=== PATIENT | male | born 1970 | race Hispanic/Latino ===

== ENCOUNTER 2017-12-19 08:22 | Observation (INO) | payer BC, SELFPAY ==
[2017-12-19 09:04] LABS: Absolute Lymphocytes (CBC) 2.5 K/uL (0.7-4.9); Absolute Monocytes 0.5 K/uL (0.1-1.3); Absolute Neutrophil 3.5 K/uL (1.8-8.0); Basophils % 1.1 % (0-1.3); Eosinophils % 1.9 % (0-4.4); Hematocrit 43.2 % (39.6-49.0); Lymphocytes % 37.5 % (15.3-44.8); MCH 35.2 pg (27.0-35.0); MCV 99.2 fL (80-100); Monocytes % 6.9 % (3.3-12.3); RBC Red Blood Cell Count 4.35 M/uL (4.33-5.43)
[2017-12-19 09:25] LABS: BUN Blood Urea Nitrogen 12 mg/dL (7-18); Bicarbonate 27 mmol/L (21-32); CKMB Creatine Kinase MB < 1.0 ng/mL (0.3-3.6); Creatine Phosphokinase 127 U/L (39-308); Glucose Level 96 mg/dL (74-106); NT PRO-BNP 238 pg/mL (<125); Potassium 3.5 mmol/L (3.5-5.1); Sodium Level 140 mmol/L (136-145)
[2017-12-19] MEDS ORDERED: ONDANSETRON 4 MG/2 ML VIAL ONE (09:37)
[2017-12-19] MEDS ORDERED: NITROGLYCERIN 0.4 MG/TAB SL ONE ×2 (09:38→14:44)
--- NOTE | 2017-12-19 10:23 | EDPHYS ---
Physician Documentation [facility] Name: Guzman Ha Age: 47 yrs Sex: Male : 1970 Arrival Date: 12/19/2017 Time: 08:25 Bed 15 Private MD: Out, [facility], [facility] ED Physician Jorge Luis Acevedo HPI: 12/19 08:59 This 47 yrs old Male presents to ER via Ambulatory with complaints of Chest rn Pain > 30 y/o. 08:59 The patient or guardian reports chest pain that is located primarily in the substernal rn area. 09:00 Onset: yesterday. The pain does not radiate. Associated signs and symptoms: Pertinent rn positives: nausea, Pertinent negatives: abdominal pain, cough, diaphoresis, near syncope, shortness of breath, syncope, vomiting. Historical: - Allergies: 08:37 Ibuprofen; aj - Home Meds: 08:37 levothyroxine 100 mcg tab 1 tab once daily [Active]; aspirin 81 mg Oral chew 1 tab once aj daily [Active]; - PMHx: 08:37 Hodgkins Lymphoma; Myocardial infarction; aj - PSHx: 08:37 BONE MARROW TRANSPLANT; CARDIAC STENTS; aj - Immunization history:: Adult Immunizations up to date. - Ebola Screening: : Patient negative for fever greater than or equal to 101.5 degrees Fahrenheit, and additional compatible Ebola Virus Disease symptoms Patient denies exposure to infectious person Patient denies travel to an Ebola-affected area in the 21 days before illness onset No symptoms or risks identified at this time. - Family history:: not pertinent. - Social history:: Smoking status: Patient/guardian denies using tobacco. - Hospitalizations: : No recent hospitalization is reported. ROS: 09:02 Constitutional: Negative for fever, chills, and weight loss, Eyes: Negative for injury, rn pain, redness, and discharge, Neck: Negative for injury, pain, and swelling, Cardiovascular: + chest pain Respiratory: Negative for shortness of breath, cough, wheezing, and pleuritic chest pain, Abdomen/GI: Negative for abdominal pain, vomiting, diarrhea, and constipation, MS/Extremity: Negative for injury and deformity, Skin: Negative for injury, rash, and discoloration, Neuro: Negative for headache, weakness, numbness, tingling, and seizure. Exam: 09:02 Constitutional: This is a well developed, well nourished patient who is awake, alert, rn and in no acute distress. Head/Face: Normocephalic, atraumatic. Cardiovascular: Regular rate and rhythm with a normal S1 and S2. No gallops, murmurs, or rubs. Normal PMI, no JVD. No pulse deficits. Respiratory: Lungs have equal breath sounds bilaterally, clear to auscultation and percussion. No rales, rhonchi or wheezes noted. No increased work of breathing, no retractions or nasal flaring. Abdomen/GI: Soft, non-tender, with normal bowel sounds. No distension or tympany. No guarding or rebound. No evidence of tenderness throughout. Skin: Warm, dry with normal turgor. Normal color with no rashes, no lesions, and no evidence of cellulitis. MS/ Extremity: Pulses equal, no cyanosis. Neurovascular intact. Full, normal range of motion. Equal circumference. Neuro: Awake and alert, GCS 15, oriented to person, place, time, and situation. Cranial nerves II-XII grossly intact. Motor strength 5/5 in all extremities. Sensory grossly intact. Vital Signs: 08:37 BP 144 / 98; Pulse 66; Resp 17; Temp 98.0; Pulse Ox 100% on R/A; Weight 99.79 kg; aj Height 5 ft. 8 in. (172.72 cm); 09:40 BP 143 / 91; Pulse 76; Resp 18; Pulse Ox 99% on R/A; Pain 7/10; ph 11:18 BP 123 / 79; Pulse 56; Resp 54; Temp 18; Pulse Ox 97% on R/A; Pain 5/10; ph 12:30 BP 125 / 78; Pulse 50; Resp 18; Pulse Ox 98% on R/A; ph 13:30 BP 121 / 80; Pulse 50; Resp 16; Temp 97.8; Pulse Ox 99% on R/A; ph 08:37 Body Mass Index 33.45 (99.79 kg, 172.72 cm) aj MDM: 08:37 Patient medically screened. rn 10:21 Differential diagnosis: acute myocardial infarction, acute pericarditis, coronary rn artery disease chest wall pain, pleurisy, pneumothorax, stable angina, unstable angina. 10:22 The patient was given aspirin in the Emergency Department. Data reviewed: vital signs, rn nurses notes, lab test result(s), EKG, radiologic studies, plain films, and as a result, I will admit patient. Counseling: I had a detailed discussion with the patient and/or guardian regarding: the historical points, exam findings, and any diagnostic results supporting the discharge/admit diagnosis, lab results, radiology results, the need for further work-up and treatment in the hospital. Response to treatment: the patient's symptoms have mildly improved after treatment. Admission orders: after a detailed discussion of the patient's condition and case, the admit orders are written by me. 12/19 08:45 Order name: Basic Metabolic Panel; Complete Time: : rn 12/19 08:45 Order name: CBC with Diff; Complete Time: : rn 12/19 08:45 Order name: Ckmb; Complete Time: : rn 12/19 08:45 Order name: CPK; Complete Time: : rn 12/19 08:45 Order name: NT PRO-BNP; Complete Time: : rn 12/19 08:45 Order name: Troponin (emerg Dept Use Only); Complete Time: : rn 12/19 08:45 Order name: XRAY Chest (1 view); Complete Time: 10:37 rn 12/19 08:45 Order name: EKG; Complete Time: 08:45 rn 12/19 08:45 Order name: Cardiac monitoring; Complete Time: : rn 12/19 12:06 Order name: Diet Heart Healthy; Complete Time: 12:06 bd 12/19 08:45 Order name: EKG - Nurse/Tech; Complete Time: 09:41 rn 12/19 08:45 Order name: IV Saline Lock; Complete Time: 08:47 rn 12/19 08:45 Order name: Labs collected and sent; Complete Time: : rn 12/19 08:45 Order name: O2 Per Protocol; Complete Time: : rn 12/19 08:45 Order name: O2 Sat Monitoring; Complete Time: 09:42 rn Administered Medications: 09:42 Drug: Nitroglycerin 0.4 mg Route: Sublingual; ph 10:30 Follow up: Response: No adverse reaction; Pain is decreased; Blood pressure is lowered ph 09:42 Drug: Zofran 4 mg Route: IVP; Site: right antecubital; ph 10:30 Follow up: Response: No adverse reaction; Nausea is decreased ph 10:49 Drug: Aspirin Chewable Tablet 324 mg Route: PO; ph 11:30 Follow up: Response: No adverse reaction ph 11:34 Drug: morphine 4 mg Route: IVP; Site: right antecubital; ph 12:00 Follow up: Response: No adverse reaction; Pain is decreased ph Disposition: 12/19/17 10:22 Hospitalization ordered by Kristopher Taylor for Observation. Preliminary diagnosis is Chest pain, unspecified. - Bed requested for Telemetry/MedSurg (observation). - Status is Observation. ph - Condition is Stable. - Problem is new. - Symptoms have improved. UTI on Admission? No Signatures: Dispatcher [employer] EDMS Joselyn Oneil Kimberly RN Shireen Motta RN RN dm5 Natali Carrion RN RN aj Nieto, Roman, MD MD rn Hall, Patricia, RN RN ph Corrections: (The following items were deleted from the chart) 13:35 10:22 Hospitalization Ordered by Kristopher Taylor MD for Observation. Preliminary diagnosis bd is Chest pain, unspecified. Bed requested for Telemetry/MedSurg (observation). Status is Observation. Condition is Stable. Problem is new. Symptoms have improved. UTI on Admission? No. rn 13:37 13:35 12/19/2017 10:22 Hospitalization Ordered by Kristopher Taylor MD for Observation. dm5 Preliminary diagnosis is Chest pain, unspecified. Bed requested for [facility] ER HOLD. Status is Observation. Condition is Stable. Problem is new. Symptoms have improved. UTI on Admission? No. bd 14:06 13:37 12/19/2017 10:22 Hospitalization Ordered by Kristopher aTylor MD for Observation. kl Preliminary diagnosis is Chest pain, unspecified. Bed requested for [facility] ER HOLD. Status is Observation. Condition is Stable. Problem is new. Symptoms have improved. UTI on Admission? No. dm5 14:54 14:06 12/19/2017 10:22 Hospitalization Ordered by Kristopher Taylor MD for Observation. ph Preliminary diagnosis is Chest pain, unspecified. Bed requested for Telemetry/MedSurg (observation). Status is Observation. Condition is Stable. Problem is new. Symptoms have improved. UTI on Admission? No. kl
--- NOTE | 2017-12-19 10:23 | ER ---
Nurse's Notes [facility] Name: Guzman Ha Age: 47 yrs Sex: Male : 1970 Arrival Date: 12/19/2017 Time: 08:25 Bed 15 Private MD: Out, [facility] Diagnosis: Chest pain, unspecified Presentation: 12/19 08:35 Presenting complaint: Patient states: Chest pain since last night. Patient reports he aj has not been compliant with "heart medications" for 6 months due to financial reasons. Transition of care: patient was not received from another setting of care. Onset of symptoms was December 18, 2017. Risk Assessment: Do you want to hurt yourself or someone else? Patient reports no desire to harm self or others. Initial Sepsis Screen: Does the patient meet any 2 criteria? No. Patient's initial sepsis screen is negative. Does the patient have a suspected source of infection? No. Patient's initial sepsis screen is negative. Care prior to arrival: None. 08:35 Method Of Arrival: Ambulatory aj 08:35 Acuity: BRIAN 3 aj Triage Assessment: 08:37 General: Appears in no apparent distress. comfortable, Behavior is calm, cooperative, aj appropriate for age. Pain: Complains of pain in chest. Neuro: Level of Consciousness is awake, alert, obeys commands, Oriented to person, place, time, situation, Appropriate for age. Cardiovascular: Reports chest pain, Capillary refill < 3 seconds in bilateral fingers Patient's skin is warm and dry. Respiratory: Airway is patent Respiratory effort is even, unlabored, Respiratory pattern is regular, symmetrical. Derm: Skin is intact, is healthy with good turgor, Skin is pink, warm \\T\\ dry. normal. Historical: - Allergies: 08:37 Ibuprofen; aj - Home Meds: 08:37 levothyroxine 100 mcg tab 1 tab once daily [Active]; aspirin 81 mg Oral chew 1 tab once aj daily [Active]; - PMHx: 08:37 Hodgkins Lymphoma; Myocardial infarction; aj - PSHx: 08:37 BONE MARROW TRANSPLANT; CARDIAC STENTS; aj - Immunization history:: Adult Immunizations up to date. - Ebola Screening: : Patient negative for fever greater than or equal to 101.5 degrees Fahrenheit, and additional compatible Ebola Virus Disease symptoms Patient denies exposure to infectious person Patient denies travel to an Ebola-affected area in the 21 days before illness onset No symptoms or risks identified at this time. - Family history:: not pertinent. - Social history:: Smoking status: Patient/guardian denies using tobacco. - Hospitalizations: : No recent hospitalization is reported. Screenin:26 Abuse screen: Denies threats or abuse. Denies injuries from another. Nutritional ph screening: No deficits noted. Tuberculosis screening: No symptoms or risk factors identified. Fall Risk None identified. Assessment: 08:45 General: Appears in no apparent distress. comfortable, well groomed, Behavior is calm, ph cooperative, appropriate for age, Denies fever, feeling ill. Pain: Complains of pain in left breast Pain does not radiate. Pain currently is 5 out of 10 on a pain scale. Quality of pain is described as sharp, stabbing, Pain began 2-3 days ago. Neuro: Level of Consciousness is awake, alert, obeys commands, Oriented to person, place, time, situation. Cardiovascular: Reports chest pain, nausea, Denies lightheadedness, shortness of breath, vomiting, Capillary refill Patient's skin is warm and dry. Rhythm is sinus rhythm Chest pain quality is sharp, is located in left anterior chest wall. Respiratory: Airway is patent Respiratory effort is even, unlabored, Respiratory pattern is regular, symmetrical. GI: No signs and/or symptoms were reported involving the gastrointestinal system. Derm: Skin is intact, is healthy with good turgor, Skin is pink, warm \\T\\ dry. Musculoskeletal: Circulation, motion, and sensation intact. Range of motion: intact in all extremities. 09:41 Reassessment: Patient appears in no apparent distress at this time. Patient and/or ph family updated on plan of care and expected duration. Pain level reassessed. Patient is alert, oriented x 3, equal unlabored respirations, skin warm/dry/pink. Pt reports chest pain 7/10 and nausea, ERP notified, see MAR. 10:45 Reassessment: Patient appears in no apparent distress at this time. Patient and/or ph family updated on plan of care and expected duration. Pain level reassessed. Patient is alert, oriented x 3, equal unlabored respirations, skin warm/dry/pink. Pt reports pain has decreased to 5/10, denies nausea, states, " I am still having a burning pain in my chest. Do you think I can get something for it?" ERP notified, awaiting room assignment, VSS. 12:00 Reassessment: Patient appears in no apparent distress at this time. Patient and/or ph family updated on plan of care and expected duration. Pain level reassessed. Patient is alert, oriented x 3, equal unlabored respirations, skin warm/dry/pink. Pt reports that pain has improved to 2/10, denies nausea. 13:00 Reassessment: Patient appears in no apparent distress at this time. No changes from ph previously documented assessment. Patient and/or family updated on plan of care and expected duration. Pain level reassessed. Patient is alert, oriented x 3, equal unlabored respirations, skin warm/dry/pink. Pt eating lunch, tolerating well. Vital Signs: 08:37 BP 144 / 98; Pulse 66; Resp 17; Temp 98.0; Pulse Ox 100% on R/A; Weight 99.79 kg; aj Height 5 ft. 8 in. (172.72 cm); 09:40 BP 143 / 91; Pulse 76; Resp 18; Pulse Ox 99% on R/A; Pain 7/10; ph 11:18 BP 123 / 79; Pulse 56; Resp 54; Temp 18; Pulse Ox 97% on R/A; Pain 5/10; ph 12:30 BP 125 / 78; Pulse 50; Resp 18; Pulse Ox 98% on R/A; ph 13:30 BP 121 / 80; Pulse 50; Resp 16; Temp 97.8; Pulse Ox 99% on R/A; ph 08:37 Body Mass Index 33.45 (99.79 kg, 172.72 cm) ED Course: 08:25 Patient arrived in ED. sb2 08:25 Out, [facility] is Private Physician. sb2 08:36 Triage completed. aj 08:37 Jorge Luis Acevedo MD is Attending Physician. rn 08:37 Arm band placed on left wrist. Patient placed in an exam room. aj 08:40 Inserted saline lock: 20 gauge in right antecubital area, using aseptic technique. em1 Blood collected. 09:25 Rajwinder Prieto, RN is Primary Nurse. ph 09:26 XRAY Chest (1 view) In Process Unspecified. EDMS 09:40 EKG done, by plumbing technician. reviewed by Jorge Luis Acevedo MD. dt2 10:22 Kristopher Taylor MD is Hospitalizing Provider. rn 13:27 Patient has correct armband on for positive identification. Bed in low position. Call ph light in reach. Side rails up X 1. Pulse ox on. NIBP on. Warm blanket given. 13:31 No provider procedures requiring assistance completed. Patient admitted, IV remains in ph place. Patient maintains SpO2 saturation greater than 95% on room air. Administered Medications: 09:42 Drug: Nitroglycerin 0.4 mg Route: Sublingual; ph 10:30 Follow up: Response: No adverse reaction; Pain is decreased; Blood pressure is lowered ph 09:42 Drug: Zofran 4 mg Route: IVP; Site: right antecubital; ph 10:30 Follow up: Response: No adverse reaction; Nausea is decreased ph 10:49 Drug: Aspirin Chewable Tablet 324 mg Route: PO; ph 11:30 Follow up: Response: No adverse reaction ph 11:34 Drug: morphine 4 mg Route: IVP; Site: right antecubital; ph 12:00 Follow up: Response: No adverse reaction; Pain is decreased ph Outcome: 10:22 Decision to Hospitalize by Provider. rn 13:40 Admitted to ER Hold. Please see [facility] for further documentation. ph 13:40 Condition: stable 13:40 Instructed on the need for admit. 14:54 Patient left the ED. ph Signatures: Dispatcher [employer] Natali Downs RN RN aj Nieto, Roman, MD MD rn Martinez, Eric emRajwinder Echevarria RN RN ph Billeau, Sheri sb2 Lauren Desir dt2
--- NOTE | 2017-12-19 10:29 | RAD REPORT ---
EXAM DESCRIPTION: RAD - Chest Single View - 12/19/2017 9:27 am CLINICAL HISTORY: CHEST PAIN<Reason For Exam>CHEST PAIN COMPARISON: Chest Single View dated 11/05/2016; Chest Single View dated 09/12/2016; Chest Single View dated 09/05/2016; Chest Pa And Lat (2 Views) dated 08/22/2016<Comparisons> TECHNIQUE: AP portable chest image was obtained 0924 hours . FINDINGS: Lung volumes are low and the patient is lordotic in positioning. No peripheral mass or con solidation. Low lung volumes could mask early interstitial edema or infiltrate. Vasculature within no rmal limits. Mild cardiomegaly is present. No measurable pleural effusion and no pneumothorax. No massimo ss bony abnormality seen. No acute aortic findings suspected. IMPRESSION: Mild cardiomegaly without vascular engorgement. Prominent interstitial markings accentuated by shallow inspiration. Mild interstitial edema or infilt rate could be masked.
[2017-12-19] MEDS ORDERED: ASPIRIN 81 MG CHEWABLE TABLET ONE (10:50)
[2017-12-19] MEDS ORDERED: NITROGLYCERIN 0.4 MG/TAB SL PRN (10:52)
[2017-12-19] MEDS ORDERED: ACETAMINOPHEN 500 MG TAB PO PRN (10:52)
[2017-12-19] MEDS ORDERED: ALPRAZOLAM 0.25 MG TABLET PO PRN (10:52)
[2017-12-19] MEDS ORDERED: ZOLPIDEM TARTRATE 5 MG TABLET PO PRN (10:52)
[2017-12-19] MEDS: MORPHINE 4 MG/ML SYR IV PRN ×3 (11:34→21:03)
[2017-12-19] MEDS ORDERED: MORPHINE 4 MG/ML SYR ONE (11:35)
[2017-12-19 13:47] VITALS: BMI 33.3
--- NOTE | 2017-12-19 16:16 | EKG ---
Test Date: 2017-12-19 Test Time: 09:16:06 Forming Acid Dumper: NIKOS MEASUREMENT RESULTS: Intervals: Rate: 60 DC: 172 QRSD: 98 QT: 428 QTc: 428 [place]: P: 30 DC: 172 QRS: 16 T: 21 INTERPRETIVE STATEMENTS: Normal sinus rhythm Normal ECG Compared to ECG 11/06/2016 00:49:10 No significant changes Electronically Signed On 12-19-17 16:14:30 CDT by Aditya Delgado
[2017-12-19] MEDS ORDERED: ENOXAPARIN 40 MG/0.4 ML SQ SCH (17:00)
[2017-12-19] MEDS: CARVEDILOL 6.25 MG TAB PO SCH (20:58)
[2017-12-19] MEDS ORDERED: ROSUVASTATIN 10 MG TAB PO SCH (21:00)
[2017-12-19] MEDS ORDERED: ATORVASTATIN 80 MG TAB PO SCH (21:00)
--- NOTE | 2017-12-20 02:35 | HP ---
Date of Admission: 12/19/2017 Chief Complaint: Chest pain. Primary Care Physician: None. Consultants: Dr. Pettit, Cardiology. Code Status: Full. History Of Present Illness: The patient is a 47-year-old male, appears older than stated age, with p ast medical history of coronary artery disease, status post 8 stents, also hypothyroidism, history of lymphoma status post chemoradiation therapy and bone marrow transplant as well as obesity, comes in with a 3-day history of left-sided chest pain, which is burning in nature, associated with some nause a, but no vomiting, diaphoresis, or shortness of breath. The patient does report some radiation to [facility] of his chest. He came into the ER for further evaluation. His symptoms are constant, mode rate, progressively worsening. Upon arrival, his vital signs were stable. He was afebrile. He rece ived some nitroglycerin and aspirin, which improved his pain. His initial workup including EKG and t roponin were negative. Chest x-ray did not show any acute changes. The patient was then referred fo r admission. When seen in the ER, he was awake, alert, oriented x3, in some mild distress. Past Medical History: History of coronary artery disease status post stent, Hodgkin lymphoma, degene rative disk disease, hypothyroidism, obesity. Past Surgical History: Cardiac stent x7, bone marrow transplant. Home Medications: List reviewed. Allergies: TO IBUPROFEN CAUSES SHORTNESS OF BREATH. Family History: Father has heart disease. Mother's side of the family has multiple cancers. Social History: The patient is an every day smoker, smokes 4-6 cigars every day. Drinks alcohol occ asionally. Currently unemployed and unable to find work due to his cardiac condition, is filing for disability. Independent in his activities of daily living. Lives at his sister's apartment. Physical Examination: Vital Signs: Temperature 98, heart rate 66, blood pressure 144/98, respirations 17, O2 100% on room air. General: Awake, alert, oriented x3, in some mild distress, appears older than stated age, ill-appear ing male, obese, BMI 33. HEENT: Normocephalic, atraumatic. PERRLA, EOMI. Moist mucous membranes. Oropharynx is clear. Poo r dentition. Conjunctivae anicteric. Neck: Supple. No JVD. Trachea midline. CV: S1, S2. No murmurs. Regular rate and rhythm. Peripheral pulses present. Respiratory: Moving air well bilaterally. No wheezing or stridor. No use of accessory muscles. Gastrointestinal: Abdomen is soft, nontender, nondistended. Positive bowel sounds. No guarding or rigidity. Extremities: No clubbing, cyanosis. Trace pedal edema. No calf tenderness. Neuro: Cranial nerves 2 through 12 intact grossly. No focal neurological deficit. Speech is normal . Strength is 5/5 bilateral upper and lower extremities. Skin: No rashes. Normal skin turgor. Psych: Mood is anxious. Affect is congruent with mood. Insight and judgment are fair. Laboratory Data: Sodium 140, potassium 3.5, chloride 106, CO2 27, BUN 12, creatinine 1.2, glucose 96 , calcium 8.2. CK is 127, troponin less than 0.02. BNP 238. WBC 6.6, H and H 15.3 and 43.2, platel ets 255, neutrophils 52%. Chest x-ray, personally reviewed, shows mild cardiomegaly without vascular engorgement, prominent interstitial markings accentuated by shallow inspiration. Mild interstitial edema or infiltrate could be masked. Assessment: A 47-year-old male with: 1.Unstable angina. We will start on chest pain guidelines with aspirin, statin, Plavix and beta-blo cker. Cardiology has been consulted. We will obtain echocardiogram to evaluate wall motion and ejec tion fraction. The patient may need repeat cardiac evaluation, stress versus repeat catheterization. The patient has been noncompliant with his medications. 2.Noncompliance. Due to financial reasons, has been out of his medications for 9 months. 3.Coronary artery disease, [place] artery and [place] heart, status post stent with angina. We will c ontinue aspirin and Plavix. 4.Hypothyroidism. Continue Synthroid. 5.Essential hypertension. Resume home medications as appropriate. 6.Obesity, BMI 33.3, counseled. 7.Nicotine dependence with cigar smoking. Counseled. 8.Gastrointestinal and deep venous thrombosis prophylaxis addressed. Plan: Admit the patient to Med-Surg, place as observation. JOAQUÍN Voice ID: [id number]
[2017-12-20 03:35] VITALS: O2SAT 98
[2017-12-20 05:30] LABS: Absolute Lymphocytes (CBC) 2.1 K/uL (0.7-4.9); Absolute Monocytes 0.5 K/uL (0.1-1.3); Absolute Neutrophil 3.6 K/uL (1.8-8.0); Basophils % 0.9 % (0-1.3); Hematocrit 40.8 % (39.6-49.0); Lymphocytes % 33.2 % (15.3-44.8); MCH 35.7 pg (27.0-35.0); MCV 98.3 fL (80-100); Monocytes % 7.5 % (3.3-12.3); RBC Red Blood Cell Count 4.15 M/uL (4.33-5.43)
[2017-12-20 06:02] LABS: Potassium 4.1 mmol/L (3.5-5.1)
--- NOTE | 2017-12-20 06:38 | CON ---
Date of Consultation: 12/19/2017 Admitted on 12/19/[address] Taylor's service. I saw the patient on 12/19/2017. Reason For Consultation: Chest pain. History Of Present Illness: Mr. Ha is a 47-year-old male. He is well known to me from office visit and hospital admission. Had an LAD stent in August of 2016. He has a history of h ypertension and dyslipidemia. He came in with a sharp stabbing chest pain in the midepigastric regio n that would last 5 to 10 minutes at a time and keeps recurring. No nausea, vomiting, diaphoresis, P ND, orthopnea, pedal edema, palpitations, or syncope. By the time I saw him, he has already had nega tive troponin, CPKs and MBs, as well as EKG and chest x-ray. Past Medical History: As stated above. Allergies: HE IS ALLERGIC TO IBUPROFEN. Review of Systems: Negative. Social History: Negative. Family History: Positive for heart disease. Medications: At home include Lipitor, Plavix, Coreg, and Imdur. Physical Examination: Vital Signs: Stable, afebrile. HEENT: Negative. Neck: Supple. No bruit. Chest: Clear. Cardiac: Normal. Abdomen: Benign. Extremities: Revealed no clubbing, cyanosis, or edema. Diagnostic Data: Negative. Impression And Plan: Atypical chest pain, sharp, stabbing with burning, more suggestive of musculosk eletal pain or reflux disease. Workup so far is negative. The patient had an LAD stent 3 months ago and he is due to have a stress test and echocardiogram and I will schedule those for December 21, 2017 , and see what they show before making final decisions. His blood pressure is well controlled and hi s dyslipidemia is well controlled. CARLA/MODL Voice ID: [id number] Report ID: [id number]
[2017-12-20] MEDS ORDERED: PRASUGREL (EFFIENT) 10 MG TAB PO SCH (09:00)
[2017-12-20] MEDS ORDERED: ASPIRIN EC 81 MG TAB PO SCH (09:00)
[2017-12-20] MEDS ORDERED: ISOSORBIDE MONO SR 60 MG TAB PO SCH (09:00)
[2017-12-20] MEDS ORDERED: LISINOPRIL 10 MG TAB PO SCH (09:00)
[2017-12-20] MEDS ORDERED: CLOPIDOGREL 75 MG TABLET PO SCH (09:00)
[2017-12-20] MEDS: CARVEDILOL 6.25 MG TAB PO SCH (10:40)
[2017-12-20] MEDS: MORPHINE 4 MG/ML SYR IV PRN (10:42)
--- NOTE | 2017-12-20 10:59 | RAD REPORT ---
EXAM DESCRIPTION: NM - Rest Stress Cardiac Imaging - 12/20/2017 10:45 am CLINICAL HISTORY: CP Chest pain. COMPARISON: Rest Stress Cardiac Imaging dated 11/24/2015 TECHNIQUE: The patient was administered approximately 10mCi of Tc 99m Sestamibi prior to resting SPE CT imaging of the heart. The patient was then administered approximately 30 mCi of Tc 99m Sestamibi f ollowing exercise or pharmacologic stress. Multiplanar SPECT images were reviewed. FINDINGS: No stress induced ischemic defect is seen to suggest stress induced ischemia. No fixed def ect is seen to suggest hibernating myocardium or scarred myocardium. The end diastolic volume is 142 ml, the end systolic volume is 75 ml, and the ejection fraction is 47 %. IMPRESSION: No stress induced ischemia.
[2017-12-20 14:56] VITALS: BP 149/87; TEMP 98.5
--- NOTE | 2017-12-20 17:19 | ECHO ---
HEIGHT: 5 ft 8 in WEIGHT: 219 lb 0 oz DATE OF STUDY: 12/20/[address]: Kristopher Taylor MD 2-DIMENSIONAL: YES M.MODE: YES DOPPLER: YES COLOR FLOW: YES TDS: PORTABLE: DEFINITY: BUBBLE STUDY: DIAGNOSIS: CHEST PAIN CARDIAC HISTORY: CATHERIZATION: YES SURGERY: NO PROSTHETIC VALVE: NO PACEMAKER: NO MEASUREMENTS (cm) DIASTOLIC (NORMALS) SYSTOLIC (NORMALS) IVSd 1.1 (0.6-1.2) LA Diam 3.6 (1.9-4.0) LVEF 56% LVIDd 4.2 (3.5-5.7) LVIDs 3.0 (2.0-3.5) %FS 29% LVPWd 1.1 (0.6-1.2) Ao Diam 3.0 (2.0-3.7) 2 DIMENSIONAL ASSESSMENT: RIGHT ATRIUM: NORMAL LEFT ATRIUM: NORMAL RIGHT VENTRICLE: NORMAL LEFT VENTRICLE: NORMAL TRICUSPID VALVE: NORMAL MITRAL VALVE: NORMAL PULMONIC VALVE: NORMAL AORTIC VALVE: NORMAL PERICARDIAL EFFUSION: NONE AORTIC ROOT: NORMAL LEFT VENTRICULAR WALL MOTION: NORMAL DOPPLER/COLOR FLOW: NORMAL COMMENTS: NORMAL TWO DIMENSIONAL ECHOCARDIOGRAM WITH DOPPLER. TECHNOLOGIST: ITZEL MENDOZA
--- NOTE | 2017-12-20 18:26 | TREADMILL ---
70% H.R.: 120 85% H.R.: 145 90% H.R.: 154 100% H.R.: 171 DX: CHEST PAIN AND CORONARY ARTERY DISEASE Date of Study: 12/20/2017 Ht: 5 8 Wt: 219 lb 0 oz Consulting Physician: LIZBET MEDICATIONS: TYLENOL, XANAX, ASPIRIN, LIPITOR, COREG, PLAVIX, LOVENOX, IMDUR, PRINIVIL, NITROSTAT, AMBIEN HISTORY: 47 YEAR OLD MAN HERE FOR CHEST PAIN AND CORONARY ARTERY DISEASE. HISTORY OF MYOCARDIAL INFARCTION WITH TOTAL OF NINE HEART STENTS AND HODGKIN LYMPHOMA. PHYSICIAL EXAMINATION: RESTING B.P.: 138/97 RESTING H.R.: 69 RESTING EKG: NORMAL PROTOCOL: OVIDIO CARDIOLITE EXERCISE TIME: 7:36 MAXIMUM HEART RATE: 151 % OF PREDICTED B.P. AT PEAK STRESS: 174/92 140/97 H.R. AT 1 MINUTE POST EXERCISE: 96 IMPRESSION: OVIDIO CARDIOLITE STRESS TEST PREFORMED. STOPPED FOR TARGET HEART RATE. CARDIOLITE INJECTED PER PROTOCOL. NO PREMATURE VENTRICULAR COMPLEXES. NOTED. DENIES ANY PAIN. SEE NUCLEAR MEDICINE REPORT.
--- NOTE | 2017-12-21 07:33 | DS ---
Date of Discharge: 12/20/2017 Consultants: Dr. Delgado with Cardiology. Procedures: On 12/20/2017, cardiac stress test shows no stress-induced ischemia. EF of 47%. Admitting Diagnoses: 1.Unstable angina. Rule out acute coronary syndrome. 2.Noncompliance. 3.Coronary artery disease, [place] artery, [place] heart, status post stent with angina. 4.Hypothyroidism. 5.Essential hypertension. 6.Obesity, BMI 33.3. 7.Nicotine dependence with cigar smoking. Discharge Diagnoses: 1.Unstable angina, acute coronary syndrome ruled out, likely atypical chest pain. 2.Noncompliance due to financial reasons. 3.Coronary artery disease, [place] artery, [place] heart, status post stents with angina, now resolved . 4.Hypothyroidism. 5.Essential hypertension, stable. 6.Obesity, BMI 33.3. 7.Nicotine dependence with cigar smoking, counseled. 8.History of lymphoma. Hospital Course: The patient is a 47-year-old male who appears older than stated age. Has past medi april history of heart disease, status post 8 stents, hypothyroidism, history of lymphoma, obesity, hyp ertension, comes in with chest pain. The patient states it has been ongoing for several days. The p atjuanjo has of note not been on his medications for several months, approximately 9 months due to bonifacio ncial reasons. The patient was started on chest pain guidelines. His cardiac troponins were negativ e. EKG did not show any acute changes. He was seen by Dr. Delgado with Cardiology. Stress test was done which was negative. The patient was therefore cleared for discharge. His chest x-ray did not show any acute changes either. This may likely be gastroesophageal reflux disease or atypical chest pain. He did report some tenderness on his ribs with point tenderness. Social Work consulted to ass ist the patient with medication assistance card. The patient was then discharged home in a stable co ndition. Activity: As tolerated. Diet: Heart healthy. Followup: Follow up with PCP in 2 to 3 days. Follow up with noodle press operator, Dr. Delgado, in 2 weeks. Return to ER for worsening condition. Medications: As per medication reconciliation list. Physical Examination: General: Awake, alert, oriented x3. No acute distress. CV: S1, S2. No murmurs. Respiratory: Moving air well bilaterally. Abdomen: Soft, nontender, nondistended. Positive bowel sounds. Extremities: No clubbing, cyanosis, edema. Neurologic: Nonfocal. SA/MODL Voice ID: [id number] Report ID: [id number]
== END 2017-12-20 15:00 | disposition home or self-care (01) ==
LOC: ER 08:22 → ERHOLD 10:40 → 2ND 14:35
PROVIDERS: ADMIT Family Medicine; ATTEND Family Medicine
DX: I25.110 Atherosclerotic heart disease of native coronary artery with unstable angina pectoris (principal); I10 Essential (primary) hypertension; E03.9 Hypothyroidism, unspecified; F17.210 Nicotine dependence, cigarettes, uncomplicated; E66.9 Obesity, unspecified; Z68.33 Body mass index [BMI] 33.0-33.9, adult; Z85.72 Personal history of non-Hodgkin lymphomas; Z95.5 Presence of coronary angioplasty implant and graft; Z91.14 Patient's other noncompliance with medication regimen
CPT/HCPCS: 36415; 71045; 78452; 80048; 80061; 82550; 82553; 83880; 84484; 85025; 93005; 93017; 93306; 94760; 96374; 96375; 99285; A9500; G0378; J1650; J2405

== ENCOUNTER 2018-03-18 15:46 | Observation (INO) | payer SELFPAY ==
[2018-03-18] MEDS ORDERED: NA CHLORIDE 0.9% 1,000 ML ONE (16:13)
--- NOTE | 2018-03-18 16:37 | EDPHYS ---
Physician Documentation [facility] Name: Guzman Ha Age: 47 yrs Sex: Male : 1970 Arrival Date: 03/18/2018 Time: 15:47 Bed 7 Private MD: Aditya Delgado S ED Physician Suhail Plaza HPI: 03/18 16:31 This 47 yrs old Male presents to ER via Ambulatory with complaints of Chest herve Pain. 16:31 The patient or guardian reports chest pain that is located primarily in the substernal herve area. Onset: just prior to arrival, this morning. The pain does not radiate. Associated signs and symptoms: Pertinent positives: lightheadedness, nausea, shortness of breath. The chest pain is described as a heaviness, a pressure. Modifying factors: The symptoms are alleviated by nothing. the symptoms are aggravated by nothing. Severity of pain: At its worst the pain was moderate in the emergency department the pain has improved moderately. The patient has experienced similar episodes in the past, multiple times. Historical: - Allergies: 15:50 Ibuprofen; sg - PMHx: 15:50 HODGIKINS LYMPHOMA; Myocardial infarction; sg - PSHx: 15:50 BONE MARROW TRANSPLANT; CARDIAC STENTS; sg - Immunization history:: Adult Immunizations up to date. - Social history:: Smoking status: Patient/guardian denies using tobacco. - Ebola Screening: : Patient negative for fever greater than or equal to 101.5 degrees Fahrenheit, and additional compatible Ebola Virus Disease symptoms Patient denies exposure to infectious person Patient denies travel to an Ebola-affected area in the 21 days before illness onset No symptoms or risks identified at this time. - Family history:: not pertinent. ROS: 16:31 Constitutional: Negative for fever, chills, and weight loss, Eyes: Negative for injury, herve pain, redness, and discharge, ENT: Negative for injury, pain, and discharge, Neck: Negative for injury, pain, and swelling, Respiratory: Negative for shortness of breath, cough, wheezing, and pleuritic chest pain, Abdomen/GI: Negative for abdominal pain, nausea, vomiting, diarrhea, and constipation, Back: Negative for injury and pain, : Negative for injury, bleeding, discharge, and swelling, MS/Extremity: Negative for injury and deformity, Skin: Negative for injury, rash, and discoloration, Neuro: Negative for headache, weakness, numbness, tingling, and seizure, Psych: Negative for depression, anxiety, suicide ideation, homicidal ideation, and hallucinations, Allergy/Immunology: Negative for hives, rash, and allergies, Endocrine: Negative for neck swelling, polydipsia, polyuria, polyphagia, and marked weight changes, Hematologic/Lymphatic: Negative for swollen nodes, abnormal bleeding, and unusual bruising. 16:31 Cardiovascular: Positive for chest pain, of the chest. Exam: 16:31 Constitutional: This is a well developed, well nourished patient who is awake, alert, herve and in no acute distress. Head/Face: Normocephalic, atraumatic. Eyes: Pupils equal round and reactive to light, extra-ocular motions intact. Lids and lashes normal. Conjunctiva and sclera are non-icteric and not injected. Cornea within normal limits. Periorbital areas with no swelling, redness, or edema. ENT: Nares patent. No nasal discharge, no septal abnormalities noted. Tympanic membranes are normal and external auditory canals are clear. Oropharynx with no redness, swelling, or masses, exudates, or evidence of obstruction, uvula midline. Mucous membranes moist. Neck: Trachea midline, no thyromegaly or masses palpated, and no cervical lymphadenopathy. Supple, full range of motion without nuchal rigidity, or vertebral point tenderness. No Meningismus. Chest/axilla: Normal chest wall appearance and motion. Nontender with no deformity. No lesions are appreciated. Cardiovascular: Regular rate and rhythm with a normal S1 and S2. No gallops, murmurs, or rubs. Normal PMI, no JVD. No pulse deficits. Respiratory: Lungs have equal breath sounds bilaterally, clear to auscultation and percussion. No rales, rhonchi or wheezes noted. No increased work of breathing, no retractions or nasal flaring. Abdomen/GI: Soft, non-tender, with normal bowel sounds. No distension or tympany. No guarding or rebound. No evidence of tenderness throughout. Back: No spinal tenderness. No costovertebral tenderness. Full range of motion. Male : Normal genitalia with no discharge or lesions. Skin: Warm, dry with normal turgor. Normal color with no rashes, no lesions, and no evidence of cellulitis. MS/ Extremity: Pulses equal, no cyanosis. Neurovascular intact. Full, normal range of motion. Neuro: Awake and alert, GCS 15, oriented to person, place, time, and situation. Cranial nerves II-XII grossly intact. Motor strength 5/5 in all extremities. Sensory grossly intact. Cerebellar exam normal. Normal gait. Psych: Awake, alert, with orientation to person, place and time. Behavior, mood, and affect are within normal limits. 16:31 Musculoskeletal/extremity: DVT Exam: No signs of deep vein thrombosis. no pain, no swelling, no tenderness, negative Homans' sign noted on exam, no appreciated bluish discoloration, no erythema, no increased warmth. Vital Signs: 15:52 BP 116 / 74; Pulse 121; Resp 17; Temp 98.7; Pulse Ox 99% ; Weight 97.52 kg; Height 5 sg ft. 8 in. (172.72 cm); Pain 2/10; 16:00 BP 121 / 78; Pulse 111; Resp 18 S; Pulse Ox 100% on R/A; Pain 3/10; aa5 16:15 BP 125 / 95; Pulse 116; Resp 16 S; Pulse Ox 100% on R/A; aa5 16:58 BP 127 / 79; Pulse 96; Resp 18 S; Pulse Ox 98% on R/A; aa5 17:45 BP 120 / 80; Pulse 88; Resp 16 S; Pulse Ox 99% on R/A; Pain 0/10; aa5 15:52 Body Mass Index 32.69 (97.52 kg, 172.72 cm) MDM: 15:58 Patient medically screened. [facility] 16:33 Data reviewed: vital signs, nurses notes, lab test result(s), EKG, radiologic studies, [facility] plain films. 03/18 15:59 Order name: Basic Metabolic Panel; Complete Time: 17:24 [facility] 03/18 15:59 Order name: CBC with Diff; Complete Time: 17:01 [facility] 03/18 15:59 Order name: LFT's; Complete Time: 17:24 [facility] 03/18 15:59 Order name: Magnesium; Complete Time: 17:24 [facility] 03/18 15:59 Order name: NT PRO-BNP; Complete Time: 17:24 [facility] 03/18 15:59 Order name: PT-INR; Complete Time: 17:24 [facility] 03/18 15:59 Order name: Troponin (emerg Dept Use Only); Complete Time: 17:24 [facility] 03/18 15:59 Order name: XRAY Chest (1 view) [facility] 03/18 15:59 Order name: Lipase; Complete Time: 17:24 [facility] 03/18 18:10 Order name: RAD EDMS 03/18 15:59 Order name: EKG; Complete Time: 16:01 [facility] 03/18 15:59 Order name: Cardiac monitoring; Complete Time: 16:02 [facility] 03/18 15:59 Order name: EKG - Nurse/Tech; Complete Time: 16:02 [facility] 03/18 15:59 Order name: IV Saline Lock; Complete Time: 16:02 [facility] 03/18 15:59 Order name: Labs collected and sent; Complete Time: 16:02 [facility] 03/18 15:59 Order name: O2 Per Protocol; Complete Time: 16:02 [facility] 03/18 15:59 Order name: O2 Sat Monitoring; Complete Time: 16:02 [facility] 03/18 16:39 Order name: CONS Physician Consult EDKY Administered Medications: 16:10 Drug: NS 0.9% 1000 ml Route: IV; Rate: 125 ml/hr; Site: left forearm; ss 16:55 Drug: Zofran 4 mg Route: IVP; Site: left forearm; jl7 17:05 Follow up: Response: No adverse reaction aa5 16:55 Drug: NS 0.9% 500 ml Route: IV; Rate: bolus; Site: left forearm; jl7 17:45 Follow up: IV Status: Completed infusion aa5 16:59 Drug: morphine 4 mg Route: IVP; Site: left forearm; jl7 17:05 Follow up: Response: No adverse reaction aa5 16:59 Drug: Pepcid 20 mg Route: IVP; Site: left forearm; jl7 17:05 Follow up: Response: No adverse reaction aa5 17:00 Drug: Lopressor 2.5 mg Route: IVP; Site: left forearm; jl7 17:05 Follow up: Response: No adverse reaction aa5 17:10 Drug: Lopressor (metoprolol TARTRATE) 50 mg Route: PO; jl7 17:45 Follow up: Response: No adverse reaction aa5 17:11 Drug: Aspirin Chewable Tablet 162 mg Route: PO; jl7 17:45 Follow up: Response: No adverse reaction aa5 17:12 Drug: Lovenox 1 mg/kg Route: Sub-Q; Site: left lower abdomen; jl7 17:45 Follow up: Response: No adverse reaction aa5 17:55 Not Given (Physician Discretion): Lopressor 2.5 mg IVP once; Hold for SBP <100 or HR aa5 <60. 18:10 Drug: Nicoderm CQ 21 mg/24 hr 1 patches Route: Transdermal; Site: affected area; jl7 18:25 Follow up: Response: No adverse reaction aa5 Disposition: 03/18/18 16:36 Hospitalization ordered by Rickey Guerrero for Observation. Preliminary diagnosis are Chest pain, unspecified, Tobacco abuse counseling, Tobacco use. - Bed requested for Telemetry/MedSurg (observation). - Status is Observation. aa5 - Condition is Fair. - Problem is new. - Symptoms have improved. UTI on Admission? No Signatures: Dispatcher [employer] [place] RN RN dw Gay, Steven RN Suhail Evans MD MD cha Calderon, Audri, RN RN aa5 Annie Paulino RN RN Julian Poe RN RN jl7 Corrections: (The following items were deleted from the chart) 16:20 16:14 Cervical Collar ordered. [facility] 18:01 16:36 Hospitalization Ordered by Rickey Guerrero DO for Observation. Preliminary diagnosis is Chest pain, unspecified; Tobacco abuse counseling; Tobacco use. Bed requested for Telemetry/MedSurg (observation). Status is Observation. Condition is Fair. Problem is new. Symptoms have improved. UTI on Admission? No. [facility] 18:28 18:01 03/18/2018 16:36 Hospitalization Ordered by Rickey Guerrero DO for Observation. aa5 Preliminary diagnosis is Chest pain, unspecified; Tobacco abuse counseling; Tobacco use. Bed requested for Telemetry/MedSurg (observation). Status is Observation. Condition is Fair. Problem is new. Symptoms have improved. UTI on Admission? No. dw
--- NOTE | 2018-03-18 16:37 | ER ---
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 Transition of care: patient was not received from another setting of care. Onset of symptoms was March 18, 2018. Risk Assessment: Do you want to hurt yourself or someone else? Patient reports no desire to harm self or others. Initial Sepsis Screen: Does the patient meet any 2 criteria? No. Patient's initial sepsis screen is negative. Does the patient have a suspected source of infection? No. Patient's initial sepsis screen is negative. Care prior to arrival: None. 15:50 Method Of Arrival: Ambulatory sg 15:55 Acuity: BRIAN 2 sg Historical: - Allergies: 15:50 Ibuprofen; sg - PMHx: 15:50 HODGIKINS LYMPHOMA; Myocardial infarction; sg - PSHx: 15:50 BONE MARROW TRANSPLANT; CARDIAC STENTS; sg - Immunization history:: Adult Immunizations up to date. - Social history:: Smoking status: Patient/guardian denies using tobacco. - Ebola Screening: : Patient negative for fever greater than or equal to 101.5 degrees Fahrenheit, and additional compatible Ebola Virus Disease symptoms Patient denies exposure to infectious person Patient denies travel to an Ebola-affected area in the 21 days before illness onset No symptoms or risks identified at this time. - Family history:: not pertinent. Screenin:00 Abuse screen: Denies threats or abuse. Nutritional screening: No deficits noted. aa5 Tuberculosis screening: No symptoms or risk factors identified. Fall Risk None identified. Assessment: 16:00 General: Appears comfortable, Behavior is calm, cooperative. Pain: Complains of pain in aa5 mid-sternal area and epigastric area Pain does not radiate. Pain currently is 3 out of 10 on a pain scale. Quality of pain is described as sharp, Pain began 2-3 days ago. Is episodic, lasting more than 1 hour. Alleviated by by Nitro. Neuro: Level of Consciousness is awake, alert, obeys commands, Oriented to person, place, time, situation. Cardiovascular: Heart tones S1 S2 present Rhythm is regular. Respiratory: Airway is patent Respiratory effort is even, unlabored, Respiratory pattern is regular, symmetrical, Breath sounds are clear bilaterally. Denies cough, shortness of breath. GI: Abdomen is round non-distended, Bowel sounds present X 4 quads. Abd is soft and non tender X 4 quads. Patient currently denies nausea, vomiting. : No signs and/or symptoms were reported regarding the genitourinary system. EENT: No signs and/or symptoms were reported regarding the EENT system. Derm: Skin is pink, warm \T\ dry. Musculoskeletal: Range of motion: intact in all extremities. 17:00 Reassessment: Patient and/or family updated on plan of care and expected duration. Pain aa5 level reassessed. Patient is alert, oriented x 3, equal unlabored respirations, skin warm/dry/pink. Pain: Pain currently is 3 out of 10 on a pain scale. Cardiovascular: Rhythm is sinus rhythm. 17:45 Reassessment: Patient and/or family updated on plan of care and expected duration. Pain aa5 level reassessed. Patient is alert, oriented x 3, equal unlabored respirations, skin warm/dry/pink. Patient denies pain at this time. 18:25 Reassessment: Patient is alert, oriented x 3, equal unlabored respirations, skin aa5 warm/dry/pink. Vital Signs: 15:52 BP 116 / 74; Pulse 121; Resp 17; Temp 98.7; Pulse Ox 99% ; Weight 97.52 kg; Height 5 sg ft. 8 in. (172.72 cm); Pain 2/10; 16:00 BP 121 / 78; Pulse 111; Resp 18 S; Pulse Ox 100% on R/A; Pain 3/10; aa5 16:15 BP 125 / 95; Pulse 116; Resp 16 S; Pulse Ox 100% on R/A; aa5 16:58 BP 127 / 79; Pulse 96; Resp 18 S; Pulse Ox 98% on R/A; aa5 17:45 BP 120 / 80; Pulse 88; Resp 16 S; Pulse Ox 99% on R/A; Pain 0/10; aa5 15:52 Body Mass Index 32.69 (97.52 kg, 172.72 cm) ED Course: 15:47 Patient arrived in ED. sb2 15:47 Aditya Delgado MD is Private Physician. sb2 15:49 Arm band placed on left wrist. sg 15:55 Triage completed. sg 15:56 Julian Poe, CESAR is Primary Nurse. jl7 15:58 Suhail Plaza MD is Attending Physician. herve 16:00 Patient has correct armband on for positive identification. Placed in gown. Bed in low aa5 position. Call light in reach. Side rails up X2. pvc monitor on. Pulse ox on. NIBP on. 16:02 Inserted saline lock: 18 gauge in left forearm, using aseptic technique. Blood jl7 collected. 16:10 Savanna Be, CESAR is Primary Nurse. aa5 16:17 EKG done, by tool repair technician. reviewed by Jorge Luis Acevedo MD. sm3 16:35 Rickey Guerrero DO is Hospitalizing Provider. herve 17:00 No provider procedures requiring assistance completed. Patient maintains SpO2 aa5 saturation greater than 95% on room air. 17:59 X-ray completed. Portable x-ray completed in exam room. Patient tolerated procedure ls3 well. 18:25 Patient admitted, IV remains in place. aa5 Administered Medications: 16:10 Drug: NS 0.9% 1000 ml Route: IV; Rate: 125 ml/hr; Site: left forearm; ss 16:55 Drug: Zofran 4 mg Route: IVP; Site: left forearm; jl7 17:05 Follow up: Response: No adverse reaction aa5 16:55 Drug: NS 0.9% 500 ml Route: IV; Rate: bolus; Site: left forearm; jl7 17:45 Follow up: IV Status: Completed infusion aa5 16:59 Drug: morphine 4 mg Route: IVP; Site: left forearm; jl7 17:05 Follow up: Response: No adverse reaction aa5 16:59 Drug: Pepcid 20 mg Route: IVP; Site: left forearm; jl7 17:05 Follow up: Response: No adverse reaction aa5 17:00 Drug: Lopressor 2.5 mg Route: IVP; Site: left forearm; jl7 17:05 Follow up: Response: No adverse reaction aa5 17:10 Drug: Lopressor (metoprolol TARTRATE) 50 mg Route: PO; jl7 17:45 Follow up: Response: No adverse reaction aa5 17:11 Drug: Aspirin Chewable Tablet 162 mg Route: PO; jl7 17:45 Follow up: Response: No adverse reaction aa5 17:12 Drug: Lovenox 1 mg/kg Route: Sub-Q; Site: left lower abdomen; jl7 17:45 Follow up: Response: No adverse reaction aa5 17:55 Not Given (Physician Discretion): Lopressor 2.5 mg IVP once; Hold for SBP <100 or HR aa5 <60. 18:10 Drug: Nicoderm CQ 21 mg/24 hr 1 patches Route: Transdermal; Site: affected area; jl7 18:25 Follow up: Response: No adverse reaction aa5 Outcome: 16:36 Decision to Hospitalize by Provider. herve 18:25 Admitted to Tele accompanied by tech, via wheelchair, with chart, Report called to aaJacki Kaye RN 18:25 Condition: stable 18:25 Discharge instructions given to patient, Instructed on the need for admit, Demonstrated understanding of instructions. 18:28 Patient left the ED. aa5 Signatures: Duong Landa, RN Suhail Evans MD MD cha Calderon, Audri RN RN aa5 Annie Paulino RN RN ss Leal, Jahala, RN RN jl7 Velma Welsh2 Nancy Shelton3 Randi López3 Corrections: (The following items were deleted from the chart) 18:17 16:58 BP 127 / 79; Pulse 106bpm; Resp 18bpm; Spontaneous; Pulse Ox 98% RA; aa5 aa5
[2018-03-18 16:38] LABS: Absolute Lymphocytes (CBC) 1.5 K/uL (0.7-4.9); Absolute Monocytes 0.4 K/uL (0.1-1.3); Absolute Neutrophil 5.2 K/uL (1.8-8.0); Lymphocytes % 20.6 % (15.3-44.8); MCH 35.1 pg (27.0-35.0); MCV 97.8 fL (80-100); MPV 7.4 fL (7.6-11.3); Monocytes % 5.5 % (3.3-12.3); Protime INR 1.03; RBC Red Blood Cell Count 4.55 M/uL (4.33-5.43)
[2018-03-18] MEDS ORDERED: TRAMADOL HCL 50 MG TAB PO PRN (16:43)
[2018-03-18] MEDS ORDERED: ACETAMINOPHEN 500 MG TAB PO PRN (16:43)
[2018-03-18] MEDS ORDERED: ASPIRIN 81 MG CHEWABLE TABLET ONE (16:59)
[2018-03-18] MEDS ORDERED: METOPROLOL TAR 50 MG TAB ONE (16:59)
[2018-03-18 17:00] LABS: Hematocrit 46.5 % (39.6-49.0)
[2018-03-18] MEDS ORDERED: MORPHINE 4 MG/ML SYR ONE (17:00)
[2018-03-18] MEDS ORDERED: ENOXAPARIN 100 MG/ML SYR SQ ONE (17:00)
[2018-03-18] MEDS ORDERED: ONDANSETRON 4 MG/2 ML VIAL ONE (17:00)
[2018-03-18] MEDS ORDERED: METOPROLOL TARTRATE 5 MG/5 ML INJ IV ONE (17:00)
[2018-03-18] MEDS ORDERED: FAMOTIDINE 20 MG/2 ML VIAL IV ONE (17:01)
[2018-03-18] MEDS ORDERED: NA CHLORIDE 0.9% 500 ML ONE (17:01)
[2018-03-18 17:02] LABS: ALT/SGPT 59 U/L (12-78); AST/SGOT 41 U/L (15-37); Albumin 3.6 g/dL (3.4-5.0); Alkaline Phosphatase 93 U/L (45-117); BUN Blood Urea Nitrogen 9 mg/dL (7-18); Bicarbonate 23 mmol/L (21-32); Bilirubin Direct 0.1 mg/dL (0-0.2); Bilirubin Total 0.3 mg/dL (0.2-1.0); Glucose Level 146 mg/dL (74-106); Lipase 185 U/L (73-393); Magnesium 2.1 mg/dL (1.8-2.4); NT PRO-BNP 72 pg/mL (<125); Potassium 3.4 mmol/L (3.5-5.1); Protein, Total 7.2 g/dL (6.4-8.2); Sodium Level 138 mmol/L (136-145); Troponin (Emerg Dept Use Only) < 0.02 ng/mL (0.0-0.045)
[2018-03-18] MEDS ORDERED: NITROGLYCERIN 0.4 MG/TAB SL PRN (17:02)
[2018-03-18] MEDS: ENOXAPARIN 40 MG/0.4 ML SQ SCH (18:00)
[2018-03-18] MEDS: METOPROLOL TAR 25 MG TAB PO SCH (18:00)
--- NOTE | 2018-03-18 18:09 | RAD REPORT ---
EXAM DESCRIPTION: RAD - Chest Single View - 03/18/2018 6:00 pm CLINICAL HISTORY: Chest pain COMPARISON: December 19 TECHNIQUE: AP portable chest image was obtained 1656 hours . FINDINGS: Low lung volumes noted similar to comparison. No acute lung parenchymal process. Heart and vasculature are normal. No measurable pleural effusion and no pneumothorax. No acute bony abnormalit y seen. No acute aortic findings suspected. IMPRESSION: No acute cardiopulmonary process. No significant interval change.
[2018-03-18] MEDS ORDERED: NICOTINE 21 MG/PAT TD ONE ×2 (18:11→19:00)
--- NOTE | 2018-03-18 19:17 | EKG ---
Test Date: 2018-03-18 Test Time: 15:52:57 Travel Ticketing Reviewer: KAM MEASUREMENT RESULTS: Intervals: Rate: 117 ID: [id number] QRSD: 86 QT: 308 QTc: 429 [place]: P: 28 ID: [id number] QRS: 108 T: -16 INTERPRETIVE STATEMENTS: Sinus tachycardia Rightward axis T wave abnormality, consider inferior ischemia Abnormal ECG Compared to ECG 12/19/2017 09:16:06 Right-axis deviation now present T-wave abnormality now present Possible ischemia now present Sinus rhythm no longer present Electronically Signed On 03-18-18 19:16:33 DOT COMPLIANCE MANAGER by Issac Pettit
--- NOTE | 2018-03-18 20:31 | P.HP ---
Certification for Inpatient Patient admitted to: Observation With expected LOS: <2 Midnights Practitioner: I am a practitioner with admitting privileges, knowledge of patient current condition, hospital course, and medical plan of care. Services: Services provided to patient in accordance with Admission requirements found in Title 42 Section 412.3 of the Code of Federal Regulations Patient History Date of Service: 03/18/18 Reason for admission: chest pain History of Present Illness: Mr Ha is a 47 years old male with history of Hodkings Lymphoma, CAD s/p multiple stent placement, admitted in November of this year due to chest pain, at that time he has and ECHO which showed normal LV function, with EF 56%, NM stress test which showed no fixed nor stress induced ischemia. He came today complaining of chest pain. His symptoms started about 4 days ago. He describe the pain as pressure like, substernal, radiated to his left arm, 10/10 on his maximum intensity, relieving with Nitro SL. He also has had SOB, nausea and sweating episodes associated with the pain. He denied any fever or chills. At the tieme of my examination, he was chest pain free. EKG shows T wave inversion in inferior leads, no ST abnormalities. Initial troponin I negative. Allergies ibuprofen [From Motrin] Allergy (Verified 09/05/16 03:39) Shortness of breath Home medications list reviewed: Yes Home Medications: Atorvastatin Calcium [Lipitor] 80 mg PO BEDTIME #30 tablet 12/20/17 Carvedilol [Coreg*] 6.25 mg PO BID #60 tab 12/20/17 Clopidogrel Bisulfate [Plavix*] 75 mg PO DAILY #30 tablet 12/20/17 Isosorbide Mononitrate [Isosorbide Mononitrate ER] 60 mg PO DAILY #30 tab.er.24h 12/20/17 Nitroglycerin [Nitrostat*] 0.4 mg SL PRN PRN #30 tab 12/20/17 Pantoprazole [Protonix Tab] 40 mg PO DAILY #30 tab 12/20/17 - Past Medical/Surgical History Diabetic: No -: [place] -: Hodgkins Lymphoma -: Degenerative bone disease low lumbar -: radiation-chest, face, back -: cardiac stents x9 -: stem cell transplant -: lymph node removals - Family History Mom -: Heart disease, Cancer Dad -: Heart disease - Social History Smoking Status: Current every day smoker Counseled patient to stop smoking for: less than 10 minutes Smoking therapy provided: Yes Patient receptive to therapy: Yes Alcohol use: Yes CD- Drugs: No Caffeine use: Yes Place of Residence: Home Review of Systems 10-point ROS is otherwise unremarkable Physical Examination - Vital Signs Temperature: 98.6 F Blood Pressure: 138/85 Pulse: 72 Respirations: 20 Pulse Ox (%): 100 - Physical Exam General: Alert, In no apparent distress HEENT: Atraumatic, PERRLA, Mucous membr. moist/pink, EOMI, Sclerae nonicteric Neck: Supple, 2+ carotid pulse no bruit, No LAD, Without JVD or thyroid abnormality Respiratory: Clear to auscultation bilaterally, Normal air movement Cardiovascular: Regular rate/rhythm, Normal S1 S2 Gastrointestinal: Normal bowel sounds, No tenderness Musculoskeletal: No tenderness Integumentary: No rashes Neurological: Normal speech, Normal strength at 5/5 x4 extr, Normal tone, Normal affect Lymphatics: No axilla or inguinal lymphadenopathy - Studies Laboratory Data (last 24 hrs) 03/18/18 16:05: PT 12.1, INR 1.03 03/18/18 16:05: WBC 7.2, Hgb 16.0, Hct 46.5, Plt Count 294 03/18/18 16:05: Sodium 138, Potassium 3.4 L, BUN 9, Creatinine 1.20, Glucose 146 H, Magnesium 2.1, Total Bilirubin 0.3, AST 41 H, ALT 59, Alkaline Phosphatase 93, Lipase 185 Assessment and Plan - Problems (Diagnosis) (1) Chest pain Onset Date: 11/24/15 Current Visit: No Status: Acute Qualifiers: Chest pain type: unspecified Qualified Code(s): R07.9 - Chest pain, unspecified (2) Tobacco abuse Current Visit: No Status: Acute (3) CAD (coronary artery disease) Onset Date: 09/05/16 Current Visit: No Status: Chronic Qualifiers: Coronary Disease-Associated Artery/Lesion type: [place] artery [place] vs. transplanted heart: [place] heart Associated angina: with unstable angina Qualified Code(s): I25.110 - Atherosclerotic heart disease of [place] coronary artery with unstable angina pectoris - Plan The patient will be admitted to the hospital due to Chest pain to R/O ACS. Will order serial trop I and EKG. The patient is tachycardic, will order D-dimer as well. Consult cardiology team for evaluation and recommendations. - Advance Directives Does patient have a Living Will: No Does patient have a Durable POA for Healthcare: No - Code Status/Comfort Care Code Status Assessed: Yes Code Status: Full Code
[2018-03-18] MEDS ORDERED: ATORVASTATIN 80 MG TAB PO SCH (21:00)
[2018-03-18 21:23] LABS: CKMB Creatine Kinase MB 1.2 ng/mL (0.3-3.6); Creatine Phosphokinase 108 U/L (39-308); Troponin I < 0.02 ng/mL (0.0-0.045)
[2018-03-18 22:31] LABS: Urine Appearance CLEAR; Urine Bilirubin NEGATIVE (NEG); Urine Blood NEGATIVE (NEG); Urine Color YELLOW; Urine Glucose NEGATIVE (NEG); Urine Protein NEGATIVE (NEG); Urine Specific Gravity 1.015 (1.005-1.030); Urine Urobilinogen 0.2 mg/dL (0.2-1.0)
[2018-03-18 22:32] LABS: Urine Microscopic Reflex NO UMIC
[2018-03-18 22:46] LABS: Barbiturates NEGATIVE (NEGATIVE); Benzodiazepines NEGATIVE (NEGATIVE); Cocaine NEGATIVE (NEGATIVE); METHAMPHETAM NEGATIVE (NEGATIVE); Methadone NEGATIVE (NEGATIVE); Opiates POSITIVE (NEGATIVE); Phencyclidine NEGATIVE (NEGATIVE); THC Cannibis POSITIVE (NEGATIVE)
[2018-03-18] MEDS: ONDANSETRON 4 MG/2 ML VIAL IV PRN (23:17)
[2018-03-18] MEDS: MORPHINE 2 MG/ML SYR IV PRN (23:17)
[2018-03-19 02:47] VITALS: O2SAT 96
[2018-03-19 02:48] VITALS: BMI 31.1
[2018-03-19] MEDS: METOPROLOL TAR 25 MG TAB PO SCH ×2 (05:48→17:12)
[2018-03-19] MEDS: MORPHINE 2 MG/ML SYR IV PRN (05:49)
[2018-03-19] MEDS: ONDANSETRON 4 MG/2 ML VIAL IV PRN (05:49)
[2018-03-19] MEDS ORDERED: PANTOPRAZOLE 40MG TABLET PO SCH (06:30)
[2018-03-19 06:41] LABS: Absolute Lymphocytes (CBC) 2.3 K/uL (0.7-4.9); Absolute Monocytes 0.6 K/uL (0.1-1.3); Absolute Neutrophil 2.8 K/uL (1.8-8.0); Basophils % 1.1 % (0-1.3); Eosinophils % 1.9 % (0-4.4); Hematocrit 45.6 % (39.6-49.0); Lymphocytes % 39.5 % (15.3-44.8); MCH 34.4 pg (27.0-35.0); MCV 98.4 fL (80-100); MPV 7.2 fL (7.6-11.3); RBC Red Blood Cell Count 4.63 M/uL (4.33-5.43)
[2018-03-19 07:05] LABS: CKMB Creatine Kinase MB 1.2 ng/mL (0.3-3.6); Troponin I < 0.02 ng/mL (0.0-0.045)
[2018-03-19 07:10] LABS: Magnesium 2.3 mg/dL (1.8-2.4); Potassium 4.3 mmol/L (3.5-5.1)
[2018-03-19 07:15] LABS: Thyroid Stimulating Hormone 46.6 uIU/mL (0.360-3.740)
[2018-03-19] MEDS ORDERED: INFLUENZA VACCINE (for 3y+) 0.5 ML DOSE IMVAC ONE (08:00)
--- NOTE | 2018-03-19 08:25 | RAD REPORT ---
EXAM DESCRIPTION: CT - Chest For Pe Angio - 03/18/2018 10:52 pm CLINICAL HISTORY: Chest pain COMPARISON: None. TECHNIQUE: Dynamically enhanced axial 3 mm thick images of the chest were obtained during administra tion of <100> mL Isovue 370 IV contrast. Coronal and oblique reconstruction images were generated and reviewed. Exam utilizes a protocol for optimal evaluation of pulmonary arterial tree.Preliminary rep ort generated by virtual radiologic and reviewed prior to dictation Maximum intensity projections 3D imaging was utilized All CT scans are performed using dose optimization technique as appropriate and may include automated exposure control or mA/KV adjustment according to patient size. FINDINGS: A pulmonary embolus is not seen. A thoracic aortic aneurysm is not noted. A pleural effusion is not seen. A pericardial effusion is not seen. A lung consolidation is not present. The wall of the distal esophagus appears thickened Stomach appears mildly distended IMPRESSION: Negative for a pulmonary embolism. Apparent thickening of the wall of the distal esophagus may be secondary to pathology such as inflamm ation or mass
[2018-03-19] MEDS ORDERED: ASPIRIN EC 81 MG TAB PO SCH (09:00)
[2018-03-19] MEDS: ENOXAPARIN 40 MG/0.4 ML SQ SCH (09:00)
[2018-03-19] MEDS ORDERED: CLOPIDOGREL 75 MG TABLET PO SCH (09:00)
[2018-03-19] MEDS ORDERED: REGADENOSON 0.4 MG/5 ML SYR IV ONE (10:09)
[2018-03-19] MEDS ORDERED: NICOTINE 21 MG/PAT TD ONE (14:00)
[2018-03-19 17:14] VITALS: TEMP 97.8
[2018-03-19 17:17] VITALS: BP 150/89
--- NOTE | 2018-03-19 17:31 | P.DS ---
Admission Date: 03/18/18 Discharge Date: 03/19/18 Primary Care Provider: None; Cardiology-Dr. Delgado Disposition: ROUTINE DISCHARGE Discharge Condition: GOOD Reason for Admission: chest pain Consultations: Cardiology-Dr. Delgado Procedures: Cardiac stress test: No stress-induced ischemia noted CT scan: COMPARISON: None. TECHNIQUE: Dynamically enhanced axial 3 mm thick images of the chest were obtained during administration of <100> mL Isovue 370 IV contrast. Coronal and oblique reconstruction images were generated and reviewed. Exam utilizes a protocol for optimal evaluation of pulmonary arterial tree.Preliminary report generated by virtual radiologic and reviewed prior to dictation Maximum intensity projections 3D imaging was utilized All CT scans are performed using dose optimization technique as appropriate and may include automated exposure control or mA/KV adjustment according to patient size. FINDINGS: A pulmonary embolus is not seen. A thoracic aortic aneurysm is not noted. A pleural effusion is not seen. A pericardial effusion is not seen. A lung consolidation is not present. The wall of the distal esophagus appears thickened Stomach appears mildly distended IMPRESSION: Negative for a pulmonary embolism. Apparent thickening of the wall of the distal esophagus may be secondary to pathology such as inflammation or mass Medical problem list: Chest pain atypical with history of CAD Hypertension, new diagnosis GERD THC use Tobacco abuse Hyperlipidemia, new diagnosis Hypothyroidism, new diagnosis Brief History of Present Illness: 47-year-old male presented to emergency room with atypical chest pain. Patient with history of CAD with prior stent. Patient admitted for further evaluation. Hospital Course: Patient presented with chest pain. Symptoms were atypical. Patient with history of CAD with prior stents. Cardiac enzymes unremarkable. Case discussed at length with cardiology. Patient had recent cardiac stress test which was unremarkable. Repeat stress test showed no stress-induced ischemia. This is likely noncardiac in nature. No further cardiac intervention required at this time. At discharge she will continue with aspirin 81 mg daily. Patient will need to follow up with cardiology in 1-2 weeks to follow up this hospitalization. Patient may continue with nitroglycerin as needed. Patient likely with GERD. CT scan shows some thickening to the esophagus. At discharge recommendation is to continue with Protonix 40 mg 1 pill once daily. Recommendation is for the patient to follow up with GI as an outpatient to further patient will likely require EGD to further assess. Patient has hyperlipidemia. LDL elevated at 132. In light of his CAD, patient will need to continue with Lipitor 40 mg daily. Patient has hypertension. Medication started during his stay. At discharge he will continue with metoprolol 12.5 mg 1 pill twice daily. Recommendation is to maintain blood pressures less 150/80. Further adjustment can be done by his PCP. If patient found to be hypothyroid. This is a new diagnosis for him. Tsh 46, free T4 0.69. At discharge he will start Levoxyl 100 mcg daily. Recommendation to recheck tsh and free T4 in 4-6 weeks further evaluate. Further adjustment may be required. Patient will need to establish care with a PCP to continue his care and monitor closely. Patient with THC use. Cessation addressed in detail. Compliance with follow up address in detail. Patient also with tobacco abuse. Cessation addressed in detail. Vital Signs/Physical Exam: Temp Pulse Resp BP Pulse Ox 97.8 F 67 18 150/89 H 98 03/19/18 16:00 03/19/18 17:12 03/19/18 16:00 03/19/18 17:12 03/19/18 16:00 General: Alert, In no apparent distress, Oriented x3, Cooperative HEENT: Atraumatic Neck: Supple Respiratory: Clear to auscultation bilaterally, Normal air movement Cardiovascular: Normal pulses, Regular rate/rhythm Gastrointestinal: Normal bowel sounds, Soft and benign, Non-distended, No tenderness, No masses, No rebound, No guarding Musculoskeletal: No erythema, No tenderness, No warmth Integumentary: No tenderness/swelling, No erythema, No warmth, No cyanosis Neurological: Normal speech, Normal strength at 5/5 x4 extr, Normal tone, Normal affect Laboratory Data at Discharge: WBC 5.9 K/uL (4.3-10.9) D 03/19/18 06:06 Hgb 15.9 g/dL (13.6-17.9) 03/19/18 06:06 Hct 45.6 % (39.6-49.0) 03/19/18 06:06 Plt Count 266 K/uL (152-406) 03/19/18 06:06 PT 12.1 SECONDS (9.5-12.5) 03/18/18 16:05 INR 1.03 03/18/18 16:05 Sodium 141 mmol/L (136-145) 03/19/18 06:06 Potassium 4.3 mmol/L (3.5-5.1) 03/19/18 06:06 BUN 10 mg/dL (7-18) 03/19/18 06:06 Creatinine 1.10 mg/dL (0.55-1.3) 03/19/18 06:06 Glucose 86 mg/dL (74-106) 03/19/18 06:06 Magnesium 2.3 mg/dL (1.8-2.4) 03/19/18 06:06 Total Bilirubin 0.3 mg/dL (0.2-1.0) 03/18/18 16:05 AST 41 U/L (15-37) H 03/18/18 16:05 ALT 59 U/L (12-78) 03/18/18 16:05 Alkaline Phosphatase 93 U/L (45-117) 03/18/18 16:05 Troponin I < 0.02 ng/mL (0.0-0.045) 03/19/18 06:06 Triglycerides 111 mg/dL (<150) 03/19/18 06:06 Cholesterol 200 mg/dL (<200) 03/19/18 06:06 HDL Cholesterol 46 mg/dL (40-60) 03/19/18 06:06 Cholesterol/HDL Ratio 4.35 03/19/18 06:06 Lipase 185 U/L (73-393) 03/18/18 16:05 Home Medications: Aspirin Chewable [Aspirin Chewable*] 81 mg PO DAILY 03/19/18 Atorvastatin Calcium [Lipitor] 40 mg PO DAILY #30 tablet 03/19/18 Levothyroxine Sodium [Levoxyl] 100 mcg PO DAILY #30 tablet 03/19/18 Metoprolol Tartrate 12.5 mg PO BID #30 tablet 03/19/18 Nitroglycerin [Nitrostat*] 0.4 mg PO PRN PRN MDD 3 03/19/18 Pantoprazole [Protonix Tab*] 40 mg PO DAILYAC #30 tab 03/19/18 New Medications: Atorvastatin Calcium [Lipitor] 40 mg PO DAILY #30 tablet Levothyroxine Sodium [Levoxyl] 100 mcg PO DAILY #30 tablet Metoprolol Tartrate 12.5 mg PO BID #30 tablet Pantoprazole [Protonix Tab*] 40 mg PO DAILYAC #30 tab Patient Discharge Instructions: 1. Patient will need a follow up with a PCP to establish care and continue his care. 2. Patient presented with chest pain. Symptoms were atypical. Patient with history of CAD with prior stents. Cardiac enzymes unremarkable. Case discussed at length with cardiology. Patient had recent cardiac stress test which was unremarkable. Repeat stress test showed no stress-induced ischemia. This is likely noncardiac in nature. No further cardiac intervention required at this time. At discharge she will continue with aspirin 81 mg daily. Patient will need to follow up with cardiology in 1-2 weeks to follow up this hospitalization. Patient may continue with nitroglycerin as needed. 3. Patient likely with GERD. CT scan shows some thickening to the esophagus. At discharge recommendation is to continue with Protonix 40 mg 1 pill once daily. Recommendation is for the patient to follow up with GI as an outpatient to further patient will likely require EGD to further assess. 4. Patient has hyperlipidemia. LDL elevated at 132. In light of his CAD, patient will need to continue with Lipitor 40 mg daily. 5. Patient has hypertension. Medication started during his stay. At discharge he will continue with metoprolol 12.5 mg 1 pill twice daily. Recommendation is to maintain blood pressures less 150/80. Further adjustment can be done by his PCP. 6. If patient found to be hypothyroid. This is a new diagnosis for him. Tsh 46, free T4 0.69. At discharge he will start Levoxyl 100 mcg daily. Recommendation to recheck tsh and free T4 in 4-6 weeks further evaluate. Further adjustment may be required. Patient will need to establish care with a PCP to continue his care and monitor closely. 7. Patient with THC use. Cessation addressed in detail. Compliance with follow up address in detail. Patient also with tobacco abuse. Cessation addressed in detail. Diet: AHA Activity: Ad shanika Time spent managing pt's care (in minutes): 55
--- NOTE | 2018-03-19 22:51 | CON ---
Date of Consultation: 03/19/2018 The patient was admitted on 03/18/[address] Guerrero service. I saw him on 03/19/2018. Reason For Consultation: Chest pain. History Of Present Illness: Mr. Ha is a 47-year-old white male, has a history of CAD, status p ost PCI of the LAD in August of 2016. Has a history of bone marrow transplant secondary to Hodgkin lymp ciro. Came in with chest pain that is substernal for 5 days, continuous, unrelieved by nitroglycerin , unrelieved by antacids, feel better today. Negative troponin. Negative EKG. Negative CPK and MB. He had a negative echo and Lexiscan in November 2017. Still got admitted for further workup. Dr. Lexii sung ordered another stress test on him. The patient denied any PND, orthopnea, pedal edema, palpita tions, or syncope. He was very comfortable when I was talking to him without any symptoms. Allergies: HE IS ALLERGIC TO IBUPROFEN. Medications: At home include Lipitor, Coreg, Plavix, Imdur. Review of Systems: Negative. Social History: Negative. Family History: Negative. Physical Examination: Vital Signs: Stable, afebrile. HEENT: Negative. Neck: Supple with no bruit, lymphadenopathy, JVD, or thyromegaly. Chest: Clear to auscultation and percussion. Cardiac: Revealed a regular rhythm and rate. No murmurs, gallops, or rubs. Abdomen: Benign. Extremities: Revealed no clubbing, cyanosis, or edema. Diagnostic Data: All normal. Impression And Plan: Atypical chest pain, most likely gastroesophageal reflux disease in nature. I recommend the use of proton pump inhibitor. The patient is requesting Xanax for anxiety and nitrogly cerin to have with him. The patient is to continue his home medication for his dyslipidemia and his coronary artery disease. We will see what the stress test showed before discharging him. I do not t hink we need to do any heart catheterization based on symptoms and is negative EKG and troponin at th is point. CARLA/MODL Voice ID: [id number] Report ID: [id number]
--- NOTE | 2018-03-20 06:22 | RAD REPORT ---
EXAM DESCRIPTION: NM - Rest Stress Cardiac Imaging - 03/19/2018 2:58 pm CLINICAL HISTORY: Chest pain COMPARISON: December 20 TECHNIQUE: The patient was administered approximately 10 mCi of Tc 99m Sestamibi prior to resting SP ECT imaging of the heart. The patient was then administered approximately 30 mCi of Tc 99m Sestamibi following exercise or pharmacologic stress. Multiplanar SPECT images were reviewed. FINDINGS: The end diastolic volume is 142 ml, the end systolic volume is 73 ml, and the ejection fra ction is 49 %. Findings are very similar to the November examination. Physiologic distribution of the radiopharmaceutical through the myocardium is noted. No stress induce d ischemic defect is seen to suggest stress induced ischemia. No fixed defect is seen to suggest hibe rnating myocardium or scarred myocardium. IMPRESSION: No stress-induced ischemia and no focal scarring identifiable. End-diastolic volume was 142 mL with a 49% ejection fraction. Findings are similar to the December 20 study.
--- NOTE | 2018-03-20 09:02 | TREADPHA ---
DX: CHEST PAIN, CORONARY ARTERY DISEASE Date of Study: 03/19/18 Ht: 5 8 Wt: 205 lb 1.6 oz Consulting Physician: LIZBET MEDICATIONS: ZOFRAN, LOPRESSOR, ASPIRIN, LOVENOX, NICODERM HISTORY: 47 YEAR OLD MALE WITH COMPLAINTS OF CHEST PAIN. MEDICAL HISOTRY OF [place], LYMPHOMA, MYOCARDIAL INFARCTION, CARDIAC STENTS x9, SMOKER PHYSICIAL EXAMINATION: RESTING B.P.: 139/88 RESTING H.R.: 76 RESTING EKG: NORMAL. PROTOCOL: LEXISCAN EXERCISE TIME: 3:30 B.P. AT [place] STRESS: 134/94 IMPRESSION: LEXISCAN INJECTED, CARDIOLITE INJECTED PER PROTOCOL, SEE NUCLEAR MEDICINE REPORT. NO SUPRA VENTRICULAR TACHYCARDIA. NO VENTRICLAR TACHYCARDIA. NO PREMATURE VENTRICULAR COMPLEXES. DENIED CHEST PAIN. NON DIAGNOSTIC EKG WITH LEXISCAN STRESS.
== END 2018-03-19 19:54 | disposition home or self-care (01) ==
LOC: ER 15:46 → ERHOLD 16:37 → EEVIPCON 16:37 → 4TH 18:22
PROVIDERS: ADMIT Family Medicine; ATTEND Internal Medicine
DX: R07.89 Other chest pain (principal); I10 Essential (primary) hypertension; K21.9 Gastro-esophageal reflux disease without esophagitis; F12.90 Cannabis use, unspecified, uncomplicated; E78.5 Hyperlipidemia, unspecified; E03.9 Hypothyroidism, unspecified; Z72.0 Tobacco use; I25.10 Atherosclerotic heart disease of native coronary artery without angina pectoris; Z95.5 Presence of coronary angioplasty implant and graft; Z85.71 Personal history of Hodgkin lymphoma; Z23 Encounter for immunization
CPT/HCPCS: 36415; 71045; 71275; 78452; 80048; 80061; 80076; 80307; 81003; 82550; 82553; 83690; 83735; 83880; 84439; 84443; 84484; 85025; 85379; 85610; 93005; 93017; 96361; 96372; 96374; 96375; 99285; A9500; G0008; G0378; J1650; J2270; J2405; J2785; J7030; Q2035; Q9967

== ENCOUNTER 2018-09-04 18:20 | Inpatient (IN) | payer OTHER, SELFPAY ==
[2018-09-04 20:25] VITALS: BMI 30.4
--- NOTE | 2018-09-04 21:36 | P.HP ---
Certification for Inpatient Patient admitted to: Inpatient With expected LOS: >2 Midnights Practitioner: I am a practitioner with admitting privileges, knowledge of patient current condition, hospital course, and medical plan of care. 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 Last night, he start having chest pain again. He described a pressure like pain, retrosternal, no radiated, 8-9/ 10 of maximum intensity. He denied nausea, vomiting, SOB, diaphoresis or dizziness associated with. He took a nitro pill and went to sleep. This morning , he still had the pain and went to [facility] [place] [facility]. His work up was remarkable for elevated troponin I 0.85, normal kidney function, also elevated TSH, EKG showed sinus tachycardia without ST-T abnormalities. He was transferred to our facility for cardiology evaluation. At my encounter, the patient was on non- distress, no chest pain. Allergies ibuprofen [From Motrin] Allergy (Verified 09/04/18 20:15) Shortness of breath Home Medications: Aspirin Chewable [Aspirin Chewable*] 81 mg PO DAILY 03/19/18 Nitroglycerin [Nitrostat*] 0.4 mg PO PRN PRN MDD 3 03/19/18 - Past Medical/Surgical History Has patient received pneumonia vaccine in the past: Yes Diabetic: No -: [place] -: Hodgkins Lymphoma -: Degenerative bone disease low lumbar -: radiation-chest, face, back -: cardiac stents x9 -: stem cell transplant -: lymph node removals - Family History Mom -: Heart disease, Cancer Dad -: Heart disease - Social History Smoking Status: Current every day smoker Counseled patient to stop smoking for: less than 10 minutes Alcohol use: Yes CD- Drugs: No Caffeine use: Yes Place of Residence: Home Review of Systems 10-point ROS is otherwise unremarkable Physical Examination - Physical Exam General: Alert, In no apparent distress HEENT: Atraumatic, PERRLA, Mucous membr. moist/pink, EOMI, Sclerae nonicteric Neck: Supple, 2+ carotid pulse no bruit, No LAD, Without JVD or thyroid abnormality Respiratory: Clear to auscultation bilaterally, Normal air movement Cardiovascular: Regular rate/rhythm, Normal S1 S2 Gastrointestinal: Normal bowel sounds, No tenderness Musculoskeletal: No tenderness Integumentary: No rashes Neurological: Normal speech, Normal strength at 5/5 x4 extr, Normal tone, Normal affect Lymphatics: No axilla or inguinal lymphadenopathy Assessment and Plan - Problems (Diagnosis) (1) NSTEMI (non-ST elevated myocardial infarction) Current Visit: Yes Status: Acute (2) CAD (coronary artery disease) Onset Date: 09/05/16 Current Visit: No Status: Chronic Qualifiers: Coronary Disease-Associated Artery/Lesion type: [place] artery [place] vs. transplanted heart: [place] heart Associated angina: with unstable angina Qualified Code(s): I25.110 - Atherosclerotic heart disease of [place] coronary artery with unstable angina pectoris (3) Chest pain Onset Date: 11/24/15 Current Visit: No Status: Acute Qualifiers: Chest pain type: unspecified Qualified Code(s): R07.9 - Chest pain, unspecified (4) Hypothyroidism Onset Date: 09/05/16 Current Visit: No Status: Chronic Qualifiers: Hypothyroidism type: acquired Qualified Code(s): E03.9 - Hypothyroidism, unspecified (5) Tobacco abuse Onset Date: 03/19/18 Current Visit: No Status: Acute - Plan The patient will be admitted to the hospital due to ACS. Will order serial trop I, EKG, will start ASA, brilinta, metoprolol, full dose Lovenox. Dr Delgado will see the patient in AM. Will prepare the patient for cardiac cath in AM. - Advance Directives Does patient have a Living Will: No Does patient have a Durable POA for Healthcare: No - Code Status/Comfort Care Code Status Assessed: Yes Code Status: Full Code
[2018-09-04 22:29] LABS: Potassium 4.2 mmol/L (3.5-5.1)
[2018-09-04 22:30] LABS: Absolute Lymphocytes (CBC) 2.9 K/uL (0.7-4.9); Absolute Monocytes 0.6 K/uL (0.1-1.3); Absolute Neutrophil 3.8 K/uL (1.8-8.0); Basophils % 0.8 % (0-1.3); Eosinophils % 1.7 % (0-4.4); Hematocrit 48.9 % (39.6-49.0); Lymphocytes % 38.8 % (15.3-44.8); MPV 7.2 fL (7.6-11.3); Monocytes % 7.8 % (3.3-12.3); RBC Red Blood Cell Count 5.03 M/uL (4.33-5.43)
[2018-09-05] MEDS: NITROGLYCERIN 0.4 MG/TAB SL PRN (01:00)
[2018-09-05 05:59] LABS: Troponin I 0.98 ng/mL (0.0-0.045)
[2018-09-05 06:33] LABS: Barbiturates NEGATIVE (NEGATIVE); Benzodiazepines NEGATIVE (NEGATIVE); Cocaine NEGATIVE (NEGATIVE); METHAMPHETAM NEGATIVE (NEGATIVE); Methadone NEGATIVE (NEGATIVE); Opiates POSITIVE (NEGATIVE); Phencyclidine NEGATIVE (NEGATIVE); THC Cannibis POSITIVE (NEGATIVE)
[2018-09-05] MEDS: ASPIRIN EC 81 MG TAB PO SCH (09:00)
[2018-09-05] MEDS: METOPROLOL TAR 50 MG TAB PO SCH ×3 (09:00→20:26)
[2018-09-05] MEDS: ENOXAPARIN 100 MG/ML SYR SQ SCH ×3 (09:00→20:27)
[2018-09-05] MEDS: TICAGRELOR 90 MG TABLET PO SCH ×2 (09:00→20:27)
--- NOTE | 2018-09-05 12:46 | EKG ---
Test Date: 2018-09-04 Test Time: 21:56:09 [place]: [place] MEASUREMENT RESULTS: Intervals: Rate: 54 PA: 168 QRSD: 92 QT: 458 QTc: 434 [place]: P: -7 PA: 168 QRS: 26 T: 11 INTERPRETIVE STATEMENTS: Sinus bradycardia with premature atrial complexes Otherwise normal ECG Compared to ECG 03/18/2018 15:52:57 Atrial premature complex(es) now present Sinus tachycardia no longer present Right-axis deviation no longer present T-wave abnormality no longer present Possible ischemia no longer present Electronically Signed On 09-05-18 12:44:21 CDT by Aditya Delgado
--- NOTE | 2018-09-05 13:27 | ECHO ---
HEIGHT: 5 ft 8 in WEIGHT: 200 lb 0 oz DATE OF STUDY: 09/05/[address]: Herrera Robles MD 2-DIMENSIONAL: YES M.MODE: YES DOPPLER: YES COLOR FLOW: YES TDS: PORTABLE: DEFINITY: BUBBLE STUDY: DIAGNOSIS: CHEST PAIN CARDIAC HISTORY: CATHERIZATION: YES SURGERY: NO PROSTHETIC VALVE: NO PACEMAKER: NO MEASUREMENTS (cm) DIASTOLIC (NORMALS) SYSTOLIC (NORMALS) IVSd 1.1 (0.6-1.2) LA Diam 3.7 (1.9-4.0) LVEF 56% LVIDd 4.6 (3.5-5.7) LVIDs 3.2 (2.0-3.5) %FS 29% LVPWd 1.2 (0.6-1.2) Ao Diam 2.9 (2.0-3.7) 2 DIMENSIONAL ASSESSMENT: RIGHT ATRIUM: NORMAL LEFT ATRIUM: NORMAL RIGHT VENTRICLE: NORMAL LEFT VENTRICLE: NORMAL TRICUSPID VALVE: NORMAL MITRAL VALVE: NORMAL PULMONIC VALVE: NORMAL AORTIC VALVE: NORMAL PERICARDIAL EFFUSION: NONE AORTIC ROOT: NORMAL LEFT VENTRICULAR WALL MOTION: NORMAL DOPPLER/COLOR FLOW: NORMAL COMMENTS: NORMAL TWO DIMENSIONAL ECHOCARDIOGRAM WITH DOPPLER. NO WALL MOTION ABNORMALITY. NO EFFUSION. TECHNOLOGIST: ITZEL MENDOZA
--- NOTE | 2018-09-05 14:14 | P.PN ---
Subjective Date of Service: 09/05/18 Primary Care Provider: none; Cardiology-Dr. Delgado Chief Complaint: NSTEMI Subjective: Improving (Patient reports that he has been without medication as he just recently got insurance) Physical Examination - Vital Signs Temperature: 98.3 F Blood Pressure: 115/55 Pulse: 52 Respirations: 16 Pulse Ox (%): 99 - Physical Exam General: Alert, In no apparent distress, Oriented x3, Cooperative HEENT: Atraumatic Neck: Supple Respiratory: Clear to auscultation bilaterally, Normal air movement Cardiovascular: Normal pulses, Regular rate/rhythm Gastrointestinal: Normal bowel sounds, Soft and benign, Non-distended Neurological: Normal speech, Normal strength at 5/5 x4 extr, Normal tone, Normal affect - Studies Laboratory Data (last 24 hrs) 09/05/18 04:56: Troponin I 0.98 H*, Triglycerides 116, Cholesterol 239 H, HDL Cholesterol 56, Cholesterol/HDL Ratio 4.27 09/04/18 21:55: Sodium 139, Potassium 4.2, BUN 13, Creatinine 1.35 H, Glucose 84 09/04/18 21:55: WBC 7.4, Hgb 16.6, Hct 48.9, Plt Count 241 09/04/18 21:55: Troponin I 1.25 H* Medications List Reviewed: Yes Assessment & Plan Discharge Plan: Home Plan to discharge in: 24 Hours Physician Review Additional Text: Impression: Non ST wave DC with history of CAD and prior stents Hypertension Hyperlipidemia Hypothyroidism Non compliance with medication Plan: Non ST wave DC with history of CAD and prior stents: Continue current medications. Patient NPO for cardiac evaluation. Await Cardiology findings and recommendations. Likely discharge within the next 24 hr. Hypertension: Will provide medication Hyperlipidemia: Will check fasting lipid panel. Continue medication. Hypothyroidism: Will need to verify prior medication. Will check tsh and free T4. Non compliance with medication: Patient admits to noncompliance with medication. He recently got disability therefore he will be able to continue with medication at discharge. Patient plans to establish care in [place], [place]. Time Spent Managing Pts Care (In Minutes): 55
[2018-09-05 15:39] LABS: Thyroid Stimulating Hormone 40.3 uIU/mL (0.360-3.740)
[2018-09-05] MEDS ORDERED: ATORVASTATIN 80 MG TAB PO SCH (21:00)
--- NOTE | 2018-09-05 23:33 | CON ---
Date of Consultation: 09/05/[address] Guerrero on 09/04/2018. I saw the patient on 09/05/2018. Reason For Consultation: [id number] myocardial infarction. History Of Present Illness: Mr. Ha is a 47-year-old who basically has a past medical history o f coronary artery disease status post multiple stents. He has a history of noncompliance with therap y. He has a history of Hodgkin lymphoma status post stem cell transplant. He basically lives in [place], [place], right now, developed chest pain that lasted for hours, went to the emergency room in [facility] and then was sent here for further evaluation and treatment. He had a troponin of 0. 98, creatinine of 1.35. He has a cholesterol of 239 and LDL of 160. Otherwise, his EKG showed nonsp ecific changes. By the time he came here, he was pain free. Past Medical History: As stated above. Allergies: HE IS ALLERGIC TO MOTRIN. Review of Systems: Negative. Social History: Negative. Family History: Noncontributory. Medications: The only medicine he takes at home is aspirin, although he is supposed to be on a beta- juan and a statin. Physical Examination: Vital Signs: Stable. He was afebrile. HEENT: Negative. Neck: Supple without any bruit, lymphadenopathy, JVD, or thyromegaly. Chest: Clear to clear to auscultation and percussion. Cardiac: Revealed a regular rhythm and rate without any murmurs, gallops, or rubs. Abdomen: Benign. Extremities: Revealed no clubbing, cyanosis, or edema. Diagnostic Data: That were available were stated earlier. Impression And Plan: 1.Psc-SP-tczibjneh myocardial infarction. 2.Coronary artery disease, status post multiple stents. 3.Dyslipidemia. 4.Noncompliance. 5.Hodgkin lymphoma status post stem cell transplant. 6.Mild renal insufficiency. The patient needs a heart catheterization to define his coronary anatomy. He understands the risk an d the benefits of the procedure and he agrees to proceed. This will be set up to be done tomorrow. Once he is ready to go home, we will reinforce his compliance issue as far as his medication is taylor rned and followups. CARLA/YVETTE Voice ID: [id number] Report ID: [id number]
[2018-09-06] MEDS: NITROGLYCERIN 0.4 MG/TAB SL PRN (03:30)
[2018-09-06 04:56] LABS: Magnesium 2.2 mg/dL (1.8-2.4); Potassium 3.8 mmol/L (3.5-5.1)
[2018-09-06] MEDS ORDERED: LEVOTHYROXINE SOD 0.05 MG TABLET PO SCH (06:30)
[2018-09-06] MEDS ORDERED: HEPA 1000U/500MLS 1,000 UNIT/500 ML BAG IV ONE ×2 (06:57→07:29)
[2018-09-06] MEDS ORDERED: LIDOCAINE 1% MPF 30 ML VIAL ONE (06:57)
[2018-09-06] MEDS ORDERED: NA CHLORIDE 0.9% 500 ML ONE (07:23)
[2018-09-06] MEDS ORDERED: HEPARIN 5000 UNIT/ML 1 ML VIAL ONE (07:41)
[2018-09-06] MEDS ORDERED: MIDAZOLAM HCL 2 MG/2 ML INJ ONE (07:41)
[2018-09-06] MEDS ORDERED: NITROGLYCERIN/D5W 25 MG/250 ML BTL IV ONE (07:42)
[2018-09-06] MEDS ORDERED: NITROGLYCERIN 100 MCG/ML SYR (for cath lab use only) IV ONE (07:42)
[2018-09-06] MEDS ORDERED: NICARDIPINE HCL 25 MG/10 ML IV ONE (07:42)
[2018-09-06] MEDS ORDERED: FENTANYL CITR 100 MCG/2 ML ONE (07:42)
[2018-09-06] MEDS ORDERED: ATROPINE SULF 1 MG/10 ML SYR IV ONE (07:42)
[2018-09-06] MEDS ORDERED: NA CHLORIDE 0.9% 0 ML ONE (07:42)
[2018-09-06] MEDS ORDERED: NICOTINE 21 MG/PAT TD SCH (09:00)
--- NOTE | 2018-09-06 09:21 | P.DS ---
Admission Date: 09/04/18 Discharge Date: 09/06/18 Primary Care Provider: none; Cardiology-Dr. Delgado Disposition: ROUTINE DISCHARGE Discharge Condition: GOOD Reason for Admission: NSTEMI Consultations: Cardiology-Dr. Pettit Procedures: ECHO: EF 56% LEFT VENTRICULAR WALL MOTION: NORMAL DOPPLER/COLOR FLOW: NORMAL COMMENTS: NORMAL TWO DIMENSIONAL ECHOCARDIOGRAM WITH DOPPLER. NO WALL MOTION ABNORMALITY. NO EFFUSION. Heart Catheterization: Spoke with cardiology. Stents patent. No need for Re stenting or angioplasty. Continue medical therapy. Compliance with medication and follow up will need to be enforced. Medical Problem List: Non ST wave MO with history of CAD and prior stents Hypertension Hyperlipidemia Hypothyroidism Tobacco and Alcohol abuse Anxiety Non compliance with medication Brief History of Present Illness: 47-year-old male presented to the ER with chest pain. Patient with history of CAD and prior stent, hypertension, hyperlipidemia, alcohol and tobacco abuse. 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 Hospital Course: Patient presented with chest pain secondary to non ST wave MO with history of CAD and prior stents. Patient was transferred from [place], [place] ER to our facility for continuity of care with his orthopaedic surgeon. Chest pain improved. Echocardiogram unremarkable with normal ejection fraction. Heart catheterization was recommended. Heart catheterization done. Heart catheterization showed patent stents. No need for further intervention required. Cardiology recommended medical therapy. At discharge patient will continue with aspirin 81 mg daily, Plavix 75 mg daily, Lipitor 80 mg daily, metoprolol 25 mg 1 pill twice daily, and nitroglycerin to be use as needed for chest pain. Patient will need to follow up with cardiology within 1 week to follow up this hospitalization. Patient also counseled on follow up and compliance with his medication. Patient understands this. Patient also counseled on tobacco and alcohol cessation. Patient plans to decrease both tobacco and alcohol consumption. Patient plans to establish care with a PCP in [place], [place] as he will move there soon. Patient with hypertension. Patient has not been compliant with his medication. Medication restarted. At discharge he will continue with metoprolol 25 mg 1 pill twice daily. Recommend to maintain blood pressures less 150/80. Further adjustment can be done by his PCP or cardiology. Patient with hyperlipidemia. Patient will continue with Lipitor 80 mg daily. Patient with hypothyroidism. Repeat tsh and free T4 were abnormal. He is not been compliant with his medication. At discharge patient will continue with Levoxyl 50 mcg daily. Recommend to recheck tsh and free T4 in 4-6 weeks to further adjust. This can be done with the help of his PCP. Compliance with medication addressed. Patient with tobacco and alcohol abuse. Cessation education provided. Patient plans to decrease consumption. Will provide Nicotine patch to help with cessation. He has tried Chantix in the past. Patient has Anxiety. Will provide a limited supply of Xanax 0.25 mg one pill twice daily as needed for anxiety. This can be further addressed by his PCP. Vital Signs/Physical Exam: Temp Pulse Resp BP Pulse Ox 97.5 F 60 18 106/64 99 09/06/18 04:00 09/06/18 04:00 09/06/18 04:00 09/06/18 04:00 09/06/18 04:00 General: Alert, In no apparent distress, Oriented x3, Cooperative HEENT: Atraumatic Neck: Supple Respiratory: Clear to auscultation bilaterally, Normal air movement Cardiovascular: Normal pulses, Regular rate/rhythm Gastrointestinal: Normal bowel sounds, No tenderness, No masses, No rebound, No guarding Musculoskeletal: No erythema, No tenderness, No warmth Integumentary: No tenderness/swelling, No erythema, No warmth, No cyanosis Neurological: Normal speech, Normal strength at 5/5 x4 extr, Normal tone, Normal affect Laboratory Data at Discharge: WBC 7.4 K/uL (4.3-10.9) 09/04/18 21:55 Hgb 16.6 g/dL (13.6-17.9) 09/04/18 21:55 Hct 48.9 % (39.6-49.0) 09/04/18 21:55 Plt Count 241 K/uL (152-406) 09/04/18 21:55 Sodium 138 mmol/L (136-145) 09/06/18 04:18 Potassium 3.8 mmol/L (3.5-5.1) 09/06/18 04:18 BUN 17 mg/dL (7-18) 09/06/18 04:18 Creatinine 1.12 mg/dL (0.55-1.3) 09/06/18 04:18 Glucose 98 mg/dL (74-106) 09/06/18 04:18 Magnesium 2.2 mg/dL (1.8-2.4) 09/06/18 04:18 Troponin I 0.67 ng/mL (0.0-0.045) H* 09/05/18 13:20 Triglycerides 116 mg/dL (<150) 09/05/18 04:56 Cholesterol 239 mg/dL (<200) H 09/05/18 04:56 HDL Cholesterol 56 mg/dL (40-60) 09/05/18 04:56 Cholesterol/HDL Ratio 4.27 09/05/18 04:56 Home Medications: ALPRAZolam [Xanax*] 0.25 mg PO BID PRN #10 tab 09/06/18 Aspirin Chewable [Aspirin Chewable*] 81 mg PO DAILY #90 tab.chew 09/06/18 Atorvastatin Calcium [Lipitor] 80 mg PO BEDTIME #30 tab 09/06/18 Clopidogrel Bisulfate [Plavix] 75 mg PO DAILY #30 tablet 09/06/18 Levothyroxine [Synthroid*] 0.05 mg PO DAILYAC #30 tablet 09/06/18 Metoprolol Tartrate [Lopressor*] 25 mg PO BID #60 tab 09/06/18 Nicotine [Nicoderm*] 21 mg TD DAILY #30 patch.td24 09/06/18 Nitroglycerin [Nitrostat*] 0.4 mg SL UD PRN #30 tab 09/06/18 New Medications: ALPRAZolam [Xanax*] 0.25 mg PO BID PRN #10 tab PRN Reason: Anxiety Aspirin Chewable [Aspirin Chewable*] 81 mg PO DAILY #90 tab.chew Atorvastatin Calcium [Lipitor] 80 mg PO BEDTIME #30 tab Clopidogrel Bisulfate [Plavix] 75 mg PO DAILY #30 tablet Levothyroxine [Synthroid*] 0.05 mg PO DAILYAC #30 tablet Metoprolol Tartrate [Lopressor*] 25 mg PO BID #60 tab Nicotine [Nicoderm*] 21 mg TD DAILY #30 patch.td24 Nitroglycerin [Nitrostat*] 0.4 mg SL UD PRN #30 tab PRN Reason: Pain Scale 2-4 (Mild) Patient Discharge Instructions: 1. Follow up with PCP to establish care and follow up this hospitalization. 2. Patient presented with chest pain secondary to non ST wave MO with history of CAD and prior stents. Patient was transferred from [place], [place] ER to our facility for continuity of care with his orthopaedic surgeon. Chest pain improved. Echocardiogram unremarkable with normal ejection fraction. Heart catheterization was recommended. Heart catheterization done. Heart catheterization showed patent stents. No need for further intervention required. Cardiology recommended medical therapy. At discharge patient will continue with aspirin 81 mg daily, Plavix 75 mg daily, Lipitor 80 mg daily, metoprolol 25 mg 1 pill twice daily, and nitroglycerin to be use as needed for chest pain. Patient will need to follow up with cardiology within 1 week to follow up this hospitalization. Patient also counseled on follow up and compliance with his medication. Patient understands this. Patient also counseled on tobacco and alcohol cessation. Patient plans to decrease both tobacco and alcohol consumption. Patient plans to establish care with a PCP in [place], [place] as he will move there soon. 3. Patient with hypertension. Patient has not been compliant with his medication. Medication restarted. At discharge he will continue with metoprolol 25 mg 1 pill twice daily. Recommend to maintain blood pressures less 150/80. Further adjustment can be done by his PCP or cardiology. 4. Patient with hyperlipidemia. Patient will continue with Lipitor 80 mg daily. 5. Patient with hypothyroidism. Repeat tsh and free T4 were abnormal. He is not been compliant with his medication. At discharge patient will continue with Levoxyl 50 mcg daily. Recommend to recheck tsh and free T4 in 4-6 weeks to further adjust. This can be done with the help of his PCP. Compliance with medication addressed. 6. Patient with tobacco and alcohol abuse. Cessation education provided. Patient plans to decrease consumption. Will provide Nicotine patch to help with cessation. He has tried Chantix in the past. 7. Patient has Anxiety. Will provide a limited supply of Xanax 0.25 mg one pill twice daily as needed for anxiety. This can be further addressed by his PCP. Diet: AHA Activity: Ad shanika Time spent managing pt's care (in minutes): 55
[2018-09-06 10:14] VITALS: O2SAT 97
[2018-09-06 10:18] VITALS: BP 128/86
[2018-09-06] MEDS: ASPIRIN EC 81 MG TAB PO SCH (10:36)
[2018-09-06] MEDS: METOPROLOL TAR 50 MG TAB PO SCH (10:36)
[2018-09-06] MEDS: TICAGRELOR 90 MG TABLET PO SCH (10:38)
[2018-09-06 11:42] VITALS: TEMP 98
--- NOTE | 2018-09-06 18:40 | OP ---
Surgeon: Issac Pettit MD Procedures: Left heart catheterization, coronary left ventricular angiography. Findings: The patient has probably 10 different stents. The stents are in the RCA, circumflex, brady s intermedius, and left anterior descending. All of them are widely patent. There is no coronary st enosis. Normal blood flow at all parts of the heart. Left ventricular ejection fraction is normal. Regional wall motion is normal, and all of his pressures are normal, and the belief is that he had a non-ST elevation KS because of all the stents and the lack of adequate medical therapy. There was n o intervention done on this catheterization. Procedure In Detail: The patient was brought to the cardiac tailings dam laborer in a fasting state, sedated wit h Versed and fentanyl, prepared and draped. The right radial approach used. Lidocaine 1% used to an esthetize the skin around the right radial artery. The artery was entered using a 21-gauge needle, c annulated with a 0.021 inch diameter guidewire, 6-Urdu Terumo radial sheath placed. A radial cockt ail given consisting of nicardipine, heparin, nitroglycerin. We guided a TIG catheter into the ascen ding aorta using fluoroscopy and a short radius J-tip Terumo Glidewire. We were able to angiogram ri ght coronary, left coronary and left ventricle, all with the same TIG catheter. At the end of the pr ocedure, the catheter was removed over a J wire. The sheath was removed. The arteriotomy closed usi ng a TR band. Estimated Blood Loss: 5 cc. Moisture Meter Reader: Laura Galindo. Complications From The Procedure: None. ERENDIRA/YVETTE Voice ID: [id number] Report ID: [id number]
== END 2018-09-06 13:58 | disposition home or self-care (01) | DRG 281 ==
LOC: 2ND 19:50
PROVIDERS: ADMIT Family Medicine; ATTEND Family Medicine
PROC: 4A023N7 Measurement of Cardiac Sampling and Pressure, Left Heart, Percutaneous Approach (ICD-10-PCS; principal; 2018-09-06)
PROC: B2111ZZ Fluoroscopy of Multiple Coronary Arteries using Low Osmolar Contrast (ICD-10-PCS; 2018-09-06)
PROC: B2151ZZ Fluoroscopy of Left Heart using Low Osmolar Contrast (ICD-10-PCS; 2018-09-06)
DX: I21.4 Non-ST elevation (NSTEMI) myocardial infarction (principal); Z94.84 Stem cells transplant status; I25.119 Atherosclerotic heart disease of native coronary artery with unspecified angina pectoris; Z91.14 Patient's other noncompliance with medication regimen; F17.210 Nicotine dependence, cigarettes, uncomplicated; E78.5 Hyperlipidemia, unspecified; E03.9 Hypothyroidism, unspecified; F10.10 Alcohol abuse, uncomplicated; F41.9 Anxiety disorder, unspecified; Z79.82 Long term (current) use of aspirin; Z95.5 Presence of coronary angioplasty implant and graft; Z85.71 Personal history of Hodgkin lymphoma
CPT/HCPCS: 36415; 80048; 80061; 80307; 83735; 84439; 84443; 84484; 85025; 93005; 93306; 93458; C1893; J0583; J1644; J1650; J2250; J3010

== ENCOUNTER 2020-04-13 18:57 | Emergency (ER) | payer OTHER, SELFPAY ==
[2020-04-13] MEDS ORDERED: HYDROCODONE/APAP 10/325 TAB ONE (19:35)
[2020-04-13] MEDS ORDERED: DIAZEPAM 5 MG TABLET ONE (19:36)
--- NOTE | 2020-04-13 20:49 | RAD REPORT ---
EXAM DESCRIPTION: CT - [id number] - 04/13/2020 8:27 pm CLINICAL HISTORY: PAIN COMPARISON: No comparisons TECHNIQUE: Axial 5 mm thick images of the head were obtained. Axial 2 mm thick images of the cervic al spine were obtained with sagittal and coronal reconstruction images generated and reviewed. All CT scans are performed using dose optimization technique as appropriate and may include automated exposure control or mA/KV adjustment according to patient size. FINDINGS: No intracranial hemorrhage, mass, edema or acute intracranial finding. No suspicion for ac jocelyne infarction. No extra-axial fluid collections. Mastoid air cells and paranasal sinuses are clear. No globe or orbit abnormality seen. Mild volume loss is evident. Ventricles are in size. Cervical bodies are normal in height. No fracture or acute bone process identified. There is slight a nterior subluxation of C4 on C5. C5-6 disc space narrowing present. Right convex scoliotic curvature is present. Prominent facet joint degenerative change without foraminal stenosis on the left at C2-3. Prominent facet degenerative change causes left foraminal stenosis at C3-4 and C4-5. Midline disc he rniation is present at C4-5. Canal is stenotic to 8 mm. Central canal detail is inherently limited. No paraspinal mass or hematoma. Dense carotid bulb calcifications are present. IMPRESSION: No hemorrhage, edema or acute intracranial finding identifiable. Advanced for age cervical spine degenerative change including C4-5 midline disc herniation and spinal stenosis. Patient has multilevel foraminal stenosis on the left due to facet joint hypertrophic dege nerative change.
--- NOTE | 2020-04-13 21:25 | ER ---
Nurse's Notes [facility] Name: Guzman Ha Age: 49 yrs Sex: Male : 1970 Arrival Date: 04/13/2020 Time: 19:03 Bed 23 Private MD: Diagnosis: Cervical disc disorders;Radiculopathy, cervical region Presentation: 04/13 19:08 Chief complaint: Patient states: been having pain in neck, shoulders and shoulder dm5 blades since May, pain is worse today, woke up unable to move freely. Coronavirus screen: Client denies travel out of the [place] in the last 14 days. At this time, the client does not indicate any symptoms associated with coronavirus-19. Ebola Screen: Patient negative for fever greater than or equal to 101.5 degrees Fahrenheit, and additional compatible Ebola Virus Disease symptoms Patient denies exposure to infectious person. Patient denies travel to an Ebola-affected area in the 21 days before illness onset. No symptoms or risks identified at this time. Initial Sepsis Screen: Does the patient meet any 2 criteria? HR > 90 bpm. Does the patient have a suspected source of infection? No. Patient's initial sepsis screen is negative. Risk Assessment: Do you want to hurt yourself or someone else? Patient reports no desire to harm self or others. Onset of symptoms was April 13, 2020. 19:08 Method Of Arrival: Ambulatory 5 19:08 Acuity: BRIAN 4 dm5 Triage Assessment: 19:13 General: Appears in no apparent distress. uncomfortable, Behavior is cooperative, dm5 agitated. Pain: Complains of pain in back of head, back of neck, posterior cervical area, left trapezius, right trapezius, left scapular area and right scapular area Pain currently is 10 out of 10 on a pain scale. Pain began gradually, Aggravated by repositioning. Neuro: Level of Consciousness is awake, alert, obeys commands, Oriented to person, place, time. Respiratory: Airway is patent Respiratory effort is even, unlabored, Respiratory pattern is regular, symmetrical. Derm: Skin is pink, warm \T\ dry. Historical: - Allergies: 19:12 Ibuprofen; dm5 - Home Meds: 19:12 aspirin 81 mg Oral chew 1 tab once daily [Active]; dm5 - PMHx: 19:12 Hodgkins Lymphoma; Myocardial infarction; dm5 - PSHx: 19:12 heart cath; 9 stints; lymphectomy; 2 surgeries on right side of neck; dm5 - Immunization history:: Adult Immunizations up to date. - Family history:: not pertinent. - Social history:: Smoking status: Patient denies any tobacco usage or history of. Screenin:30 Abuse screen: Denies threats or abuse. Denies injuries from another. Nutritional dm5 screening: No deficits noted. Tuberculosis screening: No symptoms or risk factors identified. Fall Risk None identified. Assessment: 20:30 Reassessment: Patient appears in no apparent distress at this time. No changes from dm5 previously documented assessment. Patient and/or family updated on plan of care and expected duration. Pain level reassessed. Patient is alert, oriented x 3, equal unlabored respirations, skin warm/dry/pink. Pain: Complains of pain in base of the skull, back of neck and back. Neuro: Level of Consciousness is awake, alert, obeys commands, Oriented to person, place, time, situation. Respiratory: Airway is patent Respiratory effort is even, unlabored, relaxed, Respiratory pattern is regular, symmetrical. Derm: Skin is pink, warm \T\ dry. Vital Signs: 19:08 BP 124 / 89; Pulse 105; Resp 18; Temp 98.6; Pulse Ox 98% on R/A; Weight 90.72 kg; dm5 Height 5 ft. 8 in. (172.72 cm); Pain 10/10; 19:08 Body Mass Index 30.41 (90.72 kg, 172.72 cm) dm5 ED Course: 19:03 Patient arrived in ED. rg4 19:10 Triage completed. dm5 19:13 Arm band placed on right wrist. Patient placed in waiting room. dm5 19:17 Suhail Plaza MD is Attending Physician. herve 20:27 CT Head C Spine In Process Unspecified. EDMS 20:30 Patient has correct armband on for positive identification. Bed in low position. Call dm5 light in reach. Door closed. Lights dimmed. 20:30 No provider procedures requiring assistance completed. Patient did not have IV access dm5 during this emergency room visit. 21:12 Shireen Upton, RN is Primary Nurse. dm5 21:23 Sven Hilton MD is Referral Physician. herve 21:32 EKG done, by ED staff, reviewed by Suhail Plaza MD. sg Administered Medications: 19:24 Drug: [place] 10 mg-325 mg 1 tabs {Note: RASS - Restless, Agitated.} Route: PO; dm5 20:30 Follow up: Response: No adverse reaction; Pain is unchanged, physician notified; RASS: dm5 Alert and Calm (0) 19:25 Drug: Valium 5 mg {Note: RASS - Restless, Agitated.} Route: PO; dm5 21:20 Follow up: Response: No adverse reaction; Pain is unchanged, physician notified; RASS: dm5 Alert and Calm (0) 21:17 Drug: Decadron 10 mg Route: IM; Site: right deltoid; dm5 Outcome: 21:24 Discharge ordered by . [facility] 21:48 Discharged to home ambulatory. sg 21:48 Condition: good 21:48 Discharge instructions given to patient, Instructed on discharge instructions, follow up and referral plans. safety practices, Demonstrated understanding of instructions, follow-up care, Prescriptions given X 3. 21:50 Patient left the ED. sg Signatures: Dispatcher [employer] EDMS Shireen Upton RN RN dm5 Gay, Steven, RN RN sg Anderson, Corey, MD MD cha Garcia, Jaimie rg4 Corrections: (The following items were deleted from the chart) 19:31 19:25 Valium 5 mg PO dm5 dm5 21:21 20:30 BP 20 / ???; Response: No adverse reaction; Pain is unchanged, physician dm5 notified; RASS: Alert and Calm (0) dm5 21:51 21:48 Discharge instructions given to patient, Instructed on discharge instructions, sg follow up and referral plans. safety practices, Demonstrated understanding of instructions, follow-up care, Prescriptions given X 2, sg
--- NOTE | 2020-04-13 21:25 | EDPHYS ---
Physician Documentation [facility] Name: Guzman Ha Age: 49 yrs Sex: Male : 1970 Arrival Date: 04/13/2020 Time: 19:03 Bed 23 Private MD: HARIS Physician Suhail Plaza HPI: 04/13 20:13 This 49 yrs old Male presents to ER via Ambulatory with complaints of Shoulder herve Pain, Neck Pain, <24hrs Old. 20:13 The patient or guardian complains of decreased range of motion, pain, that is chronic. herve right trapezius, right sternocleidomastoid, left sternocleidomastoid, right clavicle and left clavicle. Context: The problem was sustained at a old injury in [facility]. Onset: The symptoms/episode began/occurred 5 day(s) ago. Modifying factors: the symptoms are alleviated by nothing. remaining still, The symptoms are aggravated by movement. Severity of symptoms: At their worst the symptoms were moderate, in the emergency department the symptoms are unchanged. The patient has experienced similar episodes in the past, several times. Historical: - Allergies: 19:12 Ibuprofen; dm5 - Home Meds: 19:12 aspirin 81 mg Oral chew 1 tab once daily [Active]; dm5 - PMHx: 19:12 Hodgkins Lymphoma; Myocardial infarction; dm5 - PSHx: 19:12 heart cath; 9 stints; lymphectomy; 2 surgeries on right side of neck; dm5 - Immunization history:: Adult Immunizations up to date. - Family history:: not pertinent. - Social history:: Smoking status: Patient denies any tobacco usage or history of. ROS: 20:13 Constitutional: Negative for fever, chills, and weight loss, Eyes: Negative for injury, herve pain, redness, and discharge, ENT: Negative for injury, pain, and discharge, Cardiovascular: Negative for chest pain, palpitations, and edema, Respiratory: Negative for shortness of breath, cough, wheezing, and pleuritic chest pain, Abdomen/GI: Negative for abdominal pain, nausea, vomiting, diarrhea, and constipation, Back: Negative for injury and pain, : Negative for injury, bleeding, discharge, and swelling, MS/Extremity: Negative for injury and deformity, Skin: Negative for injury, rash, and discoloration, Neuro: Negative for headache, weakness, numbness, tingling, and seizure, Psych: Negative for depression, anxiety, suicide ideation, homicidal ideation, and hallucinations, Allergy/Immunology: Negative for hives, rash, and allergies, Endocrine: Negative for neck swelling, polydipsia, polyuria, polyphagia, and marked weight changes, Hematologic/Lymphatic: Negative for swollen nodes, abnormal bleeding, and unusual bruising. 20:13 Neck: Positive for pain with movement, pain at rest, stiffness, of the occiput, left mid cervical area, right mid cervical area, left trapezius, lower cervical area and right trapezius. Exam: 20:13 Constitutional: This is a well developed, well nourished patient who is awake, alert, herve and in no acute distress. Head/Face: Normocephalic, atraumatic. Eyes: Pupils equal round and reactive to light, extra-ocular motions intact. Lids and lashes normal. Conjunctiva and sclera are non-icteric and not injected. Cornea within normal limits. Periorbital areas with no swelling, redness, or edema. ENT: Nares patent. No nasal discharge, no septal abnormalities noted. Tympanic membranes are normal and external auditory canals are clear. Oropharynx with no redness, swelling, or masses, exudates, or evidence of obstruction, uvula midline. Mucous membranes moist. Chest/axilla: Normal chest wall appearance and motion. Nontender with no deformity. No lesions are appreciated. Cardiovascular: Regular rate and rhythm with a normal S1 and S2. No gallops, murmurs, or rubs. Normal PMI, no JVD. No pulse deficits. Respiratory: Lungs have equal breath sounds bilaterally, clear to auscultation and percussion. No rales, rhonchi or wheezes noted. No increased work of breathing, no retractions or nasal flaring. Abdomen/GI: Soft, non-tender, with normal bowel sounds. No distension or tympany. No guarding or rebound. No evidence of tenderness throughout. Back: No spinal tenderness. No costovertebral tenderness. Full range of motion. Male : Normal genitalia with no discharge or lesions. Skin: Warm, dry with normal turgor. Normal color with no rashes, no lesions, and no evidence of cellulitis. 20:13 Neck: External neck: is normal, no acute changes, C-spine: pain diffusely neck. 21:36 ECG was reviewed by the Attending Physician. [facility] Vital Signs: 19:08 BP 124 / 89; Pulse 105; Resp 18; Temp 98.6; Pulse Ox 98% on R/A; Weight 90.72 kg; dm5 Height 5 ft. 8 in. (172.72 cm); Pain 10/10; 19:08 Body Mass Index 30.41 (90.72 kg, 172.72 cm) dm5 MDM: 20:06 Patient medically screened. [facility] 20:18 Differential diagnosis: tendonitis. Data reviewed: vital signs, nurses notes, [facility] radiologic studies, CT scan. Data interpreted: compliance monitor: rate is 105 beats/min, rhythm is regular, Pulse oximetry: on room air is 98 %. Test interpretation: by ED physician or midlevel provider: ECG, plain radiologic studies. Counseling: I had a detailed discussion with the patient and/or guardian regarding: the historical points, exam findings, and any diagnostic results supporting the discharge/admit diagnosis, lab results. 04/13 20:13 Order name: CT Head C Spine [facility] 04/13 21:24 Order name: EKG; Complete Time: 21:25 [facility] 04/13 21:24 Order name: EKG - Nurse/Tech; Complete Time: 21:37 [facility] EC:36 Rate is 81 beats/min. Rhythm is regular. QRS Paicines is Normal. NH interval is normal. QRS herve interval is normal. QT interval is normal. No Q waves. T waves are Normal. No ST changes noted. Clinical impression: Normal ECG and No evidence of ischemia. Interpreted by me. Reviewed by me. Administered Medications: 19:24 Drug: [place] 10 mg-325 mg 1 tabs {Note: RASS - Restless, Agitated.} Route: PO; dm5 20:30 Follow up: Response: No adverse reaction; Pain is unchanged, physician notified; RASS: dm5 Alert and Calm (0) 19:25 Drug: Valium 5 mg {Note: RASS - Restless, Agitated.} Route: PO; dm5 21:20 Follow up: Response: No adverse reaction; Pain is unchanged, physician notified; RASS: dm5 Alert and Calm (0) 21:17 Drug: Decadron 10 mg Route: IM; Site: right deltoid; dm5 Disposition: 04/13/20 21:24 Discharged to Home. Impression: Cervical disc disorders, Radiculopathy, cervical region. - Condition is Stable. - Discharge Instructions: Cervical Radiculopathy, Aspirin and Your Heart, Cervical Radiculopathy, [id number], Radicular Pain. - Prescriptions for dexamethasone 2 mg Oral tablet - take 1 tablet by ORAL route 3 times per day; 15 tablet. Tylenol- Codeine #3 300-30 mg Oral Tablet - take 2 tablet by ORAL route every 6 hours As needed; 30 tablet. Valium 2 mg Oral Tablet - take 1 tablet by ORAL route every 8 hours As needed; 20 tablet. - Medication Reconciliation Form, Thank You Letter, Antibiotic Education, Prescription Opioid Use form. - Follow up: Private Physician; When: 2 - 3 days; Reason: Recheck today's complaints, Continuance of care, Re-evaluation by your physician. Follow up: Sven Hilton MD; When: 2 - 3 days; Reason: Recheck today's complaints, Continuance of care, Re-evaluation by your physician. - Problem is new. - Symptoms have improved. Signatures: Dispatcher [employer] [facility] Shireen Upton RN RN dm5 Duong Landa RN RN sg Anderson, Corey, MD MD cha Corrections: (The following items were deleted from the chart) 20:17 19:18 C Spine Wo Con+CT.RAD.BRZ ordered. [facility] 21:50 21:24 04/13/2020 21:24 Discharged to Home. Impression: Cervical disc disorders; sg Radiculopathy, cervical region. Condition is Stable. Forms are Medication Reconciliation Form, Thank You Letter, Antibiotic Education, Prescription Opioid Use. Follow up: Private Physician; When: 2 - 3 days; Reason: Recheck today's complaints, Continuance of care, Re-evaluation by your physician. Follow up: Sven Hilton; When: 2 - 3 days; Reason: Recheck today's complaints, Continuance of care, Re-evaluation by your physician. Problem is new. Symptoms have improved. herve
[2020-04-13] MEDS ORDERED: dexAMETHasone 10 MG/ML VIAL ONE (21:30)
[2020-04-14 12:43] VITALS: BP 124/89; TEMP 98.6; O2SAT 98
== END 2020-04-13 21:50 | disposition home or self-care (01) ==
LOC: ER 18:57
DX: M54.12 Radiculopathy, cervical region (principal); M50.90 Cervical disc disorder, unspecified, unspecified cervical region; I25.2 Old myocardial infarction; Z79.82 Long term (current) use of aspirin; Z85.72 Personal history of non-Hodgkin lymphomas; Z88.6 Allergy status to analgesic agent
CPT/HCPCS: 70450; 72125; 93005; 96372; 99284; J1100

== ENCOUNTER 2020-06-10 10:16 | Emergency (ER) | payer SELFPAY ==
--- NOTE | 2020-06-10 13:06 | ER ---
Nurse's Notes [facility] Name: Guzman Ha Age: 49 yrs Sex: Male : 1970 Arrival Date: 06/10/2020 Time: 10:17 Bed 30 Private MD: Diagnosis: Presentation: 06/10 10:27 Chief complaint: Patient states: SMITH since Sunday. Has chronic neck pain (bulging ll1 discs). No fever. Coronavirus screen: Client denies travel out of the [place] in the last 14 days. headache, Client presents with at least one sign or symptom that may indicate coronavirus-19. Standard/surgical mask placed on the client. Ebola Screen: Patient denies travel to an Ebola-affected area in the 21 days before illness onset. Initial Sepsis Screen: Does the patient meet any 2 criteria? HR > 90 bpm. No. Patient's initial sepsis screen is negative. Does the patient have a suspected source of infection? Yes: Other: SMITH. Risk Assessment: Do you want to hurt yourself or someone else? Patient reports no desire to harm self or others. Onset of symptoms was June 08, 2020. 10:27 Method Of Arrival: Ambulatory ll1 10:27 Acuity: BRIAN 3 ll1 Historical: - Allergies: 10:26 Ibuprofen; ll1 - PMHx: 10:26 Myocardial infarction; Hodgkins Lymphoma; HODGIKINS LYMPHOMA; ll1 - PSHx: 10:26 lymphectomy; heart cath; 9 stints; 2 surgeries on right side of neck; ll1 - Immunization history:: Flu vaccine is not up to date. - Social history:: Smoking status: Patient reports the use of cigarette tobacco products, smokes one pack cigarettes per day. Assessment: 12:11 Reassessment: no answer from triage waiting room, name called 3 times. tw2 Vital Signs: 10:27 BP 149 / 97; Pulse 100; Resp 17; Temp 98.6; Pulse Ox 100% ; Weight 86.18 kg; Height 5 ll1 ft. 8 in. (172.72 cm); Pain 10/10; 10:27 Body Mass Index 28.89 (86.18 kg, 172.72 cm) ll1 ED Course: 10:17 Patient arrived in ED. ds1 10:28 Triage completed. ll1 10:28 Arm band placed on. ll1 13:00 Otoniel Cano PA is PHCP. jr8 13:00 Suhail Plaza MD is Attending Physician. jr8 13:05 Patient's name was called from MIGUEL vieira. No response. Unable to locate patient. Will tw2 disposition as left without being seen by a provider. Administered Medications: No medications were administered Outcome: 13:06 Patient left the ED. tw2 Signatures: Jolene Ordaz ds1 Otoneil Cano PA PA jr8 Luci Blackman RN RN tw2 Jeronimo Haines RN RN ll1
[2020-06-10 13:10] VITALS: BP 149/97; TEMP 98.6; O2SAT 100
== END 2020-06-10 13:06 | disposition left against medical advice (07) ==
LOC: ER 10:16
DX: Z53.21 Procedure and treatment not carried out due to patient leaving prior to being seen by health care provider (principal)
CPT/HCPCS: 99281

== ENCOUNTER 2022-07-05 13:10 | Inpatient (IN) | payer OTHER ==
[2022-07-05 13:41] LABS: Urine Blood Negative (Negative); Urine Glucose Negative (Negative); Urine Protein 2+ (Negative); Urine Specific Gravity 1.025 (1.005-1.030); Urine pH 6.5 (5.0-7.0)
[2022-07-05 13:44] LABS: Hematocrit 37.1 % (39.6-49.0); Lymphocytes % 29.4 % (15.3-44.8); MCV 92.2 fL (80-100); MPV 6.7 fL (7.6-11.3); RBC Red Blood Cell Count 4.02 M/uL (4.33-5.43)
[2022-07-05 13:49] LABS: Protime INR 1.11
[2022-07-05 13:56] LABS: Barbiturates NEGATIVE (NEGATIVE); Benzodiazepines NEGATIVE (NEGATIVE); Cocaine NEGATIVE (NEGATIVE); METHAMPHETAM POSITIVE (NEGATIVE); Methadone NEGATIVE (NEGATIVE); Opiates NEGATIVE (NEGATIVE); Phencyclidine NEGATIVE (NEGATIVE); THC Cannibis POSITIVE (NEGATIVE)
[2022-07-05] MEDS ORDERED: NOREPINEPHRINE BITARTRATE/D5W 4 MG/250 ML BAG IV ONE (13:56)
[2022-07-05] MEDS ORDERED: NA CHLORIDE 0.9% 1,000 ML ONE ×2 (13:56→14:46)
[2022-07-05 14:06] LABS: ALT/SGPT 116 U/L (16-61); AST/SGOT 169 U/L (15-37); Albumin 3.2 g/dL (3.4-5.0); Alkaline Phosphatase 136 U/L (45-117); BUN Blood Urea Nitrogen 17 mg/dL (7-18); Bicarbonate 23 mmol/L (21-32); Bilirubin Direct 0.2 mg/dL (0-0.2); Bilirubin Total 0.3 mg/dL (0.2-1.0); Glomerular Filtration Rate 58 ml/min (=/>90); Glucose Level 215 mg/dL (74-106); Magnesium 2.1 mg/dL (1.6-2.4); NT PRO-BNP 361 pg/mL (<125); Potassium 3.2 mmol/L (3.5-5.1); Protein, Total 6.3 g/dL (6.4-8.2); Sodium Level 137 mmol/L (136-145)
--- NOTE | 2022-07-05 14:09 | RAD REPORT ---
EXAM DESCRIPTION: RAD - Chest Single View - 07/05/2022 1:51 pm CLINICAL HISTORY: AMS Chest pain. COMPARISON: No comparisons FINDINGS: Portable technique limits examination quality. The lungs are grossly clear. The heart is normal in size. Tip of the endotracheal tube is above the c frank. Enteric tube descends into the stomach with the tip in the stomach. Proximal port is at the ga stroesophageal junction. Consideration may be given to advancing the enteric tube 6 inches.
[2022-07-05 14:49] LABS: Arterial Blood Carboxyhemoglob 0.6 % (0-1.5); Blood O2 Saturation 98.8 % (92-98.5)
--- NOTE | 2022-07-05 14:56 | RAD REPORT ---
EXAM DESCRIPTION: CT - Head C Spine Cap Asa Ibarra - 07/05/2022 2:32 pm CLINICAL HISTORY: Trauma, head and neck injury. Chest, abdomen and pelvis pain. AMS COMPARISON: No comparisons TECHNIQUE: CT head without contrast. CT cervical spine without contrast with coronal and sagittal reformatted images. CT chest, abdomen and pelvis with IV contrast (approximately 100 mL nonionic IV contrast) with amezcua l and sagittal reformatted images of the spine. All CT scans are performed using dose optimization technique as appropriate and may include automated exposure control or mA/KV adjustment according to patient size. FINDINGS: CT HEAD WITHOUT CONTRAST: No intracranial hemorrhage, hydrocephalus or extra-axial fluid collection. No areas of brain edema o r midline shift. The paranasal sinuses and mastoids are clear. The calvarium is intact. CT CERVICAL SPINE WITHOUT CONTRAST: No fracture or subluxation. 4 mm degenerative anterolisthesis of C4 on 5 is present. Endotracheal int ubation and nasogastric tube. Moderate soft tissue swelling is present.Heavy carotid atherosclerosis. CT CHEST, ABDOMEN, PELVIS WITH CONTRAST: Moderate atelectasis is present in both lung bases with small pleural effusions bilaterally.Enteric t ube descends into the stomach.No pneumothorax or pericardial/pleural fluid. No evidence of intra-abdominal visceral injury, free fluid or free air. No concerning pelvic findings. No fractures. IMPRESSION: Moderate bibasilar lung atelectasis with small pleural effusions.
--- NOTE | 2022-07-05 15:05 | ER ---
Nurse's Notes [facility] Name: Guzman Ha Age: 51 yrs Sex: Male : 1970 Arrival Date: 07/05/2022 Time: 13:13 Bed 4 Private MD: Diagnosis: Cardiac arrest, cause unspecified-Ventricular fibrillation Presentation: 07/05 13:00 Chief complaint: EMS states: Reports called to minor accident at 1225, arrived at 1228. sg5 Patient found in V-Fib with agonal breathing, CPR initiated at 1230. Patient Intubated with a 7.5 tube 24 at the gum line. No obvious injuries noted to patient. 3 shocks given. 4 rounds of epinephrine. 2 rounds of Amiodarone. 100 of Rocuronium. 200 of Ketamine. EMS started an Amiodarone Drip. Patient Rhythm showing sinus in the 90's. IV 18 g Right AC. I O to left lower leg. Blood Glucose 98. Coronavirus screen: At this time, the client does not indicate any symptoms associated with coronavirus-19. Ebola Screen: Patient negative for fever greater than or equal to 101.5 degrees Fahrenheit, and additional compatible Ebola Virus Disease symptoms No symptoms or risks identified at this time. Initial Sepsis Screen: Does the patient meet any 2 criteria? HR > 90 bpm. Does the patient have a suspected source of infection? No. Patient's initial sepsis screen is negative. Risk Assessment: Do you want to hurt yourself or someone else? Patient reports no desire to harm self or others. Onset of symptoms was July 05, 2022. 13:00 Method Of Arrival: EMS: [facility] sg5 13:00 Acuity: BRIAN 1 sg5 Triage Assessment: 13:00 General: Appears comfortable, Behavior is Intubated. Pain: Unable to use pain scale. sg5 Patient is intubated. EENT: No deficits noted. Neuro: Level of Consciousness is Intubated. Cardiovascular: Heart tones S1 S2 present Rhythm is sinus rhythm. Respiratory: Ventilator assessment: ET Tube: 7.5 24 at the gum line Breath sounds are clear bilaterally. GI: Bowel sounds hypoactive in right upper quadrant, left upper quadrant, right lower quadrant and left lower quadrant. : No deficits noted. Dick in place. Derm: No deficits noted. Musculoskeletal: No deficits noted. - Immunization history:: Adult Immunizations up to date, Last tetanus immunization: unknown, Pneumococcal vaccine status is unknown, Flu vaccine status is unknown. - Social history:: Smoking status: unknown. Screenin:44 [facility] ED Fall Risk Assessment (Adult) Intoxicated or Sedated Yes (3 pts). Abuse sg5 screen: Denies threats or abuse. Nutritional screening: No deficits noted. Tuberculosis screening: No symptoms or risk factors identified. Assessment: 13:44 General: Appears comfortable, Behavior is Intubated.. Pain: Unable to use pain scale. sg5 Patient is intubated. Neuro: Level of Consciousness is Intubated. Cardiovascular: Heart tones S1 S2 present Capillary refill < 3 seconds Rhythm is sinus rhythm. Respiratory: Ventilator assessment: ET Tube: 7.5 24 at the gum. Breath sounds are clear bilaterally. GI: No deficits noted. Bowel sounds hypoactive in right upper quadrant, left upper quadrant, right lower quadrant and left lower quadrant. : Dick in place. EENT: No deficits noted. Derm: No deficits noted. Musculoskeletal: No deficits noted. 13:59 Reassessment: ER Provider placing Central Line. sg5 14:15 Reassessment: Going to CT. sg5 14:44 Reassessment: Back from CT. sg5 15:06 Reassessment: Patient appears in no apparent distress at this time. No changes from sg5 previously documented assessment. 15:23 Reassessment: -Gladys Blackman [phone] and Rema Ha [phone] Emergency sg5 Contacts. 15:59 Reassessment: Patient showing some movement to body and coughed. sg5 16:24 Reassessment: Patient showing grimacing and movements of discomfort, informed ER sg5 Provider. 17:45 Reassessment: Patient over tolerating sedation ER Provided notified. RT in room sg5 suctioning patients airway. 17:58 Reassessment: Patient appears in no apparent distress at this time. No changes from sg5 previously documented assessment. 18:40 Reassessment: Patient appears in no apparent distress at this time. Patient states sg5 symptoms have improved. Vital Signs: 13:00 BP 83 / 58; Pulse 93; Resp 20; Temp 97.6(A); Pulse Ox 100% on ETT vent; Weight 90 kg; sg5 Height 5 ft. 9 in. ; Pain 0/10; 13:50 BP 66 / 50; Pulse 83; Resp 20; Pulse Ox 100% on ETT vent; Pain 0/10; sg5 14:05 BP 92 / 61; Pulse 75; Resp 20; Pulse Ox 100% on ETT vent; Pain 0/10; sg5 14:23 BP 102 / 70; Pulse 72; Resp 20; Pulse Ox 100% on ETT vent; Pain 0/10; sg5 14:46 BP 113 / 79; Pulse 63; Resp 20; Pulse Ox 100% on ETT vent; Pain 0/10; sg5 15:05 BP 120 / 83; Pulse 70; Resp 20; Pulse Ox 100% on ETT vent; Pain 0/10; sg5 15:47 BP 134 / 88; Pulse 73; Resp 20; Pulse Ox 100% on ETT vent; Pain 0/10; sg5 15:58 BP 138 / 99; Pulse 74; Resp 22; Pulse Ox 100% on ETT vent; Pain 0/10; sg5 16:55 BP 146 / 77; Pulse 81; Resp 22; Pulse Ox 100% on ETT vent; Pain 2/10; sg5 17:23 BP 119 / 80; Pulse 82; Resp 29; Pulse Ox 100% on ETT vent; Pain 2/10; sg5 17:57 BP 73 / 52; Pulse 76; Resp 20; Pulse Ox 100% on ETT vent; Pain 0/10; sg5 18:15 BP 72 / 58; Pulse 70; Resp 20; Pulse Ox 100% on ETT vent; Pain 0/10; sg5 18:15 BP 81 / 65; Pulse 70; Resp 20; Pulse Ox 100% on ETT vent; Pain 0/10; sg5 13:00 Body Mass Index 29.30 (90.00 kg, 175.26 cm) sg5 13:00 Pain Scale: Adult sg5 13:50 Pain Scale: Adult sg5 14:05 Pain Scale: Adult sg5 14:23 Pain Scale: Adult sg5 14:46 Pain Scale: Adult sg5 15:05 Pain Scale: Adult sg5 15:47 Pain Scale: Adult sg5 15:58 Pain Scale: Adult sg5 16:55 Pain Scale: Adult sg5 17:23 Pain Scale: Adult sg5 17:57 Pain Scale: Adult sg5 18:15 Pain Scale: Adult sg5 18:15 Pain Scale: Adult sg5 ED Course: 13:00 Arm band placed on right wrist. EKG completed in triage. Results shown to MD. EKG sg5 completed in triage. Results shown to MD. 13:13 Patient arrived in ED. bd 13:16 Duke Vanegas MD is Attending Physician. kdr 13:33 Triage completed. sg5 13:42 Inserted saline lock: 18 gauge in right antecubital area, using aseptic technique. sg5 ,using aseptic technique. Placed by EMS. Inserted saline lock: 18 gauge in left antecubital area, using aseptic technique. Blood collected. 13:44 Patient has correct armband on for positive identification. Placed in gown. Bed in low sg5 position. Side rails up X2. 13:44 Inserted intraosseous access in left, using aseptic technique Placed by EMS. sg5 13:53 XRAY Chest (1 view) In Process Unspecified. EDMS 13:57 Vika Durham, RN is Primary Nurse. sg5 14:16 Inserted Central Line to right femoral. sg5 14:34 CT Traumagram (Head C Spine CAP W Con) In Process Unspecified. EDMS 15:01 Archie Holcomb MD is Hospitalizing Provider. kdr 15:28 Nathaniel Acevedo MD is Hospitalizing Provider. kdr 18:24 initiated transfer to [facility]. bd 18:29 Troponin High Sensitivity Sent. sg5 Administered Medications: 16:08 Discontinued: Norepinephrine IV 0.1 mcg/kg/min IV at calculated rate Per protocol; sg5 (Standard concentration 4 mg / 250 mL D5W); Recommended max rate 3 mcg/kg/min; Titrate 0.05 mcg/kg/min as often as every 5 minutes to achieve goal (see titration policy); Goal parameter MAP greater than 65 mmHg. 13:58 Drug: NS 0.9% IV 1000 ml Route: IV; Rate: 1 bolus; Site: left antecubital; sg5 14:50 Follow up: IV Status: Completed infusion; IV Intake: 1000ml sg5 13:58 Drug: Norepinephrine IV 0.1 mcg/kg/min Route: IV; Rate: calculated rate; Site: left sg5 antecubital; 13:58 Follow up: Rate change 5 mcg/min sg5 14:40 Follow up: Rate change 3 mcg/min sg5 15:15 Follow up: Rate change 2 mcg/min sg5 15:42 Follow up: Rate change 1 mcg/min sg5 15:58 Follow up: Rate change 0.5 mcg/min sg5 13:58 Drug: Norepinephrine IV 0.1 mcg/min Route: IV; Rate: calculated rate; Site: left sg5 antecubital; 13:58 Drug: Norepinephrine IV 0.1 mcg/kg/min Route: IV; Rate: calculated rate; Site: left sg5 antecubital; 14:50 Drug: NS 0.9% IV 1000 ml Route: IV; Rate: 75 ml/hr; Site: right antecubital; sg5 16:35 Drug: Propofol IV 5 mcg/kg/min Route: IV; Rate: calculated rate; Site: right sg5 antecubital; 16:40 Follow up: Rate change 7 mcg/kg/min sg5 16:45 Follow up: Rate change 10 mcg/kg/min sg5 16:50 Follow up: Rate change 15 mcg/kg/min sg5 16:55 Follow up: Rate change 17 mcg/kg/min sg5 17:01 Follow up: Rate change 20 mcg/kg/min sg5 17:08 Follow up: Rate change 22 mcg/kg/min sg5 17:13 Follow up: Rate change 25 mcg/kg/min sg5 17:20 Follow up: Rate change 27 mcg/kg/min sg5 17:25 Follow up: Rate change 30 mcg/kg/min sg5 17:30 Follow up: Rate change 35 mcg/kg/min sg5 18:00 Follow up: Rate change 30 mcg/kg/min sg5 18:15 Follow up: Rate change 25 mcg/kg/min sg5 17:47 Drug: Midazolam IVP or IV 4 mg Route: IVP; Site: left antecubital; sg5 19:14 Drug: Propofol IV 5 mcg/kg/min Route: IV; Rate: calculated rate; Site: right femoral; as6 Medication: 13:44 VIS not applicable for this client. sg5 Intake: 14:50 IV: 1000ml; Total: 1000ml. sg5 Output: 13:50 Urine: 200ml (Dick); Gastric: 50ml (NGT); Total: 250ml. sg5 14:30 Urine: 250ml (Dick); Total: 500ml. sg5 15:30 Urine: 250ml; Total: 750ml. sg5 16:55 Urine: 150ml (Dick); Total: 900ml. sg5 16:56 Gastric: 50ml (NGT); Total: 950ml. sg5 17:23 Urine: 100ml (Dick); Total: 1050ml. sg5 18:00 Urine: 200ml (Dick); Gastric: 50ml (NGT); Total: 1300ml. sg5 Outcome: 15:05 Decision to Hospitalize by Provider. kdr 19:20 ER care complete, transfer ordered by . kdr Signatures: Dispatcher [employer] EDMS Joselyn Oneil Kevin, MD MD kdr Parker Villatoro RN RN as6 Vika Durham RN RN sg5 Corrections: (The following items were deleted from the chart) 15:46 14:15 Reassessment: sg5 sg5 15:46 15:29 Reassessment: sg5 sg5 16:58 14:35 Propofol IV 5 mcg/kg/min IV at calculated rate in right antecubital sg5 sg5
--- NOTE | 2022-07-05 15:05 | EDPHYS ---
Physician Documentation [facility] Name: Guzman Ha Age: 51 yrs Sex: Male : 1970 Arrival Date: 07/05/2022 Time: 13:13 Bed 4 Private MD: ED Physician Duke Vanegas - Immunization history:: Adult Immunizations up to date, Last tetanus immunization: unknown, Pneumococcal vaccine status is unknown, Flu vaccine status is unknown. - Social history:: Smoking status: unknown. Vital Signs: 07/05 13:00 BP 83 / 58; Pulse 93; Resp 20; Temp 97.6(A); Pulse Ox 100% on ETT vent; Weight 90 kg; sg5 Height 5 ft. 9 in. ; Pain 0/10; 13:50 BP 66 / 50; Pulse 83; Resp 20; Pulse Ox 100% on ETT vent; Pain 0/10; sg5 14:05 BP 92 / 61; Pulse 75; Resp 20; Pulse Ox 100% on ETT vent; Pain 0/10; sg5 14:23 BP 102 / 70; Pulse 72; Resp 20; Pulse Ox 100% on ETT vent; Pain 0/10; sg5 14:46 BP 113 / 79; Pulse 63; Resp 20; Pulse Ox 100% on ETT vent; Pain 0/10; sg5 15:05 BP 120 / 83; Pulse 70; Resp 20; Pulse Ox 100% on ETT vent; Pain 0/10; sg5 15:47 BP 134 / 88; Pulse 73; Resp 20; Pulse Ox 100% on ETT vent; Pain 0/10; sg5 15:58 BP 138 / 99; Pulse 74; Resp 22; Pulse Ox 100% on ETT vent; Pain 0/10; sg5 16:55 BP 146 / 77; Pulse 81; Resp 22; Pulse Ox 100% on ETT vent; Pain 2/10; sg5 17:23 BP 119 / 80; Pulse 82; Resp 29; Pulse Ox 100% on ETT vent; Pain 2/10; sg5 17:57 BP 73 / 52; Pulse 76; Resp 20; Pulse Ox 100% on ETT vent; Pain 0/10; sg5 18:15 BP 72 / 58; Pulse 70; Resp 20; Pulse Ox 100% on ETT vent; Pain 0/10; sg5 18:15 BP 81 / 65; Pulse 70; Resp 20; Pulse Ox 100% on ETT vent; Pain 0/10; sg5 13:00 Body Mass Index 29.30 (90.00 kg, 175.26 cm) sg5 13:00 Pain Scale: Adult sg5 13:50 Pain Scale: Adult sg5 14:05 Pain Scale: Adult sg5 14:23 Pain Scale: Adult sg5 14:46 Pain Scale: Adult sg5 15:05 Pain Scale: Adult sg5 15:47 Pain Scale: Adult sg5 15:58 Pain Scale: Adult sg5 16:55 Pain Scale: Adult sg5 17:23 Pain Scale: Adult sg5 17:57 Pain Scale: Adult sg5 18:15 Pain Scale: Adult sg5 18:15 Pain Scale: Adult sg5 MDM: 15:05 Patient medically screened. [facility] 07/05 13:19 Order name: CT Traumagram (Head C Spine CAP W Con); Complete Time: 15:24 [facility] 07/05 13:19 Order name: Basic Metabolic Panel; Complete Time: 15:24 [facility] 07/05 13:19 Order name: CBC with Diff; Complete Time: 15:24 [facility] 07/05 13:19 Order name: LFT's; Complete Time: 15:24 kdr 07/05 13:19 Order name: Magnesium; Complete Time: 15:24 [facility] 07/05 13:19 Order name: NT PRO-BNP; Complete Time: 15:24 [facility] 07/05 13:19 Order name: PT-INR; Complete Time: 15:24 [facility] 07/05 13:19 Order name: Troponin HS; Complete Time: 15:24 [facility] 07/05 13:19 Order name: XRAY Chest (1 view); Complete Time: 15:24 kdr 07/05 13:19 Order name: EKG; Complete Time: 13:20 kdr 07/05 13:19 Order name: Cardiac monitoring; Complete Time: 13:59 kdr 07/05 13:19 Order name: EKG - Nurse/Tech; Complete Time: 13:59 [facility] 07/05 13:19 Order name: IV Saline Lock; Complete Time: 13:21 kdr 07/05 13:19 Order name: Labs collected and sent; Complete Time: 14:18 kdr 07/05 13:19 Order name: O2 Per Protocol; Complete Time: 14:18 [facility] 07/05 13:19 Order name: O2 Sat Monitoring; Complete Time: 14:17 kdr 07/05 13:19 Order name: Acetaminophen; Complete Time: 15:24 kdr 07/05 13:19 Order name: ETOH Level; Complete Time: 15:24 kdr 07/05 13:19 Order name: Ptt, Activated; Complete Time: 15:24 kdr 07/05 13:19 Order name: Salicylate; Complete Time: 15:24 kdr 07/05 13:19 Order name: Urine Drug Screen; Complete Time: 15:24 kdr 07/05 13:19 Order name: Suicide Screening ([place]); Complete Time: 14:17 kdr 07/05 13:19 Order name: Urine Dipstick-Ancillary (obtain specimen); Complete Time: 14:17 kdr 07/05 13:19 Order name: Dick; Complete Time: 14:17 kdr 07/05 13:41 Order name: Urine Dipstick-Ancillary; Complete Time: 15:24 EDMS 07/05 14:22 Order name: CREATININE WHOLE BLOOD; Complete Time: 15:24 EDMS 07/05 14:50 Order name: ABG Arterial Blood Gas; Complete Time: 15:24 EDMS 07/05 16:02 Order name: SARS-COV-2 Antigen Rapid; Complete Time: 17:17 bd 07/05 18:13 Order name: Troponin High Sensitivity [facility] 07/05 18:50 Order name: EKG Strip kdr 07/05 19:16 Order name: Troponin High Sensitivity EDMS Administered Medications: 16:08 Discontinued: Norepinephrine IV 0.1 mcg/kg/min IV at calculated rate Per protocol; sg5 (Standard concentration 4 mg / 250 mL D5W); Recommended max rate 3 mcg/kg/min; Titrate 0.05 mcg/kg/min as often as every 5 minutes to achieve goal (see titration policy); Goal parameter MAP greater than 65 mmHg. 13:58 Drug: NS 0.9% IV 1000 ml Route: IV; Rate: 1 bolus; Site: left antecubital; sg5 14:50 Follow up: IV Status: Completed infusion; IV Intake: 1000ml sg5 13:58 Drug: Norepinephrine IV 0.1 mcg/kg/min Route: IV; Rate: calculated rate; Site: left sg5 antecubital; 13:58 Follow up: Rate change 5 mcg/min sg5 14:40 Follow up: Rate change 3 mcg/min sg5 15:15 Follow up: Rate change 2 mcg/min sg5 15:42 Follow up: Rate change 1 mcg/min sg5 15:58 Follow up: Rate change 0.5 mcg/min sg5 13:58 Drug: Norepinephrine IV 0.1 mcg/min Route: IV; Rate: calculated rate; Site: left sg5 antecubital; 13:58 Drug: Norepinephrine IV 0.1 mcg/kg/min Route: IV; Rate: calculated rate; Site: left sg5 antecubital; 14:50 Drug: NS 0.9% IV 1000 ml Route: IV; Rate: 75 ml/hr; Site: right antecubital; sg5 16:35 Drug: Propofol IV 5 mcg/kg/min Route: IV; Rate: calculated rate; Site: right sg5 antecubital; 16:40 Follow up: Rate change 7 mcg/kg/min sg5 16:45 Follow up: Rate change 10 mcg/kg/min sg5 16:50 Follow up: Rate change 15 mcg/kg/min sg5 16:55 Follow up: Rate change 17 mcg/kg/min sg5 17:01 Follow up: Rate change 20 mcg/kg/min sg5 17:08 Follow up: Rate change 22 mcg/kg/min sg5 17:13 Follow up: Rate change 25 mcg/kg/min sg5 17:20 Follow up: Rate change 27 mcg/kg/min sg5 17:25 Follow up: Rate change 30 mcg/kg/min sg5 17:30 Follow up: Rate change 35 mcg/kg/min sg5 18:00 Follow up: Rate change 30 mcg/kg/min sg5 18:15 Follow up: Rate change 25 mcg/kg/min sg5 17:47 Drug: Midazolam IVP or IV 4 mg Route: IVP; Site: left antecubital; sg5 19:14 Drug: Propofol IV 5 mcg/kg/min Route: IV; Rate: calculated rate; Site: right femoral; as6 Disposition Summary: 07/05/22 19:20 Transfer Ordered Accepting Physician: [facility] kdr Transfer Location: [facility] kdr Reason: Higher level of care kdr Condition: Critical(07/05/22 19:20) kdr Problem: new(07/05/22 19:20) kdr Symptoms: have improved(07/05/22 19:20) kdr Diagnosis - Cardiac arrest, cause unspecified - Ventricular fibrillation(07/05/22 19:20) kdr Forms: - Medication Reconciliation Form kdr - SBAR form kdr Signatures: Dispatcher [employer] EDMS Duke Vanegas MD MD kdr Damien Henry PA PA jmm Peltier, Brian RN RN bp Parker Villatoro RN RN as6 Vika Durham RN RN sg5 Corrections: (The following items were deleted from the chart) 15:28 15:05 Archie Holcomb kdr kdr 19:19 15:05 Inpatient Admission kdr kdr 19:19 15:05 Intensive Care Unit kdr kdr 19:19 15:05 Critical kdr kdr 19:19 15:05 new kdr kdr 19:19 15:05 have improved kdr kdr 19:19 15:05 Standard kdr kdr 19:19 15:05 kdr kdr 19:19 15:05 Cardiac arrest, cause unspecified kdr kdr 19:19 15:28 Nathaniel Acevedo kdr kdr
[2022-07-05] MEDS ORDERED: propofoL 1,000 MG/100 ML VIAL IV ONE ×2 (16:39→20:37)
[2022-07-05 16:46] LABS: SARS-CoV-2 Antigen Rapid Res Negative (Negative)
[2022-07-05] MEDS ORDERED: ACETAMINOPHEN 650MG/RECT SUPP PR PRN (16:59)
[2022-07-05] MEDS ORDERED: ONDANSETRON 4 MG/2 ML VIAL IV PRN (17:00)
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
[2022-07-05] MEDS ORDERED: MIDAZOLAM HCL 2 MG/2 ML INJ ONE ×2 (17:36→17:37)
[2022-07-05] MEDS ORDERED: PIPER TAZO 3.375 GM in NA CHLORIDE 0.9% 100 ML IV SCH (17:45)
[2022-07-05] MEDS ORDERED: KCL 20 MEQ/100 mL IVPB 20 MEQ/100 ML BAG IV SCH (18:00)
[2022-07-05] MEDS ORDERED: HEPARIN/D5W 25,000 UNIT/500 ML BAG IV PRN (18:00)
[2022-07-05] MEDS ORDERED: GLUCAGON 1 MG/VIAL IM PRN (18:04)
[2022-07-05] MEDS ORDERED: D10W 250 ML BAG IV PRN (18:19)
[2022-07-05] MEDS ORDERED: INSULIN -REGULAR HUMAN 50 UNIT/0.5 ML ML SQ SCH ×2 (18:30→21:00)
[2022-07-06 03:32] VITALS: O2SAT 100
[2022-07-06 03:45] VITALS: BP 105/70; TEMP 97
--- NOTE | 2022-07-06 12:36 | EKG ---
Test Date: 2022-07-05 Test Time: 13:50:45 Slitter Scorer: MANDY MEASUREMENT RESULTS: Intervals: Rate: 82 OK: 170 QRSD: 106 QT: 386 QTc: 450 [place]: P: 1 OK: 170 QRS: 13 T: 10 INTERPRETIVE STATEMENTS: Normal sinus rhythm Normal ECG Electronically Signed On 07-06-22 12:35:07 CDT by Rodolfo Prtat
--- NOTE | 2022-07-07 11:45 | EKG ---
Test Date: 2022-07-05 Test Time: 19:25:37 Railroad Shop Inspector: MEASUREMENT RESULTS: Intervals: Rate: 63 [place]: 180 QRSD: 92 QT: 478 QTc: 489 [place]: P: 17 [place]: 180 QRS: 11 T: 15 INTERPRETIVE STATEMENTS: Normal sinus rhythm Prolonged QT Abnormal ECG Compared to ECG 07/05/2022 13:50:45 Prolonged QT interval now present Electronically Signed On 07-07-22 11:44:37 CDT by Rodolfo Pratt
== END 2022-07-05 20:00 | disposition short-term general hospital (02) | DRG 308 ==
LOC: EDBD 13:10 → ER 13:10 → ERHOLD 16:42 → MERGE 16:42
PROVIDERS: ADMIT Hospitalist; ATTEND Hospitalist
PROC: 5A1935Z Respiratory Ventilation, Less than 24 Consecutive Hours (ICD-10-PCS; principal; 2022-07-05)
PROC: 0BH17EZ Insertion of Endotracheal Airway into Trachea, Via Natural or Artificial Opening (ICD-10-PCS; 2022-07-05)
PROC: 5A12012 Performance of Cardiac Output, Single, Manual (ICD-10-PCS; 2022-07-05)
DX: I49.01 Ventricular fibrillation (principal); J96.01 Acute respiratory failure with hypoxia; R57.0 Cardiogenic shock; I46.2 Cardiac arrest due to underlying cardiac condition; E87.6 Hypokalemia; F15.10 Other stimulant abuse, uncomplicated; F12.10 Cannabis abuse, uncomplicated; N18.31 Chronic kidney disease, stage 3a; R79.89 Other specified abnormal findings of blood chemistry; Z20.822 Contact with and (suspected) exposure to COVID-19
CPT/HCPCS: 36415; 36680; 70450; 71045; 71260; 72125; 74177; 80048; 80076; 80307; 81003; 82565; 82805; 83036; 83735; 83880; 84484; 85025; 85610; 85730; 87811; 93005; 94002; 96365; 96366; 96375; 99291; 99292; G0480; J2250; J2704; J7030; Q9967

== ENCOUNTER 2022-08-14 11:44 | Observation (INO) | payer OTHER ==
--- OUTSIDE RECORDS SUMMARY | 2022-08-14 12:01 | XMS REPORT | Continuity of Care Document ---
:1970 Author Organization [facility] t Address [address] [place] [address] [address] [place] [address] Care Team Providers Name Role Phone Judith Gu Primary Care Physician Judith Gu Attending Clinician Unavailable Marina Pat RN Attending Clinician Unavailable LESTER MORA Attending Clinician Unavailable BRUCE BOTELLO Attending Clinician Unavailable Abby CHANEL, Lester Carlson Attending Clinician [phone] Sven Rossi MD Attending Clinician [phone] Bruce Botello MD Attending Clinician Dionicio CHANEL, Al [place] Attending Clinician [phone] Rubina CHANEL, Teodoro Campbell Attending Clinician Alexy CHANEL, Selma Valerio Attending Clinician Miguel Marti MD Attending Clinician [phone] Olman Huston MD Attending Clinician Noa Crawford MD Attending Clinician [phone] Al Bowden MD Attending Clinician Unavailable Doctor Unassigned, [place] Attending Clinician Unavailable LEOLA TAVAREZ Attending Clinician Unavailable Leola Tavarez MD Attending Clinician Kalie Blackmon RN Attending Clinician Unavailable Al Grossman Attending Clinician Aguila Pedro MD Attending Clinician AGUILA PEDRO Attending Clinician Unavailable Arturo Hardin MD Attending Clinician ITALIA ANAND Attending Clinician Unavailable Mary Spears DO Attending Clinician Italia Anand DO Attending Clinician LESTER MORA Admitting Clinician Unavailable Aguila Pedro MD Admitting Clinician AGUILA PEDRO Admitting Clinician Unavailable ITALIA ANAND Admitting Clinician Unavailable Italia Anand DO Admitting Clinician Payers Payer Name Policy Type Policy Number Effective Date Expiration Date S ho[place] POS [id number] 2012 2016 00:00:00 00:00:00 [employer] MEDICARE 53 [id number] 2021 Common S pirit 00:00:00 - [facility] Problems Condition Condition Condition Status Onset Resolution Last Treating Co mments Source Name Details Category Date Date Treatment Clinician Date Cardiogeni Cardiogeni Disease [facility]ur[facility] shock [facility] shock nce [facility] Coronary Coronary Disease Recurre [facility] artery artery nce 3 kes disease disease 00:00: Medical involving involving 00 Cent [place] coronary coronary artery of artery of [place] heart with heart with other form other form of angina of angina pectoris pectoris Acute Acute Disease Active [facility] metabolic metabolic 3-21 [facility] encephalop encephalop 00:00: Me dical athy athy 00 Center Mixed Mixed Disease Active [facility] hyperlipid hyperlipid 3-21 Becky kes emia emia 00:00: Medical 00 Center On On Disease Active [facility] intra-aort intra-aort 3-21 Becky kes ic balloon ic balloon 00:00: Me dical pump pump 00 Center assist assist Primary Primary Disease Active [facility] hypertensi hypertensi 3-21 Becky kes on on 00:00: [facility] 00 Center STEMI (ST STEMI (ST Disease Recurre [facility] elevation elevation abhinav 3-16 Nestor s myocardial myocardial 00:00: Me dical infarction infarction 00 Ce nter ) ) s/p ACB x s/p ACB x Disease Recurre [facility] [address] la 3-15 [facility] [place] 00:00: Medical (07/14/22) (07/14/22) 00 Cent er Abscess of Abscess of Disease Active 2021-04 U mattie scrotum scrotum 1-03 ity of 00:00: [place] 00 Medical Branch Coronary Coronary Disease Active 2020-04 Unive rs artery artery 2-17 ity of disease disease 00:00: [place] involving involving 00 Medi april [place] Branch coronary coronary artery of artery of [place] heart heart without without angina angina pectoris pectoris Dyslipidem Dyslipidem Disease Active 2020-04 U mattie ia ia 2-17 ity of 00:00: [place] 00 Medical Branch Cigarette Cigarette Disease Active 2020-04 Uni vers nicotine nicotine 2-17 ity of dependence dependence 00:00[place] without without 00 Medical complicati complicati Br anch on on Bilateral Bilateral Disease Active 2020-04 Uni vers carotid carotid 2-17 ity of artery artery 00:00: [place] disease disease 00 Medical Branch Atypical Atypical Disease Active 2020-04 Unive rs chest pain chest pain 2-15 it y of 00:00: [place] 00 Medical Branch Obesity Obesity Disease Active 2020-04 Univers (BMI (BMI 2-15 ity of 30-39.9) 30-39.9) 00:00: [place] 00 Medical Branch [id number] Other Problem Common chronic Spirit pain - [facility] [id number] Cervical Problem Comm on spondylosi Spirit s [facility] [id number] History of Problem Co mmon lymphoma [facility] - [facility] [id number] Cervical Problem Commo n radiculopa Spirit thy due to - CHI degenerati St ve joint [facility] disease of Medica l spine Morgan [id number] Presence Problem Comm on of Spirit coronary - [facility]I angioplast St y implant [facility] and graft [facility] [id number] Atheroscle Problem Co mmon rotic Spirit heart - CHI disease of [facility] coronary Medical artery Center without angina pectoris Delirium Delirium Disease Active [facility] t due to due to [facility] another another [facility] Center condition, condition, acute, acute, hyperactiv hyperactiv e e Allergies, Adverse Reactions, Alerts Allergy Allergy Status Severity Reaction(s) Onset Inactive Treating Comm ents Source Name Type Date Date Clinician IBUPROFE Allergy Active High Sob [facility] 3-16 [facility] 00[facility] Medical 00 Center Ibuprofe Propensi Active Shortness Of [facility] ty to Breath 3-16 [facility] adverse 00:00: Medical reaction 00 Morgan s IBUPROFE DRUG Active Palpitations 2020-04 Un ricky N INGREDI 2-15 ity of 00:00: [place] 00 [facility] Branch Ibuprofe Propensi Active Palpitations 2020-04 Univers n ty to 2-15 ity of adverse 00:00: [place] reaction Medical s Branch NO KNOWN Allergy Active [facility] S ibuprofe ibuprofe Active heart Common n n flutter Spirit - [facility] Social History Social Habit Start Date Stop Date Quantity Comments Source History of Cigarette Smoker Universi ty of tobacco use [facility] Exposure to 2022-02-13 2022-02-23 Not sure [facility] SARS-CoV-2 00:00:00 21:06:00 [facility] (event) Branch Tobacco use and 2022-02-23 2022-02-23 Former smokeless Uni versity of exposure 00:00:00 00:00:00 tobacco user [facility] [place] [facility] 2021-04-06 2021-04-06 21 University 00:00:00 00:00:00 [facility] Sex Assigned At [address] Becky kes 00:00:00 00:00:00 Medical Center Smoking Status Start Date Stop Date Source Smokes tobacco daily 2022-02-23 00:00:00 Univers ity of [place] [facility] Medications Ordered Filled Start Stop Current Ordering Indication Dosage Frequency Signature Comments Components Source Medication Medication Date Date Medication? Clinician (SIG) Name Name empaglifloz Yes 10mg QD Take [address] [facility] in 4-12 tablet (10 [facility] (JARDIANCE) 00:00: mg total) M edical 10 mg 00 by mouth Center tablet in the morning. famotidine Yes 20mg Q.5D Take 1 [facility]I S t (PEPCID) 20 4-12 tablet (20 Becky kes MG tablet 00:00: mg total) Med ical 00 by mouth Center in the morning and 1 tablet (20 mg total) before bedtime. aspirin 81 2023- Yes 81mg QD Take [address] [facility] MG chewable 08-02 tablet (81 L ukes tablet 00:00: 23:59 mg total) Medic al 00 :00 by mouth Center in the morning. atorvastati 2023- Yes 40mg QD Take [address] [facility] n (LIPITOR) 08-02 tablet (40 L ukes 40 MG 00:00: 23:59 mg total) Medica l tablet 00 :00 by mouth Center nightly. folic acid 2023- Yes 1mg QD Take [address] (FOLVITE) 1 08-02 tablet (1 Becky kes MG tablet 00:00: 23:59 mg total) Me dical 00 :00 by mouth Center in the morning. magnesium 2023- Yes 400mg Q.5D Take [address] oxide 08-02 tablet [facility] (MAG-OX) 00:00: 23:59 (400 mg Medic al 400 mg 00 :00 total) by Center (241.3 mg mouth in magnesium) the tablet morning and 1 tablet (400 mg total) before bedtime. memantine 2023- Yes 5mg QD Take 1 [facility]I [facility] t (NAMENDA) 5 08-02 tablet (5 Becky kes MG tablet 00:00: 23:59 mg total) Me dical 00 :00 by mouth Center in the morning. metoprolol 2023- Yes 25mg QD Take [address] succinate 08-02 tablet (25 Clay es (TOPROL-XL) 00:00: 23:59 mg total) Medical 25 MG 24 hr 00 :00 by mouth Cent er tablet in the morning. thiamine 2023- Yes 100mg QD Take 1 [facility]I [facility] t 100 MG 08-02 tablet [facility] tablet 00:00: 23:59 (100 mg Medical 00 :00 total) by Center mouth in the morning. QUEtiapine 2022- Yes 50mg Q.5D Take [address] (SEROquel) 08-02-11 tablet (50 Becky kes 50 MG 00:00: 23:59 mg total) Medica l tablet 00 :00 by mouth Center in the morning and 1 tablet (50 mg total) before bedtime. Do all this for 60 days. acetaminoph 2022- No 1{tbl} Take [address] en-codeine 08-02- tablet by [place] (TYLENOL 00:00: 23:59 mouth Medical #3) 300-30 00 :00 every 4 Center mg per (four) tablet hours as needed for up to 10 days. Max Daily Amount: 6 tablets docusate 2021-04- No [id number] 100mg Take 1 U nivers 100 mg 04-30 capsule by ity of capsule 00:00: 05:59 mouth in [place] 00 :00 [facility] for 30 days. polyethylen 2021-04- No [id number] 17g Take 1 Univers e glycol 04-30 Packet by ity o f 3350 17 00:00: 05:59 mouth in [place] gram powder 00 :00 [facility] for 30 days. docusate 2021-04- No [id number] 100mg Take 1 U nivers 100 mg 04-30 capsule by ity of capsule 00:00: 05:59 mouth in [place] 00 :00 [facility] for 30 days. polyethylen 2021-04- No [id number] 17g Take 1 Univers e glycol 04-30 Packet by ity o f 3350 17 00:00: 05:59 mouth in [place] gram powder 00 :00 the [facility] for 30 days. docusate 2021-04- No [id number] 100mg Take 1 U nivers 100 mg 04-30 capsule by ity of capsule 00:00: 05:59 mouth in [place] 00 :00 the [facility] for 30 days. polyethylen 2021-04- No [id number] 17g Take 1 Univers e glycol 04-30 Packet by ity o f 3350 17 00:00: 05:59 mouth in [place] gram powder 00 :00 the Medical morning Branch for 30 days. docusate 2021-04- No [id number] 100mg Take 1 U nivers 100 mg 04-30 capsule by ity of capsule 00:00: 05:59 mouth in [place] 00 :00 the Medical morning Branch for 30 days. polyethylen 2021-04- No [id number] 17g Take 1 Univers e glycol 04-30 Packet by ity o f 3350 17 00:00: 05:59 mouth in [place] gram powder 00 :00 the Medical morning Branch for 30 days. docusate 2021-04- No [id number] 100mg Take 1 U nivers 100 mg 04-30 capsule by ity of capsule 00:00: 05:59 mouth in [place] 00 :00 the Medical morning Branch for 30 days. polyethylen 2021-04- No [id number] 17g Take 1 Univers e glycol 04-30 Packet by ity o f 3350 17 00:00: 05:59 mouth in [place] gram powder 00 :00 the [facility] morning Branch for 30 days. aspirin 81 2021-04 Yes 81mg Take 81 mg U nivers mg chewable 1-07 by mouth ity of tablet 18:04: daily. [address] aspirin 81 2021-04 Yes 81mg Take 81 mg U nivers mg chewable 1-07 by mouth ity of tablet 18:04: daily. [address] aspirin 81 2021-04 Yes 81mg Take 81 mg U nivers mg chewable 1-07 by mouth ity of tablet 18:04: daily. [address] aspirin 81 2021-04 Yes 81mg Take 81 mg U nivers mg chewable 1-07 by mouth ity of tablet 18:04: daily. [address] aspirin 81 2021-04 Yes 81mg Take 81 mg U nivers mg chewable 1-07 by mouth ity of tablet 18:04: daily. [address] aspirin 81 2021-04 Yes 81mg Take 81 mg U nivers mg chewable 1-07 by mouth ity of tablet 18:04: daily. [address] polyethylen 2021-04 Yes 17g 17 g, Unive rs e glycol 1-07 Oral, ity of 3350 powder 16:00: [place] 17 g 00 First dose Medical on Sun Branch 02/27/22 at 1000, Until Discontinu ed, Routine polyethylen 2021-04 Yes 17g 17 g, Unive rs e glycol 1-07 Oral, ity of 3350 powder 16:00: [place]ILY[place] 17 g 00 First dose Medical on [place] Branch 02/27/22 at 1000, Until Discontinu ed, Routine gabapentin 2021-04- No [id number] 300mg Take 1 Univers 300 mg 04-29 capsule by ity of capsule 00:00: 05:59 mouth [place] 00 :00 every 8 Medical (eight) Branch hours for 30 days. melatonin 2021-04- No [id number] 6mg Take 2 Univers mg tablet 04-29 tablets by ity of 00:00: 05:59 mouth at [place] 00 :00 bedtime Medical for 30 Branch days. methocarbam 2021-04- No [id number] 500mg Take 1 Univers oL 500 mg 04-29 tablet by ity of tablet 00:00: 05:59 mouth 4 [place] 00 :00 (four) Medical times Branch daily for 30 days. gabapentin 2021-04- No [id number] 300mg Take 1 Univers 300 mg 04-29 capsule by ity of capsule 00:00: 05:59 mouth [place] 00 :00 every 8 Medical (eight) Branch hours for 30 days. melatonin 3 2021-04- No [id number] 6mg Take 2 Univers mg tablet 04-29 tablets by ity of 00:00: 05:59 mouth at [place] 00 :00 bedtime Medical for 30 Branch days. methocarbam 2021-04- No [id number] 500mg Take 1 Univers oL 500 mg 04-29- tablet by ity of tablet 00:00: 05:59 mouth 4 [place] 00 :00 (four) Medical times Branch daily for 30 days. gabapentin 2021-04- No [id number] 300mg Take 1 Univers 300 mg 04-29 capsule by ity of capsule 00:00: 05:59 mouth [place] 00 :00 every 8 Medical (eight) Branch hours for 30 days. melatonin 3 2021-04- No [id number] 6mg Take 2 Univers mg tablet 04-29- tablets by ity of 00:00: 05:59 mouth at [place] 00 :00 bedtime Medical for 30 Branch days. methocarbam 2021-04- No [id number] 500mg Take 1 Univers oL 500 mg 04-29 tablet by ity of tablet 00:00: 05:59 mouth 4 [place] 00 :00 (four) Medical times Branch daily for 30 days. gabapentin 2021-04- No [id number] 300mg Take 1 Univers 300 mg 04-29 capsule by ity of capsule 00:00: 05:59 mouth [place] 00 :00 every 8 Medical (eight) Branch hours for 30 days. melatonin 3 2021-04- No [id number] 6mg Take 2 Univers mg tablet 04-29 tablets by ity of 00:00: 05:59 mouth at [place] 00 :00 bedtime Medical for 30 Branch days. methocarbam 2021-04- No [id number] 500mg Take 1 Univers oL 500 mg 04-29 tablet by ity of tablet 00:00: 05:59 mouth 4 [place] 00 :00 ([facility]) Medical times Branch daily for 30 days. gabapentin 2021-04- No [id number] 300mg Take 1 Univers 300 mg 04-29 capsule by ity of capsule 00:00: 05:59 mouth [place] 00 :00 every 8 Medical (eight) Branch hours for 30 days. melatonin 3 2021-04- No [id number] 6mg Take 2 Univers mg tablet 04-29 tablets by ity of 00:00: 05:59 mouth at [place] 00 :00 bedtime Medical for 30 Branch days. methocarbam 2021-04- No [id number] 500mg Take 1 Univers oL 500 mg 04-29 tablet by ity of tablet 00:00: 05:59 mouth 4 [place] 00 :00 ([facility]) Medical times Branch daily for 30 days. sulfamethox 2021-04- No [id number] 1{tbl} Take 1 Univers azole-trime 04-29 tablet by it y of thoprim 00:00: 05:59 mouth in [place] (BACTRIM 00 :00 the Medical DS) 800-160 morning Branc h mg per and 1 tablet tablet in the evening. Do all this for 14 days. sulfamethox 2021-04- No [id number] 1{tbl} Take 1 Univers azole-trime 04-29 tablet by it y of thoprim 00:00: 05:59 mouth in [place] (BACTRIM 00 :00 the Medical DS) 800-160 morning Branc h mg per and 1 tablet tablet in the evening. Do all this for 14 days. sulfamethox 2021-04- No [id number] 1{tbl} Take 1 Univers azole-trime 04-29 tablet by it y of thoprim 00:00: 05:59 mouth in [place] (BACTRIM 00 :00 the Medical DS) 800-160 morning Branc h mg per and 1 tablet tablet in the evening. Do all this for 14 days. sulfamethox 2021-04- No [id number] 1{tbl} Take 1 Univers azole-trime 04-29 tablet by it y of thoprim 00:00: 05:59 mouth in [place] (BACTRIM 00 :00 the Medical DS) 800-160 morning Branc h mg per and 1 tablet tablet in the evening. Do all this for 14 days. sulfamethox 2021-04- No [id number] 1{tbl} Take 1 Univers azole-trime 04-29 tablet by it y of thoprim 00:00: 05:59 mouth in [place] (BACTRIM 00 :00 the Medical DS) 800-160 morning Branc h mg per and 1 tablet tablet in the evening. Do all this for 14 days. melatonin 2021-04 Yes 6mg 6 mg, Univers (MELATIN) 1-05 Oral, QHS, ity of tablet 6 mg 02:00: First dose on Sun Medical 02/24/22 at Branch 2100, Until Discontinu ed, Routine melatonin 2021-04 Yes 6mg 6 mg, Univers (MELATIN) 1-05 Oral, QHS, ity of tablet 6 mg 02:00: First dose on Sun Medical 02/24/22 at Branch 2100, Until Discontinu ed, Routine piperacilli 2021-04- No 3.375g 3.375 g, Univers n-tazobacta 04-27 IV ity of m (ZOSYN) 02:00: 02:59 [place], [place] 3.375 g in 00 :00 Q8H ABX, Medic al NaCl 0.9% 21 doses, Branc h (NS) 50 mL First dose MINI-BAG (after last reorder) on Sun02/24/22 at 2100, Last dose on Sun03/03/22 at 1300, Administer over 4 Hours, 50 mL
Reas on for Anti-Infec tive: Documented Infection< br>Documen zoë Infection Site: Skin / Soft Tissue
Duration of Therapy: Other (see Comments) piperacilli 2021-04 No 3.375g 3.375 g, Univers n-tazobacta 04-27 IV ity of m (ZOSYN) 02:00: 02:59 [place], [place] 3.375 g in 00 :00 Q8H ABX, Medic al NaCl 0.9% 21 doses, Branc h (NS) 50 mL First dose MINI-BAG (after last reorder) on Sun02/24/22 at 2100, Last dose on Sun03/03/22 at 1300, Administer over 4 Hours, 50 mL
Reas on for Anti-Infec tive: Documented Infection< br>Documen zoë Infection Site: Skin / Soft Tissue
Duration of Therapy: Other (see Comments) acetaminoph 2021-04 Yes 650mg 650 mg, Un ricky en 1-04 Oral, Q6H, ity of (TYLENOL) 23:00: First dose [place] tablet 650 00 (after Medical mg last Branch modificati on) on Sun02/24/22 at 1800, Until Discontinu ed, Routine acetaminoph 2021-04 Yes 650mg 650 mg, Un ricky en 1-04 Oral, Q6H, ity of (TYLENOL) 23:00: First dose [place] tablet 650 00 (after Medical mg last Branch modificati on) on Sun02/24/22 at 1800, Until Discontinu ed, Routine enoxaparin 2021-04 Yes 40mg 40 mg, Unive rs (LOVENOX) 04-26 Subcutaneo ity of injection 22:00: us, DAILY, [place] 40 mg 00 First dose Medical on Sun22 at 1700, Until Discontinu ed, Routine enoxaparin 2021-04 Yes 40mg 40 mg, Unive rs (LOVENOX) 1-04 Subcutaneo ity of injection 22:00: us, DAILY, [place] 40 mg 00 First dose Medical on Sun Branch 02/24/22 at 1700, Until Discontinu ed, Routine methocarbam 2021-04 Yes 500mg 500 mg, Un ricky oL 1-04 Oral, QID, ity of (ROBAXIN) 21:00: First dose [place] tablet 500 00 on Sun Medical mg 02/24/22 at Branch 1600, Until Discontinu ed, Routine methocarbam 2021-04 Yes 500mg 500 mg, Un ricky oL 1-04 Oral, QID, ity of (ROBAXIN) 21:00: First dose [place] tablet 500 00 on Sun Medical mg 02/24/22 at Branch 1600, Until Discontinu ed, Routine gabapentin 2021-04 Yes 300mg 300 mg, Uni vers (NEURONTIN) 1-04 Oral, Q8H, it y of capsule 300 19:00: First dose [place] mg 00 on Sun Medical 02/24/22 at Branch 1400, Until Discontinu ed, Routine gabapentin 2021-04 Yes 300mg 300 mg, Uni vers (NEURONTIN) 1-04 Oral, Q8H, it y of capsule 300 19:00: First dose [place] mg 00 on Sun Medical 02/24/22 at Branch 1400, Until Discontinu ed, Routine NaCl 0.9% 2021-04- No 1000mL at 42 Univ ers (NS) IV 04-26 11-05 mL/hr, IV ity of infusion 18:30: 20:43 Infusion, [place] 1,000 mL 00 :29 CONTINUOUS Medic al , Starting Branch on Sun02/24/22 at 1330, Until 02/25/22 at 1543, Routine oxyCODONE 2021-04 Yes 5mg 5 mg, Univers immediate 1-04 Oral, ity of release 18:16: Q4HPRN, [place] tablet 5 mg 51 Starting Medi april on Sun Branch 02/24/22 at 1316, Until Discontinu ed, Routine, Pain (scale 4-6)
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 : LASHAWN ARTURO sodium 2021-04- No PRN, Univers chloride 04-26 Starting ity of 0.9 % 17:47: 19:20 on Sun irrigation 00 :43 02/24/22 at Med ical solution 1247, Branch Until Sun02/24/22 at 1420, Intra-op HYDROcodone 2021-04- No 2{tbl} 2 tablet, Univers -acetaminop 04-26 Oral, ity of hen (NORCO 14:05: 18:17 Q6HPRN, [place] 5) 5-325 mg 12 :27 Starting Medi april tablet 2 on Sun Branch tablet 02/24/22 at 0905, Until Sun02/24/22 at 1317, Routine, Pain (scale 4-6) morpHINE (2021-04 Yes 4mg 4 mg, Slow Univers mg/mL) 1-04 IV Push, ity of injection 4 14:04: Q4HPRN, [place] mg 38 Starting Medical on Sun Branch 02/24/22 at 0904, Until Discontinu ed, Routine, Pain (scale 7-10) morpHINE (4 2021-04 Yes 4mg 4 mg, Slow Univers mg/mL) 1-04 IV Push, ity of injection 4 14:04: Q4HPRN, [place] mg 38 Starting Medical on Sun Branch 02/24/22 at 0904, Until Discontinu ed, Routine, Pain (scale 7-10) docusate 2021-04 Yes 100mg 100 mg, Unive rs (COLACE) 1- Oral, ity of capsule 100 14:00: DAILY, [place] mg 00 First dose Medical on Sun02/24/22 at 0900, Until Discontinu ed, Routine docusate 2021-04 Yes 100mg 100 mg, Unive rs (COLACE) 1-04 Oral, ity of capsule 100 14:00: DAILY, [place] mg 00 First dose Medical on Sun Branch 02/24/22 at 0900, Until Discontinu ed, Routine vancomycin 2021-04 No 1500mg 1,500 mg, Univers (VANCOCIN) 04-26 IV ity of 1,500 mg in 09:00: 14:37 Piggyback, [place] NaCl 0.9% 00 :58 Q12H ABX, Medic al (NS) 500 mL 11 doses, [facility] VIAL-hand brim ironer dose IV on Sun piggyback 02/24/22 at 0400, Last dose on Sun03/01/22 at 0400, Administer over 120 Minutes, 500 mL
Reas on for Anti-Infec tive: Documented Infection< br>Documen zoë Infection Site: Skin / Soft Tissue
Duration of Therapy: 7 days HYDROmorpho 2021-04 No .5mg 0.5 mg, Un ricky ne 04-26 Slow IV ity of (DILAUDID) 04:00: 14:05 Push, [place] injection 00 :39 Q4HPRN, Medical 0.5 mg Starting Branch on Sun02/23/22 at 2300, Until Sun02/24/22 at 0905, Routine, Pain (scale 7-10)
U se approved by (Faculty): ADC PROVIDER HYDROmorpho 2021-04- No 1mg 1 mg, Slow Univers ne 04-26 IV Push, ity of (DILAUDID) 03:30: 02:46 ONCE, 1 [place] injection 1 00 :00 dose, On Medi april mg Steph Branch 02/23/22 at 2230, Routine
Use approved by (Faculty): ADC PROVIDER levoFLOXaci 2021-04- No 750mg 750 mg, IV Univers n in D5W 04-26 Piggyback, ity of (LEVAQUIN) 02:45: 20:37 at 100 [place] 750 mg/150 00 :35 mL/hr Medical mL Administer Branch Piggyback over 90 750 mg Minutes, Q24H ABX, 5 doses, First dose on Sun02/23/22 at 2145, Last dose on Sun02/27/22 at 2145, PARISH
Re ason for Anti-Infec tive: Documented Infection< br>Documen zoë Infection Site: Skin / Soft Tissue
Duration of Therapy: 7 days HYDROcodone 2021-04 No 1{tbl} 1 tablet, Univers -acetaminop 04-26 Oral, ity of hen (NORCO 02:00: 01:07 ONCE, 1 [place] 5) 5-325 mg 00 :00 dose, On Medi april tablet 1 [place] Branch tablet 02/23/22 at 2100, PARISH NaCl 0.9% 2021-04 No 1000mL at 100 Uni vers (NS) IV 04-26 mL/hr, IV ity of infusion 01:45: 18:18 Infusion, [place] 1,000 mL 00 :24 CONTINUOUS Medic al , Starting Branch on Steph 02/23/22 at 2045, Until 02/24/22 at 1318, Routine ondansetron 2021-04 Yes 4mg 4 mg, Slow Univers (ZOFRAN 1-04 IV Push, ity of (PF)) 01:35: Q6HPRN, [place] injection 4 12 Starting Medi april mg on Steph Branch 02/23/22 at 203, Until Discontinu ed, Routine, Nausea and Vomiting (N/V) ondansetron 2021-04 Yes 4mg 4 mg, Slow Univers (ZOFRAN 1-04 IV Push, ity of (PF)) 01:35: Q6HPRN, [place] injection 4 12 Starting Medi april mg on Steph Branch 02/23/22 at 5, Until Discontinu ed, Routine, Nausea and Vomiting (N/V) vancomycin 2021-04 No 1000mg 1,000 mg, Univers (VANCOCIN) 04-26 IV ity of 1,000 mg in 00:00: 00:45 [place], [place] NaCl 0.9% 00 :00 ONCE, 1 Medical (NS) 250 mL dose, On Bran ch VIAL-MATE [facility] IV 02/23/22 at piggyback 1900, Administer over 60 Minutes, 250 mL
Reas on for Anti-Infec tive: Documented Infection< br>Documen zoë Infection Site: Skin / Soft Tissue
Duration of Therapy: Other (see Comments) NaCl 0.9% 2021-04 No 1000mL at 999 Uni vers (NS) bolus 04-25 mL/hr, ity of infusion 23:00: 00:10 1,000 mL, [place] 1,000 mL 00 :00 IV Medical Infusion, Branch ONCE, 1 dose, On Steph 02/23/22 at 1800, PARISH morpHINE (4 2021-04- No 4mg 4 mg, Slow Univers mg/mL) 04-25 IV Push, ity of injection 4 23:00: 23:10 ONCE, 1 [place] mg 00 :00 dose, On Medical [place] Branch 02/23/22 at 1800, PARISH iopamidol 2021-04- No [id number] 70mL 70 mL, U nivers (ISOVUE 04-25 Intravenou ity o f 370-500 mL) 22:51: 22:51 s, ONCE, 1 [place] injection 00 :00 dose, On Medica l 70 mL Steph Branch 02/23/22 at 1815, Routine piperacilli 2021-04- No 3.375g 3.375 g, Univers n-tazobacta 04-25 IV ity of m (ZOSYN) 22:15: 23:38 [place] 3.375 g in 00 :00 ONCE, 1 Medica l NaCl 0.9% dose, On Branch (NS) 50 mL Steph MINI-BAG 02/23/22 at 1715, Administer over 30 Minutes, 50 mL
R antonieta for Anti-Infec tive: Documented Infection< br>Documen zoë Infection Site: Skin / Soft Tissue
Duration of Therapy: Other (see Comments) aspirin 2021-04 Yes 81mg Take 81 mg U nivers mg chewable -03 by mouth ity of tablet 21:07: daily. [address] Branch bisacodyL 2020-04- No 10mg 10 mg, Unive rs (DULCOLAX) 06-09- Oral, ity of tablet 10 15:30: 14:57 ONCE, 1 [place] mg 00 :00 dose, On Medical Fri Branch 04/08/21 at 0930, Routine aspirin 81 2020-04 Yes 81mg Take 81 mg U nivers mg chewable -17 by mouth ity of tablet 13:39: daily. [address] Branch aspirin 81 2020-04 Yes 81mg Take 81 mg U nivers mg chewable 2-17 by mouth ity of tablet 13:39: daily. [address] atorvastati 2020-04 Yes 40mg 40 mg, Univ ers n (LIPITOR) 2-17 Oral, QHS, it y of tablet 40 03:00: [place] dose [place] 00 on [facility] 04/07/21 Branch at 2100, Until Discontinu ed, Routine atorvastati 2020-04- No [id number] 40mg Take 1 Univers n 40 mg 06-09 tablet by ity of tablet 00:00: 05:59 mouth at [place] 00 :00 bedtime Medical for 30 Branch days. nicotine 2020-04- No [id number] 1{patch Apply 1 Univers mg/24 hr 06-09 } Patch to ity of patch 00:00: 05:59 area(s) [place] 00 :00 every 24 Medical (twenty-fo Branch ur) hours for 30 days. atorvastati 2020-04- No [id number] 40mg Take 1 Univers n 40 mg 06-09 tablet by ity of tablet 00:00: 05:59 mouth at [place] 00 :00 bedtime Medical for 30 Branch days. nicotine 2020-04- No [id number] 1{patch Apply 1 Univers mg/24 hr 06-09 } Patch to ity of patch 00:00: 05:59 [facility](s) [place] 00 :00 every 24 Medical (twenty-fo Branch ur) hours for 30 days. HYDROcodone 2020-04 Yes 1{tbl} 1 tablet, Univers -acetaminop 2-16 Oral, ity of hen (NORCO 23:03: Q6HPRN, [place] 5) 5-325 mg 40 Starting Medi april tablet 1 on [facility] Branch tablet 04/07/21 at 1703, Until Discontinu ed, Routine, Pain (scale 4-6) sulfur 2020-04- No [id number] 5mL 5 mL, Unive rs hexafluorid 2-16 12-16 Intravenou i ty of e microsphr 17:00: 17:00 s, ONCE, 1 [place] (LUMASON) 00 :00 dose, On Medica l injection 5 Steph Branch mL 04/07/21 at 1100, Routine
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 : ZULY TURNER aspirin 2020-04 Yes 81mg 81 mg, Univers chewable 2-16 Oral, ity of tablet 81 15:00: DAILY, [place] mg 00 First dose Medical on Steph Branch 04/07/21 at 0900, Until Discontinu ed, Routine enoxaparin 2020-04 Yes 40mg 40 mg, Unive rs (LOVENOX) 2-16 Subcutaneo ity of injection 15:00: [place], DAILY, [place] 40 mg 00 First dose Medical on [place] Branch 04/07/21 at 0900, Until Discontinu ed, Routine nitroglycer 2020-04 Yes .4mg 0.4 mg, Uni vers in 2-16 Sublingual ity of (NITROSTAT) 05:05: , Q5MIN [place] sublingual 23 PRN, Medical tablet 0.4 Starting Branc h mg on Sun04/06/21 at 2305, Until Discontinu ed, Routine, Chest pain maalox:diph 2020-04 Yes 15mL 15 mL, Univ ers enhydrAMINE 2-16 Oral, PRN, it y of :lidocaine 03:42: Starting [place] 2 % viscous 17 on Sun Medica l 1:1:1 04/06/21 Branch (FIRST-MOUT at 2142, HWASH BLM) Until oral Discontinu suspension ed, 15 mL Routine, chest pain traMADoL 2020-04- No 50mg 50 mg, Univer s (ULTRAM) 2-16 -16 Oral, ity of tablet 50 03:40: 23:03 Q4HPRN, [place] mg 56 :27 Starting Medical on Sun Branch 04/06/21 at 2140, Until Steph 04/07/21 at 1703, Routine, Pain (scale 4-6) nicotine 2020-04 Yes 1{patch 1 Patch, Un ricky (NICODERM) 2-16 } Topical, ity o f 21 mg/24 hr 00:45: Administer [place] patch 1 00 over 24 Medical Patch Hours, Branch Q24H, First dose on Sun04/06/21 at 1845, Until Discontinu ed, Routine cyclobenzap 2020-04- No 10mg 10 mg, Uni vers rine 2-16 -16 Oral, ity of (FLEXERIL) 00:45: 00:04 ONCE, 1 [place] tablet 10 00 :00 dose, On Medica l mg Sun Branch 04/06/21 at 1845, Routine morpHINE 2020-04- No 2mg 2 mg, Slow Un ricky injection 2 06-07 IV Push, ity of mg 23:31: 23:30 Q4HPRN, [place] 08 :08 Starting Medical on Sun Branch 04/06/21 at 1731, Until Steph 04/07/21 at 1730, Routine, Pain (scale 7-10) acetaminoph 2020-04 Yes 650mg 650 mg, Un ricky en 15 Oral, ity of (TYLENOL) 23:30: [facility] [place] tablet 650 54 Starting Medic al mg on Sun Branch 04/06/21 at 1730, Until Discontinu ed, Routine, Pain (scale 1-3) aspirin 2020-04- No 324mg 324 mg, Unive rs chewable 06-07- Oral, ity of tablet 324 22:45: 21:46 ONCE, 1 [place] mg 00 :00 dose, On Medical Sun Branch 04/06/21 at 1645, Routine Methocarbam Methocarbam No 1{table QID Methocarba ol 500 MG ol 500 MG t} mol 500 MG Melatonin 3 Melatonin 3 No 1{table QD Melatonin MG MG t_at_be 3 MG dtime_a s_neede d} Gabapentin Gabapentin No 1{capsu TID Gabapentin 300 MG 300 MG le} 300 MG Polyethylen Polyethylen No 1{packe QD Polyethyle e Glycol e Glycol t_mixed ne Glycol 3350 17 GM 3350 17 GM _with_8 3350 17 GM _ounces _of_flu id} Probiotic Probiotic No Probiotic Aspirin 81 Aspirin 81 No 1{table QD Aspirin 81 81 MG 81 MG t} 81 MG Methocarbam Methocarbam No 1{table QID Methocarba ol 500 MG ol 500 MG t} mol 500 MG Melatonin 3 Melatonin 3 No 1{table QD Melatonin MG MG t_at_be 3 MG dtime_a s_neede d} Gabapentin Gabapentin No 1{capsu TID Gabapentin 300 MG 300 MG le} 300 MG Polyethylen Polyethylen No 1{packe QD Polyethyle e Glycol e Glycol t_mixed ne Glycol 3350 17 GM 3350 17 GM _with_8 3350 17 GM _ounces _of_flu id} Probiotic Probiotic No Probiotic Aspirin 81 Aspirin 81 No 1{table QD Aspirin 81 81 MG 81 MG t} 81 MG Vital Signs Vital Name Observation Time Observation Value Comments Source WEIGHT 2022-08-02 03:09:00 85.186 kg WEIGHT 2022-08-01 06:00:00 84.324 kg WEIGHT 2022-07-27 03:26:00 82.691 kg WEIGHT 2022-07-21 10:00:00 78.835 kg WEIGHT 2022-07-19 12:00:00 75.6 kg WEIGHT 2022-07-17 06:00:00 85.4 kg WEIGHT 2022-07-14 05:00:00 82.6 kg WEIGHT 2022-07-13 05:41:00 83.4 kg WEIGHT 2022-07-12 05:00:00 83.5 kg WEIGHT 2022-07-10 05:44:00 90.3 kg WEIGHT 2022-07-09 03:00:00 90 kg WEIGHT 2022-07-08 04:00:00 93.2 kg HEIGHT 2022-07-06 01:36:00 175.3 cm WEIGHT 2022-07-06 01:36:00 91.9 kg WEIGHT 2022-08-02 03:09:00 85.186 kg WEIGHT 2022-08-01 06:00:00 84.324 kg WEIGHT 2022-07-27 03:26:00 82.691 kg WEIGHT 2022-07-21 10:00:00 78.835 kg WEIGHT 2022-07-19 12:00:00 75.6 kg WEIGHT 2022-07-17 06:00:00 85.4 kg WEIGHT 2022-07-14 05:00:00 82.6 kg WEIGHT 2022-07-13 05:41:00 83.4 kg WEIGHT 2022-07-12 05:00:00 83.5 kg WEIGHT 2022-07-10 05:44:00 90.3 kg WEIGHT 2022-07-09 03:00:00 90 kg WEIGHT 2022-07-08 04:00:00 93.2 kg HEIGHT 2022-07-06 01:36:00 175.3 cm WEIGHT 2022-07-06 01:36:00 91.9 kg WEIGHT 2022-08-02 03:09:00 85.186 kg WEIGHT 2022-08-01 06:00:00 84.324 kg WEIGHT 2022-07-27 03:26:00 82.691 kg WEIGHT 2022-07-21 10:00:00 78.835 kg WEIGHT 2022-07-19 12:00:00 75.6 kg WEIGHT 2022-07-17 06:00:00 85.4 kg WEIGHT 2022-07-14 05:00:00 82.6 kg WEIGHT 2022-07-13 05:41:00 83.4 kg WEIGHT 2022-07-12 05:00:00 83.5 kg WEIGHT 2022-07-10 05:44:00 90.3 kg WEIGHT 2022-07-09 03:00:00 90 kg WEIGHT 2022-07-08 04:00:00 93.2 kg HEIGHT 2022-07-06 01:36:00 175.3 cm WEIGHT 2022-07-06 01:36:00 91.9 kg Systolic blood 2022-03-06 16:20:00 118 mm[Hg] Univer sity of pressure [facility] Diastolic blood 2022-03-06 16:20:00 81 mm[Hg] Unive rsity of [facility] Heart rate 2022-03-06 16:20:00 90 /min [facility] Body temperature 2022-03-06 16:20:00 36.56 Elin [facility] 2022-03-06 16:20:00 18 /min [facility] Body height 2022-03-06 16:20:00 165.1 cm [facility] Body weight 2022-03-06 16:20:00 92.715 kg [facility] BMI 2022-03-06 16:20:00 34.01 kg/m2 [facility] Oxygen saturation in 2022-03-06 16:20:00 98 /min [facility] Arterial blood by [facility] Pulse oximetry Branch height 2022-03-03 16:00:00 63.75 [in_i] [facility] weight 2022-03-03 16:00:00 198 [lb_av] [facility] temperature 2022-03-03 16:00:00 97.8 [degF] [facility] bmi 2022-03-03 16:00:00 34.25 kg/m2 [facility] oximetry 2022-03-03 16:00:00 96 % [facility] respiratory rate 2022-03-03 16:00:00 20 /min [facility] blood pressure 2022-03-03 16:00:00 136 mm[Hg] Common [facility] - systolic [facility] blood pressure 2022-03-03 16:00:00 86 mm[Hg] Common [facility] - diastolic [facility] Systolic blood 2022-02-27 22:03:00 126 mm[Hg] Univer sity of pressure [facility] Diastolic blood 2022-02-27 22:03:00 87 mm[Hg] Unive rsity of pressure [facility] Heart rate 2022-02-27 22:03:00 97 /min Universi ty [facility] Body temperature 2022-02-27 22:03:00 35.94 Elin [facility] Respiratory rate 2022-02-27 22:03:00 18 /min [facility] Oxygen saturation in 2022-02-27 22:03:00 98 /min [facility] blood by [facility] Pulse oximetry Branch Body weight 2022-02-27 09:14:00 91.491 kg Universi ty [facility] BMI 2022-02-27 09:14:00 30.67 kg/m2 Universi ty [facility] Body height 2022-02-24 02:10:[address] 2022-02-24 18:30:00 78 /min Universi ty [facility] Respiratory rate 2022-02-24 18:30:00 17 /min [facility] Oxygen saturation in 2022-02-24 18:30:00 98 /min University of Arterial blood by [facility] Pulse oximetry Branch Systolic blood 2022-02-24 18:27:00 117 mm[Hg] Univer sity of pressure [facility] Diastolic blood 2022-02-24 18:27:00 67 mm[Hg] Unive rsity of pressure [facility] Body temperature 2022-02-24 18:17:00 36.28 Elin Univ ersity of [facility] Body weight 2022-02-24 08:56:00 91.989 kg Universi ty of [place] [facility] BMI 2022-02-24 08:56:00 30.67 kg/m2 Universi ty of [facility] Body height 2022-02-24 02:10:00 172.7 cm Universi ty of [facility] Systolic blood 2021-04-08 17:08:00 136 mm[Hg] Univer sity of pressure [facility] Diastolic blood 2021-04-08 17:08:00 89 mm[Hg] Unive rsity of [facility] Heart rate 2021-04-08 17:08:00 88 /min Universi ty of [facility] Body temperature 2021-04-08 17:08:00 36.67 Elin Univ ersity of [facility] Respiratory rate 2021-04-08 17:08:00 16 /min [facility] of [facility] Oxygen saturation in 2021-04-08 17:08:00 97 /min University of Arterial blood by [facility] Pulse oximetry Branch Body height 2021-04-07 00:14:00 172.7 cm Universi ty of [facility] Body weight 2021-04-07 00:14:00 98.884 kg Universi ty of [place] [facility] BMI 2021-04-07 00:14:00 33.15 kg/m2 Universi ty [facility] temperature 2021-04-05 14:00:00 98.3 [degF] Common [facility] bmi 2021-04-05 14:00:00 33.23 kg/m2 [facility] oximetry 2021-04-05 14:00:00 98 % [facility] respiratory rate 2021-04-05 14:00:00 18 /min [facility] blood pressure 2021-04-05 14:00:00 126 mm[Hg] Common [facility] - systolic [facility] blood pressure 2021-04-05 14:00:00 82 mm[Hg] Common [facility] - diastolic [facility] height 2021-04-05 14:00:00 68 [in_i] [facility] weight 2021-04-05 14:00:00 218.6 [lb_av] [facility] Systolic blood 2022-08-02 07:16:00 95 mm[Hg] [facility] Diastolic blood 2022-08-02 07:16:00 52 mm[Hg] [facility] Heart rate 2022-08-02 07:16:00 88 /min [facility] Body temperature 2022-08-02 07:16:00 37.11 Elin [facility] Respiratory rate 2022-08-02 07:16:00 20 /min [facility] Oxygen saturation in 2022-08-02 07:16:00 98 /min [facility] Arterial blood by Medical Ce nter Pulse oximetry Body weight 2022-08-02 03:09:00 85.186 kg [facility] BMI 2022-08-02 03:09:00 27.72 kg/m2 [facility] Body height 2022-07-21 11:32:00 175.3 cm [facility] Procedures Procedure Date / Time Performing Clinician Source Performed BASIC METABOLIC PANEL 2022-08-02 05:02:00 Selma Tracey [facility] CBC W/PLT COUNT & AUTO 2022-08-02 05:02:00 Alexy [facility] MAGNESIUM 2022-08-02 05:02:00 Alexy [facility] [place] W/PLT COUNT & AUTO 2022-08-02 05:02:00 Alexy [facility] BASIC METABOLIC PANEL 2022-07-30 04:43:00 Alexy [facility] CBC W/PLT COUNT & AUTO 2022-07-30 04:43:00 Selma Tracey [facility] MAGNESIUM 2022-07-30 04:43:00 Alexy [facility] CBC W/PLT COUNT & AUTO 2022-07-30 04:43:00 Selma Tracey [facility] BASIC METABOLIC PANEL 2022-07-27 05:59:00 Alexy [facility] CBC W/PLT COUNT & AUTO 2022-07-27 05:59:00 Alexy [facility] MAGNESIUM 2022-07-27 05:59:00 Alexy [facility] CBC W/PLT COUNT & AUTO 2022-07-27 05:59:00 Alexy [facility] POCT-GLUCOSE METER 2022-07-25 18:59:00 Alexy, [facility] MISCELLANEOUS LAB ORDER 2022-07-25 11:54:00 Casandra Bah I [facility] ECG 12-LEAD 2022-07-25 11:49:18 [facility] ECG 12-LEAD 2022-07-25 11:49:18 Unknown, Hl7 [facility] ECG 12-LEAD 2022-07-25 11:48:59 [facility] ECG 12-LEAD 2022-07-25 11:48:59 Unknown, Hl7 [facility] POCT-GLUCOSE METER 2022-07-25 07:46:00 Alexy, [facility] POCT-GLUCOSE METER 2022-07-24 21:06:00 Alexy, [facility] POCT-GLUCOSE METER 2022-07-24 08:31:00 Alexy, [facility] CBC W/PLT COUNT & AUTO 2022-07-24 06:24:00 Linda Girard [facility] BASIC METABOLIC PANEL 2022-07-24 06:24:00 GillLinda rinaldi [facility] CALCIUM, IONIZED 2022-07-24 06:24:00 Linda Girard [facility] MAGNESIUM 2022-07-24 06:24:00 GillLinda rinaldi [facility] PHOSPHORUS 2022-07-24 06:24:00 GilletLinda [facility] CBC W/PLT COUNT & AUTO 2022-07-24 06:24:00 GilletLinda [facility] POCT-GLUCOSE METER 2022-07-24 00:16:00 Brann, [facility] POCT-GLUCOSE METER 2022-07-23 16:55:00 Brann, [facility] POCT-GLUCOSE METER 2022-07-23 11:30:00 Brann, [facility] POCT-GLUCOSE METER 2022-07-23 09:07:00 Brann, [facility] CBC W/PLT COUNT & AUTO 2022-07-23 05:58:00 Gillet Linda [facility] BASIC METABOLIC PANEL 2022-07-23 05:58:00 GillLinda rinaldi [facility] CALCIUM, IONIZED 2022-07-23 05:58:00 GilletLinda [facility] MAGNESIUM 2022-07-23 05:58:00 GilletLinda [facility] PHOSPHORUS 2022-07-23 05:58:00 GilletLinda [facility] CBC W/PLT COUNT & AUTO 2022-07-23 05:58:00 GilletLinda [facility] POCT-GLUCOSE METER 2022-07-22 22:24:00 Brann, [facility] POCT-GLUCOSE METER 2022-07-22 11:55:00 Brann, [facility] CBC W/PLT COUNT & AUTO 2022-07-22 05:21:00 GilletLinda [facility] BASIC METABOLIC PANEL 2022-07-22 05:21:00 Linda Girard [facility] CALCIUM, IONIZED 2022-07-22 05:21:00 Linda Girard [facility] MAGNESIUM 2022-07-22 05:21:00 Linda Girard [facility] PHOSPHORUS 2022-07-22 05:21:00 Linda Girard [facility] CBC W/PLT COUNT & AUTO 2022-07-22 05:21:00 Linda Girard [facility] POCT-GLUCOSE METER 2022-07-21 20:04:00 Neason [facility] POCT-GLUCOSE METER 2022-07-21 17:34:00 Neason [facility] POCT-GLUCOSE METER 2022-07-21 11:28:00 Nelissette [facility] CBC W/PLT COUNT & AUTO 2022-07-21 04:11:00 Linda Girard [facility] BASIC METABOLIC PANEL 2022-07-21 04:11:00 [facility] CALCIUM, IONIZED 2022-07-21 04:11:00 Linda Girard [facility] MAGNESIUM 2022-07-21 04:11:00 Linda Girard [facility] PHOSPHORUS 2022-07-21 04:11:00 Linda Girard [facility] CBC W/PLT COUNT & AUTO 2022-07-21 04:11:00 Linda Girard [facility] POCT-GLUCOSE METER 2022-07-20 20:52:00 Neason [facility] POCT-GLUCOSE METER 2022-07-20 17:03:00 Nelissette [facility] POCT-GLUCOSE METER 2022-07-20 12:11:00 Nelissette [facility] POCT-GLUCOSE METER 2022-07-20 08:39:00 Nelissette [facility] XR CHEST 1 VIEW PORTABLE 2022-07-20 06:01:00 Linda Girard [facility] BASIC METABOLIC PANEL 2022-07-20 05:07:00 Linda Girard [facility] MAGNESIUM 2022-07-20 05:07:00 Linda Girard [facility] PHOSPHORUS 2022-07-20 05:07:00 Linda Girard [facility] PT/APTT 2022-07-20 05:07:00 Linda Girard [facility] CBC W/PLT COUNT & AUTO 2022-07-20 05:06:00 Linda Girard [facility] CALCIUM, IONIZED 2022-07-20 05:06:00 Linda Girard [facility] CBC W/PLT COUNT & AUTO 2022-07-20 05:06:00 Linda Girard [facility] POCT-GLUCOSE METER 2022-07-19 21:39:00 Ayan [facility] POCT-GLUCOSE METER 2022-07-19 16:52:00 [facility] POCT-GLUCOSE METER 2022-07-19 12:33:00 Nelissette [facility] POCT-GLUCOSE METER 2022-07-19 09:08:00 Ayan [facility] 2D ECHO W/ DOPPLER 2022-07-19 08:14:15 Linda Girard [facility] (CW/PW/COLOR) [place] XR CHEST 1 VIEW PORTABLE 2022-07-19 05:35:00 Linda Girard [facility] CBC W/PLT COUNT & AUTO 2022-07-19 05:26:00 Linad Girard [facility] BASIC METABOLIC PANEL 2022-07-19 05:26:00 Linda Girard [facility] CALCIUM, IONIZED 2022-07-19 05:26:00 Linda Girard [facility] MAGNESIUM 2022-07-19 05:26:00 Linda Girard [facility] PHOSPHORUS 2022-07-19 05:26:00 Linda Girard [facility] PT/APTT 2022-07-19 05:26:00 Linda Girard [facility] CBC W/PLT COUNT & AUTO 2022-07-19 05:26:00 Linda Girard [facility] POCT-GLUCOSE METER 2022-07-18 20:58:00 [facility] POCT-GLUCOSE METER 2022-07-18 17:14:[facility] 2022-07-18 06:43:00 [facility] XR CHEST 1 VIEW PORTABLE 2022-07-18 06:28:00 Linda Girard [facility] ECG 12-LEAD 2022-07-18 05:22:43 Dolores Machuca [facility] ECG 12-LEAD 2022-07-18 05:22:43 Unknown, Hl7 Doctor [facility] CBC W/PLT COUNT & AUTO 2022-07-18 05:16:00 Linda Girard [facility] HEPATIC FUNCTION PANEL 2022-07-18 05:16:[address] [facility] BASIC METABOLIC PANEL 2022-07-18 05:16:00 Linda Girard [facility] CALCIUM, IONIZED 2022-07-18 05:16:00 Linda Girard [facility] MAGNESIUM 2022-07-18 05:16:00 Linda Girard [facility] PHOSPHORUS 2022-07-18 05:16:00 Linda Girard [facility] PT/APTT 2022-07-18 05:16:00 Linda Girard [facility] CBC W/PLT COUNT & AUTO 2022-07-18 05:16:00 Sermoriah [facility] POCT-GLUCOSE METER 2022-07-17 21:09:00 Bruce Botello [facility] POCT-GLUCOSE METER 2022-07-17 18:28:00 AnnabellaBruce mclaughlin [facility] ECG 12-LEAD 2022-07-17 08:45:04 Sven Doloresnadiya Conway [facility] ECG 12-LEAD 2022-07-17 08:45:04 Unknown, Hl7 Doctor [facility] POCT-GLUCOSE METER 2022-07-17 06:54:00 Sven Rossi [facility] OXY[facility] SAT[facility], 2022-07-17 04:41:00 Sermoriah [facility] PT/APTT 2022-07-17 02:19:00 [facility] FIBRINOGEN 2022-07-17 02:19:00 [facility] W/PLT COUNT & AUTO 2022-07-17 02:19:00 Linda Girard [facility] BASIC METABOLIC PANEL 2022-07-17 02:19:00 [facility] BLOOD GAS, ARTERIAL 2022-07-17 02:19:00 [facility] 2022-07-17 02:19:00 [facility] LACTIC ACID, ARTERIAL 2022-07-17 02:19:00 Sermoriah [facility] MAGNESIUM 2022-07-17 02:19:00 Sermoriah [facility] PHOSPHORUS 2022-07-17 02:19:00 [facility] 2022-07-17 02:19:00 [facility] OXY[facility] SATURATION, 2022-07-17 02:19:00 Sereni [facility] CBC W/PLT COUNT & AUTO 2022-07-17 02:19[facility]00 [facility]IEW PORTABLE 2022-07-17 01:18:00 Linda Girard [facility] Center POCT-GLUCOSE METER 2022-07-16 23:39:00 Sven Rossi [facility] CALCIUM, IONIZED 2022-07-16 23:04:00 [facility] AMMONIA 2022-07-16 23:01:00 [facility] BASIC METABOLIC PANEL 2022-07-16 22:37:00 [facility] MAGNESIUM 2022-07-16 22:37:00 [facility] PHOSPHORUS 2022-07-16 22:37:00 [facility] PT/APTT 2022-07-16 22:37:00 [facility] CBC (HEMOGRAM ONLY) 2022-07-16 22:37:[address] [facility] BLOOD GAS, ARTERIAL 2022-07-16 22:37:00 [facility] FIBR[facility]EN 2022-07-16 22:37:00 [facility] CBC W/PLT COUNT & AUTO 2022-07-16 18:24:00 Je Solorzano [facility] Center MAGNESIUM 2022-07-16 18:24:00 [facility]/INR 2022-07-16 18:24:00 Je Solorzano [facility] APTT 2022-07-16 18:24:00 Je Solorzano [facility] BLOOD GAS, ARTERIAL 2022-07-16 18:24:00 [facility] LACTIC ACID, ARTERIAL 2022-07-16 18:24:00 Mariam Solorzanoc Antony [facility] BASIC METABOLIC PANEL 2022-07-16 18:24:00 [facility] & AUTO 2022-07-16 18:24:00 [facility] SARS-[facility]OV2/RT-PCR ([facility] & 2022-07-16 18:24:00 Jeanine Je [facility] REF LABS) [place] BASIC METABOLIC PANEL 2022-07-16 15:17:00 Jeanine Je [facility] CBC W/PLT COUNT & AUTO 2022-07-16 15:17:00 [facility]IUM 2022-07-16 15:17:00 Jeanine, Je [facility] PROTHROMBIN TIME/INR 2022-07-16 15:17:00 Jeanine [facility] APTT 2022-07-16 15:17:00 Jeanine [facility] BLOOD GAS, ARTERIAL 2022-07-16 15:17:00 [facility] PHOS[facility]ORUS 2022-07-16 15:17:00 Jeanine, [facility] LACTIC ACID, ARTERIAL 2022-07-16 15:17:00 Jeanine, [facility] CBC W/PLT COUNT & AUTO 2022-07-16 15:17:00 [facility] POCT-GLUCOSE METER 2022-07-16 13:35:00 [facility] POCT-[facility]UCOSE METER 2022-07-16 13:07:00 Flo [facility] Center POCT-GLUCOSE METER 2022-07-16 06:52:00 [facility] POCT-GLUCOSE METER 2022-07-16 02:43:00 [facility] & AUTO 2022-07-16 02:36:00 Remigio Lopez [facility] DIFFERENTIAL [facility] MAGNESIUM 2022-07-16 02:36:00 Alyssa [facility] PHOSPHORUS 2022-07-16 02:36:00 Alyssa, [facility] CALCIUM, IONIZED 2022-07-16 02:36:00 Alyssa [facility] LACTIC ACID, ARTERIAL 2022-07-16 02:36:00 Nyla [facility] APTT 2022-07-16 02:36:00 Nyla [facility] FIBRINOGEN 2022-07-16 02:36:00 Nyla, [facility] PROTHROMBIN TIME/INR 2022-07-16 02:36:00 Nyla [facility] OXYGEN SATURATION, 2022-07-16 02:36:00 Nyla [facility] BASIC METABOLIC PANEL 2022-07-16 02:36:00 Asaf Joy I [facility] CBC W/PLT COUNT & AUTO 2022-07-16 02:36:00 Remigio Lopez [facility] DIFFERENTIAL [facility] XR CHEST 1 VIEW PORTABLE 2022-07-16 01:36:00 Je Solorzano [facility] Center CBC W/PLT COUNT & AUTO 2022-07-15 22:12:00 Dale Wise [facility] PROTHROMBIN TIME/INR 2022-07-15 22:12:00 Dale Wise [facility] APTT 2022-07-15 22:12:00 Dale Wise [facility] FIBRINOGEN 2022-07-15 22:12:00 [facility] CBC W/PLT COUNT & AUTO 2022-07-15 22:12:00 Frandy [facility] CBC (HEMOGRAM ONLY) 2022-07-15 18:28:00 Je Solorzano [facility] BASIC METABOLIC PANEL 2022-07-15 18:28:00 Jeanine, [facility] MAGNESIUM 2022-07-15 18:28:00 Jeanine, Je Antony [facility] BLOOD GAS, ARTERIAL 2022-07-15 18:28:00 Jeanine, [facility] POCT-GLUCOSE METER 2022-07-15 18:15:00 Flo [facility] POCT-GLUCOSE METER 2022-07-15 12:07:00 Flo [facility] LACTIC ACID, ARTERIAL 2022-07-15 11:34:00 Nyla [facility] POCT-GLUCOSE METER 2022-07-15 06:34:00 Flo [facility] ECG 12-LEAD 2022-07-15 06:20:11 Dolores Machuca [facility] ECG 12-LEAD 2022-07-15 06:20:11 Unknown, 7 [facility] ECG 12-LEAD 2022-07-15 06:18:59 Unknown, Hl7 [facility] POCT-GLUCOSE METER 2022-07-15 06:07:00 Flo [facility] OXYGEN SATURATION, 2022-07-15 06:04:00 Asaf Joy [facility] CBC W/PLT COUNT & AUTO 2022-07-15 03:07:00 Remigio Lopez [facility]ENTIAL [facility] MAGNESIUM 2022-07-15 03:07:00 Olman Shah [facility] PHOSPHORUS 2022-07-15 03:07:00 Alyssa [facility] CALCIUM, IONIZED 2022-07-15 03:07:00 Alyssa [facility] APTT 2022-07-15 03:07:00 Nyla [facility] FIBRINOGEN 2022-07-15 03:07:00 Nyla [facility] PROTHROMBIN TIME/INR 2022-07-15 03:07:00 Nyla [facility] OXYGEN SATURATION, 2022-07-15 03:07:00 Nyla [facility] BASIC METABOLIC PANEL 2022-07-15 03:07:00 Asaf Joy CH I [facility] LACTIC ACID, ARTERIAL 2022-07-15 03:07:00 Duong Nicole [facility] RRL CRITICAL LABS 2022-07-15 03:07:00 Nyla [facility] (ABG,NA,K,H&H,GLUCOSE) [place] BLOOD GAS, ARTERIAL 2022-07-15 03:07:00 Nyla [facility] SODIUM NA-STAT LAB 2022-07-15 03:07:00 Nyla [facility] POTASSIUM-STAT LAB 2022-07-15 03:07:00 Nyla [facility] GLUCOSE-STAT LAB 2022-07-15 03:07:00 [facility]H) - STAT LAB 2022-07-15 03:07:00 Nyla [facility] CBC W/PLT COUNT & AUTO 2022-07-15 03:07:00 Remigio Lopez [facility] DIFFERENTIAL Cathrene [place] POCT-GLUCOSE METER 2022-07-15 02:41:00 Flo [facility] POCT-GLUCOSE METER 2022-07-15 01:36:00 [facility] PO[facility]SE METER 2022-07-15 00:42:00 Flo [facility] XR CHEST 1 VIEW PORTABLE 2022-07-15 00:29:00 Dell Cabrera [facility] Center LACTIC ACID, ARTERIAL 2022-07-14 23:05:00 Nyla [facility] CALCIUM, IONIZED 2022-07-14 23:05:00 Lester Mora [facility] Robyn [place] APTT 2022-07-14 23:05:00 Orlando Corbett [facility] RRL CRITICAL LABS 2022-07-14 23:05:00 [facility] ([facility]G,NA,K,H&H,GLUCOSE) [place] BLOOD GAS, ARTERIAL 2022-07-14 23:05:00 [facility] NA-STAT LAB 2022-07-14 23:05:00 [facility] POTASSIUM-STAT LAB 2022-07-14 23:05:00 [facility] - STAT LAB 2022-07-14 23:05:00 [facility] PHOS[facility]ORUS 2022-07-14 23:05:00 [facility] POCT-GLUCOSE METER 2022-07-14 23:05:00 [facility] PO[facility]SE [facility]ER 2022-07-14 21:08:00 [facility] LACT[facility] ACID, ARTERIAL 2022-07-14 19:39:00 Duong Posey [facility] RRL CRITICAL LABS 2022-07-14 19:38:00 [facility] (ABG,NA,K,H&H,GLUCOSE) [place] BLOOD GAS, ARTERIAL 2022-07-14 19:38:00 Rufino [facility] SODIUM NA-STAT LAB 2022-07-14 19:38:00 [facility]OT[facility] 2022-07-14 19:38:00 Joy [facility] GLUCOSE-STAT LAB 2022-07-14 19:38:00 Joy [facility] HGB/HCT (H&H) - STAT LAB 2022-07-14 19:38:00 [facility] POCT-GLUCOSE METER 2022-07-14 18:33:00 [facility] CALCIUM, IONIZED 2022-07-14 18:26:00 Duong Nicole [facility] BLOOD GAS, ARTERIAL 2022-07-14 18:26:00 Duong Posey [facility] POCT-GLUCOSE METER 2022-07-14 17:24:00 [facility] LACT[facility] ACID, ARTERIAL 2022-07-14 17:19:00 Nyla [facility] BLOOD GAS, ARTERIAL 2022-07-14 17:19:00 [facility] LACT[facility] ACID, ARTERIAL 2022-07-14 15:54:00 Issac Hancock [facility] POCT-GLUCOSE METER 2022-07-14 15:52:00 [facility] 2022-07-14 15:44:00 Dell Cabrera [facility] RRL CRITICAL LABS 2022-07-14 15:44:00 Nyla [facility] (ABG,NA,K,H&H,GLUCOSE) [place] BLOOD GAS, ARTERIAL 2022-07-14 15:44:00 Nyla [facility] SODIUM NA-STAT LAB 2022-07-14 15:44:00 [facility] POTASSIUM-STAT LAB 2022-07-14 15:44:00 Nyla [facility] GLUCOSE-STAT LAB 2022-07-14 15:44:00 [facility]H) - STAT LAB 2022-07-14 15:44:00 Nyla [facility] BASIC METABOLIC PANEL 2022-07-14 15:44:00 Duong Nicole [facility] PREPARE RBC 2022-07-14 14:54:00 Olman Huston [facility] XR CHEST 1 VIEW PORTABLE 2022-07-14 14:13:00 Nyla [facility]EDSIDE Center LACTIC ACID, ARTERIAL 2022-07-14 13:57:00 Nyla [facility] CBC W/PLT COUNT & AUTO 2022-07-14 13:54:00 Archie Redmond [facility] Center COMPREHENSIVE METABOLIC 2022-07-14 13:54:00 Archie Redmond [facility] PANEL Center MAGNESIUM 2022-07-14 13:54:00 Nyla [facility] PHOSPHORUS 2022-07-14 13:54:00 Nyla [facility] OXYGEN SATURATION, 2022-07-14 13:54:00 Nyla [facility] MEASURED Center FIBRINOGEN 2022-07-14 13:54:00 Nyla [facility] PROTHROMBIN TIME/INR 2022-07-14 13:54:00 Nyla [facility] APTT 2022-07-14 13:54:00 Nyla [facility] RRL CRITICAL LABS 2022-07-14 13:54:00 Nyla [facility] (ABG,NA,K,H&H,GLUCOSE) [place] CALCIUM, IONIZED 2022-07-14 13:54:00 [facility] BLOOD GAS, ARTERIAL 2022-07-14 13:54:00 Nyla [facility] SODIUM NA-STAT LAB 2022-07-14 13:54:00 Nyla [facility] POTASSIUM-STAT LAB 2022-07-14 13:54:00 Nyla [facility] GLUCOSE-STAT LAB 2022-07-14 13:54:00 [facility]H&H) - STAT LAB 2022-07-14 13:54:00 Nyla [facility] CBC W/PLT COUNT & AUTO 2022-07-14 13:54:00 Nyla [facility] (CELLAVISION MANUAL DIFF) 2022-07-14 13:54:00 Nyla [facility] MISCELLANEOUS LAB ORDER 2022-07-14 13:54:00 Archie Redmond [facility] RRL CRITICAL LABS 2022-07-14 12:44:12 [facility] (ABG,NA,K,H&H,GLUCOSE) [place] CALCIUM, IONIZED 2022-07-14 12:44:12 [facility] APTT 2022-07-14 12:44:12 [facility] PROTHROMBIN TIME/INR 2022-07-14 12:44:12 [facility] FIBRINOGEN 2022-07-14 12:44:12 [facility] PLATELET COUNT 2022-07-14 12:44:12 [facility] BLOOD GAS, ARTERIAL 2022-07-14 12:44:12 [facility] SODIUM NA-STAT LAB 2022-07-14 12:44:12 [facility] POTASSIUM-STAT LAB 2022-07-14 12:44:12 [facility] GLUCOSE-STAT LAB 2022-07-14 12:44:12 [facility] HGB/HCT (H&H) - STAT LAB 2022-07-14 12:44:12 [facility] MISCELLANEOUS LAB ORDER 2022-07-14 12:44:12 [facility] CBC W/PLT COUNT & AUTO 2022-07-14 12:44:00 [facility] CBC W/PLT COUNT & AUTO 2022-07-14 12:44:00 [facility] POCT-ACT 2022-07-14 12:43:00 [facility] 2022-[facility]-14 12:04:00 [facility] RRL CRITICAL LABS 2022-07-14 12:03:20 Olman Huston [facility] (ABG,NA,K,H&H,GLUCOSE) [place] BLOOD GAS, ARTERIAL 2022-07-14 12:03:20 Huston, [facility] SODIUM NA-STAT LAB 2022-07-14 12:03:20 Huston, [facility] POTASSIUM-STAT LAB 2022-07-14 12:03:20 Huston, [facility] GLUCOSE-STAT LAB 2022-07-14 12:03:20 Huston, [facility] HGB/HCT (H&H) - STAT LAB 2022-07-14 12:03:20 Huston, [facility] POCT-ACT 2022-07-14 11:40:00 [facility] 2022-07-14 11:39:08 Huston, [facility] (ABG,NA,K,H&H,GLUCOSE) [place] BLOOD GAS, ARTERIAL 2022-07-14 11:39:08 Huston, [facility] SODIUM NA-STAT LAB 2022-07-14 11:39:08 Huston, [facility] POTASSIUM-STAT LAB 2022-07-14 11:39:08 Huston, [facility] GLUCOSE-STAT LAB 2022-07-14 11:39:08 [place]on, [facility] HGB/HCT (H&H) - STAT LAB 2022-07-14 11:39:08 Huston, [facility] POCT-ACT 2022-07-14 10:44:00 Flo [facility] ANESTHESIA KODI 2022-07-14 09:24:59 Kal [facility] RRL CRITICAL LABS 2022-07-14 08:51:40 [facility] (ABG,NA,K,H&H,GLUCOSE) [place] CALCIUM, IONIZED 2022-07-14 08:51:40 [facility] BLOOD [facility]ERIAL 2022-07-14 08:51:40 [facility] SODIUM NA-STAT LAB 2022-07-14 08:51:40 [facility] POTASSIUM-STAT LAB 2022-07-14 08:51:40 [facility] GLUCOSE-STAT LAB 2022-07-14 08:51:40 [facility] HGB/HCT (H&H) - STAT LAB 2022-07-14 08:51:40 [facility] CABG (CORONARY ARTERY 2022-07-14 08:05:00 Olman Huston [facility] BYPASS GRAFT) Center SURGICAL PROCUREMENT, 2022-07-14 08:05:00 Olman Huston [facility] VEIN, ENDOSCOPIC Center POCT-GLUCOSE METER 2022-07-14 06:30:00 Sven Rossi [facility] ECG 12-LEAD 2022-07-14 06:24:06 Dolores Machuca [facility] ECG 12-LEAD 2022-07-14 06:24:06 Unknown, Hl7 [facility] CBC W/PLT COUNT & AUTO 2022-07-14 02:50:00 Remigio Lopez [facility] DIFFERENTIAL [facility] MAGNESIUM 2022-07-14 02:50:00 Olman Shah [facility] PHOSPHORUS 2022-07-14 02:50[facility] CALCIUM, IONIZED 2022-07-14 02:50:00 Alyssa [facility] COMPREHENSIVE METABOLIC 2022-07-14 02:50:00 Maren Shah [facility] PANEL Center TYPE AND SCREEN, 2022-07-14 02:50:00 Cherry Fitzpatrick [facility] AUTOMATED [facility] CBC W/PLT COUNT & AUTO 2022-07-14 02:50:00 Remigio Lopez [facility] DIFFERENTIAL [facility] POCT-GLUCOSE METER 2022-07-13 23:02:00 Sven Rossi [facility] POCT-GLUCOSE METER 2022-07-13 18:50:00 Flo [facility] BASIC METABOLIC PANEL 2022-07-13 17:16:00 Pablo [facility] CALCIUM, IONIZED 2022-07-13 17:16:00 Pablo [facility] MAGNESIUM 2022-07-13 17:16:00 Pablo [facility] POCT-GLUCOSE METER 2022-07-13 11:46:00 Flo [facility] POCT-GLUCOSE METER 2022-07-13 06:00:00 Flo [facility] CBC W/PLT COUNT & AUTO 2022-07-13 03:47:00 Remigio Lopez [facility] DIFFERENTIAL [facility] MAGNESIUM 2022-07-13 03:47:00 [facility]US 2022-07-13 03:47:00 [facility] CALCIUM, IONIZED 2022-07-13 03:47:00 Alyssa [facility] COMPREHENSIVE METABOLIC 2022-07-13 03:47:00 Pablo [facility] POCT-GLUCOSE METER 2022-07-13 03:47:00 Flo [facility] CBC W/PLT COUNT & AUTO 2022-07-13 03:47:00 Remigio Lopez [facility] DIFFERENTIAL [facility] POCT-GLUCOSE METER 2022-07-12 17:42:00 Flo [facility] XR ABDOMEN/KUB 1 VIEW 2022-07-12 12:21:00 Pablo [facility] POCT-GLUCOSE METER 2022-07-12 12:01:00 Sven Rossi [facility] US ABDOMEN LIMITED 2022-07-12 10:25:00 Pablo [facility] LACTIC ACID, VENOUS 2022-07-12 10:10:00 Pablo [facility] PROTHROMBIN TIME/INR 2022-07-12 10:10:00 [facility]IN 2022-07-12 10:10:00 Pablo [facility] POCT-GLUCOSE METER 2022-07-12 05:53:00 Flo [facility] CBC W/PLT COUNT & AUTO 2022-07-12 03:27:00 Remigio Lopez [facility] DIFFERENTIAL [facility] MAGNESIUM 2022-07-12 03:27:00 Alyssa [facility] PHOSPHORUS 2022-07-12 03:27:00 [facility] CALCIUM, IONIZED 2022-07-12 03:27:00 [facility] COMPREHENSIVE METABOLIC 2022-07-12 03:27:00 Pablo [facility] BLOOD GAS, VENOUS 2022-07-12 03:27:00 [facility] CBC W/PLT COUNT & AUTO 2022-07-12 03:27:00 Reimgio Lopez [facility] DIFFERENTIAL [facility] XR CHEST 1 VIEW PORTABLE 2022-07-12 02:03:00 Eda Desir [facility] Center POCT-GLUCOSE METER 2022-07-12 00:53:00 Flo [facility] POCT-GLUCOSE METER 2022-07-11 18:03:00 Flo [facility] POCT-GLUCOSE METER 2022-07-11 12:31:00 Flo [facility] CAROTID DOPPLER BILATERAL 2022-07-11 09:57:00 Maren Shah [facility] LACTIC ACID, ARTERIAL 2022-07-11 09:27:00 Maren Shah [facility] AMMONIA 2022-07-11 09:27:00 Maren Shah [facility] TSH/FREE T4 IF INDICATED 2022-07-11 09:27:00 Maren Shah CH I [facility] T4, FREE 2022-07-11 09:27:00 ShahMohan hearnary [facility] ECG 12-LEAD 2022-07-11 08:01:53 Dolores Machuca [facility] ECG 12-LEAD 2022-07-11 08:01:53 Unknown, Hl7 [facility] POCT-GLUCOSE METER 2022-07-11 05:51:00 Sven Rossi [facility] BLOOD GAS, ARTERIAL 2022-07-11 04:09:00 Dolores Machuca CH I [facility] CBC W/PLT COUNT & AUTO 2022-07-11 03:34:00 Remigio Lopez [facility] DIFFERENTIAL [facility] COMPREHENSIVE METABOLIC 2022-07-11 03:34:00 William Monroe [facility] MAGNESIUM 2022-07-11 03:34:00 Olman Shah [facility] PHOSPHORUS 2022-07-11 03:34:00 Olman Shah [facility] CALCIUM, IONIZED 2022-07-11 03:34:00 [facility] CBC W/PLT COUNT & AUTO 2022-07-11 03:34:00 Remigio Lopez [facility] DIFFERENTIAL [facility] XR CHEST 1 VIEW PORTABLE 2022-07-11 01:12:00 Eda Desir [facility] Center POCT-GLUCOSE METER 2022-07-10 23:58:00 Sven Rossi [facility] XR ABDOMEN/KUB 1 VIEW 2022-07-10 22:02:00 Frederic Pierce [facility] PORTABLE Center POTASSIUM 2022-07-10 22:01:00 [facility]NESIUM 2022-07-10 22:01:00 [facility] CALCIUM, IONIZED 2022-07-10 22:01:00 Browning [facility] VANCOMYCIN LEVEL, TROUGH 2022-07-10 20:13:00 Amanda Daniels [facility] POCT-GLUCOSE METER 2022-07-10 17:01:00 Sven Rossi [facility] Orlando [place] MAGNESIUM 2022-07-10 16:50:00 Abby [facility] CALCIUM, IONIZED 2022-07-10 16:50:00 Abby [facility] BLOOD CULTURE 2022-07-10 16:32:00 Maren Shah [facility] COMPREHENSIVE METABOLIC 2022-07-10 14:28:00 Adhi, William Jan [facility] BLOOD GAS, ARTERIAL 2022-07-10 14:28:00 Dolores Machuca CH I [facility] POCT-GLUCOSE METER 2022-07-10 12:18:00 Lester Mora [facility] CT BRAIN WITHOUT IV 2022-07-10 12:00:00 Dolores Machuca CH I [facility] CONTRAST PORTABLE Center COMPREHENSIVE METABOLIC 2022-07-10 06:22:00 Adhi, William Montoya [facility] PHOSPHORUS 2022-07-10 06:22:00 Olman Shah [facility] ECG 12-LEAD 2022-07-10 06:14:01 Dolores Machuca [facility] ECG 12-LEAD 2022-07-10 06:14:01 Unknown, Hl7 [facility] POCT-GLUCOSE METER 2022-07-10 05:54:00 Abby [facility] CBC W/PLT COUNT & AUTO 2022-07-10 05:11:00 Remigio Lopez [facility] Center MAGNESIUM 2022-07-10 05:11:00 Olman Shah [facility] BLOOD GAS, ARTERIAL 2022-07-10 05:11:00 Dolores Machuca CH I [facility] APTT 2022-07-10 05:11:00 Orlando Corbett [facility] ABORH, MANUAL 2022-07-10 05:11:00 Moira Higginbotham [facility] CBC W/PLT COUNT & AUTO 2022-07-10 05:11:00 Remigio Lopez [facility] DIFFERENTIAL [facility] CALCIUM, IONIZED 2022-07-10 05:05:00 Olman Shah [facility] XR CHEST 1 VIEW PORTABLE 2022-07-10 04:12:00 Eda Desir [facility] Center BASIC METABOLIC PANEL 2022-07-09 23:15:00 Tacho Walker [facility] MAGNESIUM 2022-07-09 23:15:00 Abby [facility] POCT-GLUCOSE METER 2022-07-09 23:13:00 Browning [facility] POTASSIUM 2022-07-09 22:36:00 Mora [facility] MAGNESIUM 2022-07-09 22:36:00 [facility] CALCIUM, IONIZED 2022-07-09 22:36:00 [facility] TYPE AND SCREEN, 2022-07-09 22:36:00 Cherry Fitzpatrick [facility] AUTOMATED [facility] BLOOD GAS, ARTERIAL 2022-07-09 15:05:00 Dolores Machuca CH I [facility] COMPREHENSIVE METABOLIC 2022-07-09 15:03:00 Adhi, William Montoya [facility] POCT-GLUCOSE METER 2022-07-09 12:32:00 [facility] ECG 12-LEAD 2022-07-09 11:04:09 Adhi, William Montoya [facility] ECG 12-LEAD 2022-07-09 11:04:09 Unknown, Hl7 Doctor [facility] POCT-GLUCOSE METER 2022-07-09 06:01:00 [facility] CBC W/PLT COUNT & AUTO 2022-07-09 03:08:00 Remigio Lopez [facility] DIFFERENTIAL [facility] COMPREHENSIVE METABOLIC 2022-07-09 03:08:00 Adhanand, William Jan [facility] MAGNESIUM 2022-07-09 03:08:00 Alyssa Olman [facility] PHOSPHORUS 2022-07-09 03:08:00 Alyssa [facility] CALCIUM, IONIZED 2022-07-09 03:08:00 Alyssa Olman [facility] BLOOD GAS, ARTERIAL 2022-07-09 03:08:00 Dolores Machuca I [facility] APTT 2022-07-09 03:08:00 Orlando Corbett [facility] CBC W/PLT COUNT & AUTO 2022-07-09 03:08:00 Remigio Lopez [facility] POCT-GLUCOSE METER 2022-07-09 00:02:00 Abby [facility] BLOOD GAS, ARTERIAL 2022-07-08 19:58:00 Adhi, William [facility] POCT-GLUCOSE METER 2022-07-08 18:40:00 Abby [facility] VANCOMYCIN LEVEL, TROUGH 2022-07-08 18:30:00 Amanda Daniels [facility] CT CHEST WITH IV CONTRAST 2022-07-08 18:13:00 [facility] ABDOMEN/PELVIS WITH IV 2022-07-08 18:11:00 SvenDolores [facility] Center XR ABDOMEN/KUB 1 VIEW 2022-07-08 16:22:00 Dolores Machuca [facility] COMPREHENSIVE METABOLIC 2022-07-08 15:30:00 Adhi, Williamkeaton Montoya [facility] BLOOD GAS, ARTERIAL 2022-07-08 15:30:00 Adhi, [facility] CALCIUM, IONIZED 2022-07-08 15:30:00 Brow[facility] MAGNESIUM 2022-07-08 15:30:00 [facility] BLOOD [facility], ARTERIAL 2022-07-08 11:26:00 Adhi, [facility] Jan [facility] POCT-GLUCOSE METER 2022-07-08 11:24:00 [facility]CR[facility] 2022-07-08 08:48:[address] [facility] POCT-GLUCOSE METER 2022-07-08 06:23:00 Abby [facility] BLOOD GAS, ARTERIAL 2022-07-08 04:13:00 Egljose [facility] CBC W/PLT COUNT & AUTO 2022-07-08 04:12:00 Remigio Lopez [facility] COMPREHENSIVE METABOLIC 2022-07-08 04:12:00 Adhi, William Montoya [facility] MAGNESIUM 2022-07-08 04:12:00 Egland [facility] PHOSPHORUS 2022-07-08 04:12:00 [facility] CALCIUM, IONIZED 2022-07-08 04:12:00 [facility] APTT 2022-07-08 04:12:00 Orlando Corbett [facility] CBC W/PLT COUNT & AUTO 2022-07-08 04:12:00 Remigio Lopez [facility] DIFFERENTIAL [facility] XR CHEST 1 VIEW PORTABLE 2022-07-08 02:20:00 Brayan Acevedo [facility] / BEDSIDE Center XR ABDOMEN/KUB 1 VIEW 2022-07-08 02:20:00 Jamar Blanca CH, I [facility] POCT-GLUCOSE METER 2022-07-07 23:56[facility]KUB 1 VIEW 2022-07-07 22:17:00 System, Bashir FINK [facility] PORTABLE In Center XR ABDOMEN/KUB 1 VIEW 2022-07-07 21:57:00 Aric Aguiar [facility] CORTISOL,60 MIN 2022-07-07 18:57:[facility] BLOOD GAS, ARTERIAL 2022-07-07 18:20:00 [facility] CORTISOL,30 MIN 2022-07-07 18:20:00 [facility] POCT-GLUCOSE METER 2022-07-07 17:57:00 Abby [facility] CALCIUM, IONIZED 2022-07-07 17:34:00 Mora [facility] COMPREHENSIVE METABOLIC 2022-07-07 17:33:00 Adhi, William Montoya [facility] LACTIC ACID, ARTERIAL 2022-07-07 17:33:00 Alyssa Olman [facility] MAGNESIUM 2022-07-07 17:33:00 Abby [facility] ACTH STIMULATION 2022-07-07 17:33:00 [facility] CORTISOL,BASELINE 2022-07-07 17:33:00 [facility] 2D ECHO W/ DOPPLER 2022-07-07 16:20:27 Dolores Machuca [facility] (CW/PW/COLOR) Morgan XR CHEST 1 VIEW PORTABLE 2022-07-07 14:23:00 [facility] / BEDSIDE [facility] XR ABDOMEN/KUB 1 VIEW 2022-07-07 14:23:[address] [facility] URINALYSIS W/ REFLEX 2022-07-07 12:30:00 Dolores Machuca [facility] URINE CULTURE Center URINE CULTURE 2022-07-07 12:30:00 Dolores Machuca [facility] SPUTUM CULTURE + GRAM 2022-07-07 12:00:00 Dolores Machuca [facility] STAIN Center APTT 2022-07-07 11:54:00 Orlando Corbett [facility] BLOOD CULTURE 2022-07-07 11:53:00 Dolores Machuca [facility] BLOOD CULTURE 2022-07-07 11:53:00 Dolores Machuca [facility] POCT-GLUCOSE METER 2022-07-07 11:51:00 [facility] CHEST 1 VIEW PORTABLE 2022-07-07 07:42:00 Byron Lockhart [facility] BEDSIDE Center POCT-GLUCOSE METER 2022-07-07 04:49:00 Abby [facility] CBC W/PLT COUNT & AUTO 2022-07-07 03:22:00 Remigio Lopez [facility] COMPREHENSIVE METABOLIC 2022-07-07 03:22:00 Adhi, [facility] CBC W/PLT COUNT & AUTO 2022-07-07 03:22:00 John Remigio [facility] BLOOD GAS, VENOUS 2022-07-07 03:21:00 Byron Lockhart [facility] XR CHEST 1 VIEW PORTABLE 2022-07-07 02:10:00 UlhaBrayan caceres [facility] BEDSIDE Center APTT 2022-07-07 01:15:00 Orlando Corbett [facility] POCT-GLUCOSE METER 2022-07-06 23:25:00 Abby [facility] CALCIUM, IONIZED 2022-07-06 18:25:00 [facility] COMPREHENSIVE METABOLIC 2022-07-06 18:25:00 Adhi, [facility] BLOOD GAS, ARTERIAL 2022-07-06 18:25:00 Sadiq [facility] APTT 2022-07-06 18:25:00 Orlando Corbett [facility] CBC (HEMOGRAM ONLY) 2022-07-06 18:24:00 Mary Babcock [facility] POCT-GLUCOSE METER 2022-07-06 18:07:00 Lester Mora [facility] CT BRAIN WITHOUT IV 2022-07-06 15:07:00 John Remigio [facility] CONTRAST [facility] CTA BRAIN 2022-07-06 15:07:00 John [facility] CTA CAROTID 2022-07-06 15:07:00 John [facility] BLOOD GAS, ARTERIAL 2022-07-06 12:31:00 Mary Babcock [facility] POCT-GLUCOSE METER 2022-07-06 10:56:00 [facility] APTT 2022-07-06 09:54:00 Orlando Corbett [facility] POCT-GLUCOSE METER 2022-07-06 07:10:00 Abby [facility] POCT-GLUCOSE METER 2022-07-06 06:09:00 Abby Lester [facility] LACTIC ACID, VENOUS 2022-07-06 06:05:00 Charity Ray [facility] HIGH SENSITIVITY TROPONIN 2022-07-06 06:05:00 Charity Ray [facility] BLOOD GAS, ARTERIAL 2022-07-06 03:48:00 [facility] ECG 12-LEAD 2022-07-06 03:14:08 Lester Mora [facility] ECG 12-LEAD 2022-07-06 03:14:08 Unknown, Hl7 [facility] HIGH SENSITIVITY TROPONIN 2022-07-06 02:52:00 Lester Mora [facility] APTT 2022-07-06 02:52:00 Orlando Corbett [facility] XR ABDOMEN/KUB 1 VIEW 2022-07-06 01:37:[address] [facility] PORTABLE [facility] XR CHEST 1 VIEW PORTABLE 2022-07-06 01:35:[address] [facility] / BEDSIDE Center POCT-GLUCOSE METER 2022-07-06 01:18:00 [facility] HEMOGLOBIN A1C 2022-07-06 01:05:00 [facility] HIGH SENSITIVITY TROPONIN 2022-07-06 01:05:00 Lester Mora [facility] B-TYPE NATRIURETIC FACTOR 2022-07-06 01:05:00 Lester Mora [facility] (BNP) [facility] CBC (HEMOGRAM ONLY) 2022-07-06 01:04:00 Orlando Corbett [facility] LIPID PANEL 2022-07-06 01:04:00 [facility] BASIC METABOLIC PANEL 2022-07-06 01:04:[address] [facility] HEPATIC FUNCTION PANEL 2022-07-06 01:04:[address] [facility] MAGNESIUM 2022-07-06 01:04:00 Abby [facility] TOXICOLOGY SCREEN, SERUM 2022-07-06 01:04:00 [facility] W/PLT COUNT & AUTO 2022-07-06 01:04:00 Abby [facility] DIFFERENTIAL [facility] PROTHROMBIN TIME/INR 2022-07-06 01:04:[address] [facility] CBC W/PLT COUNT & AUTO 2022-07-06 01:04:00 Abby [facility] DIFFERENTIAL [facility] APTT 2022-07-06 00:25:00 Orlando Corbett Nic [facility] POCT-ACT 2022-07-05 22:18:00 Abby [facility] POCT-ACT 2022-07-05 21:52:00 Abby [facility] CATHETERIZATION, HEART, 2022-07-05 21:14:00 Abby [facility] LEFT, WITH PERCUTANEOUS [facility] CORONARY INTERVENTION PERMANENT LAB REPORT - 2022-07-05 00:00:00 Provider, Default [facility] Medical SCAN Scanning Center CARDIAC CATH REPORT - 2022-07-05 00:00:00 Provider, Default [facility] Scanning [facility] EKG-SCANNED 2022-07-05 00:00:00 Provider, Default [facility] Medical Scanning Center AUTHORIZATION FOR RELEASE 2022-04-10 06:01:00 Doctor Unassigned, No [facility] INSURANCE CORRESPONDENCE 2022-03-03 06:01:00 Doctor Unassigned, No [facility] BASIC METABOLIC PANEL 2022-02-26 09:31:00 Gisela Hyatt [facility] [place] (NA, K, CL, CO2, GLUCOSE, Medica l Branch BUN, CREATININE, CA) CBC WITH DIFF 2022-02-26 09:31:00 Gisela Hyatt [facility] BASIC METABOLIC PANEL 2022-02-26 09:31:00 Gisela Hyatt [facility] [place] (NA, K, CL, CO2, GLUCOSE, Medica l Branch BUN, CREATININE, CA) CBC WITH DIFF 2022-02-26 09:31:00 Gisela Hyatt [facility] VANCOMYCIN TROUGH 2022-02-26 00:41:00 Dinorah [facility] VANCOMYCIN TROUGH 2022-02-26 00:41:00 Dinorah [facility] BASIC METABOLIC PANEL 2022-02-25 09:00:00 Gisela Hyatt [facility] [place] (NA, K, CL, CO2, GLUCOSE, Medica l Branch BUN, CREATININE, CA) CBC WITH DIFF 2022-02-25 09:00:00 Gisela Hyatt [facility] BASIC METABOLIC PANEL 2022-02-25 09:00:00 Gisela Hyatt [facility] [place] (NA, K, CL, CO2, GLUCOSE, Medica l Branch BUN, CREATININE, CA) CBC WITH DIFF 2022-02-25 09:00:00 Gisela Hyatt [facility] TISSUE 2022-02-24 17:53:00 Arturo Hardin [facility] CULTURE(AEROBIC/ANAEROBIC Medica l Branch ) TISSUE 2022-02-24 17:53:00 Lashawn, [facility] CULTURE(AEROBIC/ANAEROBIC Medica l Branch ) ASPIRATE OR ABSCESS 2022-02-24 17:49:00 Lashawn, [facility] CULTURE(AEROBIC/ANAEROBIC Medica l Branch ) FUNGUS (ROUTINE) CULTURE 2022-02-24 17:49:00 Lashawn, [facility] ASPIRATE OR ABSCESS 2022-02-24 17:49:00 Lashawn, [facility] CULTURE(AEROBIC/ANAEROBIC Medica l Branch ) FUNGUS (ROUTINE) CULTURE 2022-02-24 17:49:00 Lashawn, [facility] INCISION AND DRAINAGE OF 2022-02-24 17:09:00 Lashawn, [facility] INCISION AND DRAINAGE OF 2022-02-24 17:09:00 Lashawn, [facility] BLOOD CULTURE SCREEN 2022-02-24 09:16:00 [facility] MAGNESIUM 2022-02-24 09:16:00 Aguila Pedro [facility] BASIC METABOLIC PANEL 2022-02-24 09:16:00 Aguila Pedro [facility] (NA, K, CL, CO2, GLUCOSE, Medica l Branch BUN, CREATININE, CA) CBC WITH DIFF 2022-02-24 09:16:00 Aguila Pedro [facility] PROTHROMBIN TIME / INR 2022-02-24 09:16:00 Aguila Pedro [facility] ACTIVATED PARTIAL 2022-02-24 09:16:00 Aguila Pedro [facility] BLOOD CULTURE SCREEN 2022-02-24 09:16:00 Aguila Pedro [facility] MAGNESIUM 2022-02-24 09:16:00 Aguila Pedro [facility] BASIC METABOLIC PANEL 2022-02-24 09:16:00 Aguila Pedro [facility] (NA, K, CL, CO2, GLUCOSE, Medica l Branch BUN, CREATININE, CA) CBC WITH DIFF 2022-02-24 09:16:00 Agulia Pedro [facility] PROTHROMBIN TIME / INR 2022-02-24 09:16:00 Aguila Pdero [facility] ACTIVATED PARTIAL 2022-02-24 09:16:00 Aguila Pedro [facility] US TESTICULAR TORSION 2022-02-24 03:19:50 Aguila Pedro [facility] US TESTICULAR TORSION 2022-02-24 03:19:50 Aguila Pedro [facility] PHOSPHORUS 2022-02-24 02:43:00 Aguila Pedro [facility] MRSA / MSSA SCREEN BY 2022-02-24 02:43:00 Aguila Pedro [facility] PHOSPHORUS 2022-02-24 02:43:00 Aguila Pedro [facility] MRSA / MSSA SCREEN BY 2022-02-24 02:43:00 Aguila Pedro [facility] CT ABDOMEN PELVIS W 2022-02-23 22:59:49 Samantha [facility] CT ABDOMEN PELVIS W 2022-02-23 22:59:49 Samantha [facility] LACTIC ACID WHOLE BLOOD 2022-02-23 22:19:00 Samantha [facility] LACTIC ACID WHOLE BLOOD 2022-02-23 22:19:00 Samantha [facility] BLOOD CULTURE SCREEN 2022-02-23 22:18:00 Al Singh [facility] BASIC METABOLIC PANEL 2022-02-23 22:18:00 [facility] (NA, K, CL, CO2, GLUCOSE, Medica l Branch BUN, CREATININE, CA) CBC WITH DIFF 2022-02-23 22:18:00 Samantha Christianacaresebastian [facility] BLOOD CULTURE SCREEN 2022-02-23 22:18:00 Al Singh [facility] BASIC METABOLIC PANEL 2022-02-23 22:18:00 Al Singh [facility] [place] (NA, K, CL, CO2, GLUCOSE, Medica l Branch BUN, CREATININE, CA) CBC WITH DIFF 2022-02-23 22:18:00 Al Singh [facility] CONSENT/REFUSAL FOR 2022-02-23 21:45:19 Doctor Unassigned, No [facility] DIAGNOSIS AND TREATMENT Name Medical Branch CONSENT/REFUSAL FOR 2022-02-23 21:45:19 Doctor Unassigned, No [facility] [place] DIAGNOSIS AND TREATMENT Name [facility] HOSPITAL ADMISSION 2022-02-23 05:01:00 Doctor Unassigned, No [facility] HOSPITAL ADMISSION 2022-02-23 05:01:00 Doctor Unassigned, No [facility] CT ABDOMEN PELVIS WO 2021-04-07 23:29:25 [facility] CONTRAST [facility] CAROTID DUPLEX BILATERAL 2021-04-07 16:15:00 Joey Jones [facility] - BY VASCULAR LAB [facility] TRANSTHORACIC ECHO (TTE) 2021-04-07 15:22:00 Faustina Castellanos [facility] [place] COMPLETE W/ CONTRAST Medical [facility] TROPONIN I 2021-04-07 09:40:00 Italia Anand [facility] LIPID PANEL ([id number])(TOTAL 2021-04-07 09:40:00 Irasema Gonzalez [facility] CHOLESTEROL, [facility] TRIGLYCERIDES, HDL) N-TERMINAL PRO-BNP 2021-04-07 09:40:00 Irasema Gonzalez.[facility] TROPONIN I 2021-04-07 03:03:00 Kika [facility] XR CHEST 1 VW 2021-04-06 21:59:[address] [facility] TROPONIN I 2021-04-06 21:46:[address] [facility] COMP. METABOLIC PANEL 2021-04-06 21:46:00 Mary Spears Uni [facility] ([id number]) Medical Branch CBC WITH DIFF 2021-04-06 21:46:[address] [facility] GLYCOSYLATED HEMOGLOBIN 2021-04-06 21:46:00 Irasema Gonzalez [facility] (A1C) [facility] N-TERMINAL PRO-BNP 2021-04-06 21:46:00 [facility] Medical Branch COVID-19 (ID NOW RAPID 2021-04-06 21:46:00 Mary Spears Un [facility] TESTING) Medical Branch LAB ONLY COVID 2021-04-06 21:46:00 Mary Spears [facility] INTERPRETATION [facility] HB ECG ROUTINE & RHYTHM 2021-04-06 21:10:30 Mary Spears U [facility] CONSENT/REFUSAL FOR 2021-04-06 20:57:53 Doctor Unassigned, [facility] Name [facility] NOTICE OF PRIVACY 2021-04-06 20:57:36 Doctor Unassigned, No [facility] PRACTICES Name [facility] Plan of Care Planned Activity Planned Date Details Comments Source Future Scheduled 2025-07-06 Lipid panel (procedure) [facility] 00:00:00 [code = 66408969] Medical Ce nter Future Scheduled 2022-12-[address] [facility] 00:00:00 (Season Ended) [code = Medic fl Center INFLUENZA VACCINE (Season Ended)] Future Scheduled 2022-04-[address] [facility] 00:00:00 (12+) [code = Medical Center DEPRESSION SCREENING (12+)] Future Scheduled 2022-03-[address] [facility] 00:00:00 WELLNESS (YEAR 2 or Medical Center FIRST YEAR if no IPPE) [code = MEDICARE ANNUAL WELLNESS (YEAR 2 or FIRST YEAR if no IPPE)] Future Scheduled 2018 SHINGLES VACCINES ([address] [facility] 00:00:00 2) [code = SHINGLES Medical Center VACCINES (1 of 2)] Future Scheduled 1987-09-12 DTAP/TDAP/TD [facility]ACCINES [facility] 00:00:00 (1 - Tdap) [code = Medical C enter DTAP/TDAP/TD VACCINES (1 - Tdap)] Future Scheduled 1986 HEPATITIS C SCREENING [facility] 00:00:00 [code = HEPATITIS C Medical Center SCREENING] Future Scheduled [address] [facility] Test 00:00:00 Counseling and Medical Cente r Screening (12+) [code = Tobacco Cessation Counseling and Screening (12+)] Future Scheduled [address] [facility] 00:00:00 0-64 YRS (1 - PCV) Medical C enter [code = PNEUMOCOCCAL VACCINE 0-64 YRS (1 - PCV)] Future Scheduled 1969-03-14 COVID-19 VACCINE (#1) [facility] 00:00:00 [code = COVID-[address] VACCINE (#1)] Future Scheduled 1968 CT Colonography (combo) [facility] 00:00:00 [code = CT [facility] (combo)] Future Scheduled 1968 Screening for malignant [facility] 00:00:00 neoplasm of colon Medical Ce nter (procedure) [code = 807979970] Future Scheduled 1968 Screening for malignant [facility] Test 00:00:00 neoplasm of colon Medical Ce nter (procedure) [code = 775241665] Future Scheduled 1968 Screening for malignant [facility] Test 00:00:00 neoplasm of colon Medical Ce nter (procedure) [code = 370003760] Future Scheduled 1968 Screening for malignant [facility] Test 00:00:00 neoplasm of colon Medical Ce nter (procedure) [code = 567365362] Future Scheduled 1968 Sigmoidoscopy [code = [facility] Sigmoidoscopy] Medical Cente r Encounters Start End Encounter Admission Attending Care Care Encounter Source Date/Time Date/Time Type Type Clinicians Facility Department ID 2022-07-31 Outpatient [facility] [id number] Common 11:30:00 [id number] [facility] 2022-03-03 Outpatient Judith Gu [facility] [id number] Common 15:58:01 [id number] [facility] 2021-11-16 Outpatient Judith Gu [facility] [id number] Common 10:44:02 [id number] [facility] 2021-05-26 Outpatient SKYLA SKYLA [id number] 17:34:05 Anderso n 2021-05-26 Outpatient MDA SKYLA [id number] 17:15:56 Anderso n 2021-05-18 Outpatient Judith Gu [facility] [id number] Common 14:27:58 [id number] [facility] 2022-08-04 2022-08-04 Documentat Pat, [facility] [id number] 00:[facility] 00:00:00 ion Marina A [facility] 2022-07-05 2022-08-02 Inpatient UR AYAN, [facility] Surgery [id number] SLE 21:27:00 12:30:00 [facility] 2022-07-05 2022-08-02 Hospital Lester Mora [facility] [id number] 21:27:00 12:30:00 Encounter Sven Rossi [facility] Teoodro Cespedes Lubna Syed 2022-08-01 2022-08-01 Anesthesia Figueroa, [facility] [id number] 11:57:10 11:57:10 Event Miguel [facility] 2022-07-14 2022-07-14 Surgery Olman Huston [facility] [id number] 08:30:00 16:15:00 R [facility] 2022-07-14 2022-07-14 Anesthesia Noa Crawford [facility] [id number] [facility] 08:20:00 13:52:00 [facility] 2022-07-06 2022-07-06 Tammi [facility] [id number] 00:00:00 00:00:00 Only [facility] 2022-07-05 2022-07-05 [facility] [id number] [facility] 21:05:00 23:10:00 [facility] 2022-04-10 2022-04-10 Orders Doctor NIHARIKA [id number] Univers 00:00:00 00:00:00 Only Unassigned, ALTA [id number] ity of [facility] [id number] Bari as [id number] [address] 2022-03-21 2022-03-21 Outpatient R [facility] [id number] Univers 14:15:00 14:15:00 LEOLA symonejemal [facility] 2022-03-06 2022-03-06 Outpatient Francisco [facility] [id number] Univers 10:30:00 10:44:16 LEOLA gianna [facility] 2022-03-06 2022-03-06 [facility] [id number] Univers 10:30:00 10:44:16 Visit Leola HEIN [id number] i [id number] [id number] Ne dical [address] 2022-03-03 2022-03-03 OFFICE [facility] [id number] Co mmon 00:00:00 00:00:00 VISIT EST Spir it PT LEVEL 3 - [facility] 2022-03-03 2022-03-03 Orders Doctor NIHARIKA [id number] Univers 00:00:00 00:00:00 Only Unassigned, ALTA [id number] ity of [facility] [id number] Bari as [id number] [address] 2022-03-02 2022-03-02 (TEL) [facility] [id number] Co mmon 00:00:00 00:00:00 [facility] 2022-02-28 2022-02-28 Transition SHANTEL Blackmon [id number] Univers 00:00:00 00:00:00 of Kirill Jade MAGUIRE [id number] [place] [id number] [facility] 403 Branch 2022-02-23 2022-02-27 [facility] Al Singh [facility] [id number] Univers 17:00:00 17:59:00 Encounter Aguila Pedro 350.1.13. 10 [facility] [place] [id number] [facility] 081 Branch 2022-02-23 2022-02-27 Inpatient X [facility] [id number] Univers 17:00:00 17:59:00 AGUILA katz o f [facility] 2022-02-24 2022-02-24 Surgery [facility] [id number] Univers 12:05:00 13:30:00 Arturo HEIN 350.1.13.10 i ty [id number] SURGICAL [id number] [facility] 020 Branch 2021-11-16 2021-11-16 (TEL) STLMLC STLMLC [id number] Co mmon 00:00:00 00:00:00 [facility] 2021-07-28 2021-07-28 (TEL) STLMLC STLMLC [id number] Co mmon 00:00:00 00:00:00 [facility] 2021-04-19 2021-04-19 (TEL) STLMLC STLMLC [id number] Co mmon 00:00:00 00:00:00 [facility] 2021-04-11 2021-04-11 Transition SHANTEL Blackmon [id number] Univers 00:00:00 00:00:00 of Care Kalie MAGUIRE 350.1.13.10 [id number] [id number] [facility] 403 Branch 2021-04-06 2021-04-08 Outpatient X KIKA [facility] KATERINE [id number] Univers 15:09:00 13:35:00 ITALIA katz [facility] 2021-04-06 2021-04-08 Emergency Mary Spears [facility] 1.2.8 [id number] Univers 15:09:00 13:35:00 KikaItalia 350.1.13.10 ity [facility] 4.2.7.2.686 [facility] [id number] [facility] 081 Branch 2021-04-05 2021-04-05 OFFICE STLMLC STLMLC [id number] Co mmon 00:00:00 00:00:00 VISIT NEW Spir it PT LEVEL 4 - [facility] Results Test Description Test Time Test Comments Results Result Comments Source MISCELLANEOUS LAB ORDER 2022-08-08 10:14:30 Test Item Value Reference Range Interpretation Comme nts SCAN RESULT (test code = 3734047) See attachment Josh auris [id number] 10:14:30Scan Pqlnee9908/08/2022 10:14 AM TSLE NON-INTERFACED [facility]2023-04-12 06:24:22 Test Item Value Reference Range Interpretation Comments MAGNESIUM (BEAKER) (test code = 2.1 mg/dL 1.6-2.6 627) [employer]il [employer] Professor ID - MYESHA WBASIC METABOLIC [id number] 06:24:21 Test Item Value Reference Range Interpretation Comments SODIUM (BEAKER) 140 meq/L 136-145 (test code = 381) POTASSIUM 4.1 meq/L 3.5-5.1 (BEAKER) (test code = 379) CHLORIDE (BEAKER) 106 meq/L 98-107 (test code = 382) CO2 (BEAKER) 27 meq/L 22-29 (test code = 355) BLOOD UREA 19 mg/dL 7-21 NITROGEN (BEAKER) (test code = 354) CREATININE 1.01 mg/dL 0.57-1.25 (BEAKER) (test code = 358) GLUCOSE RANDOM 94 mg/dL 70-105 (BEAKER) (test code = 652) CALCIUM (BEAKER) 8.7 mg/dL 8.4-10.2 (test code = 697) EGFR (BEAKER) 90 Interpretatio n of eGFR (test code = mL/min/1.73 values Stage De scription 1092) sq m Result G1 Lynn l or high >=90 G2 Mildly decreased 60-89 G3a Mildl y to moderately 45-5 9 G3b Moderately to s everely 30-44 G4 Severl y decreased 15-29 G5 Kidney failure <15Reported eGF R is based on the CKD-EPI 2020 equation that d oes not use a race coefficientEsti mated GFR is not as accur ate as Creatinine Leatha londono in predicting glom erular filtration rate . Estimated GFR is not appl icable for dialysis patien ts Soil Science Professor ID - MYESHA WCBC W/PLT COUNT & AUTO [id number] 05:29:18 Test Item Value Reference Range Interpretation Comments WHITE BLOOD CELL COUNT (BEAKER) 5.4 K/ L 3.5-10.5 (test code = 775) RED BLOOD CELL COUNT (BEAKER) 2.98 M/ L 4.63-6.08 L (test code = 761) HEMOGLOBIN (BEAKER) (test code = 9.0 GM/DL 13.7-17.5 L 410) HEMATOCRIT (BEAKER) (test code = 28.4 % 40.1-51.0 L 411) MEAN CORPUSCULAR VOLUME (BEAKER) 95 fL 79-92 H (test code = 753) MEAN CORPUSCULAR HEMOGLOBIN 30.2 pg 25.7-32.2 (BEAKER) (test code = 751) MEAN CORPUSCULAR HEMOGLOBIN CONC 31.7 GM/DL 32.3-36.5 L (BEAKER) (test code = 752) RED CELL DISTRIBUTION WIDTH 15.5 % 11.6-14.4 H (BEAKER) (test code = 412) PLATELET COUNT (BEAKER) (test 205 K/CU MM 150-450 code = 756) MEAN PLATELET VOLUME (BEAKER) 8.5 fL 9.4-12.4 L (test code = 754) NUCLEATED RED BLOOD CELLS 0 /100 WBC 0-0 (BEAKER) (test code = 413) NEUTROPHILS RELATIVE PERCENT 47 % (BEAKER) (test code = 429) LYMPHOCYTES RELATIVE PERCENT 36 % (BEAKER) (test code = 430) MONOCYTES RELATIVE PERCENT 9 % (BEAKER) (test code = 431) EOSINOPHILS RELATIVE PERCENT 6 % (BEAKER) (test code = 432) BASOPHILS RELATIVE PERCENT 1 % (BEAKER) (test code = 437) NEUTROPHILS ABSOLUTE COUNT 2.52 K/ L 1.78-5.38 (BEAKER) (test code = 670) LYMPHOCYTES ABSOLUTE COUNT 1.94 K/ L 1.32-3.57 (BEAKER) (test code = 414) MONOCYTES ABSOLUTE COUNT (BEAKER) 0.51 K/ L 0.30-0.82 (test code = 415) EOSINOPHILS ABSOLUTE COUNT 0.31 K/ L 0.04-0.54 (BEAKER) (test code = 416) BASOPHILS ABSOLUTE COUNT (BEAKER) 0.06 K/ L 0.01-0.08 (test code = 417) IMMATURE GRANULOCYTES-RELATIVE 1.30 % 0.00-1.00 H PERCENT (BEAKER) (test code = 2801) [id number] 05:24:00 Test Item Value Reference Range Interpretation Comments MAGNESIUM (BEAKER) (test code = 2.1 mg/dL 1.6-2.6 627) Soil Science Professor ID - EDBASIC METABOLIC [id number] 05:23:59 Test Item Value Reference Range Interpretation Comments SODIUM (BEAKER) 140 meq/L 136-145 (test code = 381) POTASSIUM 4.1 meq/L 3.5-5.1 (BEAKER) (test code = 379) CHLORIDE (BEAKER) 106 meq/L 98-107 (test code = 382) CO2 (BEAKER) 25 meq/L 22-29 (test code = 355) BLOOD UREA 12 mg/dL 7-21 NITROGEN (BEAKER) (test code = 354) CREATININE 0.94 mg/dL 0.57-1.25 (BEAKER) (test code = 358) GLUCOSE RANDOM 93 mg/dL 70-105 (BEAKER) (test code = 652) CALCIUM (BEAKER) 8.7 mg/dL 8.4-10.2 (test code = 697) EGFR (BEAKER) 98 Interpretatio n of eGFR (test code = mL/min/1.73 values Stage De scription 1092) sq m Result G1 Lynn l or high >=90 G2 Mildly decreased 60-89 G3a Mildl y to moderately 45-5 9 G3b Moderately to s everely 30-44 G4 Severl y decreased 15-29 G5 Kidney failure <15Reported eGF R is based on the CKD-EPI 2020 equation that d oes not use a race coefficientEsti mated GFR is not as accur ate as Creatinine Leatha londono in predicting glom erular filtration rate . Estimated GFR is not appl icable for dialysis patien ts Soil Science Professor ID - EDCBC W/PLT COUNT & AUTO [id number] 05:02:46 Test Item Value Reference Range Interpretation Comments WHITE BLOOD CELL COUNT (BEAKER) 5.7 K/ L 3.5-10.5 (test code = 775) RED BLOOD CELL COUNT (BEAKER) 3.08 M/ L 4.63-6.08 L (test code = 761) HEMOGLOBIN (BEAKER) (test code = 9.3 GM/DL 13.7-17.5 L 410) HEMATOCRIT (BEAKER) (test code = 29.1 % 40.1-51.0 L 411) MEAN CORPUSCULAR VOLUME (BEAKER) 95 fL 79-92 H (test code = 753) MEAN CORPUSCULAR HEMOGLOBIN 30.2 pg 25.7-32.2 (BEAKER) (test code = 751) MEAN CORPUSCULAR HEMOGLOBIN CONC 32.0 GM/DL 32.3-36.5 L (BEAKER) (test code = 752) RED CELL DISTRIBUTION WIDTH 15.8 % 11.6-14.4 H (BEAKER) (test code = 412) PLATELET COUNT (BEAKER) (test 250 K/CU MM 150-450 code = 756) MEAN PLATELET VOLUME (BEAKER) 8.4 fL 9.4-12.4 L (test code = 754) NUCLEATED RED BLOOD CELLS 0 /100 WBC 0-0 (BEAKER) (test code = 413) NEUTROPHILS RELATIVE PERCENT 53 % (BEAKER) (test code = 429) LYMPHOCYTES RELATIVE PERCENT 34 % (BEAKER) (test code = 430) MONOCYTES RELATIVE PERCENT 9 % (BEAKER) (test code = 431) EOSINOPHILS RELATIVE PERCENT 2 % (BEAKER) (test code = 432) BASOPHILS RELATIVE PERCENT 1 % (BEAKER) (test code = 437) NEUTROPHILS ABSOLUTE COUNT 3.01 K/ L 1.78-5.38 (BEAKER) (test code = 670) LYMPHOCYTES ABSOLUTE COUNT 1.91 K/ L 1.32-3.57 (BEAKER) (test code = 414) MONOCYTES ABSOLUTE COUNT (BEAKER) 0.50 K/ L 0.30-0.82 (test code = 415) EOSINOPHILS ABSOLUTE COUNT 0.13 K/ L 0.04-0.54 (BEAKER) (test code = 416) BASOPHILS ABSOLUTE COUNT (BEAKER) 0.05 K/ L 0.01-0.08 (test code = 417) IMMATURE GRANULOCYTES-RELATIVE 1.60 % 0.00-1.00 H PERCENT (BEAKER) (test code = 2801) BASIC METABOLIC [id number] 06:41:31 Test Item Value Reference Range Interpretation Comments SODIUM (BEAKER) 139 meq/L 136-145 (test code = 381) POTASSIUM 4.0 meq/L 3.5-5.1 (BEAKER) (test code = 379) CHLORIDE (BEAKER) 103 meq/L 98-107 (test code = 382) CO2 (BEAKER) 26 meq/L 22-29 (test code = 355) BLOOD UREA 20 mg/dL 7-21 NITROGEN (BEAKER) (test code = 354) CREATININE 0.97 mg/dL 0.57-1.25 (BEAKER) (test code = 358) GLUCOSE RANDOM 98 mg/dL 70-105 (BEAKER) (test code = 652) CALCIUM (BEAKER) 9.4 mg/dL 8.4-10.2 (test code = 697) EGFR (BEAKER) 94 Interpretatio n of eGFR (test code = mL/min/1.73 values Stage De scription 1092) sq m Result G1 Lynn l or high >=90 G2 Mildly decreased 60-89 G3a Mildl y to moderately 45-5 9 G3b Moderately to s everely 30-44 G4 Severl y decreased 15-29 G5 Kidney failure <15Reported eGF R is based on the CKD-EPI 2021 equation that d oes not use a race coefficientEsti mated GFR is not as accur ate as Creatinine Leatha londono in predicting glom erular filtration rate . Estimated GFR is not appl icable for dialysis patien ts Soil Science Professor ID - [id number] 06:41:31 Test Item Value Reference Range Interpretation Comments MAGNESIUM (BEAKER) (test code = 2.1 mg/dL 1.6-2.6 627) Soil Science Professor ID - MARCOCBC W/PLT COUNT & AUTO [id number] 06:18:59 Test Item Value Reference Range Interpretation Comments WHITE BLOOD CELL COUNT (BEAKER) 7.4 K/ L 3.5-10.5 (test code = 775) RED BLOOD CELL COUNT (BEAKER) 3.46 M/ L 4.63-6.08 L (test code = 761) HEMOGLOBIN (BEAKER) (test code = 10.7 GM/DL 13.7-17.5 L 410) HEMATOCRIT (BEAKER) (test code = 33.4 % 40.1-51.0 L 411) MEAN CORPUSCULAR VOLUME (BEAKER) 97 fL 79-92 H (test code = 753) MEAN CORPUSCULAR HEMOGLOBIN 30.9 pg 25.7-32.2 (BEAKER) (test code = 751) MEAN CORPUSCULAR HEMOGLOBIN CONC 32.0 GM/DL 32.3-36.5 L (BEAKER) (test code = 752) RED CELL DISTRIBUTION WIDTH 15.9 % 11.6-14.4 H (BEAKER) (test code = 412) PLATELET COUNT (BEAKER) (test 310 K/CU MM 150-450 code = 756) MEAN PLATELET VOLUME (BEAKER) 8.8 fL 9.4-12.4 L (test code = 754) NUCLEATED RED BLOOD CELLS 0 /100 WBC 0-0 (BEAKER) (test code = 413) NEUTROPHILS RELATIVE PERCENT 61 % (BEAKER) (test code = 429) LYMPHOCYTES RELATIVE PERCENT 28 % (BEAKER) (test code = 430) MONOCYTES RELATIVE PERCENT 8 % (BEAKER) (test code = 431) EOSINOPHILS RELATIVE PERCENT 2 % (BEAKER) (test code = 432) BASOPHILS RELATIVE PERCENT 1 % (BEAKER) (test code = 437) NEUTROPHILS ABSOLUTE COUNT 4.48 K/ L 1.78-5.38 (BEAKER) (test code = 670) LYMPHOCYTES ABSOLUTE COUNT 2.07 K/ L 1.32-3.57 (BEAKER) (test code = 414) MONOCYTES ABSOLUTE COUNT (BEAKER) 0.57 K/ L 0.30-0.82 (test code = 415) EOSINOPHILS ABSOLUTE COUNT 0.14 K/ L 0.04-0.54 (BEAKER) (test code = 416) BASOPHILS ABSOLUTE COUNT (BEAKER) 0.06 K/ L 0.01-0.08 (test code = 417) IMMATURE GRANULOCYTES-RELATIVE 1.10 % 0.00-1.00 H PERCENT ([facility]) (test code = 2801) POC-Glucose [id number] 19:10:57 Test Item Value Reference Range Interpretation Comments POC-Glucose Meter (test 107 mg/dL 70-110 : TE STED AT [facility] code = 1538) [address] [facility], [address]: Soil Science Professor/Techni ariela ID = [id number] for ARMANDO BUNDY Lab Interpretation (test Normal code = 85851-6) [facility] [id number] 19:10:57 Test Item Value Reference Range Interpretation Comments POC-GLUCOSE METER 107 mg/dL 70-110 : TESTED A T [facility] [address] ([facility]) (test code = [facility], 1538) [address]: Soil Science Professor/Techni ariela ID = [id number] for ARMANDO LUJAN POCT-GLUCOSE [id number] 07:57:37 Test Item Value Reference Range Interpretation Comments POC-GLUCOSE METER 99 mg/dL 70-110 : TESTED A T [facility] [address] ([facility]) (test code = [facility], 1538) [address]: Soil Science Professor/Techni ariela ID = [id number] for ARMANDO BUNDY POCT-GLUCOSE [id number] 21:17:56 Test Item Value Reference Range Interpretation Comments POC-GLUCOSE METER 124 mg/dL 70-110 H : Notified RN/MD: ([facility]) (test code = TESTED AT [facility] 67[address] 1538) [facility], [address]: Soil Science Professor/Techni ariela ID = [id number] for ENMANUEL PEREYRA POCT-GLUCOSE [id number] 08:43:12 Test Item Value Reference Range Interpretation Comments POC-GLUCOSE METER 98 mg/dL 70-110 : TESTED A T [facility] [address] ([facility]) (test code = [facility], 153) [address]: Soil Science Professor/Techni ariela ID = [id number] for RC GUZMAN [id number] 06:59:14 Test Item Value Reference Range Interpretation Comments PHOSPHORUS ([facility]) (test code = 2.9 mg/dL 2.3-4.7 604) Soil Science Professor ID - BSBASIC METABOLIC [id number] 06:59:13 Test Item Value Reference Range Interpretation Comments SODIUM (BEAKER) 138 meq/L 136-145 (test code = 381) POTASSIUM 4.1 meq/L 3.5-5.1 (BEAKER) (test code = 379) CHLORIDE (BEAKER) 103 meq/L 98-107 (test code = 382) CO2 (BEAKER) 27 meq/L 22-29 (test code = 355) BLOOD UREA 13 mg/dL 7-21 NITROGEN (BEAKER) (test code = 354) CREATININE 0.94 mg/dL 0.57-1.25 (BEAKER) (test code = 358) GLUCOSE RANDOM 96 mg/dL 70-105 (BEAKER) (test code = 652) CALCIUM (BEAKER) 9.3 mg/dL 8.4-10.2 (test code = 697) EGFR (BEAKER) 98 Interpretatio n of eGFR (test code = mL/min/1.73 values Stage De scription 1092) sq m Result G1 Lynn l or high >=90 G2 Mildly decreased 60-89 G3a Mildl y to moderately 45-5 9 G3b Moderately to s everely 30-44 G4 Severl y decreased 15-29 G5 Kidney failure <15Reported eGF R is based on the CKD-EPI 2020 equation that d oes not use a race coefficientEsti mated GFR is not as accur ate as Creatinine Leatha bry in predicting glom erular filtration rate . Estimated GFR is not appl icable for dialysis patien ts Soil Science Professor ID - [id number] 06:59:13 Test Item Value Reference Range Interpretation Comments MAGNESIUM (BEAKER) (test code = 2.0 mg/dL 1.6-2.6 627) Soil Science Professor ID - BSCBC W/PLT COUNT & AUTO [id number] 06:36:08 Test Item Value Reference Range Interpretation Comments WHITE BLOOD CELL COUNT (BEAKER) 6.5 K/ L 3.5-10.5 (test code = 775) RED BLOOD CELL COUNT (BEAKER) 3.17 M/ L 4.63-6.08 L (test code = 761) HEMOGLOBIN (BEAKER) (test code = 9.7 GM/DL 13.7-17.5 L 410) HEMATOCRIT (BEAKER) (test code = 30.2 % 40.1-51.0 L 411) MEAN CORPUSCULAR VOLUME (BEAKER) 95 fL 79-92 H (test code = 753) MEAN CORPUSCULAR HEMOGLOBIN 30.6 pg 25.7-32.2 (BEAKER) (test code = 751) MEAN CORPUSCULAR HEMOGLOBIN CONC 32.1 GM/DL 32.3-36.5 L (BEAKER) (test code = 752) RED CELL DISTRIBUTION WIDTH 15.4 % 11.6-14.4 H (BEAKER) (test code = 412) PLATELET COUNT (BEAKER) (test 288 K/CU MM 150-450 code = 756) MEAN PLATELET VOLUME (BEAKER) 8.5 fL 9.4-12.4 L (test code = 754) NUCLEATED RED BLOOD CELLS 0 /100 WBC 0-0 (BEAKER) (test code = 413) NEUTROPHILS RELATIVE PERCENT 59 % (BEAKER) (test code = 429) LYMPHOCYTES RELATIVE PERCENT 28 % (BEAKER) (test code = 430) MONOCYTES RELATIVE PERCENT 8 % (BEAKER) (test code = 431) EOSINOPHILS RELATIVE PERCENT 2 % (BEAKER) (test code = 432) BASOPHILS RELATIVE PERCENT 1 % (BEAKER) (test code = 437) NEUTROPHILS ABSOLUTE COUNT 3.84 K/ L 1.78-5.38 (BEAKER) (test code = 670) LYMPHOCYTES ABSOLUTE COUNT 1.78 K/ L 1.32-3.57 (BEAKER) (test code = 414) MONOCYTES ABSOLUTE COUNT (BEAKER) 0.54 K/ L 0.30-0.82 (test code = 415) EOSINOPHILS ABSOLUTE COUNT 0.14 K/ L 0.04-0.54 (BEAKER) (test code = 416) BASOPHILS ABSOLUTE COUNT (BEAKER) 0.06 K/ L 0.01-0.08 (test code = 417) IMMATURE GRANULOCYTES-RELATIVE 1.70 % 0.00-1.00 H PERCENT (BEAKER) (test code = 2801) CALCIUM, [id number] 06:30:00 Test Item Value Reference Range Interpretation Comments CALCIUM IONIZED (BEAKER) (test 1.19 mmol/L 1.12-1.27 code = 698) PH, BLOOD (BEAKER) (test code = 7.39 1810) POCT-GLUCOSE [id number] 00:27:54 Test Item Value Reference Range Interpretation Comments POC-GLUCOSE METER 101 mg/dL 70-110 : TESTED A T [facility] [address] ([facility]) (test code = [facility], 1538) [address]: Soil Science Professor/Techni ariela ID = [id number] for Joslyn Mustafa se POCT-GLUCOSE [id number] 17:06:47 Test Item Value Reference Range Interpretation Comments POC-GLUCOSE METER 77 mg/dL 70-110 : [facility] (test code = [facility], 1538) [address]: Soil Science Professor/Techni ariela ID = [id number] for Shaila Argueta POCT-GLUCOSE [id number] 11:42:21 Test Item Value Reference Range Interpretation Comments POC-GLUCOSE METER 142 mg/dL 70-110 H : Notified RN/MD: ([facility]) (test code = [facility] 1538) [facility], [address]: Soil Science Professor/Techni ariela ID = [id number] for Ga rcia, Hoang POCT-GLUCOSE [id number] 09:19:03 Test Item Value Reference Range Interpretation Comments POC-GLUCOSE METER 91 mg/dL 70-110 : [facility]) (test code = [facility], 1538) [address]: Soil Science Professor/Techni ariela ID = [id number] for Garc ia, Hoang [id number] 06:41:55 Test Item Value Reference Range Interpretation Comments MAGNESIUM (BEAKER) (test code = 2.0 mg/dL 1.6-2.6 627) Soil Science Professor ID - [id number] 06:41:55 Test Item Value Reference Range Interpretation Comments PHOSPHORUS (BEAKER) (test code = 3.2 mg/dL 2.3-4.7 604) Soil Science Professor ID - MARCOBASIC METABOLIC [id number] 06:41:54 Test Item Value Reference Range Interpretation Comments SODIUM (BEAKER) 139 meq/L 136-145 (test code = 381) POTASSIUM 3.9 meq/L 3.5-5.1 (BEAKER) (test code = 379) CHLORIDE (BEAKER) 104 meq/L 98-107 (test code = 382) CO2 (BEAKER) 25 meq/L 22-29 (test code = 355) BLOOD UREA 17 mg/dL 7-21 NITROGEN (BEAKER) (test code = 354) CREATININE 0.94 mg/dL 0.57-1.25 (BEAKER) (test code = 358) GLUCOSE RANDOM 93 mg/dL 70-105 (BEAKER) (test code = 652) CALCIUM (BEAKER) 9.5 mg/dL 8.4-10.2 (test code = 697) EGFR (BEAKER) 98 Interpretatio n of eGFR (test code = mL/min/1.73 values Stage De scription 1092) sq m Result G1 Lynn l or high >=90 G2 Mildly decreased 60-89 G3a Mildl y to moderately 45-5 9 G3b Moderately to s everely 30-44 G4 Severl y decreased 15-29 G5 Kidney failure <15Reported eGF R is based on the CKD-EPI 2020 equation that d oes not use a race coefficientEsti mated GFR is not as accur ate as Creatinine Leatha bry in predicting glom erular filtration rate . Estimated GFR is not appl icable for dialysis patien ts Soil Science Professor ID - MARCOCBC W/PLT COUNT & AUTO [id number] 06:17:25 Test Item Value Reference Range Interpretation Comments WHITE BLOOD CELL COUNT (BEAKER) 7.9 K/ L 3.5-10.5 (test code = 775) RED BLOOD CELL COUNT (BEAKER) 3.35 M/ L 4.63-6.08 L (test code = 761) HEMOGLOBIN (BEAKER) (test code = 10.4 GM/DL 13.7-17.5 L 410) HEMATOCRIT (BEAKER) (test code = 30.9 % 40.1-51.0 L 411) MEAN CORPUSCULAR VOLUME (BEAKER) 92 fL 79-92 (test code = 753) MEAN CORPUSCULAR HEMOGLOBIN 31.0 pg 25.7-32.2 (BEAKER) (test code = 751) MEAN CORPUSCULAR HEMOGLOBIN CONC 33.7 GM/DL 32.3-36.5 (BEAKER) (test code = 752) RED CELL DISTRIBUTION WIDTH 15.5 % 11.6-14.4 H (BEAKER) (test code = 412) PLATELET COUNT (BEAKER) (test 326 K/CU MM 150-450 code = 756) MEAN PLATELET VOLUME (BEAKER) 8.6 fL 9.4-12.4 L (test code = 754) NUCLEATED RED BLOOD CELLS 0 /100 WBC 0-0 (BEAKER) (test code = 413) NEUTROPHILS RELATIVE PERCENT 64 % (BEAKER) (test code = 429) LYMPHOCYTES RELATIVE PERCENT 23 % (BEAKER) (test code = 430) MONOCYTES RELATIVE PERCENT 8 % (BEAKER) (test code = 431) EOSINOPHILS RELATIVE PERCENT 2 % (BEAKER) (test code = 432) BASOPHILS RELATIVE PERCENT 1 % (BEAKER) (test code = 437) NEUTROPHILS ABSOLUTE COUNT 5.04 K/ L 1.78-5.38 (BEAKER) (test code = 670) LYMPHOCYTES ABSOLUTE COUNT 1.84 K/ L 1.32-3.57 (BEAKER) (test code = 414) MONOCYTES ABSOLUTE COUNT (BEAKER) 0.64 K/ L 0.30-0.82 (test code = 415) EOSINOPHILS ABSOLUTE COUNT 0.19 K/ L 0.04-0.54 (BEAKER) (test code = 416) BASOPHILS ABSOLUTE COUNT (BEAKER) 0.05 K/ L 0.01-0.08 (test code = 417) IMMATURE GRANULOCYTES-RELATIVE 1.80 % 0.00-1.00 H PERCENT (BEAKER) (test code = 2801) CALCIUM, [id number] 06:08:26 Test Item Value Reference Range Interpretation Comments CALCIUM IONIZED (BEAKER) (test 1.13 mmol/L 1.12-1.27 code = 698) PH, BLOOD (BEAKER) (test code = 7.40 1810) POCT-GLUCOSE [id number] 22:35:27 Test Item Value Reference Range Interpretation Comments POC-GLUCOSE METER 100 mg/dL 70-110 : TESTED A T [facility] [address] (BEAKER) (test code = [facility], 153) [address]: Soil Science Professor/Techni ariela ID = [id number] for PH ILIP SHANA POCT-GLUCOSE [id number] 12:06:28 Test Item Value Reference Range Interpretation Comments POC-GLUCOSE METER 126 mg/dL 70-110 H : TESTED A T [facility] [address] (BEAKER) (test code = [facility], 1538) [address]: Soil Science Professor/Techni ariela ID = [id number] for Co Eddie trayloravia [id number] 06:27:50 Test Item Value Reference Range Interpretation Comments MAGNESIUM (BEAKER) (test code = 1.9 mg/dL 1.6-2.6 627) Soil Science Professor ID - [id number] 06:27:50 Test Item Value Reference Range Interpretation Comments PHOSPHORUS (BEAKER) (test code = 3.3 mg/dL 2.3-4.7 604) Soil Science Professor ID - MMBASIC METABOLIC [id number] 06:27:49 Test Item Value Reference Range Interpretation Comments SODIUM (BEAKER) 140 meq/L 136-145 (test code = 381) POTASSIUM 4.1 meq/L 3.5-5.1 (BEAKER) (test code = 379) CHLORIDE (BEAKER) 107 meq/L 98-107 (test code = 382) CO2 (BEAKER) 22 meq/L 22-29 (test code = 355) BLOOD UREA 14 mg/dL 7-21 NITROGEN (BEAKER) (test code = 354) CREATININE 0.84 mg/dL 0.57-1.25 (BEAKER) (test code = 358) GLUCOSE RANDOM 93 mg/dL 70-105 (BEAKER) (test code = 652) CALCIUM (BEAKER) 9.3 mg/dL 8.4-10.2 (test code = 697) EGFR (BEAKER) 105 Interpretatio n of eGFR (test code = mL/min/1.73 values Stage De scription 1092) sq m Result G1 Lynn l or high >=90 G2 Mildly decreased 60-89 G3a Mildl y to moderately 45-5 9 G3b Moderately to s everely 30-44 G4 Severl y decreased 15-29 G5 Kidney failure <15Reported eGF R is based on the CKD-EPI 2021 equation that d oes not use a race coefficientEsti mated GFR is not as accur ate as Creatinine Leatha bry in predicting glom erular filtration rate . Estimated GFR is not appl icable for dialysis patien ts Soil Science Professor ID - MMCBC W/PLT COUNT & AUTO [id number] 05:57:55 Test Item Value Reference Range Interpretation Comments WHITE BLOOD CELL COUNT (BEAKER) 7.6 K/ L 3.5-10.5 (test code = 775) RED BLOOD CELL COUNT (BEAKER) 3.31 M/ L 4.63-6.08 L (test code = 761) HEMOGLOBIN (BEAKER) (test code = 10.1 GM/DL 13.7-17.5 L 410) HEMATOCRIT (BEAKER) (test code = 30.9 % 40.1-51.0 L 411) MEAN CORPUSCULAR VOLUME (BEAKER) 93 fL 79-92 H (test code = 753) MEAN CORPUSCULAR HEMOGLOBIN 30.5 pg 25.7-32.2 (BEAKER) (test code = 751) MEAN CORPUSCULAR HEMOGLOBIN CONC 32.7 GM/DL 32.3-36.5 (BEAKER) (test code = 752) RED CELL DISTRIBUTION WIDTH 15.4 % 11.6-14.4 H (BEAKER) (test code = 412) PLATELET COUNT (BEAKER) (test 292 K/CU MM 150-450 code = 756) MEAN PLATELET VOLUME (BEAKER) 8.5 fL 9.4-12.4 L (test code = 754) NUCLEATED RED BLOOD CELLS 0 /100 WBC 0-0 (BEAKER) (test code = 413) NEUTROPHILS RELATIVE PERCENT 59 % (BEAKER) (test code = 429) LYMPHOCYTES RELATIVE PERCENT 27 % (BEAKER) (test code = 430) MONOCYTES RELATIVE PERCENT 10 % (BEAKER) (test code = 431) EOSINOPHILS RELATIVE PERCENT 3 % (BEAKER) (test code = 432) BASOPHILS RELATIVE PERCENT 1 % (BEAKER) (test code = 437) NEUTROPHILS ABSOLUTE COUNT 4.46 K/ L 1.78-5.38 (BEAKER) (test code = 670) LYMPHOCYTES ABSOLUTE COUNT 2.02 K/ L 1.32-3.57 (BEAKER) (test code = 414) MONOCYTES ABSOLUTE COUNT (BEAKER) 0.73 K/ L 0.30-0.82 (test code = 415) EOSINOPHILS ABSOLUTE COUNT 0.20 K/ L 0.04-0.54 (BEAKER) (test code = 416) BASOPHILS ABSOLUTE COUNT (BEAKER) 0.06 K/ L 0.01-0.08 (test code = 417) IMMATURE GRANULOCYTES-RELATIVE 1.50 % 0.00-1.00 H PERCENT (BEAKER) (test code = 7091) CALCIUM, [id number] 05:34:32 Test Item Value Reference Range Interpretation Comments CALCIUM IONIZED (BEAKER) (test 1.12 mmol/L 1.12-1.27 code = 698) PH, BLOOD (BEAKER) (test code = 7.41 1810) POCT-GLUCOSE [id number] 20:15:19 Test Item Value Reference Range Interpretation Comments POC-GLUCOSE METER 96 mg/dL 70-110 : TESTED A T [facility] 6720 (BEAKER) (test code = DEJUAN Singh [facility], 1538) [id number]: Soil [employer] Professor/Techni ariela ID = [id number] for MEI MAURICIO POCT-GLUCOSE [id number] 17:45:54 Test Item Value Reference Range Interpretation Comments POC-GLUCOSE METER 111 mg/dL 70-110 H : TESTED A T [facility] 6720 (BEAKER) (test code [facility], = 1538) 40973: Soil Science Professor/Techni ariela ID = [id number] for Vika Narvaez POCT-GLUCOSE [id number] 11:40:35 Test Item Value Reference Range Interpretation Comments POC-GLUCOSE METER 125 mg/dL 70-110 H : TESTED A T [facility] 6720 (BEAKER) (test code [facility], = 1538) [address]61: Soil Science Professor/Techni ariela ID = [id number] for SKYE KYLE [id number] 04:56:38 Test Item Value Reference Range Interpretation Comments PHOSPHORUS (BEAKER) (test code = 3.0 mg/dL 2.3-4.7 604) Soil Science Professor ID - BSBASIC METABOLIC [id number] 04:56:37 Test Item Value Reference Range Interpretation Comments SODIUM (BEAKER) 136 meq/L 136-145 (test code = 381) POTASSIUM 3.7 meq/L 3.5-5.1 (BEAKER) (test code = 379) CHLORIDE (BEAKER) 104 meq/L 98-107 (test code = 382) CO2 (BEAKER) 24 meq/L 22-29 (test code = 355) BLOOD UREA 19 mg/dL 7-21 NITROGEN (BEAKER) (test code = 354) CREATININE 0.88 mg/dL 0.57-1.25 (BEAKER) (test code = 358) GLUCOSE RANDOM 96 mg/dL 70-105 (BEAKER) (test code = 652) CALCIUM (BEAKER) 9.1 mg/dL 8.4-10.2 (test code = 697) EGFR (BEAKER) 104 Interpretatio n of eGFR (test code = mL/min/1.73 values Stage De scription 1092) sq m Result G1 Lynn l or high >=90 G2 Mildly decreased 60-89 G3a Mildl y to moderately 45-5 9 G3b Moderately to s everely 30-44 G4 Severl y decreased 15-29 G5 Kidney failure <15Reported eGF R is based on the CKD-EPI 2020 equation that d oes not use a race coefficientEsti mated GFR is not as accur ate as Creatinine Leatha bry in predicting glom erular filtration rate . Estimated GFR is not appl icable for dialysis patien ts Soil Science Professor ID - [id number] 04:56:37 Test Item Value Reference Range Interpretation Comments MAGNESIUM (BEAKER) (test code = 1.9 mg/dL 1.6-2.6 627) Soil Science Professor ID - BSCALCIUM, [id number] 04:37:47 Test Item Value Reference Range Interpretation Comments CALCIUM IONIZED (BEAKER) (test 1.15 mmol/L 1.12-1.27 code = 698) PH, BLOOD (BEAKER) (test code = 7.41 1810) CBC W/PLT COUNT & AUTO [id number] 04:37:27 Test Item Value Reference Range Interpretation Comments WHITE BLOOD CELL COUNT (BEAKER) 9.3 K/ L 3.5-10.5 (test code = 775) RED BLOOD CELL COUNT (BEAKER) 3.36 M/ L 4.63-6.08 L (test code = 761) HEMOGLOBIN (BEAKER) (test code = 10.4 GM/DL 13.7-17.5 L 410) HEMATOCRIT (BEAKER) (test code = 30.5 % 40.1-51.0 L 411) MEAN CORPUSCULAR VOLUME (BEAKER) 91 fL 79-92 (test code = 753) MEAN CORPUSCULAR HEMOGLOBIN 31.0 pg 25.7-32.2 (BEAKER) (test code = 751) MEAN CORPUSCULAR HEMOGLOBIN CONC 34.1 GM/DL 32.3-36.5 (BEAKER) (test code = 752) RED CELL DISTRIBUTION WIDTH 15.3 % 11.6-14.4 H (BEAKER) (test code = 412) PLATELET COUNT (BEAKER) (test 319 K/CU MM 150-450 code = 756) MEAN PLATELET VOLUME (BEAKER) 8.5 fL 9.4-12.4 L (test code = 754) NUCLEATED RED BLOOD CELLS 0 /100 WBC 0-0 (BEAKER) (test code = 413) NEUTROPHILS RELATIVE PERCENT 66 % (BEAKER) (test code = 429) LYMPHOCYTES RELATIVE PERCENT 21 % (BEAKER) (test code = 430) MONOCYTES RELATIVE PERCENT 9 % (BEAKER) (test code = 431) EOSINOPHILS RELATIVE PERCENT 2 % (BEAKER) (test code = 432) BASOPHILS RELATIVE PERCENT 1 % (BEAKER) (test code = 437) NEUTROPHILS ABSOLUTE COUNT 6.16 K/ L 1.78-5.38 H (BEAKER) (test code = 670) LYMPHOCYTES ABSOLUTE COUNT 1.95 K/ L 1.32-3.57 (BEAKER) (test code = 414) MONOCYTES ABSOLUTE COUNT (BEAKER) 0.79 K/ L 0.30-0.82 (test code = 415) EOSINOPHILS ABSOLUTE COUNT 0.21 K/ L 0.04-0.54 (BEAKER) (test code = 416) BASOPHILS ABSOLUTE COUNT (BEAKER) 0.06 K/ L 0.01-0.08 (test code = 417) IMMATURE GRANULOCYTES-RELATIVE 1.80 % 0.00-1.00 H PERCENT (BEAKER) (test code = 2801) POCT-GLUCOSE [id number] 21:04:06 Test Item Value Reference Range Interpretation Comments POC-GLUCOSE METER 201 mg/dL 70-110 H : TESTED A T [facility] 6720 (BEAKER) (test code = [facility], 153) 66083: Soil Science Professor/Techni ariela ID = [id number] for Lyndsey Ferrara POCT-GLUCOSE [id number] 17:16:01 Test Item Value Reference Range Interpretation Comments POC-GLUCOSE METER 73 mg/dL 70-110 : TESTED A T [facility] 6720 (BEAKER) (test code = [facility], 153) 19814: Soil Science Professor/Techni ariela ID = [id number] for Byron ez, [place] POCT-GLUCOSE [id number] 12:27:09 Test Item Value Reference Range Interpretation Comments POC-GLUCOSE METER 138 mg/dL 70-110 H : TESTED A T [facility] 6720 (BEAKER) (test code = DEJUAN Singh [facility], 1538) 09865: Soil Science Professor/Techni ariela ID = [id number] for Co rtez, Shaneka RAD, CHEST, 1 VIEW, NON [id number] 11:02:00Reason for exam:->post cardiac surgeryShould this be performed at the bedside?->Yes [facility] 1970 Sex: MFINAL REPORT CLINICAL HISTORY: post cardiac surgery TECHNIQUE: 1 view of the chest. COMPARISON: 07/19/2022 IMPRESSION: Left chest tube removal. No pneumothorax. Mild bilateral lung opacities are unchanged. No increasing pleural fluid. The cardiomediastinal silhouette is magnified by technique with sternotomy wires. Signed: Byron Bakereport Verified Date/Time: 07/20/2022 11:02:00 Reading Location: [address] Reading Room Electronically signed by: BYRON BAKER M.D. on07/20/2022 11:02 AMPOCT-GLUCOSE METER 2022-07-20 08:56:18 Test Item Value Reference Range Interpretation Comments POC-GLUCOSE METER 101 mg/dL 70-110 : TESTED A T [facility] 6720 (BEAKER) (test code [facility], = 1538) 25706: Soil Science Professor/Techni ariela ID = [id number] for WILS ON, SHASTANIE [id number] 06:28:20 Test Item Value Reference Range Interpretation Comments MAGNESIUM (BEAKER) (test code = 2.0 mg/dL 1.6-2.6 627) Soil Science Professor ID - [id number] 06:28:20 Test Item Value Reference Range Interpretation Comments PHOSPHORUS (BEAKER) (test code = 3.5 mg/dL 2.3-4.7 604) Soil Science Professor ID - MARIOBASIC METABOLIC [id number] 06:28:19 Test Item Value Reference Range Interpretation Comments SODIUM (BEAKER) 140 meq/L 136-145 (test code = 381) POTASSIUM 3.6 meq/L 3.5-5.1 (BEAKER) (test code = 379) CHLORIDE (BEAKER) 104 meq/L 98-107 (test code = 382) CO2 (BEAKER) 24 meq/L 22-29 (test code = 355) BLOOD UREA 21 mg/dL 7-21 NITROGEN (BEAKER) (test code = 354) CREATININE 1.03 mg/dL 0.57-1.25 (BEAKER) (test code = 358) GLUCOSE RANDOM 96 mg/dL 70-105 (BEAKER) (test code = 652) CALCIUM (BEAKER) 9.3 mg/dL 8.4-10.2 (test code = 697) EGFR (BEAKER) 88 Interpretatio n of eGFR (test code = mL/min/1.73 values Stage De scription 1092) sq m Result G1 Lynn l or high >=90 G2 Mildly decreased 60-89 G3a Mildl y to moderately 45-5 9 G3b Moderately to s everely 30-44 G4 Sever ly decreased 15-29 G5 Kidney failure <15Repo rted eGFR is based on the CKD-EPI 2021 equation t hat does not use a race coefficientEsti mated GFR is not as accur ate as Creatinine Leatha londono in predicting glom erular filtration rate . Estimated GFR is not appl icable for dialysis patien ts Soil Science Professor ID - MARIOPT/[id number] 05:52:24 Test Item Value Reference Range Interpretation Comments PROTIME (BEAKER) (test code = 15.6 seconds 11.9-14.2 H 759) INR (BEAKER) (test code = 370) 1.32 <=5.90 PARTIAL THROMBOPLASTIN TIME 32.5 seconds 22.5-36.0 (BEAKER) (test code = 760) RECOMMENDED COUMADIN/WARFARIN INR THERAPY RANGESSTANDARD DOSE: 2.0 - 3.0 Includes: PROPHYLAXIS for venous thrombosis, systemic embolization; TREATMENT for venous thrombosis and/or pulmonary embolus.HIGH RISK: Target INR is 2.5-3.5 for patients with mechanical heart valves.CBC W/PLT COUNT & AUTO [id number] 05:42:33 Test Item Value Reference Range Interpretation Comments WHITE BLOOD CELL COUNT (BEAKER) 9.3 K/ L 3.5-10.5 (test code = 775) RED BLOOD CELL COUNT (BEAKER) 3.51 M/ L 4.63-6.08 L (test code = 761) HEMOGLOBIN (BEAKER) (test code = 10.7 GM/DL 13.7-17.5 L 410) HEMATOCRIT (BEAKER) (test code = 32.7 % 40.1-51.0 L 411) MEAN CORPUSCULAR VOLUME (BEAKER) 93 fL 79-92 H (test code = 753) MEAN CORPUSCULAR HEMOGLOBIN 30.5 pg 25.7-32.2 (BEAKER) (test code = 751) MEAN CORPUSCULAR HEMOGLOBIN CONC 32.7 GM/DL 32.3-36.5 (BEAKER) (test code = 752) RED CELL DISTRIBUTION WIDTH 15.5 % 11.6-14.4 H (BEAKER) (test code = 412) PLATELET COUNT (BEAKER) (test 361 K/CU MM 150-450 code = 756) MEAN PLATELET VOLUME (BEAKER) 9.0 fL 9.4-12.4 L (test code = 754) NUCLEATED RED BLOOD CELLS 0 /100 WBC 0-0 (BEAKER) (test code = 413) NEUTROPHILS RELATIVE PERCENT 69 % (BEAKER) (test code = 429) LYMPHOCYTES RELATIVE PERCENT 19 % (BEAKER) (test code = 430) MONOCYTES RELATIVE PERCENT 8 % (BEAKER) (test code = 431) EOSINOPHILS RELATIVE PERCENT 3 % (BEAKER) (test code = 432) BASOPHILS RELATIVE PERCENT 1 % (BEAKER) (test code = 437) NEUTROPHILS ABSOLUTE COUNT 6.39 K/ L 1.78-5.38 H (BEAKER) (test code = 670) LYMPHOCYTES ABSOLUTE COUNT 1.75 K/ L 1.32-3.57 (BEAKER) (test code = 414) MONOCYTES ABSOLUTE COUNT (BEAKER) 0.74 K/ L 0.30-0.82 (test code = 415) EOSINOPHILS ABSOLUTE COUNT 0.23 K/ L 0.04-0.54 (BEAKER) (test code = 416) BASOPHILS ABSOLUTE COUNT (BEAKER) 0.06 K/ L 0.01-0.08 (test code = 417) IMMATURE GRANULOCYTES-RELATIVE 1.50 % 0.00-1.00 H PERCENT (BEAKER) (test code = 2801) CALCIUM, [id number] 05:39:35 Test Item Value Reference Range Interpretation Comments CALCIUM IONIZED (BEAKER) (test 1.16 mmol/L 1.12-1.27 code = 698) PH, BLOOD (BEAKER) (test code = 7.37 1810) POCT-GLUCOSE [id number] 21:51:11 Test Item Value Reference Range Interpretation Comments POC-GLUCOSE METER 138 mg/dL 70-110 H : TESTED A T [facility] 6720 (BEAKER) (test code = [facility], 153) 95843: Soil Science Professor/Techni ariela ID = [id number] for ROMA MENDOSA SANDRA 2D Echo W/Doppler(CW/PW/Color)2022-07-19 19:07:27Ejection FractionSLE ECHO HEARTLAB [facility] [id number] 17:05:23 Test Item Value Reference Range Interpretation Comments POC-GLUCOSE METER 103 mg/dL 70-110 : TESTED A T [facility] 6720 (BEAKER) (test code = [facility], 153) 95708: Soil Science Professor/Techni ariela ID = [id number] for HI DALGO, AGLAE POCT-GLUCOSE [id number] 12:47:13 Test Item Value Reference Range Interpretation Comments POC-GLUCOSE METER 96 mg/dL 70-110 : TESTED A T [facility] 6720 (BEAKER) (test code = [facility], 153) 95215: Soil Science Professor/Techni ariela ID = [id number] for HIDA LGO, AGLAE POCT-GLUCOSE [id number] 09:41:45 Test Item Value Reference Range Interpretation Comments POC-GLUCOSE METER 103 mg/dL 70-110 : TESTED A T [facility] 6720 (BEAKER) (test code = [facility] [place], 1538) 44422: Soil Science Professor/Techni ariela ID = [id number] for AUTUMN GRIMES RAD, CHEST, 1 VIEW, NON [id number] 08:50:00Reason for exam:->post cardiac surgeryShould this be performed at the bedside?->Yes [facility] : 1970 Sex: MFINAL REPORT CLINICAL HISTORY: post cardiac surgery TECHNIQUE: 1 view of the chest. COMPARISON: 07/18/2022 IMPRESSION: Midline and left-sided chest tubes unchanged. No pneumothorax. Mildly prominent lung opacities have decreased. No significant pleural fluid. The cardiomediastinal silhouette is magnified by technique with sternotomy wires. Signed: Byron Baker MDReport Verified Date/Time: 07/19/2022 08:50:39 [id number] 06:47:23 Test Item Value Reference Range Interpretation Comments PHOSPHORUS (BEAKER) (test code = 3.0 mg/dL 2.3-4.7 604) Soil Science Professor ID - ADMINBASIC METABOLIC [id number] 06:47:22 Test Item Value Reference Range Interpretation Comments SODIUM (BEAKER) 139 meq/L 136-145 (test code = 381) POTASSIUM 3.5 meq/L 3.5-5.1 (BEAKER) (test code = 379) CHLORIDE (BEAKER) 106 meq/L 98-107 (test code = 382) CO2 (BEAKER) 22 meq/L 22-29 (test code = 355) BLOOD UREA 18 mg/dL 7-21 NITROGEN (BEAKER) (test code = 354) CREATININE 0.84 mg/dL 0.57-1.25 (BEAKER) (test code = 358) GLUCOSE RANDOM 95 mg/dL 70-105 (BEAKER) (test code = 652) CALCIUM (BEAKER) 8.9 mg/dL 8.4-10.2 (test code = 697) EGFR (BEAKER) 105 Interpretatio n of eGFR (test code = mL/min/1.73 values Stage De scription 1092) sq m Result G1 Lynn l or high >=90 G2 Mildly decreased 60-89 G3a Mildl y to moderately 45-5 9 G3b Moderately to s everely 30-44 G4 Severl y decreased 15-29 G5 Kidney failure <15Reported eGF R is based on the CKD-EPI 2020 equation that d oes not use a race coefficientEsti mated GFR is not as accur ate as Creatinine Leatha bry in predicting glom erular filtration rate . Estimated GFR is not appl icable for dialysis patien ts Soil Science Professor ID - [id number] 06:47:22 Test Item Value Reference Range Interpretation Comments MAGNESIUM (BEAKER) (test code = 1.9 mg/dL 1.6-2.6 627) Soil Science Professor ID - ADMINPT/[id number] 06:38:20 Test Item Value Reference Range Interpretation Comments PROTIME (BEAKER) (test code = 16.1 seconds 11.9-14.2 H 759) INR (BEAKER) (test code = 370) 1.37 <=5.90 PARTIAL THROMBOPLASTIN TIME 34.3 seconds 22.5-36.0 (BEAKER) (test code = 760) RECOMMENDED COUMADIN/WARFARIN INR THERAPY RANGESSTANDARD DOSE: 2.0 - 3.0 Includes: PROPHYLAXIS for venous thrombosis, systemic embolization; TREATMENT for venous thrombosis and/or pulmonary embolus.HIGH RISK: Target INR is 2.5-3.5 for patients with mechanical heart valves.CBC W/PLT COUNT & AUTO [id number] 06:30:19 Test Item Value Reference Range Interpretation Comments WHITE BLOOD CELL COUNT (BEAKER) 9.4 K/ L 3.5-10.5 (test code = 775) RED BLOOD CELL COUNT (BEAKER) 3.28 M/ L 4.63-6.08 L (test code = 761) HEMOGLOBIN (BEAKER) (test code = 10.3 GM/DL 13.7-17.5 L 410) HEMATOCRIT (BEAKER) (test code = 30.6 % 40.1-51.0 L 411) MEAN CORPUSCULAR VOLUME (BEAKER) 93 fL 79-92 H (test code = 753) MEAN CORPUSCULAR HEMOGLOBIN 31.4 pg 25.7-32.2 (BEAKER) (test code = 751) MEAN CORPUSCULAR HEMOGLOBIN CONC 33.7 GM/DL 32.3-36.5 (BEAKER) (test code = 752) RED CELL DISTRIBUTION WIDTH 15.5 % 11.6-14.4 H (BEAKER) (test code = 412) PLATELET COUNT (BEAKER) (test 341 K/CU MM 150-450 code = 756) MEAN PLATELET VOLUME (BEAKER) 9.1 fL 9.4-12.4 L (test code = 754) NUCLEATED RED BLOOD CELLS 0 /100 WBC 0-0 (BEAKER) (test code = 413) NEUTROPHILS RELATIVE PERCENT 68 % (BEAKER) (test code = 429) LYMPHOCYTES RELATIVE PERCENT 20 % (BEAKER) (test code = 430) MONOCYTES RELATIVE PERCENT 9 % (BEAKER) (test code = 431) EOSINOPHILS RELATIVE PERCENT 2 % (BEAKER) (test code = 432) BASOPHILS RELATIVE PERCENT 1 % (BEAKER) (test code = 437) NEUTROPHILS ABSOLUTE COUNT 6.45 K/ L 1.78-5.38 H (BEAKER) (test code = 670) LYMPHOCYTES ABSOLUTE COUNT 1.84 K/ L 1.32-3.57 (BEAKER) (test code = 414) MONOCYTES ABSOLUTE COUNT (BEAKER) 0.80 K/ L 0.30-0.82 (test code = 415) EOSINOPHILS ABSOLUTE COUNT 0.21 K/ L 0.04-0.54 (BEAKER) (test code = 416) BASOPHILS ABSOLUTE COUNT (BEAKER) 0.05 K/ L 0.01-0.08 (test code = 417) IMMATURE GRANULOCYTES-RELATIVE 1.00 % 0.00-1.00 PERCENT (BEAKER) (test code = 2801) CALCIUM, [id number] 05:36:58 Test Item Value Reference Range Interpretation Comments CALCIUM IONIZED (BEAKER) (test 1.12 mmol/L 1.12-1.27 code = 698) PH, BLOOD (BEAKER) (test code = 7.43 1810) POCT-GLUCOSE [id number] 21:09:36 Test Item Value Reference Range Interpretation Comments POC-GLUCOSE METER 123 mg/dL 70-110 H : TESTED A T [facility] 6720 (BEAKER) (test code = [facility], 1538) 94167: Soil Science Professor/Techni ariela ID = [id number] for DARIAN NARAYANAN POCT-GLUCOSE [id number] 17:26:16 Test Item Value Reference Range Interpretation Comments POC-GLUCOSE METER 88 mg/dL 70-110 : TESTED A T [facility] 6720 (BEAKER) (test code = [facility], 1538) 77375: Soil Science Professor/Techni ariela ID = [id number] for Dianna Joseph RAD, CHEST, 1 VIEW, NON [id number] 13:32:00Reason for exam:->post cardiac surgeryShould this be performed at the bedside?->Yes [facility] 1970 Sex: MFINAL REPORT CLINICAL HISTORY: post cardiac surgery TECHNIQUE: 1 view of the chest. COMPARISON: 07/17/2022 IMPRESSION: Right central line removal. Midline and left chest tubes again seen. No pneumothorax. Mildly prominent bilateral airspace opacities unchanged. Subpulmonic pleural effusions cannot be excluded. The cardiomediastinal silhouette is magnified by technique with sternotomy wires . Signed: Byron Baker MDReport Verified Date/Time: 07/18/2022 13:32:00 Reading Location: [address] Reading Room [id number] 10:49:44 Test Item Value Reference Range Interpretation Comments MAGNESIUM (BEAKER) (test code = 1.8 mg/dL 1.6-2.6 627) [id number] 10:49:44 Test Item Value Reference Range Interpretation Comments PHOSPHORUS (BEAKER) (test code = 3.2 mg/dL 2.3-4.7 604) HEPATIC FUNCTION [id number] 10:49:43 Test Item Value Reference Range Interpretation Comments TOTAL PROTEIN (BEAKER) (test code = 7.6 gm/dL 6.0-8.3 770) ALBUMIN (BEAKER) (test code = 1145) 4.9 g/dL 3.5-5.0 BILIRUBIN TOTAL (BEAKER) (test code 1.9 mg/dL 0.2-1.2 H = 377) BILIRUBIN DIRECT (BEAKER) (test 1.0 mg/dL 0.1-0.5 H code = 706) ALKALINE PHOSPHATASE (BEAKER) (test 339 U/L 40-150 H code = 346) AST (SGOT) (BEAKER) (test code = 270 U/L 5-34 H 353) ALT (SGPT) (BEAKER) (test code = 245 U/L 6-55 H 347) Specimen slightly ictericBASIC METABOLIC [id number] 10:49:43 Test Item Value Reference Range Interpretation Comments SODIUM (BEAKER) 139 meq/L 136-145 (test code = 381) POTASSIUM 3.4 meq/L 3.5-5.1 L (BEAKER) (test code = 379) CHLORIDE (BEAKER) 102 meq/L 98-107 (test code = 382) CO2 (BEAKER) 26 meq/L 22-29 (test code = 355) BLOOD UREA 19 mg/dL 7-21 NITROGEN (BEAKER) (test code = 354) CREATININE 0.87 mg/dL 0.57-1.25 (BEAKER) (test code = 358) GLUCOSE RANDOM 94 mg/dL 70-105 (BEAKER) (test code = 652) CALCIUM (BEAKER) 9.6 mg/dL 8.4-10.2 (test code = 697) EGFR (BEAKER) 104 Interpretatio n of eGFR (test code = mL/min/1.73 values Stage De scription 1092) sq m Result G1 Lynn l or high >=90 G2 Mildly decreased 60-89 G3a Mildl y to moderately 45-5 9 G3b Moderately to s everely 30-44 G4 Sever ly decreased 15-29 G5 Kidney failure <15Repo rted eGFR is based on the CKD-EPI 2020 equation t hat does not use a race coefficientEsti mated GFR is not as accur ate as Creatinine Leatha bry in predicting glom erular filtration rate . Estimated GFR is not appl icable for dialysis patien ts Specimen slightly ictericPOCT-GLUCOSE [id number] 08:33:47 Test Item Value Reference Range Interpretation Comments POC-GLUCOSE METER 95 mg/dL 70-110 : TESTED A T [facility] 6720 (BEAKER) (test code = [facility] [place], 1538) 860[address]: Soil Science Professor/Techni ariela ID = [id number] for Rosa iKo [id number] 05:57:32 Test Item Value Reference Range Interpretation Comments PROTIME (BEAKER) (test code = 16.2 seconds 11.9-14.2 H 759) INR (BEAKER) (test code = 370) 1.39 <=5.90 PARTIAL THROMBOPLASTIN TIME 26.9 seconds 22.5-36.0 (BEAKER) (test code = 760) RECOMMENDED COUMADIN/WARFARIN INR THERAPY RANGESSTANDARD DOSE: 2.0 - 3.0 Includes: PROPHYLAXIS for venous thrombosis, systemic embolization; TREATMENT for venous thrombosis and/or pulmonary embolus.HIGH RISK: Target INR is 2.5-3.5 for patients with mechanical heart valves.CALCIUM, [id number] 05:56:17 Test Item Value Reference Range Interpretation Comments CALCIUM IONIZED (BEAKER) (test 1.15 mmol/L 1.12-1.27 code = 698) PH, BLOOD (BEAKER) (test code = 7.39 1810) CBC W/PLT COUNT & AUTO [id number] 05:53:05 Test Item Value Reference Range Interpretation Comments WHITE BLOOD CELL COUNT (BEAKER) 12.3 K/ L 3.5-10.5 H (test code = 775) RED BLOOD CELL COUNT (BEAKER) 3.41 M/ L 4.63-6.08 L (test code = 761) HEMOGLOBIN (BEAKER) (test code = 10.7 GM/DL 13.7-17.5 L 410) HEMATOCRIT (BEAKER) (test code = 31.6 % 40.1-51.0 L 411) MEAN CORPUSCULAR VOLUME (BEAKER) 93 fL 79-92 H (test code = 753) MEAN CORPUSCULAR HEMOGLOBIN 31.4 pg 25.7-32.2 (BEAKER) (test code = 751) MEAN CORPUSCULAR HEMOGLOBIN CONC 33.9 GM/DL 32.3-36.5 (BEAKER) (test code = 752) RED CELL DISTRIBUTION WIDTH 15.2 % 11.6-14.4 H (BEAKER) (test code = 412) PLATELET COUNT (BEAKER) (test 316 K/CU MM 150-450 code = 756) MEAN PLATELET VOLUME (BEAKER) 9.1 fL 9.4-12.4 L (test code = 754) NUCLEATED RED BLOOD CELLS 0 /100 WBC 0-0 (BEAKER) (test code = 413) NEUTROPHILS RELATIVE PERCENT 77 % (BEAKER) (test code = 429) LYMPHOCYTES RELATIVE PERCENT 14 % (BEAKER) (test code = 430) MONOCYTES RELATIVE PERCENT 6 % (BEAKER) (test code = 431) EOSINOPHILS RELATIVE PERCENT 2 % (BEAKER) (test code = 432) BASOPHILS RELATIVE PERCENT 0 % (BEAKER) (test code = 437) NEUTROPHILS ABSOLUTE COUNT 9.43 K/ L 1.78-5.38 H (BEAKER) (test code = 670) LYMPHOCYTES ABSOLUTE COUNT 1.70 K/ L 1.32-3.57 (BEAKER) (test code = 414) MONOCYTES ABSOLUTE COUNT (BEAKER) 0.73 K/ L 0.30-0.82 (test code = 415) EOSINOPHILS ABSOLUTE COUNT 0.18 K/ L 0.04-0.54 (BEAKER) (test code = 416) BASOPHILS ABSOLUTE COUNT (BEAKER) 0.05 K/ L 0.01-0.08 (test code = 417) IMMATURE GRANULOCYTES-RELATIVE 1.30 % 0.00-1.00 H PERCENT (BEAKER) (test code = 2801) POCT-GLUCOSE [id number] 21:23:28 Test Item Value Reference Range Interpretation Comments POC-GLUCOSE METER 83 mg/dL 70-110 : [facility] (BEAKER) (test code = [facility], 1538) 50366: Soil Science Professor/Techni ariela ID = [id number] for KARLI ARROYO POCT-GLUCOSE [id number] 18:41:28 Test Item Value Reference Range Interpretation Comments POC-GLUCOSE METER 77 mg/dL 70-110 : [facility] (BEAKER) (test code = [facility], 1538) 00106: Soil Science Professor/Techni ariela ID = [id number] for CLARISA MORA POCT-GLUCOSE [id number] 07:05:53 Test Item Value Reference Range Interpretation Comments POC-GLUCOSE METER 93 mg/dL 70-110 : [facility] (BEAKER) (test code = [facility], 1538) 86022: Soil Science Professor/Techni ariela ID = [id number] for Mary Allenet [id number] 07:04:56 Test Item Value Reference Range Interpretation Comments ACTIVATED CLOTTING TIME 438 sec : 74 -137 seconds, (BEAKER) (test code = Baseli ne: TESTED AT 441) [facility] [address] [place] [address], [address]: Soil Science Professor/Techni ariela ID = [id number] for CA STRO, JOSE POC ACTIVATED CLOTTING [id number] 07:04:24 Test Item Value Reference Range Interpretation Comments Activated Clotting Time 113 sec : 74 -137 seconds, (test code = 3184-9) Baselin e: TESTED AT [address], [address]: Soil Science Professor/Techni ariela ID = [id number] for CAST RO, JOSE [id number] 07:04:24 Test Item Value Reference Range Interpretation Comments ACTIVATED CLOTTING TIME 113 sec : 74 -137 seconds, (BEAKER) (test code = Baseli ne: TESTED AT 441) [address], [address]: Soil Science Professor/Techni ariela ID = [id number] for CA STRO, JOSE [id number] 07:04:24 Test Item Value Reference Range Interpretation Comments ACTIVATED CLOTTING TIME 504 sec : 74 -137 seconds, (BEAKER) (test code = Baseli ne: TESTED AT 441) [address], [address]: Soil Science Professor/Techni ariela ID = [id number] for CA STRO, JOSE [id number] 07:04:23 Test Item Value Reference Range Interpretation Comments ACTIVATED CLOTTING TIME 504 sec : 74 -137 seconds, (BEAKER) (test code = Baseli ne: TESTED AT [facility]) [address], [address]: Soil Science Professor/Techni ariela ID = [id number] for CA STRO, JOSE OXYGEN SATURATION, [id number] 04:58:32 Test Item Value Reference Range Interpretation Comments O2 SATURATION (MEASURED) (BEAKER) 83.1 % (test code = 1455) HEPATIC FUNCTION [id number] 03:20:59 Test Item Value Reference Range Interpretation Comments TOTAL PROTEIN (BEAKER) (test code = 6.3 gm/dL 6.0-8.3 770) ALBUMIN (BEAKER) (test code = 1145) 3.9 g/dL 3.5-5.0 BILIRUBIN TOTAL (BEAKER) (test code 1.8 mg/dL 0.2-1.2 H = 377) BILIRUBIN DIRECT (BEAKER) (test 0.9 mg/dL 0.1-0.5 H code = 706) ALKALINE PHOSPHATASE (BEAKER) (test 128 U/L 40-150 code = 346) AST (SGOT) (BEAKER) (test code = 41 U/L 5-34 H 353) ALT (SGPT) (BEAKER) (test code = 38 U/L 6-55 347) Soil Science Professor ID - POLI GOperator ID - DBBASIC METABOLIC [id number] 03:10:10 Test Item Value Reference Range Interpretation Comments SODIUM (BEAKER) 138 meq/L 136-145 (test code = 381) POTASSIUM 3.4 meq/L 3.5-5.1 L (BEAKER) (test code = 379) CHLORIDE (BEAKER) 107 meq/L 98-107 (test code = 382) CO2 (BEAKER) 21 meq/L 22-29 L (test code = 355) BLOOD UREA 14 mg/dL 7-21 NITROGEN (BEAKER) (test code = 354) CREATININE 0.74 mg/dL 0.57-1.25 (BEAKER) (test code = 358) GLUCOSE RANDOM 98 mg/dL 70-105 (BEAKER) (test code = 652) CALCIUM (BEAKER) 9.9 mg/dL 8.4-10.2 (test code = 697) EGFR (BEAKER) 108 Interpretatio n of eGFR (test code = mL/min/1.73 values Stage De scription 1092) sq m Result G1 Lynn l or high >=90 G2 Mildly decreased 60-89 G3a Mildl y to moderately 45-5 9 G3b Moderately to s everely 30-44 G4 Severl y decreased 15-29 G5 Kidney failure <15Reported eGF R is based on the CKD-EPI 2020 equation that d oes not use a race coefficientEsti mated GFR is not as accur ate as Creatinine Leatha bry in predicting glom erular filtration rate . Estimated GFR is not appl icable for dialysis patien ts Soil [employer] Professor ID - POLI [id number] 03:03:17 Test Item Value Reference Range Interpretation Comments PHOSPHORUS (BEAKER) (test code = 2.6 mg/dL 2.3-4.7 604) [employer]il Science Professor ID - POLI [id number] 03:03:16 Test Item Value Reference Range Interpretation Comments MAGNESIUM (BEAKER) (test code = 2.0 mg/dL 1.6-2.6 627) Soil Science Professor ID - POLI [id number] 02:52:33 Test Item Value Reference Range Interpretation Comments PROTIME (BEAKER) (test code = 17.2 seconds 11.9-14.2 H 759) INR (BEAKER) (test code = 370) 1.50 <=5.90 PARTIAL THROMBOPLASTIN TIME 35.2 seconds 22.5-36.0 (BEAKER) (test code = 760) RECOMMENDED COUMADIN/WARFARIN INR THERAPY RANGESSTANDARD DOSE: 2.0 - 3.0 Includes: PROPHYLAXIS for venous thrombosis, systemic embolization; TREATMENT for venous thrombosis and/or pulmonary embolus.HIGH RISK: Target INR is 2.5-3.5 for patients with mechanical heart valves.[id number] 02:52:17 Test Item Value Reference Range Interpretation Comments FIBRINOGEN LEVEL (BEAKER) (test 585 mg/dl 225-434 H code = 658) Lactic Acid, [id number] 02:44:15 Test Item Value Reference Range Interpretation Comments Lactate, Art (test code = 0.6 mmol/L 0.5-2.2 2874) JENNI (test code = JENNI) Soil Science Professor ID - POLI G Lab Interpretation (test Normal code = 62941-4) [facility] [id number] 02:44:15 Test Item Value Reference Range Interpretation Comments LACTATE BLOOD ARTERIAL (2) 0.6 mmol/L 0.5-2.2 (BEAKER) (test code = 2874) Soil Science Professor DIMPLE ASHTON GCBC W/PLT COUNT & AUTO [id number] 02:42:02 Test Item Value Reference Range Interpretation Comments WHITE BLOOD CELL COUNT (BEAKER) 11.6 K/ L 3.5-10.5 H (test code = 775) RED BLOOD CELL COUNT (BEAKER) 2.92 M/ L 4.63-6.08 L (test code = 761) HEMOGLOBIN (BEAKER) (test code = 9.1 GM/DL 13.7-17.5 L 410) HEMATOCRIT (BEAKER) (test code = 26.8 % 40.1-51.0 L 411) MEAN CORPUSCULAR VOLUME (BEAKER) 92 fL 79-92 (test code = 753) MEAN CORPUSCULAR HEMOGLOBIN 31.2 pg 25.7-32.2 (BEAKER) (test code = 751) MEAN CORPUSCULAR HEMOGLOBIN CONC 34.0 GM/DL 32.3-36.5 (BEAKER) (test code = 752) RED CELL DISTRIBUTION WIDTH 15.0 % 11.6-14.4 H (BEAKER) (test code = 412) PLATELET COUNT (BEAKER) (test 234 K/CU MM 150-450 code = 756) MEAN PLATELET VOLUME (BEAKER) 9.1 fL 9.4-12.4 L (test code = 754) NUCLEATED RED BLOOD CELLS 0 /100 WBC 0-0 (BEAKER) (test code = 413) NEUTROPHILS RELATIVE PERCENT 77 % (BEAKER) (test code = 429) LYMPHOCYTES RELATIVE PERCENT 15 % (BEAKER) (test code = 430) MONOCYTES RELATIVE PERCENT 6 % (BEAKER) (test code = 431) EOSINOPHILS RELATIVE PERCENT 1 % (BEAKER) (test code = 432) BASOPHILS RELATIVE PERCENT 0 % (BEAKER) (test code = 437) NEUTROPHILS ABSOLUTE COUNT 8.96 K/ L 1.78-5.38 H (BEAKER) (test code = 670) LYMPHOCYTES ABSOLUTE COUNT 1.71 K/ L 1.32-3.57 (BEAKER) (test code = 414) MONOCYTES ABSOLUTE COUNT (BEAKER) 0.73 K/ L 0.30-0.82 (test code = 415) EOSINOPHILS ABSOLUTE COUNT 0.11 K/ L 0.04-0.54 (BEAKER) (test code = 416) BASOPHILS ABSOLUTE COUNT (BEAKER) 0.02 K/ L 0.01-0.08 (test code = 417) IMMATURE GRANULOCYTES-RELATIVE 0.90 % 0.00-1.00 PERCENT (BEAKER) (test code = 2801) OXYGEN SATURATION, [id number] 02:39:36 Test Item Value Reference Range Interpretation Comments O2 SATURATION (MEASURED) (BEAKER) 97.6 % (test code = 1455) CALCIUM, [id number] 02:38:33 Test Item Value Reference Range Interpretation Comments CALCIUM IONIZED (BEAKER) (test 1.22 mmol/L 1.12-1.27 code = 698) PH, BLOOD (BEAKER) (test code = 7.46 1810) Blood gas, [id number] 02:38:03 Test Item Value Reference Range Interpretation Comments pH, Arterial (test code 7.45 7.35-7.45 = 2744-1) pCO2, Arterial (test 34 See_Comment L [Autom ated code = 2019-8) message] The system which generated this result transmitted reference range : 35 - 45 mm Hg. The reference range was not used to interpret this result as normal/abnormal . pO2, Arterial (test 171 See_Comment H [Automa zoë code = 2703-7) message] The system which generated this result transmitted reference range : 80 - 90 mm Hg. The reference range was not used to interpret this result as normal/abnormal . O2 Sat, Arterial (test 99.2 % 96.0-97.0 H code = 2708-6) HCO3, Arterial (test 23 mmol/L 21-29 code = 1960-4) Base Excess, Arterial -0.1 mmol/L -2.0-3.0 (test code = 1925-7) Patient Temperature 37.5 (test code = 8310-5) FIO2 (test code = 1819) 36 Lab Interpretation Abnormal (test code = 27930-7) [facility] [id number] 02:38:03 Test Item Value Reference Range Interpretation Comments PH ARTERIAL (BEAKER) (test code = 7.45 7.35-7.45 383) PCO2 ARTERIAL (BEAKER) (test code 34 mm Hg 35-45 L = 384) PO2 ARTERIAL (BEAKER) (test code 171 mm Hg 80-90 H = 385) O2 SATURATION ARTERIAL (BEAKER) 99.2 % 96.0-97.0 H (test code = 386) HCO3 ARTERIAL (BEAKER) (test code 23 mmol/L -29 = 388) BASE EXCESS ARTERIAL (BEAKER) -0.1 mmol/L -2.0-3.0 (test code = 387) PATIENT TEMPERATURE (BEAKER) 37.5 (test code = 1818) FIO2 (BEAKER) (test code = 1819) 36.0 RAD, CHEST, 1 VIEW, NON [id number] 01:44:00Reason for exam:->post cardiac surgeryShould this be performed at the bedside?->Yes [facility] 1970 Sex: MFINAL REPORT TECHNIQUE: Frontal view of the chest. INDICATION: post cardiac surgery. COMPARISON: 07/16/2022 and 07/15/2022. FINDINGS: LINES/TUBES: Right IJ central venous catheter tip remains within the distal SVC. Mediastinal tube and left chest tube remain unchanged. Left PICC line tip projects over the left axilla. HEART AND MEDIASTINUM: Cardiomediastinal contour is stable. Prior mediansternotomy. LUNGS: Improving interstitial edema, nearly completely resolved. No focal consolidative process. PLEURA: No pneumothorax. No significant pleural effusion. SOFT TISSUES AND BONES: Unremarkable. IMPRESSION:Near complete resolution of interstitial edema. Signed: Jin Rosario MDReport Verified Date/Time: 07/17/2022 01:44:54 POCT-GLUCOSE METER 2022-07-16 23:50:25 Test Item Value Reference Range Interpretation Comments POC-GLUCOSE METER 87 mg/dL 70-110 : TESTED A T [facility] 6720 (BEAKER) (test code = [facility], 1538) [id number]: Soil Science Professor/Techni ariela ID = [id number] for KALANI JORDAN HUNTERSY [id number] 23:33:13 Test Item Value Reference Range Interpretation Comments FIBRINOGEN LEVEL (BEAKER) (test 589 mg/dl 225-434 H code = 658) [id number] 23:25:53 Test Item Value Reference Range Interpretation Comments PROTIME (BEAKER) (test code = 17.4 seconds 11.9-14.2 H 759) INR (BEAKER) (test code = 370) 1.52 <=5.90 PARTIAL THROMBOPLASTIN TIME 36.5 seconds 22.5-36.0 H (BEAKER) (test code = 760) RECOMMENDED COUMADIN/WARFARIN INR THERAPY RANGESSTANDARD DOSE: 2.0 - 3.0 Includes: PROPHYLAXIS for venous thrombosis, systemic embolization; TREATMENT for venous thrombosis and/or pulmonary embolus.HIGH RISK: Target INR is 2.5-3.5 for patients with mechanical heart valves.[id number] 23:21:34 Test Item Value Reference Range Interpretation Comments AMMONIA (BEAKER) (test code = 348) 24 mol/L 18-72 Soil Science Professor ID - [id number] 23:18:16 Test Item Value Reference Range Interpretation Comments PHOSPHORUS (BEAKER) (test code = 2.3 mg/dL 2.3-4.7 604) Soil Science Professor ID - [id number] 23:18:15 Test Item Value Reference Range Interpretation Comments MAGNESIUM (BEAKER) (test code = 2.2 mg/dL 1.6-2.6 627) Soil Science Professor ID - DBBASIC METABOLIC [id number] 23:18:14 Test Item Value Reference Range Interpretation Comments SODIUM (BEAKER) 133 meq/L 136-145 L (test code = 381) POTASSIUM 3.6 meq/L 3.5-5.1 (BEAKER) (test code = 379) CHLORIDE (BEAKER) 103 meq/L 98-107 (test code = 382) CO2 (BEAKER) 21 meq/L 22-29 L (test code = 355) BLOOD UREA 15 mg/dL 7-21 NITROGEN (BEAKER) (test code = 354) CREATININE 0.68 mg/dL 0.57-1.25 (BEAKER) (test code = 358) GLUCOSE RANDOM 86 mg/dL 70-105 (BEAKER) (test code = 652) CALCIUM (BEAKER) 8.3 mg/dL 8.4-10.2 L (test code = 697) EGFR (BEAKER) 111 Interpretatio n of eGFR (test code = mL/min/1.73 values Stage De scription 1092) sq m Result G1 Lynn l or high >=90 G2 Mildly decreased 60-89 G3a Mildl y to moderately 45-5 9 G3b Moderately to s everely 30-44 G4 Severl y decreased 15-29 G5 Kidne y failure <15Reported eGF R is based on the CKD-EPI 2020 equation that d oes not use a race coefficientEsti mated GFR is not as accur ate as Creatinine Leatha londono in predicting glom erular filtration rate . Estimated GFR is not appl icable for dialysis patien ts Soil Science Professor ID - DBCALCIUM, [id number] 23:10:13 Test Item Value Reference Range Interpretation Comments CALCIUM IONIZED (BEAKER) (test 1.09 mmol/L 1.12-1.27 L code = 698) PH, BLOOD (BEAKER) (test code = 7.48 1810) CBC (HEMOGRAM ONLY)2022-07-16 22:58:31 Test Item Value Reference Range Interpretation Comments WHITE BLOOD CELL COUNT (BEAKER) 12.7 K/ L 3.5-10.5 H (test code = 775) RED BLOOD CELL COUNT (BEAKER) 3.08 M/ L 4.63-6.08 L (test code = 761) HEMOGLOBIN (BEAKER) (test code = 9.6 GM/DL 13.7-17.5 L 410) HEMATOCRIT (BEAKER) (test code = 27.6 % 40.1-51.0 L 411) MEAN CORPUSCULAR VOLUME (BEAKER) 90 fL 79-92 (test code = 753) MEAN CORPUSCULAR HEMOGLOBIN 31.2 pg 25.7-32.2 (BEAKER) (test code = 751) MEAN CORPUSCULAR HEMOGLOBIN CONC 34.8 GM/DL 32.3-36.5 (BEAKER) (test code = 752) RED CELL DISTRIBUTION WIDTH 14.9 % 11.6-14.4 H (BEAKER) (test code = 412) PLATELET COUNT (BEAKER) (test 227 K/CU MM 150-450 code = 756) MEAN PLATELET VOLUME (BEAKER) 8.9 fL 9.4-12.4 L (test code = 754) NUCLEATED RED BLOOD CELLS 0 /100 WBC 0-0 (BEAKER) (test code = 413) BLOOD GAS, [id number] 22:49:07 Test Item Value Reference Range Interpretation Comments PH ARTERIAL (BEAKER) (test code = 7.49 7.35-7.45 H 383) PCO2 ARTERIAL (BEAKER) (test code 30 mm Hg 35-45 L = 384) PO2 ARTERIAL (BEAKER) (test code 111 mm Hg 80-90 H = 385) O2 SATURATION ARTERIAL (BEAKER) 98.5 % 96.0-97.0 H (test code = 386) HCO3 ARTERIAL (BEAKER) (test code 22 mmol/L 21-29 = 388) BASE EXCESS ARTERIAL (BEAKER) -0.9 mmol/L -2.0-3.0 (test code = 387) PATIENT TEMPERATURE (BEAKER) 36.5 (test code = 1818) FIO2 (BEAKER) (test code = 1819) 36.0 SARS-CoV2/RT-PCR ([facility])2022-07-16 19:55:44 Test Item Value Reference Interpretation Comments Range SARS-COV2/RT-PCR Negative Negative The SARS-Co V-2 (test code = target nucleic 77818-9) acids are not detected in thi s specimen. Negat horacio results do not preclude SARS-C oV-2 infection and should not be u sed as the sole bas is for patient management decisions. Nega tive results must be combined with clinical observations, patient history , and epidemiolog ical information. A false negative result may occu r if a specimen is improperly collected, transported or handled. This S ARS CoV-2 test is a rapid, real-kwame e RT-PCR test intended for th e qualitative detection of nucleic acid fr om SARS-CoV-2 in a nasopharyngeal swab specimen collec zoë from individual s suspected of COVID-19 by the ir healthcare provider. JENNI (test code = This test has been JENNI) authorized by FDA under an EUA for use by authorized laboratories. This test is only authorized for the duration of the declaration that circumstances exist justifying the authorization of emergency use of in vitro diagnostic tests for detection and/or diagnosis of COVID-19 under Section 564(b)(1) of the Federal Food, Drug and Cosmetic Act, 21 U.S.C. 360bbb-3(b)(1), unless the authorization is terminated or revoked sooner. Fact Sheet for Healthcare Providers: https://www.[employer]/Documents/Xp ert%20Xpress%20SAR S%20CoV-2/Fact%20S heets/3023802%20S ARS-COV-2%20HEALTH CARE%20PROVIDERS%2 0FACT%20SHEET.pdf Fact Sheet for Healthcare Patients: https://www.[employer]/Documents/Xp ert%20Xpress%20SAR S%20CoV-2/Fact%20S heets/302-3801%20S ARS-COV-2%20PATIEN T%20FACT%20SHEET.p df Lab Interpretation Normal (test code = 52349-6) [facility])2022-07-16 19:55:44 Test Item Value Reference Range Interpretation Comments SARS-COV2/RT-PCR Negative Negative The SARS-Co V-2 target (test code = nucleic acids a re not 2534759) detected in thi s specimen. Negative result s do not preclude SARS-C oV-2 infection and s hould not be used as the venkat e basis for patient managem ent decisions. Nega tive results must be combine d with clinical observ ations, patient history , and epidemiological information. A false negativ e result may occur if a spec imen is improperly charu ected, transported or handled. This SARS CoV-2 test is a rapid, real-time RT-PC R test intended for th e qualitative detection of nu cleic acid from SARS-CoV-2 in a nasopharyngeal swab specimen collected from individuals suspected of CO VID-19 by their healthcar e provider. This test has been authorized by FDA under an EUA for use by authorized laboratories. This test is only authorized for the duration of the declaration that circumstances exist justifying the authorization of emergency use of in vitro diagnostic tests for detection and/or diagnosis of COVID-19 under Section 564(b)(1) of the Federal Food, Drug and Cosmetic Act, 21 U.S.C. 360bbb-3(b)(1), unless the authorization is terminated or revoked sooner. Fact Sheet for Healthcare Providers: https://www.[employer].co m/Documents/Xpert%20Xpress%20SARS%20CoV-2/Fact%20Sheets/3023802%30CJTY-GTG-7%20 HEALTHCARE%20PROVIDERS%20FACT%20SHEET.pdf Fact Sheet for Healthcare Patients: https://www.[employer]/Documents/Xpert%20Xp ress%20SARS%20CoV-2/Fact%20Sheets/3023801%26YJIL-QCT-1%20PATIENT%20FACT%20SHEET .[id number] 19:17:10 Test Item Value Reference Range Interpretation Comments PARTIAL THROMBOPLASTIN TIME 34.1 seconds 22.5-36.0 (BEAKER) (test code = 760) [id number] 19:16:28 Test Item Value Reference Range Interpretation Comments MAGNESIUM (BEAKER) (test code = 2.3 mg/dL 1.6-2.6 627) Soil Science Professor ID - ADMINPROTHROMBIN [id number] 19:16:27 Test Item Value Reference Range Interpretation Comments PROTIME (BEAKER) (test code = 16.8 seconds 11.9-14.2 H 759) INR (BEAKER) (test code = 370) 1.45 <=5.90 RECOMMENDED COUMADIN/WARFARIN INR THERAPY RANGESSTANDARD DOSE: 2.0 - 3.0 Includes: PROPHYLAXIS for venous thrombosis, systemic embolization; TREATMENT for venous thrombosis and/or pulmonary embolus.HIGH RISK: Target INR is 2.5-3.5 for patients with mechanical heart valves.BASIC METABOLIC [id number] 19:16:27 Test Item Value Reference Range Interpretation Comments SODIUM (BEAKER) 135 meq/L 136-145 L (test code = 381) POTASSIUM 3.8 meq/L 3.5-5.1 (BEAKER) (test code = 379) CHLORIDE (BEAKER) 104 meq/L 98-107 (test code = 382) CO2 (BEAKER) 22 meq/L 22-29 (test code = 355) BLOOD UREA 16 mg/dL 7-21 NITROGEN (BEAKER) (test code = 354) CREATININE 0.66 mg/dL 0.57-1.25 (BEAKER) (test code = 358) GLUCOSE RANDOM 95 mg/dL 70-105 (BEAKER) (test code = 652) CALCIUM (BEAKER) 8.5 mg/dL 8.4-10.2 (test code = 697) EGFR (BEAKER) 111 Interpretatio n of eGFR (test code = mL/min/1.73 values Stage De scription 1092) sq m Result G1 Lynn l or high >=90 G2 Mildly decreased 60-89 G3a Mildl y to moderately 45-5 9 G3b Moderately to s everely 30-44 G4 Severl y decreased 15-29 G5 Kidney failure <15Reported eGF R is based on the CKD-EPI 2020 equation that d oes not use a race coefficientEsti mated GFR is not as accur ate as Creatinine Leatha bry in predicting glom erular filtration rate . Estimated GFR is not appl icable for dialysis patien ts Soil Science Professor ID - ADMINLACTIC ACID, [id number] 18:57:29 Test Item Value Reference Range Interpretation Comments LACTATE BLOOD ARTERIAL (2) 0.7 mmol/L 0.5-2.2 (BEAKER) (test code = 2874) Soil Science Professor ID - ADMINCBC W/PLT COUNT & AUTO [id number] 18:49:59 Test Item Value Reference Range Interpretation Comments WHITE BLOOD CELL COUNT (BEAKER) 14.7 K/ L 3.5-10.5 H (test code = 775) RED BLOOD CELL COUNT (BEAKER) 3.34 M/ L 4.63-6.08 L (test code = 761) HEMOGLOBIN (BEAKER) (test code = 10.3 GM/DL 13.7-17.5 L 410) HEMATOCRIT (BEAKER) (test code = 29.8 % 40.1-51.0 L 411) MEAN CORPUSCULAR VOLUME (BEAKER) 89 fL 79-92 (test code = 753) MEAN CORPUSCULAR HEMOGLOBIN 30.8 pg 25.7-32.2 (BEAKER) (test code = 751) MEAN CORPUSCULAR HEMOGLOBIN CONC 34.6 GM/DL 32.3-36.5 (BEAKER) (test code = 752) RED CELL DISTRIBUTION WIDTH 14.8 % 11.6-14.4 H (BEAKER) (test code = 412) PLATELET COUNT (BEAKER) (test 250 K/CU MM 150-450 code = 756) MEAN PLATELET VOLUME (BEAKER) 8.9 fL 9.4-12.4 L (test code = 754) NUCLEATED RED BLOOD CELLS 0 /100 WBC 0-0 (BEAKER) (test code = 413) NEUTROPHILS RELATIVE PERCENT 79 % (BEAKER) (test code = 429) LYMPHOCYTES RELATIVE PERCENT 14 % (BEAKER) (test code = 430) MONOCYTES RELATIVE PERCENT 6 % (BEAKER) (test code = 431) EOSINOPHILS RELATIVE PERCENT 0 % (BEAKER) (test code = 432) BASOPHILS RELATIVE PERCENT 0 % (BEAKER) (test code = 437) NEUTROPHILS ABSOLUTE COUNT 11.61 K/ L 1.78-5.38 H (BEAKER) (test code = 670) LYMPHOCYTES ABSOLUTE COUNT 2.00 K/ L 1.32-3.57 (BEAKER) (test code = 414) MONOCYTES ABSOLUTE COUNT (BEAKER) 0.90 K/ L 0.30-0.82 H (test code = 415) EOSINOPHILS ABSOLUTE COUNT 0.06 K/ L 0.04-0.54 (BEAKER) (test code = 416) BASOPHILS ABSOLUTE COUNT (BEAKER) 0.03 K/ L 0.01-0.08 (test code = 417) IMMATURE GRANULOCYTES-RELATIVE 0.90 % 0.00-1.00 PERCENT (BEAKER) (test code = 2801) BLOOD GAS, [id number] 18:33:56 Test Item Value Reference Range Interpretation Comments PH ARTERIAL (BEAKER) (test code = 7.50 7.35-7.45 H 383) PCO2 ARTERIAL (BEAKER) (test code 31 mm Hg 35-45 L = 384) PO2 ARTERIAL (BEAKER) (test code = 77 mm Hg 80-90 L 385) O2 SATURATION ARTERIAL (BEAKER) 96.6 % 96.0-97.0 (test code = 386) HCO3 ARTERIAL (BEAKER) (test code 24 mmol/L 21-29 = 388) BASE EXCESS ARTERIAL (BEAKER) 1.0 mmol/L -2.0-3.0 (test code = 387) PATIENT TEMPERATURE (BEAKER) (test 36.9 code = 1818) FIO2 (BEAKER) (test code = 1819) 21.0 POCT-GLUCOSE [id number] 18:28:38 Test Item Value Reference Range Interpretation Comments POC-GLUCOSE METER 108 mg/dL 70-110 : TESTED A T [facility] 6720 (BEAKER) (test code = DEJUAN Singh [facility], 1538) [id number]: Soil Science Professor/Techni ariela ID = [id number] for MAGGI TaylorYENEREIDA Fofana [id number] 16:20:32 Test Item Value Reference Range Interpretation Comments MAGNESIUM (BEAKER) (test code = 2.2 mg/dL 1.6-2.6 627) Soil Science Professor ID - POLI [id number] 16:20:32 Test Item Value Reference Range Interpretation Comments PHOSPHORUS (BEAKER) (test code = 2.1 mg/dL 2.3-4.7 L 604) Soil Science Professor ID - POLI GBASIC METABOLIC [id number] 16:20:31 Test Item Value Reference Range Interpretation Comments SODIUM (BEAKER) 136 meq/L 136-145 (test code = 381) POTASSIUM 3.9 meq/L 3.5-5.1 (BEAKER) (test code = 379) CHLORIDE (BEAKER) 105 meq/L 98-107 (test code = 382) CO2 (BEAKER) 22 meq/L 22-29 (test code = 355) BLOOD UREA 17 mg/dL 7-21 NITROGEN (BEAKER) (test code = 354) CREATININE 0.39 mg/dL 0.57-1.25 L (BEAKER) (test code = 358) GLUCOSE RANDOM 102 mg/dL 70-105 (BEAKER) (test code = 652) CALCIUM (BEAKER) 8.7 mg/dL 8.4-10.2 (test code = 697) EGFR (BEAKER) 126 Interpretatio n of eGFR (test code = mL/min/1.73 values Stage De scription 1092) sq m Result G1 Lynn l or high >=90 G2 Mildly decreased 60-89 G3a Mildl y to moderately 45-5 9 G3b Moderately to s everely 30-44 G4 Severl y decreased 15-29 G5 Kidney failure <15Reported eGF R is based on the CKD-EPI 2020 equation that d oes not use a race coefficientEsti mated GFR is not as accur ate as Creatinine Leatha bry in predicting glom erular filtration rate . Estimated GFR is not appl icable for dialysis patien ts Soil Science Professor ID - POLI [id number] 15:48:25 Test Item Value Reference Range Interpretation Comments PARTIAL THROMBOPLASTIN TIME 32.5 seconds 22.5-36.0 (BEAKER) (test code = 760) PROTHROMBIN [id number] 15:47:48 Test Item Value Reference Range Interpretation Comments PROTIME (BEAKER) (test code = 16.3 seconds 11.9-14.2 H 759) INR (BEAKER) (test code = 370) 1.39 <=5.90 RECOMMENDED COUMADIN/WARFARIN INR THERAPY RANGESSTANDARD DOSE: 2.0 - 3.0 Includes: PROPHYLAXIS for venous thrombosis, systemic embolization; TREATMENT for venous thrombosis and/or pulmonary embolus.HIGH RISK: Target INR is 2.5-3.5 for patients with mechanical heart valves.LACTIC ACID, [id number] 15:42:45 Test Item Value Reference Range Interpretation Comments LACTATE BLOOD ARTERIAL (2) 0.8 mmol/L 0.5-2.2 (BEAKER) (test code = 2874) Soil Science Professor ID - ADMINCBC W/PLT COUNT & AUTO [id number] 15:35:03 Test Item Value Reference Range Interpretation Comments WHITE BLOOD CELL COUNT (BEAKER) 16.0 K/ L 3.5-10.5 H (test code = 775) RED BLOOD CELL COUNT (BEAKER) 3.38 M/ L 4.63-6.08 L (test code = 761) HEMOGLOBIN (BEAKER) (test code = 10.6 GM/DL 13.7-17.5 L 410) HEMATOCRIT (BEAKER) (test code = 30.5 % 40.1-51.0 L 411) MEAN CORPUSCULAR VOLUME (BEAKER) 90 fL 79-92 (test code = 753) MEAN CORPUSCULAR HEMOGLOBIN 31.4 pg 25.7-32.2 (BEAKER) (test code = 751) MEAN CORPUSCULAR HEMOGLOBIN CONC 34.8 GM/DL 32.3-36.5 (BEAKER) (test code = 752) RED CELL DISTRIBUTION WIDTH 14.9 % 11.6-14.4 H (BEAKER) (test code = 412) PLATELET COUNT (BEAKER) (test 258 K/CU MM 150-450 code = 756) MEAN PLATELET VOLUME (BEAKER) 9.0 fL 9.4-12.4 L (test code = 754) NUCLEATED RED BLOOD CELLS 0 /100 WBC 0-0 (BEAKER) (test code = 413) NEUTROPHILS RELATIVE PERCENT 82 % (BEAKER) (test code = 429) LYMPHOCYTES RELATIVE PERCENT 11 % (BEAKER) (test code = 430) MONOCYTES RELATIVE PERCENT 6 % (BEAKER) (test code = 431) EOSINOPHILS RELATIVE PERCENT 0 % (BEAKER) (test code = 432) BASOPHILS RELATIVE PERCENT 0 % (BEAKER) (test code = 437) NEUTROPHILS ABSOLUTE COUNT 13.01 K/ L 1.78-5.38 H (BEAKER) (test code = 670) LYMPHOCYTES ABSOLUTE COUNT 1.78 K/ L 1.32-3.57 (BEAKER) (test code = 414) MONOCYTES ABSOLUTE COUNT (BEAKER) 0.97 K/ L 0.30-0.82 H (test code = 415) EOSINOPHILS ABSOLUTE COUNT 0.05 K/ L 0.04-0.54 (BEAKER) (test code = 416) BASOPHILS ABSOLUTE COUNT (BEAKER) 0.03 K/ L 0.01-0.08 (test code = 417) IMMATURE GRANULOCYTES-RELATIVE 0.80 % 0.00-1.00 PERCENT (BEAKER) (test code = 2801) BLOOD GAS, [id number] 15:25:20 Test Item Value Reference Range Interpretation Comments PH ARTERIAL (BEAKER) (test code = 7.52 7.35-7.45 H 383) PCO2 ARTERIAL (BEAKER) (test code 30 mm Hg 35-45 L = 384) PO2 ARTERIAL (BEAKER) (test code = 72 mm Hg 80-90 L 385) O2 SATURATION ARTERIAL (BEAKER) 95.9 % 96.0-97.0 L (test code = 386) HCO3 ARTERIAL (BEAKER) (test code 24 mmol/L 21-29 = 388) BASE EXCESS ARTERIAL (BEAKER) 2.0 mmol/L -2.0-3.0 (test code = 387) PATIENT TEMPERATURE (BEAKER) (test 37.2 code = 1818) FIO2 (BEAKER) (test code = 1819) 21.0 POCT-GLUCOSE [id number] 13:46:47 Test Item Value Reference Range Interpretation Comments POC-GLUCOSE METER 107 mg/dL 70-110 : TESTED A T [facility] 6720 (BEAKER) (test code = DEJUAN Singh [facility], 1538) [address]: Soil Science Professor/Techni ariela ID = [id number] for Po tts, Joi POCT-GLUCOSE [id number] 13:18:12 Test Item Value Reference Range Interpretation Comments POC-GLUCOSE METER 69 mg/dL 70-110 L : Notified RN/MD: TEST[facility] (BEAKER) (test code = [facility] [facility] 1538) [facility], 7[address]: Soil Science Professor/Techni ariela ID = [id number] for VanTatianaBrielle [id number] 03:37:18 Test Item Value Reference Range Interpretation Comments PHOSPHORUS (BEAKER) (test code = 2.5 mg/dL 2.3-4.7 604) Soil Science Professor ID - POLI GBASIC METABOLIC [id number] 03:37:17 Test Item Value Reference Range Interpretation Comments SODIUM (BEAKER) 135 meq/L 136-145 L (test code = 381) POTASSIUM 3.8 meq/L 3.5-5.1 (BEAKER) (test code = 379) CHLORIDE (BEAKER) 104 meq/L 98-107 (test code = 382) CO2 (BEAKER) 19 meq/L 22-29 L (test code = 355) BLOOD UREA 15 mg/dL 7-21 NITROGEN (BEAKER) (test code = 354) CREATININE 0.67 mg/dL 0.57-1.25 (BEAKER) (test code = 358) GLUCOSE RANDOM 112 mg/dL 70-105 H (BEAKER) (test code = 652) CALCIUM (BEAKER) 8.5 mg/dL 8.4-10.2 (test code = 697) EGFR (BEAKER) 111 Interpretatio n of eGFR (test code = mL/min/1.73 values Stage De scription 1092) sq m Result G1 Lynn l or high >=90 G2 Mildly decreased 60-89 G3a Mildl y to moderately 45-5 9 G3b Moderately to s everely 30-44 G4 Severl y decreased 15-29 G5 Kidney failure <15Reported eGF R is based on the CKD-EPI 2020 equation that d oes not use a race coefficientEsti mated GFR is not as accur ate as Creatinine Leatha londono in predicting glom erular filtration rate . Estimated GFR is not appl icable for dialysis patien ts Soil Science Professor ID - POLI [id number] 03:37:17 Test Item Value Reference Range Interpretation Comments MAGNESIUM (BEAKER) (test code = 1.9 mg/dL 1.6-2.6 627) Soil Science Professor ID - POLI GCALCIUM, [id number] 03:12:01 Test Item Value Reference Range Interpretation Comments CALCIUM IONIZED (BEAKER) (test 1.03 mmol/L 1.12-1.27 L code = 698) PH, BLOOD (BEAKER) (test code = 7.42 1810) LACTIC ACID, [id number] 03:09:23 Test Item Value Reference Range Interpretation Comments LACTATE BLOOD ARTERIAL (2) 0.9 mmol/L 0.5-2.2 (BEAKER) (test code = 2874) Soil Science Professor ID - POLI GOXYGEN SATURATION, [id number] 03:08:50 Test Item Value Reference Range Interpretation Comments O2 SATURATION (MEASURED) (BEAKER) 76.8 % (test code = 1455) [id number] 03:08:11 Test Item Value Reference Range Interpretation Comments PARTIAL THROMBOPLASTIN TIME 30.9 seconds 22.5-36.0 (BEAKER) (test code = 760) [id number] 03:07:47 Test Item Value Reference Range Interpretation Comments FIBRINOGEN LEVEL (BEAKER) (test 546 mg/dl 225-434 H code = 658) PROTHROMBIN [id number] 03:07:13 Test Item Value Reference Range Interpretation Comments PROTIME (BEAKER) (test code = 16.4 seconds 11.9-14.2 H 759) INR (BEAKER) (test code = 370) 1.41 <=5.90 RECOMMENDED COUMADIN/WARFARIN INR THERAPY RANGESSTANDARD DOSE: 2.0 - 3.0 Includes: PROPHYLAXIS for venous thrombosis, systemic embolization; TREATMENT for venous thrombosis and/or pulmonary embolus.HIGH RISK: Target INR is 2.5-3.5 for patients with mechanical heart valves.POCT-GLUCOSE [id number] 02:57:30 Test Item Value Reference Range Interpretation Comments POC-GLUCOSE METER 104 mg/dL 70-110 : TESTED A T [facility] 6720 (BEAKER) (test code = DEJUAN MEDEROS [place], 1538) [address]: Soil Science Professor/Techni ariela ID = [id number] for MAGGI VENEGASNNEREIDA CBC W/PLT COUNT & AUTO [id number] 02:56:56 Test Item Value Reference Range Interpretation Comments WHITE BLOOD CELL COUNT (BEAKER) 18.8 K/ L 3.5-10.5 H (test code = 775) RED BLOOD CELL COUNT (BEAKER) 3.33 M/ L 4.63-6.08 L (test code = 761) HEMOGLOBIN (BEAKER) (test code = 10.5 GM/DL 13.7-17.5 L 410) HEMATOCRIT (BEAKER) (test code = 30.3 % 40.1-51.0 L 411) MEAN CORPUSCULAR VOLUME (BEAKER) 91 fL 79-92 (test code = 753) MEAN CORPUSCULAR HEMOGLOBIN 31.5 pg 25.7-32.2 (BEAKER) (test code = 751) MEAN CORPUSCULAR HEMOGLOBIN CONC 34.7 GM/DL 32.3-36.5 (BEAKER) (test code = 752) RED CELL DISTRIBUTION WIDTH 15.0 % 11.6-14.4 H (BEAKER) (test code = 412) PLATELET COUNT (BEAKER) (test 221 K/CU MM 150-450 code = 756) MEAN PLATELET VOLUME (BEAKER) 8.8 fL 9.4-12.4 L (test code = 754) NUCLEATED RED BLOOD CELLS 0 /100 WBC 0-0 (BEAKER) (test code = 413) NEUTROPHILS RELATIVE PERCENT 84 % (BEAKER) (test code = 429) LYMPHOCYTES RELATIVE PERCENT 9 % (BEAKER) (test code = 430) MONOCYTES RELATIVE PERCENT 6 % (BEAKER) (test code = 431) EOSINOPHILS RELATIVE PERCENT 0 % (BEAKER) (test code = 432) BASOPHILS RELATIVE PERCENT 0 % (BEAKER) (test code = 437) NEUTROPHILS ABSOLUTE COUNT 15.85 K/ L 1.78-5.38 H (BEAKER) (test code = 670) LYMPHOCYTES ABSOLUTE COUNT 1.62 K/ L 1.32-3.57 (BEAKER) (test code = 414) MONOCYTES ABSOLUTE COUNT (BEAKER) 1.08 K/ L 0.30-0.82 H (test code = 415) EOSINOPHILS ABSOLUTE COUNT 0.03 K/ L 0.04-0.54 L (BEAKER) (test code = 416) BASOPHILS ABSOLUTE COUNT (BEAKER) 0.05 K/ L 0.01-0.08 (test code = 417) IMMATURE GRANULOCYTES-RELATIVE 0.70 % 0.00-1.00 PERCENT (BEAKER) (test code = 2801) RAD, CHEST, 1 VIEW, NON [id number] 02:47:00Reason for exam:->post cardiac surgeryShould this be performed at the bedside?->Yes [facility] 1970 Sex: MFINAL REPORT CLINICAL INDICATION: post cardiac surgery Comparison: 07/15/2022 The cardiomediastinal contours are stable. The lung volumes remain low. Central pulmonary vascular prominence and bilateral parenchymal and pleural opacities are unchanged. There is no pneumothorax. Support linesare stable. Signed: Benito Alvarado MDReport Verified Date/Time: 07/16/2022 02:47:37 FIBRINOGEN 2022-07-15 22:39:20 Test Item Value Reference Range Interpretation Comments FIBRINOGEN LEVEL (BEAKER) (test 562 mg/dl 225-434 H code = 658) [id number] 22:35:02 Test Item Value Reference Range Interpretation Comments PARTIAL THROMBOPLASTIN TIME 30.8 seconds 22.5-36.0 (BEAKER) (test code = 760) PROTHROMBIN TIME/[id number] 22:34:25 Test Item Value Reference Range Interpretation Comments PROTIME (BEAKER) (test code = 16.0 seconds 11.9-14.2 H 759) INR (BEAKER) (test code = 370) 1.37 <=5.90 RECOMMENDED COUMADIN/WARFARIN INR THERAPY RANGESSTANDARD DOSE: 2.0 - 3.0 Includes: PROPHYLAXIS for venous thrombosis, systemic embolization; TREATMENT for venous thrombosis and/or pulmonary embolus.HIGH RISK: Target INR is 2.5-3.5 for patients with mechanical heart valves.CBC W/PLT COUNT & AUTO [id number] 22:28:09 Test Item Value Reference Range Interpretation Comments WHITE BLOOD CELL COUNT (BEAKER) 18.6 K/ L 3.5-10.5 H (test code = 775) RED BLOOD CELL COUNT (BEAKER) 3.60 M/ L 4.63-6.08 L (test code = 761) HEMOGLOBIN (BEAKER) (test code = 11.0 GM/DL 13.7-17.5 L 410) HEMATOCRIT (BEAKER) (test code = 32.3 % 40.1-51.0 L 411) MEAN CORPUSCULAR VOLUME (BEAKER) 90 fL 79-92 (test code = 753) MEAN CORPUSCULAR HEMOGLOBIN 30.6 pg 25.7-32.2 (BEAKER) (test code = 751) MEAN CORPUSCULAR HEMOGLOBIN CONC 34.1 GM/DL 32.3-36.5 (BEAKER) (test code = 752) RED CELL DISTRIBUTION WIDTH 15.1 % 11.6-14.4 H (BEAKER) (test code = 412) PLATELET COUNT (BEAKER) (test 233 K/CU MM 150-450 code = 756) MEAN PLATELET VOLUME (BEAKER) 8.7 fL 9.4-12.4 L (test code = 754) NUCLEATED RED BLOOD CELLS 0 /100 WBC 0-0 (BEAKER) (test code = 413) NEUTROPHILS RELATIVE PERCENT 84 % (BEAKER) (test code = 429) LYMPHOCYTES RELATIVE PERCENT 9 % (BEAKER) (test code = 430) MONOCYTES RELATIVE PERCENT 6 % (BEAKER) (test code = 431) EOSINOPHILS RELATIVE PERCENT 0 % (BEAKER) (test code = 432) BASOPHILS RELATIVE PERCENT 0 % (BEAKER) (test code = 437) NEUTROPHILS ABSOLUTE COUNT 15.58 K/ L 1.78-5.38 H (BEAKER) (test code = 670) LYMPHOCYTES ABSOLUTE COUNT 1.70 K/ L 1.32-3.57 (BEAKER) (test code = 414) MONOCYTES ABSOLUTE COUNT (BEAKER) 1.06 K/ L 0.30-0.82 H (test code = 415) EOSINOPHILS ABSOLUTE COUNT 0.05 K/ L 0.04-0.54 (BEAKER) (test code = 416) BASOPHILS ABSOLUTE COUNT (BEAKER) 0.05 K/ L 0.01-0.08 (test code = 417) IMMATURE GRANULOCYTES-RELATIVE 0.60 % 0.00-1.00 PERCENT (BEAKER) (test code = 2801) BASIC METABOLIC [id number] 19:21:06 Test Item Value Reference Range Interpretation Comments SODIUM (BEAKER) 135 meq/L 136-145 L (test code = 381) POTASSIUM 4.3 meq/L 3.5-5.1 (BEAKER) (test code = 379) CHLORIDE (BEAKER) 104 meq/L 98-107 (test code = 382) CO2 (BEAKER) 21 meq/L 22-29 L (test code = 355) BLOOD UREA 13 mg/dL 7-21 NITROGEN (BEAKER) (test code = 354) CREATININE 0.75 mg/dL 0.57-1.25 (BEAKER) (test code = 358) GLUCOSE RANDOM 99 mg/dL 70-105 (BEAKER) (test code = 652) CALCIUM (BEAKER) 8.4 mg/dL 8.4-10.2 (test code = 697) EGFR (BEAKER) 108 Interpretatio n of eGFR (test code = mL/min/1.73 values Stage De scription 1092) sq m Result G1 Norm al or high >=90 G2 Mildly decreased 60-89 G3a Mildl y to moderately 45-5 9 G3b Moderately to s everely 30-44 G4 Severl y decreased 15-29 G5 Kidney failure <15Reported eGF R is based on the CKD-EPI 2020 equation that d oes not use a race coefficientEsti mated GFR is not as accur ate as Creatinine Leatha bry in predicting glom erular filtration rate . Estimated GFR is not appl icable for dialysis patien ts Soil Science Professor ID - [id number] 19:21:06 Test Item Value Reference Range Interpretation Comments MAGNESIUM (BEAKER) (test code = 2.0 mg/dL 1.6-2.6 627) Soil Science Professor ID - ADMINBLOOD [id number] 19:00:39 Test Item Value Reference Range Interpretation Comments CULTURE (BEAKER) (test No growth in 5 days code = 1095) BLOOD [id number] 19:00:39 Test Item Value Reference Range Interpretation Comments CULTURE (BEAKER) (test No growth in 5 days code = 1095) CBC (HEMOGRAM ONLY)2022-07-15 18:56:19 Test Item Value Reference Range Interpretation Comments WHITE BLOOD CELL COUNT (BEAKER) 17.9 K/ L 3.5-10.5 H (test code = 775) RED BLOOD CELL COUNT (BEAKER) 3.43 M/ L 4.63-6.08 L (test code = 761) HEMOGLOBIN (BEAKER) (test code = 10.8 GM/DL 13.7-17.5 L 410) HEMATOCRIT (BEAKER) (test code = 31.5 % 40.1-51.0 L 411) MEAN CORPUSCULAR VOLUME (BEAKER) 92 fL 79-92 (test code = 753) MEAN CORPUSCULAR HEMOGLOBIN 31.5 pg 25.7-32.2 (BEAKER) (test code = 751) MEAN CORPUSCULAR HEMOGLOBIN CONC 34.3 GM/DL 32.3-36.5 (BEAKER) (test code = 752) RED CELL DISTRIBUTION WIDTH 15.3 % 11.6-14.4 H (BEAKER) (test code = 412) PLATELET COUNT (BEAKER) (test 233 K/CU MM 150-450 code = 756) MEAN PLATELET VOLUME (BEAKER) 9.2 fL 9.4-12.4 L (test code = 754) NUCLEATED RED BLOOD CELLS 0 /100 WBC 0-0 (BEAKER) (test code = 413) BLOOD GAS, [id number] 18:33:28 Test Item Value Reference Range Interpretation Comments PH ARTERIAL (BEAKER) (test code = 7.49 7.35-7.45 H 383) PCO2 ARTERIAL (BEAKER) (test code 32 mm Hg 35-45 L = 384) PO2 ARTERIAL (BEAKER) (test code = 95 mm Hg 80-90 H 385) O2 SATURATION ARTERIAL (BEAKER) 97.9 % 96.0-97.0 H (test code = 386) HCO3 ARTERIAL (BEAKER) (test code 24 mmol/L 21-29 = 388) BASE EXCESS ARTERIAL (BEAKER) 0.9 mmol/L -2.0-3.0 (test code = 387) PATIENT TEMPERATURE (BEAKER) (test 36.6 code = 1818) FIO2 (BEAKER) (test code = 1819) 40.0 POCT-GLUCOSE [id number] 18:27:06 Test Item Value Reference Range Interpretation Comments POC-GLUCOSE METER 96 mg/dL 70-110 : Notified RN/MD: TESTED (BEAKER) (test code = AT [facility] [address] [facility] 8311) [facility], [facility] 30: Soil Science Professor/Techni ariela ID = [id number] for Brielle Castillo LACTIC ACID, [id number] 12:20:12 Test Item Value Reference Range Interpretation Comments LACTATE BLOOD 1.0 mmol/L 0.5-2.2 Specimen sligh tly ARTERIAL (2) (BEAKER) hemoly zed (test code = 2874) Soil Science Professor ID - MMPOCT-GLUCOSE [id number] 12:18:54 Test Item Value Reference Range Interpretation Comments POC-GLUCOSE METER 105 mg/dL 70-110 : [facility] [facility] (test code = [facility], 1538) [address]: Soil Science Professor/Techni ariela ID = [id number] for Po tts, Joi POCT-GLUCOSE [id number] 06:46:05 Test Item Value Reference Range Interpretation Comments POC-GLUCOSE METER 113 mg/dL 70-110 H : TESTED A T [facility] [address] ([facility]) (test code = [facility], 1538) [address]: Soil Science Professor/Techni ariela ID = [id number] for GURMEET CHOW, MARY POCT-GLUCOSE [id number] 06:18:30 Test Item Value Reference Range Interpretation Comments POC-GLUCOSE METER 76 mg/dL 70-110 : [facility] T [facility] [address] [facility] (test code = [facility], 1538) [address]: Soil Science Professor/Techni ariela ID = [id number] for ARTHUR E, MARY OXYGEN SATURATION, [id number] 06:10:12 Test Item Value Reference Range Interpretation Comments O2 SATURATION (MEASURED) (BEAKER) 82.1 % (test code = 1455) [id number] 03:58:05 Test Item Value Reference Range Interpretation Comments PHOSPHORUS (BEAKER) (test code = 2.6 mg/dL 2.3-4.7 604) Soil Science Professor ID - [id number] 03:58:04 Test Item Value Reference Range Interpretation Comments MAGNESIUM (BEAKER) (test code = 1.8 mg/dL 1.6-2.6 627) Soil Science Professor ID - MMBASIC METABOLIC [id number] 03:58:03 Test Item Value Reference Range Interpretation Comments SODIUM (BEAKER) 139 meq/L 136-145 (test code = 381) POTASSIUM 4.0 meq/L 3.5-5.1 (BEAKER) (test code = 379) CHLORIDE (BEAKER) 106 meq/L 98-107 (test code = 382) CO2 (BEAKER) 22 meq/L 22-29 (test code = 355) BLOOD UREA 10 mg/dL 7-21 NITROGEN (BEAKER) (test code = 354) CREATININE 0.75 mg/dL 0.57-1.25 (BEAKER) (test code = 358) GLUCOSE RANDOM 113 mg/dL 70-105 H (BEAKER) (test code = 652) CALCIUM (BEAKER) 8.6 mg/dL 8.4-10.2 (test code = 697) EGFR (BEAKER) 108 Interpretati on of eGFR (test code = mL/min/1.73 values Stage De scription 1092) sq m Result G1 Lynn l or high >=90 G2 Mildly decreased 60-89 G3a Mildl y to moderately 45-5 9 G3b Moderately to s everely 30-44 G4 Severl y decreased 15-29 G5 Kidney failure <15Reported eGF R is based on the CKD-EPI 2020 equation that d oes not use a race coefficientEsti mated GFR is not as accur ate as Creatinine Leatha bry in predicting glom erular filtration rate . Estimated GFR is not appl icable for dialysis patien ts Soil Science Professor ID - MMLACTIC ACID, [id number] 03:39:54 Test Item Value Reference Range Interpretation Comments LACTATE BLOOD 1.0 mmol/L 0.5-2.2 Specimen sligh tly ARTERIAL (2) (BEAKER) hemoly zed (test code = 2874) Soil Science Professor ID - [id number] 03:35:35 Test Item Value Reference Range Interpretation Comments PARTIAL THROMBOPLASTIN TIME 30.5 seconds 22.5-36.0 (BEAKER) (test code = 760) [id number] 03:35:18 Test Item Value Reference Range Interpretation Comments FIBRINOGEN LEVEL (BEAKER) (test 376 mg/dl 225-434 code = 658) PROTHROMBIN [id number] 03:34:56 Test Item Value Reference Range Interpretation Comments PROTIME (BEAKER) (test code = 16.1 seconds 11.9-14.2 H 759) INR (BEAKER) (test code = 370) 1.38 <=5.90 RECOMMENDED COUMADIN/WARFARIN INR THERAPY RANGESSTANDARD DOSE: 2.0 - 3.0 Includes: PROPHYLAXIS for venous thrombosis, systemic embolization; TREATMENT for venous thrombosis and/or pulmonary embolus.HIGH RISK: Target INR is 2.5-3.5 for patients with mechanical heart valves.CBC W/PLT COUNT & AUTO [id number] 03:27:37 Test Item Value Reference Range Interpretation Comments WHITE BLOOD CELL COUNT (BEAKER) 13.8 K/ L 3.5-10.5 H (test code = 775) RED BLOOD CELL COUNT (BEAKER) 3.29 M/ L 4.63-6.08 L (test code = 761) HEMOGLOBIN (BEAKER) (test code = 10.2 GM/DL 13.7-17.5 L 410) HEMATOCRIT (BEAKER) (test code = 30.1 % 40.1-51.0 L 411) MEAN CORPUSCULAR VOLUME (BEAKER) 92 fL 79-92 (test code = 753) MEAN CORPUSCULAR HEMOGLOBIN 31.0 pg 25.7-32.2 (BEAKER) (test code = 751) MEAN CORPUSCULAR HEMOGLOBIN CONC 33.9 GM/DL 32.3-36.5 (BEAKER) (test code = 752) RED CELL DISTRIBUTION WIDTH 15.3 % 11.6-14.4 H (BEAKER) (test code = 412) PLATELET COUNT (BEAKER) (test 200 K/CU MM 150-450 code = 756) MEAN PLATELET VOLUME (BEAKER) 9.0 fL 9.4-12.4 L (test code = 754) NUCLEATED RED BLOOD CELLS 0 /100 WBC 0-0 (BEAKER) (test code = 413) NEUTROPHILS RELATIVE PERCENT 82 % (BEAKER) (test code = 429) LYMPHOCYTES RELATIVE PERCENT 9 % (BEAKER) (test code = 430) MONOCYTES RELATIVE PERCENT 7 % (BEAKER) (test code = 431) EOSINOPHILS RELATIVE PERCENT 0 % (BEAKER) (test code = 432) BASOPHILS RELATIVE PERCENT 0 % (BEAKER) (test code = 437) NEUTROPHILS ABSOLUTE COUNT 11.27 K/ L 1.78-5.38 H (BEAKER) (test code = 670) LYMPHOCYTES ABSOLUTE COUNT 1.20 K/ L 1.32-3.57 L (BEAKER) (test code = 414) MONOCYTES ABSOLUTE COUNT (BEAKER) 0.98 K/ L 0.30-0.82 H (test code = 415) EOSINOPHILS ABSOLUTE COUNT 0.02 K/ L 0.04-0.54 L (BEAKER) (test code = 416) BASOPHILS ABSOLUTE COUNT (BEAKER) 0.05 K/ L 0.01-0.08 (test code = 417) IMMATURE GRANULOCYTES-RELATIVE 2.00 % 0.00-1.00 H PERCENT (BEAKER) (test code = 2801) CALCIUM, [id number] 03:17:54 Test Item Value Reference Range Interpretation Comments CALCIUM IONIZED (BEAKER) (test 1.04 mmol/L 1.12-1.27 L code = 698) PH, BLOOD (BEAKER) (test code = 7.48 1810) BLOOD GAS, [id number] 03:17:42 Test Item Value Reference Range Interpretation Comments PH ARTERIAL (BEAKER) (test code = 7.48 7.35-7.45 H 383) PCO2 ARTERIAL (BEAKER) (test code 34 mm Hg 35-45 L = 384) PO2 ARTERIAL (BEAKER) (test code = 145 mm Hg 80-90 H 385) O2 SATURATION ARTERIAL (BEAKER) 99.0 % 96.0-97.0 H (test code = 386) HCO3 ARTERIAL (BEAKER) (test code 25 mmol/L 21-29 = 388) BASE EXCESS ARTERIAL (BEAKER) 1.8 mmol/L -2.0-3.0 (test code = 387) PATIENT TEMPERATURE (BEAKER) (test 37.0 code = 1818) FIO2 (BEAKER) (test code = 1819) 100.0 HGB/HCT (H&H)-Stat [id number] 03:17:41 Test Item Value Reference Range Interpretation Comments Hemoglobin (test code = 10.9 See_Comment L [Au tomated message] 718-7) The system [employer] generated this result transmitted ref erence range: 13.0 - 1 6.8 GM/DL. The refe rence range was not u sed to interpret this result as normal/abnor mal. Hematocrit (test code = 32.0 % 40.0-50.0 L 4544-3) Lab Interpretation (test Abnormal code = 81950-8) [facility] [id number] 03:17:41 Test Item Value Reference Range Interpretation Comments HEMOGLOBIN (BEAKER) (test code = 10.9 GM/DL 13.0-16.8 L 410) HEMATOCRIT (BEAKER) (test code = 32.0 % 40.0-50.0 L 411) OXYGEN SATURATION, [id number] 03:17:10 Test Item Value Reference Range Interpretation Comments O2 SATURATION (MEASURED) (BEAKER) 84.2 % (test code = 1455) Sodium Na-Stat [id number] 03:16:57 Test Item Value Reference Range Interpretation Comments Sodium (test code = 2951-2) 136 meq/L 136-145 Lab Interpretation (test code = Normal 40078-7) [facility] [id number] 03:16:57 Test Item Value Reference Range Interpretation Comments Potassium (test code = 2823-3) 3.8 meq/L 3.6-5.5 Lab Interpretation (test code = Normal 80803-5) [facility] [id number] 03:16:57 Test Item Value Reference Range Interpretation Comments SODIUM (BEAKER) (test code = 381) 136 meq/L 136-145 POTASSIUM-STAT [id number] 03:16:57 Test Item Value Reference Range Interpretation Comments POTASSIUM (BEAKER) (test code = 3.8 meq/L 3.6-5.5 379) Glucose-Stat [id number] 03:16:56 Test Item Value Reference Range Interpretation Comments Glucose (test code = 2345-7) 115 mg/dL 70-110 H Lab Interpretation (test code = Abnormal 90237-8) [facility] [id number] 03:16:56 Test Item Value Reference Range Interpretation Comments GLUCOSE RANDOM (BEAKER) (test code 115 mg/dL 70-110 H = 652) POCT-GLUCOSE [id number] 02:52:39 Test Item Value Reference Range Interpretation Comments POC-GLUCOSE METER 113 mg/dL 70-110 H : TESTED A T [facility] [address] (BEAKER) (test code = DEJUAN MEDEROS [place], 1538) [address]: Soil Science Professor/Techni ariela ID = [id number] for MARY WEST POCT-GLUCOSE [id number] 01:47:50 Test Item Value Reference Range Interpretation Comments POC-GLUCOSE METER 112 mg/dL 70-110 H : TESTED A T [facility] [address] (MESFIN) (test code = DEJUAN Singh [facility], 1538) [address]: Soil Science Professor/Techni ariela ID = [id number] for MARY WEST POCT-GLUCOSE [id number] 00:53:47 Test Item Value Reference Range Interpretation Comments POC-GLUCOSE METER 98 mg/dL 70-110 : TESTED A T [facility] [address] (MESFIN) (test code = DEJUAN Singh [facility], 1538) [address]: Soil Science Professor/Techni ariela ID = [id number] for MARY ANDRADE RAD, CHEST, 1 VIEW, NON [id number] 00:50:00while patient is intubated or has chest tubes.Reason for exam:->Status post CV SurgeryShould thisbe performed at the bedside?->Yes [facility] : 1970 Sex: MFINAL REPORT Exam: RAD, CHEST, 1 VIEW, NON DEPTDate: 07/15/2022 12:48 AM Indication:Status post CV SurgeryComparison: 07/14/2022 FINDINGS: Lines/Tubes/Devices: Right IJ CVC in place terminating over the SVC. Interval extubation and removal of enteric tube. Mediastinal drain and left chest tube in place. Lungs/pleura:Borderline lung volumes. Prominent/indistinct pulmonary vascularity. Bibasilar streaky opacities. No pleural effusion. Trace left apical pneumothorax. Heart/Mediastinum:Magnified by portable technique. Bones/Soft Tissues: No acute osseous abnormality. Upper abdomen: Unremarkable. IMPRESSION:Lines and tubes as above.Borderline lung volumes.Prominent/indistinct pulmonary vasculature, congestion/edema.Bibasilar streaky opacities, likely atelectasis.Trace left apical pneumothorax. Signed: Serafin Sanz Verified Date/Time: 07/15/2022 00:50:14 [id number] 23:41:59 Test Item Value Reference Range Interpretation Comments PHOSPHORUS (BEAKER) (test code = 2.1 mg/dL 2.3-4.7 L 604) Soil Science Professor ID - ADMINLACTIC ACID, [id number] 23:39:19 Test Item Value Reference Range Interpretation Comments LACTATE BLOOD ARTERIAL (2) 2.2 mmol/L 0.5-2.2 (BEAKER) (test code = 2874) Soil Science Professor ID - [id number] 23:29:19 Test Item Value Reference Range Interpretation Comments PARTIAL THROMBOPLASTIN TIME 30.4 seconds 22.5-36.0 (BEAKER) (test code = 760) POCT-GLUCOSE [id number] 23:22:16 Test Item Value Reference Range Interpretation Comments POC-GLUCOSE METER 111 mg/dL 70-110 H : TESTED A T [facility] [address] (BEAKER) (test code = DEJUAN Singh [facility], 1538) [id number]: Soil Science Professor/Techni ariela ID = [id number] for MARY WEST CALCIUM, [id number] 23:14:12 Test Item Value Reference Range Interpretation Comments CALCIUM IONIZED (BEAKER) (test 1.02 mmol/L 1.12-1.27 L code = 698) PH, BLOOD (BEAKER) (test code = 7.47 1810) HGB/HCT (H&H) - STAT [id number] 23:12:57 Test Item Value Reference Range Interpretation Comments HEMOGLOBIN (BEAKER) (test code = 10.2 GM/DL 13.0-16.8 L 410) HEMATOCRIT (BEAKER) (test code = 30.0 % 40.0-50.0 L 411) BLOOD GAS, [id number] 23:12:51 Test Item Value Reference Range Interpretation Comments PH ARTERIAL (BEAKER) (test code = 7.48 7.35-7.45 H 383) PCO2 ARTERIAL (BEAKER) (test code 36 mm Hg 35-45 = 384) PO2 ARTERIAL (BEAKER) (test code = 165 mm Hg 80-90 H 385) O2 SATURATION ARTERIAL (BEAKER) 99.2 % 96.0-97.0 H (test code = 386) HCO3 ARTERIAL (BEAKER) (test code 26 mmol/L 21-29 = 388) BASE EXCESS ARTERIAL (BEAKER) 2.7 mmol/L -2.0-3.0 (test code = 387) PATIENT TEMPERATURE (BEAKER) (test 36.6 code = 1818) FIO2 (BEAKER) (test code = 1819) 100.0 POTASSIUM-STAT [id number] 23:12:40 Test Item Value Reference Range Interpretation Comments POTASSIUM (BEAKER) (test code = 3.8 meq/L 3.6-5.5 379) SODIUM NA-STAT [id number] 23:12:39 Test Item Value Reference Range Interpretation Comments SODIUM (BEAKER) (test code = 381) 137 meq/L 136-145 GLUCOSE-STAT [id number] 23:12:38 Test Item Value Reference Range Interpretation Comments GLUCOSE RANDOM (BEAKER) (test code 116 mg/dL 70-110 H = 652) LACTIC ACID, [id number] 21:29:35 Test Item Value Reference Range Interpretation Comments LACTATE BLOOD ARTERIAL (2) 7.0 mmol/L 0.5-2.2 HH (BEAKER) (test code = 2874) Soil Science Professor ID - ADMINPOCT-GLUCOSE [id number] 21:19:53 Test Item Value Reference Range Interpretation Comments POC-GLUCOSE METER 121 mg/dL 70-110 H : [facility] (BEAKER) (test code = DEJUAN MEDEROS [place], 1538) [address]: Soil Science Professor/Techni ariela ID = [id number] for MARY WEST HGB/HCT (H&H) - STAT [id number] 19:44:30 Test Item Value Reference Range Interpretation Comments HEMOGLOBIN (BEAKER) (test code = 10.6 GM/DL 13.0-16.8 L 410) HEMATOCRIT (BEAKER) (test code = 31.0 % 40.0-50.0 L 411) BLOOD GAS, [id number] 19:44:23 Test Item Value Reference Range Interpretation Comments PH ARTERIAL (BEAKER) (test code = 7.49 7.35-7.45 H 383) PCO2 ARTERIAL (BEAKER) (test code 29 mm Hg 35-45 L = 384) PO2 ARTERIAL (BEAKER) (test code 202 mm Hg 80-90 H = 385) O2 SATURATION ARTERIAL (BEAKER) 99.5 % 96.0-97.0 H (test code = 386) HCO3 ARTERIAL (BEAKER) (test code 22 mmol/L 21-29 = 388) BASE EXCESS ARTERIAL (BEAKER) -0.7 mmol/L -2.0-3.0 (test code = 387) PATIENT TEMPERATURE (BEAKER) 37.1 (test code = 1818) FIO2 (BEAKER) (test code = 1819) 100.0 POTASSIUM-STAT [id number] 19:44:17 Test Item Value Reference Range Interpretation Comments POTASSIUM (BEAKER) (test code = 3.7 meq/L 3.6-5.5 379) SODIUM NA-STAT [id number] 19:44:12 Test Item Value Reference Range Interpretation Comments SODIUM (BEAKER) (test code = 381) 139 meq/L 136-145 GLUCOSE-STAT [id number] 19:44:11 Test Item Value Reference Range Interpretation Comments GLUCOSE RANDOM (BEAKER) (test code 158 mg/dL 70-110 H = 652) BASIC METABOLIC [id number] 18:48:45 Test Item Value Reference Range Interpretation Comments SODIUM (BEAKER) 136 meq/L 136-145 (test code = 381) POTASSIUM 4.0 meq/L 3.5-5.1 (BEAKER) (test code = 379) CHLORIDE (BEAKER) 104 meq/L 98-107 (test code = 382) CO2 (BEAKER) 19 meq/L 22-29 L (test code = 355) BLOOD UREA 14 mg/dL 7-21 NITROGEN (BEAKER) (test code = 354) CREATININE 0.80 mg/dL 0.57-1.25 (BEAKER) (test code = 358) GLUCOSE RANDOM 201 mg/dL 70-105 H (BEAKER) (test code = 652) CALCIUM (BEAKER) 8.1 mg/dL 8.4-10.2 L (test code = 697) EGFR (BEAKER) 106 Interpretatio n of eGFR (test code = mL/min/1.73 values Stage De scription 1092) sq m Result G1 Lynn l or high >=90 G2 Mildly decreased 60-89 G3a Mildl y to moderately 45-5 9 G3b Moderately to s everely 30-44 G4 Severl y decreased 15-29 G5 Kidney failure <15Reported eGF R is based on the CKD-EPI 2020 equation that d oes not use a race coefficientEsti mated GFR is not as accur ate as Creatinine Leatha bry in predicting glom erular filtration rate . Estimated GFR is not appl icable for dialysis patien ts [employer]il [employer] Professor ID - ADMINPOCT-GLUCOSE [id number] 18:45:18 Test Item Value Reference Range Interpretation Comments POC-GLUCOSE METER 164 mg/dL 70-110 H : TESTED A T BSC 6720 (BEAKER) (test code = DEJUAN Singh [facility], 1538) 11667: Soil Science Professor/Techni ariela ID = [id number] for Hover-Sissy, X avier CALCIUM, [id number] 18:39:07 Test Item Value Reference Range Interpretation Comments CALCIUM IONIZED (BEAKER) (test 1.10 mmol/L 1.12-1.27 L code = 698) PH, BLOOD (BEAKER) (test code = 7.48 1810) BLOOD GAS, [id number] 18:39:01 Test Item Value Reference Range Interpretation Comments PH ARTERIAL (BEAKER) (test code = 7.49 7.35-7.45 H 383) PCO2 ARTERIAL (BEAKER) (test code 28 mm Hg 35-45 L = 384) PO2 ARTERIAL (BEAKER) (test code 198 mm Hg 80-90 H = 385) O2 SATURATION ARTERIAL (BEAKER) 99.5 % 96.0-97.0 H (test code = 386) HCO3 ARTERIAL (BEAKER) (test code 21 mmol/L 21-29 = 388) BASE EXCESS ARTERIAL (BEAKER) -1.8 mmol/L -2.0-3.0 (test code = 387) PATIENT TEMPERATURE (BEAKER) 37.0 (test code = 1818) FIO2 (BEAKER) (test code = 1819) 100.0 LACTIC ACID, [id number] 17:51:16 Test Item Value Reference Range Interpretation Comments LACTATE BLOOD 8.5 mmol/L 0.5-2.2 HH Specimen sligh tly ARTERIAL (2) (BEAKER) hemoly zed (test code = 2874) Soil Science Professor ID - BSPOCT-GLUCOSE [id number] 17:35:09 Test Item Value Reference Range Interpretation Comments POC-GLUCOSE METER 200 mg/dL 70-110 H : TESTED A T [facility] 6720 (BEAKER) (test code = DEJUAN [place], 1538) [id number]: Soil Science Professor/Techni ariela ID = [id number] for Hoaguilar-Sissy, X avier BLOOD GAS, [id number] 17:34:29 Test Item Value Reference Range Interpretation Comments PH ARTERIAL (BEAKER) (test code = 7.49 7.35-7.45 H 383) PCO2 ARTERIAL (BEAKER) (test code 24 mm Hg 35-45 L = 384) PO2 ARTERIAL (BEAKER) (test code 158 mm Hg 80-90 H = 385) O2 SATURATION ARTERIAL (BEAKER) 99.2 % 96.0-97.0 H (test code = 386) HCO3 ARTERIAL (BEAKER) (test code 18 mmol/L 21-29 L = 388) BASE EXCESS ARTERIAL (BEAKER) -4.1 mmol/L -2.0-3.0 L (test code = 387) PATIENT TEMPERATURE (BEAKER) 37.0 (test code = 1818) FIO2 (BEAKER) (test code = 1819) 40.0 [id number] 16:32:39 Test Item Value Reference Range Interpretation Comments POTASSIUM (BEAKER) (test code = 4.2 meq/L 3.5-5.1 379) Soil Science Professor ID - [id number] 16:32:39 Test Item Value Reference Range Interpretation Comments GLUCOSE RANDOM (BEAKER) (test code 202 mg/dL 70-105 H = 652) Soil Science Professor ID - [id number] 16:32:38 Test Item Value Reference Range Interpretation Comments PHOSPHORUS (BEAKER) (test code = 2.9 mg/dL 2.3-4.7 604) Soil Science Professor ID - ADMINLACTIC ACID, [id number] 16:22:46 Test Item Value Reference Range Interpretation Comments LACTATE BLOOD ARTERIAL (2) 5.2 mmol/L 0.5-2.2 HH (BEAKER) (test code = 2874) Soil Science Professor ID - ADMINPOCT-GLUCOSE [id number] 16:03:44 Test Item Value Reference Range Interpretation Comments POC-GLUCOSE METER 196 mg/dL 70-110 H : TESTED A T [facility] 6720 (BEAKER) (test code = DEJUAN Singh [place]ER[place], 1538) [address]: Soil Science Professor/Techni ariela ID = [id number] for Jaja, Roman snow HGB/HCT (H&H) - STAT [id number] 16:01:40 Test Item Value Reference Range Interpretation Comments HEMOGLOBIN (BEAKER) (test code = 11.7 GM/DL 13.0-16.8 L 410) HEMATOCRIT (BEAKER) (test code = 34.0 % 40.0-50.0 L 411) BLOOD GAS, [id number] 16:01:39 Test Item Value Reference Range Interpretation Comments PH ARTERIAL (BEAKER) (test code = 7.42 7.35-7.45 383) PCO2 ARTERIAL (BEAKER) (test code 37 mm Hg 35-45 = 384) PO2 ARTERIAL (BEAKER) (test code 187 mm Hg 80-90 H = 385) O2 SATURATION ARTERIAL (BEAKER) 99.3 % 96.0-97.0 H (test code = 386) HCO3 ARTERIAL (BEAKER) (test code 23 mmol/L 21-29 = 388) BASE EXCESS ARTERIAL (BEAKER) -0.7 mmol/L -2.0-3.0 (test code = 387) PATIENT TEMPERATURE (BEAKER) 37.0 (test code = 1818) FIO2 (BEAKER) (test code = 1819) 21.0 POTASSIUM-STAT [id number] 16:01:18 Test Item Value Reference Range Interpretation Comments POTASSIUM (BEAKER) (test code = 3.9 meq/L 3.6-5.5 379) GLUCOSE-STAT [id number] 16:01:13 Test Item Value Reference Range Interpretation Comments GLUCOSE RANDOM (BEAKER) (test code 214 mg/dL 70-110 H = 652) SODIUM NA-STAT [id number] 16:01:13 Test Item Value Reference Range Interpretation Comments SODIUM (BEAKER) (test code = 381) 140 meq/L 136-145 RAD, CHEST, 1 VIEW, NON [id number] 15:08:00Reason for exam:->PostopShould this be performed at the bedside?->Yes [facility] 1970 Sex: MFINAL REPORT Chest one view: HISTORY: Postop Compared to 07/12/2022. Interval changes ofmedian sternotomy are noted. An endotracheal tube has been placed, with its tip projecting approximately 3 cm from the calos. A nasogastric tube remains with its tip in the proximal stomach. A right jugular central venous catheter has been placed and is noted with its tip at the cavoatrial junction. Mediastinal drain and left chest tube are present. There is no pneumothorax or pleural effusion. Cardiac size is unchanged and within normal limits. There is limited right basilar subsegmental atelectasis. Signed: Jeremías Carroll [facility] Verified Date/Time: 07/14/2022 15:08:27 Prepare [id number] 14:54:00 Test Item Value Reference Range Interpretation Comments CROSSMATCH (test code = COMPATIBLE 2264) Unit ABO (test code = O Pos 3690869) UNIT NUMBER (test code = A790436962007 934-0) Status (test code = RETURNED FROM ISSUE 1736912) Blood Bank Product (test RED BLOOD CELLS code = 2263) PRODUCT CODE (test code = Z8762N06 933-2) [facility] W/PLT COUNT & AUTO [id number] 14:50:33 Test Item Value Reference Range Interpretation Comments WHITE BLOOD CELL COUNT (BEAKER) 25.4 K/ L 3.5-10.5 H (test code = 775) RED BLOOD CELL COUNT (BEAKER) 3.55 M/ L 4.63-6.08 L (test code = 761) HEMOGLOBIN (BEAKER) (test code = 11.2 GM/DL 13.7-17.5 L 410) HEMATOCRIT (BEAKER) (test code = 32.6 % 40.1-51.0 L 411) MEAN CORPUSCULAR VOLUME (BEAKER) 92 fL 79-92 (test code = 753) MEAN CORPUSCULAR HEMOGLOBIN 31.5 pg 25.7-32.2 (BEAKER) (test code = 751) MEAN CORPUSCULAR HEMOGLOBIN CONC 34.4 GM/DL 32.3-36.5 (BEAKER) (test code = 752) RED CELL DISTRIBUTION WIDTH 15.3 % 11.6-14.4 H (BEAKER) (test code = 412) PLATELET COUNT (BEAKER) (test 219 K/CU MM 150-450 code = 756) MEAN PLATELET VOLUME (BEAKER) 9.0 fL 9.4-12.4 L (test code = 754) NUCLEATED RED BLOOD CELLS 0 /100 WBC 0-0 (BEAKER) (test code = 413) (CELLAVISION MANUAL DIFF)2022-07-14 14:50:11 Test Item Value Reference Range Interpretation Comments NEUTROPHILS - REL 69 % (CELLAVISION)(BEAKER) (test code = 2816) LYMPHOCYTES - REL 10 % (CELLAVISION)(BEAKER) (test code = 2817) MONOCYTES - REL 3 % (CELLAVISION)(BEAKER) (test code = 2818) PROMYELOCYTES - REL 1 % 0-0 H (CELLAVSION)(BEAKER) (test code = 2825) BANDS - REL (CELLAVISION)(BEAKER) 17 % 0-10 H (test code = 2826) NEUTROPHILS - ABS 17.53 K/ul 1.78-5.38 H (CELLAVISION)(BEAKER) (test code = 2830) LYMPHOCYTES - ABS 2.54 K/ul 1.32-3.57 (CELLAVISION)(BEAKER) (test code = 2831) MONOCYTES - ABS 0.76 K/uL 0.30-0.82 (CELLAVISION)(BEAKER) (test code = 2832) PROMYELOCYTES - ABS 0.25 K/uL 0.00-0.00 H (CELLAVISION)(BEAKER) (test code = 2838) BANDS - ABS (CELLAVISION)(BEAKER) 4.32 K/uL 0.00-0.80 H (test code = 2840) TOTAL COUNTED (BEAKER) (test code 100 = 1351) SMUDGE CELLS (BEAKER) (test code Present = 1371) GIANT PLATELETS (BEAKER) (test Present code = 313) POLYCHROMATOPHILLIC RBCS(BEAKER) 3+ many (test code = 478) ANISOCYTOSIS (BEAKER) (test code 2+ moderate = 961) MICROCYTES (BEAKER) (test code = 2+ moderate 965) POIKILOCYTES (BEAKER) (test code 1+ few = 966) ARTIFACT (CELLAVISION)(BEAKER) Present (test code = 3432) PLATELET CONCENTRATION Adequate (CELLAVISION)(BEAKER) (test code = 3438) Soil Science Professor ID - Yamilex comments: Slide comments:[id number] 14:26:57 Test Item Value Reference Range Interpretation Comments PARTIAL THROMBOPLASTIN TIME 27.1 seconds 22.5-36.0 (BEAKER) (test code = 760) COMPREHENSIVE METABOLIC [id number] 14:26:56 Test Item Value Reference Range Interpretation Comments TOTAL PROTEIN 5.6 gm/dL 6.0-8.3 L (BEAKER) (test code = 770) ALBUMIN (BEAKER) 3.3 g/dL 3.5-5.0 L (test code = 1145) ALKALINE 126 U/L 40-150 PHOSPHATASE (BEAKER) (test code = 346) BILIRUBIN TOTAL 1.6 mg/dL 0.2-1.2 H (BEAKER) (test code = 377) SODIUM (BEAKER) 138 meq/L 136-145 (test code = 381) POTASSIUM (BEAKER) 4.1 meq/L 3.5-5.1 (test code = 379) CHLORIDE (BEAKER) 108 meq/L 98-107 H (test code = 382) CO2 (BEAKER) (test 23 meq/L 22-29 code = 355) BLOOD UREA 14 mg/dL 7-21 NITROGEN (BEAKER) (test code = 354) CREATININE 0.84 mg/dL 0.57-1.25 (BEAKER) (test code = 358) GLUCOSE RANDOM 225 mg/dL 70-105 H (BEAKER) (test code = 652) CALCIUM (BEAKER) 9.1 mg/dL 8.4-10.2 (test code = 697) AST (SGOT) 60 U/L 5-34 H (BEAKER) (test code = 353) ALT (SGPT) 70 U/L 6-55 H (BEAKER) (test code = 347) EGFR (BEAKER) 105 Interpretatio n of eGFR (test code = 1092) mL/min/1.[address] age Description sq m Result G1 Lynn l or high >=90 G2 Mildly decreased 60-89 G3a Mildl y to moderately 45-5 9 G3b Moderately to s everely 30-44 G4 Severl y decreased 15-29 G5 Kidney failure <15Reported eGF R is based on the CKD-EPI 2020 equation that d oes not use a race coefficientEsti mated GFR is not as accur ate as Creatinine Leatha londono in predicting glom erular filtration rate . Estimated GFR is not appl icable for dialysis patien ts Soil Science Professor ID - [id number] 14:26:56 Test Item Value Reference Range Interpretation Comments MAGNESIUM (BEAKER) (test code = 1.9 mg/dL 1.6-2.6 627) Soil Science Professor ID - [id number] 14:26:56 Test Item Value Reference Range Interpretation Comments PHOSPHORUS (BEAKER) (test code = 4.0 mg/dL 2.3-4.7 604) Soil Science Professor ID - [id number] 14:26:55 Test Item Value Reference Range Interpretation Comments FIBRINOGEN LEVEL (BEAKER) (test 399 mg/dl 225-434 code = 658) PROTHROMBIN TIME/[id number] 14:26:34 Test Item Value Reference Range Interpretation Comments PROTIME (BEAKER) (test code = 16.3 seconds 11.9-14.2 H 759) INR (BEAKER) (test code = 370) 1.34 <=5.90 RECOMMENDED COUMADIN/WARFARIN INR THERAPY RANGESSTANDARD DOSE: 2.0 - 3.0 Includes: PROPHYLAXIS for venous thrombosis, systemic embolization; TREATMENT for venous thrombosis and/or pulmonary embolus.HIGH RISK: Target INR is 2.5-3.5 for patients with mechanical heart valves.LACTIC ACID, [id number] 14:21:11 Test Item Value Reference Range Interpretation Comments LACTATE BLOOD ARTERIAL (2) 2.2 mmol/L 0.5-2.2 (BEAKER) (test code = 2874) Soil Science Professor ID - ADMINCBC W/PLT COUNT & AUTO [id number] 14:10:02 Test Item Value Reference Range Interpretation Comments WHITE BLOOD CELL COUNT (BEAKER) 23.2 K/ L 3.5-10.5 H (test code = 775) RED BLOOD CELL COUNT (BEAKER) 2.80 M/ L 4.63-6.08 L (test code = 761) HEMOGLOBIN (BEAKER) (test code = 8.8 GM/DL 13.7-17.5 L 410) HEMATOCRIT (BEAKER) (test code = 25.9 % 40.1-51.0 L 411) MEAN CORPUSCULAR VOLUME (BEAKER) 93 fL 79-92 H (test code = 753) MEAN CORPUSCULAR HEMOGLOBIN 31.4 pg 25.7-32.2 (BEAKER) (test code = 751) MEAN CORPUSCULAR HEMOGLOBIN CONC 34.0 GM/DL 32.3-36.5 (BEAKER) (test code = 752) RED CELL DISTRIBUTION WIDTH 15.4 % 11.6-14.4 H (BEAKER) (test code = 412) PLATELET COUNT (BEAKER) (test 193 K/CU MM 150-450 code = 756) MEAN PLATELET VOLUME (BEAKER) 9.9 fL 9.4-12.4 (test code = 754) NUCLEATED RED BLOOD CELLS 0 /100 WBC 0-0 (BEAKER) (test code = 413) NEUTROPHILS RELATIVE PERCENT 86 % (BEAKER) (test code = 429) LYMPHOCYTES RELATIVE PERCENT 8 % (BEAKER) (test code = 430) MONOCYTES RELATIVE PERCENT 2 % (BEAKER) (test code = 431) EOSINOPHILS RELATIVE PERCENT 1 % (BEAKER) (test code = 432) BASOPHILS RELATIVE PERCENT 0 % (BEAKER) (test code = 437) NEUTROPHILS ABSOLUTE COUNT 19.90 K/ L 1.78-5.38 H (BEAKER) (test code = 670) LYMPHOCYTES ABSOLUTE COUNT 1.82 K/ L 1.32-3.57 (BEAKER) (test code = 414) MONOCYTES ABSOLUTE COUNT (BEAKER) 0.54 K/ L 0.30-0.82 (test code = 415) EOSINOPHILS ABSOLUTE COUNT 0.11 K/ L 0.04-0.54 (BEAKER) (test code = 416) BASOPHILS ABSOLUTE COUNT (BEAKER) 0.07 K/ L 0.01-0.08 (test code = 417) IMMATURE GRANULOCYTES-RELATIVE 3.40 % 0.00-1.00 H PERCENT (BEAKER) (test code = 2801) HGB/HCT (H&H) - STAT [id number] 14:03:31 Test Item Value Reference Range Interpretation Comments HEMOGLOBIN (BEAKER) (test code = 12.0 GM/DL 13.0-16.8 L 410) HEMATOCRIT (BEAKER) (test code = 35.0 % 40.0-50.0 L 411) BLOOD GAS, [id number] 14:03:30 Test Item Value Reference Range Interpretation Comments PH ARTERIAL (BEAKER) (test code = 7.33 7.35-7.45 L 383) PCO2 ARTERIAL (BEAKER) (test code 45 mm Hg 35-45 = 384) PO2 ARTERIAL (BEAKER) (test code 182 mm Hg 80-90 H = 385) O2 SATURATION ARTERIAL (BEAKER) 99.2 % 96.0-97.0 H (test code = 386) HCO3 ARTERIAL (BEAKER) (test code 23 mmol/L 21-29 = 388) BASE EXCESS ARTERIAL (BEAKER) -2.7 mmol/L -2.0-3.0 L (test code = 387) PATIENT TEMPERATURE (BEAKER) 36.6 (test code = 1818) FIO2 (BEAKER) (test code = 1819) 60.0 CALCIUM, [id number] 14:03:13 Test Item Value Reference Range Interpretation Comments CALCIUM IONIZED (BEAKER) (test 1.19 mmol/L 1.12-1.27 code = 698) PH, BLOOD (BEAKER) (test code = 7.33 1810) POTASSIUM-STAT [id number] 14:02:56 Test Item Value Reference Range Interpretation Comments POTASSIUM (BEAKER) (test code = 4.0 meq/L 3.6-5.5 379) SODIUM NA-STAT [id number] 14:02:55 Test Item Value Reference Range Interpretation Comments SODIUM (BEAKER) (test code = 381) 137 meq/L 136-145 GLUCOSE-STAT [id number] 14:02:49 Test Item Value Reference Range Interpretation Comments GLUCOSE RANDOM (BEAKER) (test code 226 mg/dL 70-110 H = 652) OXYGEN SATURATION, [id number] 14:02:31 Test Item Value Reference Range Interpretation Comments O2 SATURATION (MEASURED) (BEAKER) 85.7 % (test code = 1455) [id number] 13:04:59 Test Item Value Reference Range Interpretation Comments PARTIAL THROMBOPLASTIN TIME 26.2 seconds 22.5-36.0 (BEAKER) (test code = 760) [id number] 13:04:58 Test Item Value Reference Range Interpretation Comments FIBRINOGEN LEVEL (BEAKER) (test 339 mg/dl 225-434 code = 658) PROTHROMBIN TIME/[id number] 13:04:37 Test Item Value Reference Range Interpretation Comments PROTIME (BEAKER) (test code = 19.3 seconds 11.9-14.2 H 759) INR (BEAKER) (test code = 370) 1.68 <=5.90 RECOMMENDED COUMADIN/WARFARIN INR THERAPY RANGESSTANDARD DOSE: 2.0 - 3.0 Includes: PROPHYLAXIS for venous thrombosis, systemic embolization; TREATMENT for venous thrombosis and/or pulmonary embolus.HIGH RISK: Target INR is 2.5-3.5 for patients with mechanical heart valves.Platelet [id number] 12:53:40 Test Item Value Reference Range Interpretation Comments Platelets (test code 191 See_Comment [Autom ated = 777-3) message] The system which generated this result transmit zoë reference range : 150 - 450 K/CU MM. The reference range was not u sed to interpret th is result as normal/abnormal . JENNI (test code = JENNI) Soil Science Professor ID - [id number] Lab Interpretation Normal (test code = 07671-0) [facility] [id number] 12:53:40 Test Item Value Reference Range Interpretation Comments PLATELET COUNT (BEAKER) (test 191 K/CU MM 150-450 code = 756) Soil Science Professor ID - [id number]/HCT (H&H) - STAT [id number] 12:50:35 Test Item Value Reference Range Interpretation Comments HEMOGLOBIN (BEAKER) (test code = 9.3 GM/DL 13.0-16.8 L 410) HEMATOCRIT (BEAKER) (test code = 27.0 % 40.0-50.0 L 411) BLOOD GAS, [id number] 12:50:34 Test Item Value Reference Range Interpretation Comments PH ARTERIAL (BEAKER) (test code = 7.34 7.35-7.45 L 383) PCO2 ARTERIAL (BEAKER) (test code 44 mm Hg 35-45 = 384) PO2 ARTERIAL (BEAKER) (test code 280 mm Hg 80-90 H = 385) O2 SATURATION ARTERIAL (BEAKER) 99.6 % 96.0-97.0 H (test code = 386) HCO3 ARTERIAL (BEAKER) (test code 24 mmol/L 21-29 = 388) BASE EXCESS ARTERIAL (BEAKER) -2.1 mmol/L -2.0-3.0 L (test code = 387) PATIENT TEMPERATURE (BEAKER) 36.8 (test code = 1818) FIO2 (BEAKER) (test code = 1819) 100.0 SODIUM NA-STAT [id number] 12:50:34 Test Item Value Reference Range Interpretation Comments SODIUM (BEAKER) (test code = 381) 133 meq/L 136-145 L POTASSIUM-STAT [id number] 12:50:17 Test Item Value Reference Range Interpretation Comments POTASSIUM (BEAKER) (test code = 4.2 meq/L 3.6-5.5 379) GLUCOSE-STAT [id number] 12:50:16 Test Item Value Reference Range Interpretation Comments GLUCOSE RANDOM (BEAKER) (test code 221 mg/dL 70-110 H = 652) CALCIUM, [id number] 12:49:44 Test Item Value Reference Range Interpretation Comments CALCIUM IONIZED (BEAKER) (test 1.51 mmol/L 1.12-1.27 H code = 698) PH, BLOOD (BEAKER) (test code = 7.34 1810) HGB/HCT (H&H) - STAT [id number] 12:09:18 Test Item Value Reference Range Interpretation Comments HEMOGLOBIN (BEAKER) (test code = 8.6 GM/DL 13.0-16.8 L 410) HEMATOCRIT (BEAKER) (test code = 25.0 % 40.0-50.0 L 411) SODIUM NA-STAT [id number] 12:09:17 Test Item Value Reference Range Interpretation Comments SODIUM (BEAKER) (test code = 381) 131 meq/L 136-145 L POTASSIUM-STAT [id number] 12:09:17 Test Item Value Reference Range Interpretation Comments POTASSIUM (BEAKER) (test code = 5.6 meq/L 3.6-5.5 H 379) BLOOD GAS, [id number] 12:09:16 Test Item Value Reference Range Interpretation Comments PH ARTERIAL (BEAKER) (test code = 7.39 7.35-7.45 383) PCO2 ARTERIAL (BEAKER) (test code 39 mm Hg 35-45 = 384) PO2 ARTERIAL (BEAKER) (test code 244 mm Hg 80-90 H = 385) O2 SATURATION ARTERIAL (BEAKER) 99.6 % 96.0-97.0 H (test code = 386) HCO3 ARTERIAL (BEAKER) (test code 24 mmol/L 21-29 = 388) BASE EXCESS ARTERIAL (BEAKER) -1.9 mmol/L -2.0-3.0 (test code = 387) PATIENT TEMPERATURE (BEAKER) 35.0 (test code = 1818) FIO2 (BEAKER) (test code = 1819) 80.0 GLUCOSE-STAT [id number] 12:07:28 Test Item Value Reference Range Interpretation Comments GLUCOSE RANDOM (BEAKER) (test code 239 mg/dL 70-110 H = 652) BLOOD GAS, [id number] 11:44:36 Test Item Value Reference Range Interpretation Comments PH ARTERIAL (BEAKER) (test code = 7.36 7.35-7.45 383) PCO2 ARTERIAL (BEAKER) (test code 40 mm Hg 35-45 = 384) PO2 ARTERIAL (BEAKER) (test code 316 mm Hg 80-90 H = 385) O2 SATURATION ARTERIAL (BEAKER) 99.7 % 96.0-97.0 H (test code = 386) HCO3 ARTERIAL (BEAKER) (test code 23 mmol/L 21-29 = 388) BASE EXCESS ARTERIAL (BEAKER) -3.1 mmol/L -2.0-3.0 L (test code = 387) PATIENT TEMPERATURE (BEAKER) 35.2 (test code = 1818) FIO2 (BEAKER) (test code = 1819) 80.0 SODIUM NA-STAT [id number] 11:44:36 Test Item Value Reference Range Interpretation Comments SODIUM (BEAKER) (test code = 381) 131 meq/L 136-145 L HGB/HCT (H&H) - STAT [id number] 11:44:36 Test Item Value Reference Range Interpretation Comments HEMOGLOBIN (BEAKER) (test code = 9.4 GM/DL 13.0-16.8 L 410) HEMATOCRIT (BEAKER) (test code = 28.0 % 40.0-50.0 L 411) GLUCOSE-STAT [id number] 11:44:00 Test Item Value Reference Range Interpretation Comments GLUCOSE RANDOM (BEAKER) (test code 197 mg/dL 70-110 H = 652) POTASSIUM-STAT [id number] 11:44:00 Test Item Value Reference Range Interpretation Comments POTASSIUM (BEAKER) (test code = 4.9 meq/L 3.6-5.5 379) CALCIUM, [id number] 09:06:19 Test Item Value Reference Range Interpretation Comments CALCIUM IONIZED (BEAKER) (test 1.10 mmol/L 1.12-1.27 L code = 698) PH, BLOOD (BEAKER) (test code = 7.40 1810) BLOOD GAS, [id number] 09:06:19 Test Item Value Reference Range Interpretation Comments PH ARTERIAL (BEAKER) (test code = 7.41 7.35-7.45 383) PCO2 ARTERIAL (BEAKER) (test code 38 mm Hg 35-45 = 384) PO2 ARTERIAL (BEAKER) (test code 390 mm Hg 80-90 H = 385) O2 SATURATION ARTERIAL (BEAKER) 99.8 % 96.0-97.0 H (test code = 386) HCO3 ARTERIAL (BEAKER) (test code 24 mmol/L 21-29 = 388) BASE EXCESS ARTERIAL (BEAKER) -0.7 mmol/L -2.0-3.0 (test code = 387) PATIENT TEMPERATURE (BEAKER) 36.0 (test code = 1818) FIO2 (BEAKER) (test code = 1819) 100.0 POTASSIUM-STAT [id number] 09:03:57 Test Item Value Reference Range Interpretation Comments POTASSIUM (BEAKER) (test code = 3.8 meq/L 3.6-5.5 379) HGB/HCT (H&H) - STAT [id number] 09:03:57 Test Item Value Reference Range Interpretation Comments HEMOGLOBIN (BEAKER) (test code = 13.9 GM/DL 13.0-16.8 410) HEMATOCRIT (BEAKER) (test code = 41.0 % 40.0-50.0 411) GLUCOSE-STAT [id number] 09:03:56 Test Item Value Reference Range Interpretation Comments GLUCOSE RANDOM (BEAKER) (test code 111 mg/dL 70-110 H = 652) SODIUM NA-STAT [id number] 09:03:56 Test Item Value Reference Range Interpretation Comments SODIUM (BEAKER) (test code = 381) 136 meq/L 136-145 POCT-GLUCOSE [id number] 06:42:01 Test Item Value Reference Range Interpretation Comments POC-GLUCOSE METER 124 mg/dL 70-110 H : Notified RN/MD: (BEAKER) (test code = TESTED AT [facility] [id number]) [facility], [address]: Soil Science Professor/Techni ariela ID = [id number] for MAYELA JADE CALCIUM, [id number] 03:54:58 Test Item Value Reference Range Interpretation Comments CALCIUM IONIZED (BEAKER) (test 1.15 mmol/L 1.12-1.27 code = 698) PH, BLOOD (BEAKER) (test code = 7.41 1810) [id number] 03:24:37 Test Item Value Reference Range Interpretation Comments MAGNESIUM (BEAKER) (test code = 1.9 mg/dL 1.6-2.6 627) Soil Science Professor ID - POLI [id number] 03:24:37 Test Item Value Reference Range Interpretation Comments PHOSPHORUS (BEAKER) (test code = 3.1 mg/dL 2.3-4.7 604) Soil Science Professor ID - POLI GCOMPREHENSIVE METABOLIC [id number] 03:24:36 Test Item Value Reference Range Interpretation Comments TOTAL PROTEIN 7.5 gm/dL 6.0-8.3 (BEAKER) (test code = 770) ALBUMIN (BEAKER) 4.1 g/dL 3.5-5.0 (test code = 1145) ALKALINE 192 U/L 40-150 H PHOSPHATASE (BEAKER) (test code = 346) BILIRUBIN TOTAL 0.9 mg/dL 0.2-1.2 (BEAKER) (test code = 377) SODIUM (BEAKER) 138 meq/L 136-145 (test code = 381) POTASSIUM (BEAKER) 3.6 meq/L 3.5-5.1 (test code = 379) CHLORIDE (BEAKER) 105 meq/L 98-107 (test code = 382) CO2 (BEAKER) (test 20 meq/L 22-29 L code = 355) BLOOD UREA 16 mg/dL 7-21 NITROGEN (BEAKER) (test code = 354) CREATININE 0.82 mg/dL 0.57-1.25 (BEAKER) (test code = 358) GLUCOSE RANDOM 109 mg/dL 70-105 H (BEAKER) (test code = 652) CALCIUM (BEAKER) 9.2 mg/dL 8.4-10.2 (test code = 697) AST (SGOT) 91 U/L 5-34 H (BEAKER) (test code = 353) ALT (SGPT) 115 U/L 6-55 H (BEAKER) (test code = 347) EGFR (BEAKER) 106 Interpretatio n of eGFR (test code = 1092) mL/min/1.[address] age Description sq m Result G1 Lynn l or high >=90 G2 Mildly decreased 60-89 G3a Mildl y to moderately 45-5 9 G3b Moderately to s everely 30-44 G4 Severl y decreased 15-29 G5 Kidney failure <15Reported eGF R is based on the CKD-EPI 2020 equation that d oes not use a race coefficientEsti mated GFR is not as accur ate as Creatinine Leatha bry in predicting glom erular filtration rate . Estimated GFR is not appl icable for dialysis patien ts [employer] Professor ID - POLI GCBC W/PLT COUNT & AUTO [id number] 02:59:45 Test Item Value Reference Range Interpretation Comments WHITE BLOOD CELL COUNT (BEAKER) 10.2 K/ L 3.5-10.5 (test code = 775) RED BLOOD CELL COUNT (BEAKER) 4.47 M/ L 4.63-6.08 L (test code = 761) HEMOGLOBIN (BEAKER) (test code = 13.8 GM/DL 13.7-17.5 410) HEMATOCRIT (BEAKER) (test code = 40.0 % 40.1-51.0 L 411) MEAN CORPUSCULAR VOLUME (BEAKER) 90 fL 79-92 (test code = 753) MEAN CORPUSCULAR HEMOGLOBIN 30.9 pg 25.7-32.2 (BEAKER) (test code = 751) MEAN CORPUSCULAR HEMOGLOBIN CONC 34.5 GM/DL 32.3-36.5 (BEAKER) (test code = 752) RED CELL DISTRIBUTION WIDTH 15.2 % 11.6-14.4 H (BEAKER) (test code = 412) PLATELET COUNT (BEAKER) (test 329 K/CU MM 150-450 code = 756) MEAN PLATELET VOLUME (BEAKER) 9.0 fL 9.4-12.4 L (test code = 754) NUCLEATED RED BLOOD CELLS 0 /100 WBC 0-0 (BEAKER) (test code = 413) NEUTROPHILS RELATIVE PERCENT 64 % (BEAKER) (test code = 429) LYMPHOCYTES RELATIVE PERCENT 20 % (BEAKER) (test code = 430) MONOCYTES RELATIVE PERCENT 10 % (BEAKER) (test code = 431) EOSINOPHILS RELATIVE PERCENT 2 % (BEAKER) (test code = 432) BASOPHILS RELATIVE PERCENT 1 % (BEAKER) (test code = 437) NEUTROPHILS ABSOLUTE COUNT 6.54 K/ L 1.78-5.38 H (BEAKER) (test code = 670) LYMPHOCYTES ABSOLUTE COUNT 2.06 K/ L 1.32-3.57 (BEAKER) (test code = 414) MONOCYTES ABSOLUTE COUNT (BEAKER) 1.00 K/ L 0.30-0.82 H (test code = 415) EOSINOPHILS ABSOLUTE COUNT 0.15 K/ L 0.04-0.54 (BEAKER) (test code = 416) BASOPHILS ABSOLUTE COUNT (BEAKER) 0.10 K/ L 0.01-0.08 H (test code = 417) IMMATURE GRANULOCYTES-RELATIVE 3.30 % 0.00-1.00 H PERCENT (BEAKER) (test code = 2801) POCT-GLUCOSE [id number] 23:17:20 Test Item Value Reference Range Interpretation Comments POC-GLUCOSE METER 86 mg/dL 70-110 : TESTED A T [facility] 6720 (BEAKER) (test code = DEJUAN Singh [facility], 1538) [id number]: Soil Science Professor/Techni ariela ID = [id number] for MAYELA CANTRELL [id number] 19:17:11 Test Item Value Reference Range Interpretation Comments MAGNESIUM (BEAKER) (test code = 2.1 mg/dL 1.6-2.6 627) Soil Science Professor ID - ADMINPOCT-GLUCOSE [id number] 19:01:32 Test Item Value Reference Range Interpretation Comments POC-GLUCOSE METER 102 mg/dL 70-110 : TESTED A T [facility] 6720 (BEAKER) (test code = DEJUAN Singh [facility], 1538) 18926: Soil Science Professor/Techni ariela ID = [id number] for ERIC LIGHT BASIC METABOLIC [id number] 17:56:39 Test Item Value Reference Range Interpretation Comments SODIUM (BEAKER) 137 meq/L 136-145 (test code = 381) POTASSIUM 3.6 meq/L 3.5-5.1 (BEAKER) (test code = 379) CHLORIDE (BEAKER) 105 meq/L 98-107 (test code = 382) CO2 (BEAKER) 22 meq/L 22-29 (test code = 355) BLOOD UREA 16 mg/dL 7-21 NITROGEN (BEAKER) (test code = 354) CREATININE 0.83 mg/dL 0.57-1.25 (BEAKER) (test code = 358) GLUCOSE RANDOM 115 mg/dL 70-105 H (BEAKER) (test code = 652) CALCIUM (BEAKER) 9.2 mg/dL 8.4-10.2 (test code = 697) EGFR (BEAKER) 105 Interpretatio n of eGFR (test code = mL/min/1.73 values Stage De scription 1092) sq m Result G1 Lynn l or high >=90 G2 Mildly decreased 60-89 G3a Mildl y to moderately 45-5 9 G3b Moderately to s everely 30-44 G4 Severl y decreased 15-29 G5 Kidney failure <15Reported eGF R is based on the CKD-EPI 2020 equation that d oes not use a race coefficientEsti mated GFR is not as accur ate as Creatinine Leatha londono in predicting glom erular filtration rate . Estimated GFR is not appl icable for dialysis patien ts Soil Science Professor ID - ADMINCALCIUM, [id number] 17:23:40 Test Item Value Reference Range Interpretation Comments CALCIUM IONIZED (BEAKER) (test 1.08 mmol/L 1.12-1.27 L code = 698) PH, BLOOD (BEAKER) (test code = 7.45 1810) POCT-GLUCOSE [id number] 11:58:33 Test Item Value Reference Range Interpretation Comments POC-GLUCOSE METER 104 mg/dL 70-110 : TESTED A T [facility] 6720 (BEAKER) (test code = [facility], 1538) 16194: Soil Science Professor/Techni ariela ID = [id number] for ERIC LIGHT BLOOD [id number] 09:11:50 Test Item Value Reference Range Interpretation Comments CULTURE A From Anaerobic Bottle (BEAKER) (test Only Coagulas e code = 1095) negative Staphylococcus GRAM STAIN From anaerobic RESULT (BEAKER) bottle only: gram (test code = positive cocci in 1123) clusters POCT-GLUCOSE [id number] 06:13:17 Test Item Value Reference Range Interpretation Comments POC-GLUCOSE METER 75 mg/dL 70-110 : TESTED A T [facility] 6720 (BEAKER) (test code = [facility], 1538) 26328: Soil Science Professor/Techni ariela ID = [id number] for EDDIE MELLY LYRICAMBER COMPREHENSIVE METABOLIC [id number] 05:34:39 Test Item Value Reference Range Interpretation Comments TOTAL PROTEIN 7.3 gm/dL 6.0-8.3 (BEAKER) (test code = 770) ALBUMIN (BEAKER) 4.0 g/dL 3.5-5.0 (test code = 1145) ALKALINE 190 U/L 40-150 H PHOSPHATASE (BEAKER) (test code = 346) BILIRUBIN TOTAL 1.4 mg/dL 0.2-1.2 H (BEAKER) (test code = 377) SODIUM (BEAKER) 138 meq/L 136-145 (test code = 381) POTASSIUM (BEAKER) 3.7 meq/L 3.5-5.1 (test code = 379) CHLORIDE (BEAKER) 108 meq/L 98-107 H (test code = 382) CO2 (BEAKER) (test 20 meq/L 22-29 L code = 355) BLOOD UREA 18 mg/dL 7-21 NITROGEN (BEAKER) (test code = 354) CREATININE 0.88 mg/dL 0.57-1.25 (BEAKER) (test code = 358) GLUCOSE RANDOM 109 mg/dL 70-105 H (BEAKER) (test code = 652) CALCIUM (BEAKER) 8.8 mg/dL 8.4-10.2 (test code = 697) AST (SGOT) 93 U/L 5-34 H (BEAKER) (test code = 353) ALT (SGPT) 88 U/L 6-55 H (BEAKER) (test code = 347) EGFR (BEAKER) 104 Interpretatio n of eGFR (test code = 1092) mL/min/1.[address] age Description sq m Result G1 Lynn l or high >=90 G2 Mildly decreased 60-89 G3a Mildl y to moderately 45-5 9 G3b Moderately to s everely 30-44 G4 Severl y decreased 15-29 G5 Kidney failure <15Reported eGF R is based on the CKD-EPI 2021 equation that d oes not use a race coefficientEsti mated GFR is not as accur ate as Creatinine Leatha bry in predicting glom erular filtration rate . Estimated GFR is not appl icable for dialysis patien ts Soil Science Professor ID - [id number] 05:34:39 Test Item Value Reference Range Interpretation Comments MAGNESIUM (BEAKER) (test code = 1.9 mg/dL 1.6-2.6 627) Soil Science Professor ID - [id number] 05:34:39 Test Item Value Reference Range Interpretation Comments PHOSPHORUS (BEAKER) (test code = 3.4 mg/dL 2.3-4.7 604) Soil Science Professor ID - ADMINPOCT-GLUCOSE [id number] 04:06:20 Test Item Value Reference Range Interpretation Comments POC-GLUCOSE METER 115 mg/dL 70-110 H : [facility] (BEAKER) (test code = BERTNE R [facility], 1538) 88574: Soil Science Professor/Techni ariela ID = [id number] for CA JESÚS PEREZ CBC W/PLT COUNT & AUTO [id number] 04:06:14 Test Item Value Reference Range Interpretation Comments WHITE BLOOD CELL COUNT (BEAKER) 7.6 K/ L 3.5-10.5 (test code = 775) RED BLOOD CELL COUNT (BEAKER) 4.41 M/ L 4.63-6.08 L (test code = 761) HEMOGLOBIN (BEAKER) (test code = 13.8 GM/DL 13.7-17.5 410) HEMATOCRIT (BEAKER) (test code = 39.8 % 40.1-51.0 L 411) MEAN CORPUSCULAR VOLUME (BEAKER) 90 fL 79-92 (test code = 753) MEAN CORPUSCULAR HEMOGLOBIN 31.3 pg 25.7-32.2 (BEAKER) (test code = 751) MEAN CORPUSCULAR HEMOGLOBIN CONC 34.7 GM/DL 32.3-36.5 (BEAKER) (test code = 752) RED CELL DISTRIBUTION WIDTH 15.3 % 11.6-14.4 H (BEAKER) (test code = 412) PLATELET COUNT (BEAKER) (test 259 K/CU MM 150-450 code = 756) MEAN PLATELET VOLUME (BEAKER) 8.9 fL 9.4-12.4 L (test code = 754) NUCLEATED RED BLOOD CELLS 0 /100 WBC 0-0 (BEAKER) (test code = 413) NEUTROPHILS RELATIVE PERCENT 58 % (BEAKER) (test code = 429) LYMPHOCYTES RELATIVE PERCENT 25 % (BEAKER) (test code = 430) MONOCYTES RELATIVE PERCENT 10 % (BEAKER) (test code = 431) EOSINOPHILS RELATIVE PERCENT 3 % (BEAKER) (test code = 432) BASOPHILS RELATIVE PERCENT 1 % (BEAKER) (test code = 437) NEUTROPHILS ABSOLUTE COUNT 4.40 K/ L 1.78-5.38 (BEAKER) (test code = 670) LYMPHOCYTES ABSOLUTE COUNT 1.90 K/ L 1.32-3.57 (BEAKER) (test code = 414) MONOCYTES ABSOLUTE COUNT (BEAKER) 0.75 K/ L 0.30-0.82 (test code = 415) EOSINOPHILS ABSOLUTE COUNT 0.21 K/ L 0.04-0.54 (BEAKER) (test code = 416) BASOPHILS ABSOLUTE COUNT (BEAKER) 0.05 K/ L 0.01-0.08 (test code = 417) IMMATURE GRANULOCYTES-RELATIVE 3.40 % 0.00-1.00 H PERCENT (BEAKER) (test code = 2801) CALCIUM, [id number] 04:01:03 Test Item Value Reference Range Interpretation Comments CALCIUM IONIZED (BEAKER) (test 1.09 mmol/L 1.12-1.27 L code = 698) PH, BLOOD (BEAKER) (test code = 7.43 1810) RAD, ABDOMEN/KUB, 1 VIEW [id number] 22:39:00Reason for exam:->Corpak placement verification [facility] 1970 Sex: MFINAL REPORT CLINICAL HISTORY: Corpak placement verification COMPARISON: 07/10/2022 FINDINGS: A single supine image of the abdomen is submitted. The distal portion of a feeding tube is close to the gastric lumen with the tip projecting over the left upper quadrant in the expected position of the proximal stomach. Repositioning is recommended if placement in the duodenum is intended. The abdominal bowel gas pattern is unobstructed. There is no acute osseous abnormality. Signed: Benito [facility] Verified Date/Time: 07/12/2022 22:39:28 -GLUCOSE [id number] 17:53:21 Test Item Value Reference Range Interpretation Comments POC-GLUCOSE METER 104 mg/dL 70-110 : TESTED A T [facility] 6720 (BEAKER) (test code = [facility] [place], 1538) 16[address]: Soil Science Professor/Techni ariela ID = [id number] for Rachelle Bull BLOOD [id number] 14:00:24 Test Item Value Reference Range Interpretation Comments CULTURE (BEAKER) (test No growth in 5 days code = 1095) U/S, ABDOMINAL, [id number] 12:53:00Abdomen limited area? Add comment if clarification is needed.->LiverReason for exam:->LFT's r/o hepatic or cholestatic pathology [facility] 1970 Sex: MFINAL REPORT TECHNIQUE: Grayscale ultrasound of the right abdomen. INDICATION: LFT's r/o hepatic or cholestatic pathology. COMPARISON: CT from 07/08/2022. FINDINGS: MIDLINE VASCULATURE: Thevisualized inferior vena cava is unremarkable. The maximum visualized aortic diameter is 1.9 cm. LIVER: Smooth liver contour. No focal lesions. The main portal vein is patent and measures 0.9 cm in diameter. BILIARY:Gallbladder: Sludge layers in the gallbladder. No gallbladder wall thickening, pericholecystic fluid, or distention. Negative sonographic Funes sign.Common bile duct measures 0.4 cm, within normal limits. No intrahepatic biliary ductal dilatation. PANCREAS: Incompletely visualized due to overlying bowel gas. PERITONEUM: No free fluid. RIGHT KIDNEY: Normal in size. No hydronephrosis. Nosonographically evident solid mass lesion. Trace right pleural effusion IMPRESSION: Sludge in the gallbladder without acute cholecystitis. Otherwise, this is a normal right upper quadrant abdominal ultr asound Signed: Horn, Rich MDReport Verified Date/Time: 07/12/2022 12:53:59 PROCALCITONIN 2022-07-12 12:25:57 Test Item Value Reference Range Interpretation Comments PROCALCITONIN (BEAKER) (test code 0.15 ng/mL <0.05 H = 3036) SEPSIS RISK (ng/mL)Low: 0.05-0.50Intermediate: 0.51-2.00High: >=2.01POCT- GLUCOSE [id number] 12:14:03 Test Item Value Reference Range Interpretation Comments POC-GLUCOSE METER 96 mg/dL 70-110 : TESTED A T [facility] 6720 (BEAKER) (test code = DE[facility], 1538) 39[address]: Soil Science Professor/Techni ariela ID = [id number] for Rachelle Chan PROTHROMBIN [id number] 10:44:52 Test Item Value Reference Range Interpretation Comments PROTIME (BEAKER) (test code = 14.1 seconds 11.9-14.2 759) INR (BEAKER) (test code = 370) 1.12 <=5.90 RECOMMENDED COUMADIN/WARFARIN INR THERAPY RANGESSTANDARD DOSE: 2.0 - 3.0 Includes: PROPHYLAXIS for venous thrombosis, systemic embolization; TREATMENT for venous thrombosis and/or pulmonary embolus.HIGH RISK: Target INR is 2.5-3.5 for patients with mechanical heart valves.LACTIC ACID, [id number] 10:32:49 Test Item Value Reference Range Interpretation Comments LACTATE BLOOD VENOUS 2.35 mmol/L 0.50-2.20 H Specime n slightly (2) (BEAKER) (test hemolyzed code = 2872) Soil Science Professor ID - LMRAD, CHEST, 1 VIEW, NON [id number] 06:42:00Reason for exam:- >iabp positionShould this be performed at the bedside?->Yes [facility] : 1970 Sex: MFINAL REPORT RAD, CHEST, 1 VIEW, NON DEPT INDICATION: iabp position COMPARISON: Prior day's exam TECHNIQUE: Portable frontal view(s) of the chest. FINDINGS: Support Lines and Devices: The nasogastric tube tip overlies the stomach. Otherwise, the life support lines and tubes appear unchanged. Lungs and pleura: Unchanged airspace and pleural opacities. No pneumothorax identified. Heart andmediastinum: Stable contours. Stable surgical changes. Coronary artery stent. Additional findings: None. IMPRESSION: No acute cardiopulmonary abnormality. Signed: Garfield Aguilar Verified Date/Time: 07/12/2022 06:42:06 Reading Location: [address] Reading Room Electronically signedby: GARFIELD AGUILAR MD on 07/12/2022 06:42 AMPOCT-GLUCOSE METER 2022-07-12 06:05:27 Test Item Value Reference Range Interpretation Comments POC-GLUCOSE METER 148 mg/dL 70-110 H : TESTED A T [facility] 6720 (BEAKER) (test code = DEJUAN Singh [facility], 1538) 646[address]: Soil Science Professor/Techni ariela ID = [id number] for No francisca (contract)Jenny COMPREHENSIVE METABOLIC [id number] 04:30:54 Test Item Value Reference Range Interpretation Comments TOTAL PROTEIN 7.2 gm/dL 6.0-8.3 (BEAKER) (test code = 770) ALBUMIN (BEAKER) 4.0 g/dL 3.5-5.0 (test code = 1145) ALKALINE 164 U/L 40-150 H PHOSPHATASE (BEAKER) (test code = 346) BILIRUBIN TOTAL 1.8 mg/dL 0.2-1.2 H (BEAKER) (test code = 377) SODIUM (BEAKER) 140 meq/L 136-145 (test code = 381) POTASSIUM (BEAKER) 3.8 meq/L 3.5-5.1 (test code = 379) CHLORIDE (BEAKER) 104 meq/L 98-107 (test code = 382) CO2 (BEAKER) (test 23 meq/L 22-29 code = 355) BLOOD UREA 14 mg/dL 7-21 NITROGEN (BEAKER) (test code = 354) CREATININE 1.16 mg/dL 0.57-1.25 (BEAKER) (test code = 358) GLUCOSE RANDOM 110 mg/dL 70-105 H (BEAKER) (test code = 652) CALCIUM (BEAKER) 9.2 mg/dL 8.4-10.2 (test code = 697) AST (SGOT) 59 U/L 5-34 H (BEAKER) (test code = 353) ALT (SGPT) 56 U/L 6-55 H (BEAKER) (test code = 347) EGFR (BEAKER) 76 Interpretatio n of eGFR (test code = 1092) mL/min/1.[address] age Description sq m Result G1 Lynn l or high >=90 G2 Mildly decreased 60-89 G3a Mildl y to moderately 45-5 9 G3b Moderately to s everely 30-44 G4 Severl y decreased 15-29 G5 Kidney failure <15Reported eGF R is based on the CKD-EPI 2021 equation that d oes not use a race coefficientEsti mated GFR is not as accur ate as Creatinine Leatha londono in predicting glom erular filtration rate . Estimated GFR is not appl icable for dialysis patien ts Soil Science Professor ID - MYESHA [id number] 04:30:54 Test Item Value Reference Range Interpretation Comments MAGNESIUM (BEAKER) (test code = 2.1 mg/dL 1.6-2.6 627) Soil Science Professor ID - MYESHA [id number] 04:30:54 Test Item Value Reference Range Interpretation Comments PHOSPHORUS (BEAKER) (test code = 4.2 mg/dL 2.3-4.7 604) Soil Science Professor ID - MYESHA WCBC W/PLT COUNT & AUTO [id number] 04:20:40 Test Item Value Reference Range Interpretation Comments WHITE BLOOD CELL COUNT 10.2 K/ L 3.5-10.5 (BEAKER) (test code = 775) RED BLOOD CELL COUNT 4.26 M/ L 4.63-6.08 L (BEAKER) (test code = 761) HEMOGLOBIN (BEAKER) 13.2 GM/DL 13.7-17.5 L (test code = 410) HEMATOCRIT (BEAKER) 38.6 % 40.1-51.0 L (test code = 411) MEAN CORPUSCULAR 91 fL 79-92 Discordant results VOLUME (BEAKER) (test compar ed to previous code = 753) results; clinic al correlation req uired MEAN CORPUSCULAR 31.0 pg 25.7-32.2 HEMOGLOBIN (BEAKER) (test code = 751) MEAN CORPUSCULAR 34.2 GM/DL 32.3-36.5 HEMOGLOBIN CONC (BEAKER) (test code = 752) RED CELL DISTRIBUTION 15.0 % 11.6-14.4 H WIDTH (BEAKER) (test code = 412) PLATELET COUNT 214 K/CU MM 150-450 (BEAKER) (test code = 756) MEAN PLATELET VOLUME 9.3 fL 9.4-12.4 L (BEAKER) (test code = 754) NUCLEATED RED BLOOD 0 /100 WBC 0-0 CELLS (BEAKER) (test code = 413) NEUTROPHILS RELATIVE 72 % PERCENT (BEAKER) (test code = 429) LYMPHOCYTES RELATIVE 16 % PERCENT (BEAKER) (test code = 430) MONOCYTES RELATIVE 9 % PERCENT (BEAKER) (test code = 431) EOSINOPHILS RELATIVE 1 % PERCENT (BEAKER) (test code = 432) BASOPHILS RELATIVE 1 % PERCENT (BEAKER) (test code = 437) NEUTROPHILS ABSOLUTE 7.41 K/ L 1.78-5.38 H COUNT (BEAKER) (test code = 670) LYMPHOCYTES ABSOLUTE 1.63 K/ L 1.32-3.57 COUNT (BEAKER) (test code = 414) MONOCYTES ABSOLUTE 0.91 K/ L 0.30-0.82 H COUNT (BEAKER) (test code = 415) EOSINOPHILS ABSOLUTE 0.06 K/ L 0.04-0.54 COUNT (BEAKER) (test code = 416) BASOPHILS ABSOLUTE 0.06 K/ L 0.01-0.08 COUNT (BEAKER) (test code = 417) IMMATURE 1.70 % 0.00-1.00 H GRANULOCYTES-RELATIVE PERCENT (BEAKER) (test code = 2801) BLOOD GAS, [id number] 04:12:28 Test Item Value Reference Range Interpretation Comments PH VENOUS (BEAKER) (test code = 7.45 7.32-7.42 H 701) PCO2 VENOUS (BEAKER) (test code = 40 mm Hg 41-51 L 755) PO2 VENOUS (BEAKER) (test code = 19 mm Hg 25-40 L 702) O2 SATURATION VENOUS (BEAKER) 31.1 % 40.0-70.0 L (test code = 703) HCO3 VENOUS (BEAKER) (test code = 27 mmol/L 21-29 705) BASE EXCESS VENOUS (BEAKER) (test 2.6 mmol/L -2.0-3.0 code = 704) PATIENT TEMPERATURE (BEAKER) (test 37.0 code = 1818) FIO2 (BEAKER) (test code = 1819) 21.0 CALCIUM, [id number] 04:12:22 Test Item Value Reference Range Interpretation Comments CALCIUM IONIZED (BEAKER) (test 1.07 mmol/L 1.12-1.27 L code = 698) PH, BLOOD (BEAKER) (test code = 7.45 1810) POCT-GLUCOSE [id number] 01:05:13 Test Item Value Reference Range Interpretation Comments POC-GLUCOSE METER 134 mg/dL 70-110 H : TESTED A T [facility] 6720 (BEAKER) (test code = [facility], 153) [address]39[address]: Soil Science Professor/Techni ariela ID = [id number] for GEORGIANA MURILLO Carotid doppler [id number] 19:28:08Ejection [facility]SC[facility] [id number] 18:15:36 Test Item Value Reference Range Interpretation Comments POC-GLUCOSE METER 112 mg/dL 70-110 H : TESTED A T [facility] 6720 (BEAKER) (test code = [facility], 1538) 62820: Soil Science Professor/Techni ariela ID = [id number] for ERIC LIGHT POCT-GLUCOSE [id number] 12:42:44 Test Item Value Reference Range Interpretation Comments POC-GLUCOSE METER 135 mg/dL 70-110 H : TESTED A T [facility] 6720 (BEAKER) (test code = [facility] [place], 1538) 809[address]: Soil Science Professor/Techni ariela ID = [id number] for ERIC LIGHT T4, [id number] 11:28:03 Test Item Value Reference Range Interpretation Comments FREE T4 (MESFIN) (test code = 655) 0.95 ng/dL 0.70-1.48 Soil Science Professor ID - MARCOTSH/FREE T4 IF [id number] 10:46:55 Test Item Value Reference Range Interpretation Comments THYROID STIMULATING HORMONE 11.084 uIU/mL 0.350-4.940 H (MESFIN) (test code = 772) Soil Science Professor ID - MARCOLACTIC ACID, [id number] 09:49:09 Test Item Value Reference Range Interpretation Comments LACTATE BLOOD 1.4 mmol/L 0.5-2.2 Specimen sligh tly ARTERIAL (2) (MESFIN) hemoly zed (test code = 2874) Soil Science Professor ID - [id number] 09:44:51 Test Item Value Reference Range Interpretation Comments AMMONIA (MESFIN) (test code = 348) 44 mol/L 18-72 Soil Science Professor ID - MARCORAD, CHEST, 1 VIEW, NON [id number] 06:42:00Reason for exam:->iabp positionShould this be performed at the bedside?->Yes [facility] 1970 Sex: MFINAL REPORT RAD, CHEST, 1 VIEW, NON DEPT INDICATION: iabp position COMPARISON: Prior day's exam TECHNIQUE: Portable frontal view(s) of the chest. FINDINGS: Support Lines and Devices: The intra-aortic balloon pump was removed. Otherwise, the life support lines and tubes appear unchanged. Lungs and pleura: Unchanged airspace and pleural opacities. No pneumothorax identified. Heart and mediastinum: Stable contours. Stable surgical changes. Coronary stents are present. Additional findings:None. IMPRESSION: 1.The intra-aortic balloon was removed.2.Bilateral airspace and interstitial opacities, which may represent atelectasis, pneumonia or pulmonary edema. Signed: Garfield Aguilar Date/Time: 07/11/2022 06:42:40 Reading Location: [address] Reading Room POCT-GLUCOSE [id number] 06:04:21 Test Item Value Reference Range Interpretation Comments POC-GLUCOSE METER 123 mg/dL 70-110 H : TESTED A T [facility] 6720 (BEAKER) (test code = [facility], 1538) 56408: Soil Science Professor/Techni ariela ID = [id number] for CA RIASMEENUAR COMPREHENSIVE METABOLIC [id number] 04:35:01 Test Item Value Reference Range Interpretation Comments TOTAL PROTEIN 6.3 gm/dL 6.0-8.3 (BEAKER) (test code = 770) ALBUMIN (BEAKER) 3.5 g/dL 3.5-5.0 (test code = 1145) ALKALINE 127 U/L 40-150 PHOSPHATASE (BEAKER) (test code = 346) BILIRUBIN TOTAL 1.6 mg/dL 0.2-1.2 H (BEAKER) (test code = 377) SODIUM (BEAKER) 140 meq/L 136-145 (test code = 381) POTASSIUM (BEAKER) 3.5 meq/L 3.5-5.1 (test code = 379) CHLORIDE (BEAKER) 109 meq/L 98-107 H (test code = 382) CO2 (BEAKER) (test 22 meq/L 22-29 code = 355) BLOOD UREA 12 mg/dL 7-21 NITROGEN (BEAKER) (test code = 354) CREATININE 0.79 mg/dL 0.57-1.25 (BEAKER) (test code = 358) GLUCOSE RANDOM 119 mg/dL 70-105 H (BEAKER) (test code = 652) CALCIUM (BEAKER) 8.6 mg/dL 8.4-10.2 (test code = 697) AST (SGOT) 37 U/L 5-34 H (BEAKER) (test code = 353) ALT (SGPT) 31 U/L 6-55 (BEAKER) (test code = 347) EGFR (BEAKER) 107 Interpretatio n of eGFR (test code = 1092) mL/min/1.[address] age Description sq m Result G1 Lynn l or high >=90 G2 Mildly decreased 60-89 G3a Mildl y to moderately 45-5 9 G3b Moderately to s everely 30-44 G4 Severl y decreased 15-29 G5 Kidney failure <15Reported eGF R is based on the CKD-EPI 2020 equation that d oes not use a race coefficientEsti mated GFR is not as accur ate as Creatinine Leatha bry in predicting glom erular filtration rate . Estimated GFR is not appl icable for dialysis patien ts Soil Science Professor ID - [id number] 04:35:01 Test Item Value Reference Range Interpretation Comments MAGNESIUM (BEAKER) (test code = 2.3 mg/dL 1.6-2.6 627) Soil Science Professor ID - [id number] 04:35:01 Test Item Value Reference Range Interpretation Comments PHOSPHORUS (BEAKER) (test code = 2.7 mg/dL 2.3-4.7 604) Soil Science Professor ID - MARCOBLOOD GAS, [id number] 04:19:52 Test Item Value Reference Range Interpretation Comments PH ARTERIAL (BEAKER) (test code = 7.49 7.35-7.45 H 383) PCO2 ARTERIAL (BEAKER) (test code 32 mm Hg 35-45 L = 384) PO2 ARTERIAL (BEAKER) (test code = 96 mm Hg 80-90 H 385) O2 SATURATION ARTERIAL (BEAKER) 97.6 % 96.0-97.0 H (test code = 386) HCO3 ARTERIAL (BEAKER) (test code 24 mmol/L 21-29 = 388) BASE EXCESS ARTERIAL (BEAKER) 1.6 mmol/L -2.0-3.0 (test code = 387) PATIENT TEMPERATURE (BEAKER) (test 38.0 code = 1818) FIO2 (BEAKER) (test code = 1819) 21.0 CBC W/PLT COUNT & AUTO [id number] 04:15:33 Test Item Value Reference Range Interpretation Comments WHITE BLOOD CELL COUNT 7.4 K/ L 3.5-10.5 (BEAKER) (test code = 775) RED BLOOD CELL COUNT 4.06 M/ L 4.63-6.08 L (BEAKER) (test code = 761) HEMOGLOBIN (BEAKER) 12.4 GM/DL 13.7-17.5 L (test code = 410) HEMATOCRIT (BEAKER) 34.8 % 40.1-51.0 L (test code = 411) MEAN CORPUSCULAR 86 fL 79-92 Unable to r eport due VOLUME (BEAKER) (test to abn ormal Platelet code = 753) population distribution. MEAN CORPUSCULAR 30.5 pg 25.7-32.2 HEMOGLOBIN (BEAKER) (test code = 751) MEAN CORPUSCULAR 35.6 GM/DL 32.3-36.5 HEMOGLOBIN CONC (BEAKER) (test code = 752) RED CELL DISTRIBUTION 14.6 % 11.6-14.4 H WIDTH (BEAKER) (test code = 412) PLATELET COUNT 161 K/CU MM 150-450 (BEAKER) (test code = 756) MEAN PLATELET VOLUME 8.9 fL 9.4-12.4 L (BEAKER) (test code = 754) NUCLEATED RED BLOOD 0 /100 WBC 0-0 CELLS (BEAKER) (test code = 413) NEUTROPHILS RELATIVE 68 % PERCENT (BEAKER) (test code = 429) LYMPHOCYTES RELATIVE 20 % PERCENT (BEAKER) (test code = 430) MONOCYTES RELATIVE 9 % PERCENT (BEAKER) (test code = 431) EOSINOPHILS RELATIVE 2 % PERCENT (BEAKER) (test code = 432) BASOPHILS RELATIVE 1 % PERCENT (BEAKER) (test code = 437) NEUTROPHILS ABSOLUTE 4.99 K/ L 1.78-5.38 COUNT (BEAKER) (test code = 670) LYMPHOCYTES ABSOLUTE 1.45 K/ L 1.32-3.57 COUNT (BEAKER) (test code = 414) MONOCYTES ABSOLUTE 0.64 K/ L 0.30-0.82 COUNT (BEAKER) (test code = 415) EOSINOPHILS ABSOLUTE 0.11 K/ L 0.04-0.54 COUNT (BEAKER) (test code = 416) BASOPHILS ABSOLUTE 0.05 K/ L 0.01-0.08 COUNT (BEAKER) (test code = 417) IMMATURE 1.50 % 0.00-1.00 H GRANULOCYTES-RELATIVE PERCENT (BEAKER) (test code = 2801) CALCIUM, [id number] 04:02:39 Test Item Value Reference Range Interpretation Comments CALCIUM IONIZED (BEAKER) (test 1.05 mmol/L 1.12-1.27 L code = 698) PH, BLOOD (BEAKER) (test code = 7.51 1810) RAD, ABDOMEN/KUB, 1 VIEW [id number] 04:00:00Reason for exam:->ng tube placementCH[facility] : 1970 Sex: MFINAL REPORT CLINICAL HISTORY: ng tube placement COMPARISON: 07/08/2022 FINDINGS: Two supine images of the abdomen are submitted. The tip of an enteric tube overlies the junction of the second and third portions of the duodenum. Retraction of 8 to 10 cm can be performed if placement in thestomach is intended. The abdominal bowel gas pattern is unobstructed. There is no focus of dilated large or small bowel. There is no evidence of organomegaly or significant ascites. No abnormal calcification is noted. There is no acute bony abnormality. Signed: [facility] Verified Date/Time: 07/11/2022 04:00:35 -GLUCOSE [id number] 00:41:43 Test Item Value Reference Range Interpretation Comments POC-GLUCOSE METER 90 mg/dL 70-110 : TESTED A T [facility] 6720 (BEAKER) (test code = [facility], 1538) [id number]: [employer] Professor/Techni ariela ID = [id number] for ALI (V), NURY [id number] 22:38:57 Test Item Value Reference Range Interpretation Comments POTASSIUM (BEAKER) 3.3 meq/L 3.5-5.1 L Specimen slightly (test code = 379) hemolyzed Soil Science Professor ID - [id number] 22:38:56 Test Item Value Reference Range Interpretation Comments MAGNESIUM (BEAKER) 1.8 mg/dL 1.6-2.6 Specimen slightly (test code = 627) hemolyzed Soil Science Professor ID - DBCALCIUM, [id number] 22:19:01 Test Item Value Reference Range Interpretation Comments CALCIUM IONIZED (BEAKER) (test 1.04 mmol/L 1.12-1.27 L code = 698) PH, BLOOD (BEAKER) (test code = 7.55 1810) VANCOMYCIN LEVEL, [id number] 20:37:14 Test Item Value Reference Range Interpretation Comments VANCOMYCIN TROUGH (BEAKER) (test 10.2 ug/mL 10.0-20.0 code = 522) Soil Science Professor ID - [id number] 18:05:45 Test Item Value Reference Range Interpretation Comments MAGNESIUM (BEAKER) 2.2 mg/dL 1.6-2.6 Specimen slightly (test code = 627) hemolyzed Soil Science Professor ID - ADMINPOCT-GLUCOSE [id number] 17:13:45 Test Item Value Reference Range Interpretation Comments POC-GLUCOSE METER 117 mg/dL 70-110 H : TESTED A T [facility] 6720 (BEAKER) (test code = [facility], 1538) [id number]: Soil Science Professor/Techni ariela ID = [id number] for Gurmeet srideviMalikaparker CALCIUM, [id number] 17:07:42 Test Item Value Reference Range Interpretation Comments CALCIUM IONIZED (BEAKER) (test 1.02 mmol/L 1.12-1.27 L code = 698) PH, BLOOD (BEAKER) (test code = 7.49 1810) COMPREHENSIVE METABOLIC [id number] 15:14:29 Test Item Value Reference Range Interpretation Comments TOTAL PROTEIN 6.2 gm/dL 6.0-8.3 (BEAKER) (test code = 770) ALBUMIN (BEAKER) 3.4 g/dL 3.5-5.0 L (test code = 1145) ALKALINE 107 U/L 40-150 PHOSPHATASE (BEAKER) (test code = 346) BILIRUBIN TOTAL 1.4 mg/dL 0.2-1.2 H (BEAKER) (test code = 377) SODIUM (BEAKER) 141 meq/L 136-145 (test code = 381) POTASSIUM (BEAKER) 3.5 meq/L 3.5-5.1 (test code = 379) CHLORIDE (BEAKER) 109 meq/L 98-107 H (test code = 382) CO2 (BEAKER) (test 23 meq/L 22-29 code = 355) BLOOD UREA 11 mg/dL 7-21 NITROGEN (BEAKER) (test code = 354) CREATININE 0.78 mg/dL 0.57-1.25 (BEAKER) (test code = 358) GLUCOSE RANDOM 114 mg/dL 70-105 H (BEAKER) (test code = 652) CALCIUM (BEAKER) 8.0 mg/dL 8.4-10.2 L (test code = 697) AST (SGOT) 31 U/L 5-34 (BEAKER) (test code = 353) ALT (SGPT) 27 U/L 6-55 (BEAKER) (test code = 347) EGFR (BEAKER) 107 Interpretatio n of eGFR (test code = 1092) mL/min/1.[address] age Description sq m Result G1 Lynn l or high >=90 G2 Mildly decreased 60-89 G3a Mildl y to moderately 45-5 9 G3b Moderately to s everely 30-44 G4 Severl y decreased 15-29 G5 Kidney failure <15Reported eGF R is based on the CKD-EPI 2021 equation that d oes not use a race coefficientEsti mated GFR is not as accur ate as Creatinine Leatha londono in predicting glom erular filtration rate . Estimated GFR is not appl icable for dialysis patien ts Soil Science Professor ID - EDBLOOD GAS, [id number] 14:43:22 Test Item Value Reference Range Interpretation Comments PH ARTERIAL (BEAKER) (test code = 7.49 7.35-7.45 H 383) PCO2 ARTERIAL (BEAKER) (test code 32 mm Hg 35-45 L = 384) PO2 ARTERIAL (BEAKER) (test code = 151 mm Hg 80-90 H 385) O2 SATURATION ARTERIAL (BEAKER) 99.1 % 96.0-97.0 H (test code = 386) HCO3 ARTERIAL (BEAKER) (test code 24 mmol/L 21-29 = 388) BASE EXCESS ARTERIAL (BEAKER) 1.2 mmol/L -2.0-3.0 (test code = 387) PATIENT TEMPERATURE (BEAKER) (test 37.0 code = 1818) FIO2 (BEAKER) (test code = 1819) 21.0 POCT-GLUCOSE [id number] 12:29:31 Test Item Value Reference Range Interpretation Comments POC-GLUCOSE METER 97 mg/dL 70-110 : TESTED A T [facility] 6720 (BEAKER) (test code = [facility] [place], 1538) [id number]: Soil Science Professor/Techni ariela ID = [id number] for RAMBODAVE HUFFMAN ERIC CT BRAIN WITHOUT IV CONTRAST - [id number] 12:20:00Unlisted Reason for Exam - Click Yes and Enter Reason Below->No [facility] CENTERName: GUZMAN HA : 1970 Sex: MFINAL REPORT CT BRAIN WITHOUT IV CONTRAST - PORTABLE CLINICAL INDICATION: Mental statuschange, unknown cause COMPARISON: None TECHNIQUE: Noncontrast axial CT imaging of the brain and skull. DOSE REDUCTION: Dose modulation, iterative reconstruction, and/or weight-based adjustment of the mA /kV was utilized to reduce the radiation dose to as low as reasonably achievable. FINDINGS: Images are significantly motion degraded. No large volume intracranial hemorrhage. Midline structures are normally developed. Scattered foci of hypoattenuation are present throughout the periventricular and subc ortical white matter, and, although nonspecific by imaging, statistically represent mild chronic microvascular ischemic changes in this age group. No hydrocephalus. Orbits are within normal limits. No obstructive paranasal sinus disease. IMPRESSION: Images are significantly motion degraded, limiting ev aluation. No large volume intracranial hemorrhage or midline shift is present. Degree of motion artifact precludes more detailed evaluation. If there is persistent clinical concern for intracranial pathology, MR examination is recommended for further characterization. Signed: Alayna Mcclure MDReport V erified Date/Time: 07/10/2022 12:20:39 SPUTUM CULTURE + GRAM [id number] 09:24:46 Test Item Value Reference Interpretation Comments Range CULTURE (BEAKER) PSEUDOMONAS A 3+ Pseudomo barbara (test code = 1095) AERUGINOSA aeruginos a Amikacin (test code = See_Comment S [Auto mated 1) message] The system which generated this result transmit zoë reference range : Susceptible 0-1 6 , Resistant <0 or >16 . The reference range was not used to interpret this result as normal/abnormal . Aztreonam (test code See_Comment S [Autom ated = 32) message] The system which generated this result transmit zoë reference range : Susceptible 0-8 , Resistant <0 or >8 . The reference range was not u sed to interpret th is result as normal/abnormal . Cefepime (test code = See_Comment S [Auto mated 51) message] The system which generated this result transmit zoë reference range : Susceptible 0-8 , Resistant <0 or >8 . The reference range was not u sed to interpret th is result as normal/abnormal . Ceftazidime (test See_Comment S [Automate d code = 27) message] The system which generated this result transmit zoë reference range : Susceptible 0-8 , Resistant <0 or >8 . The reference range was not u sed to interpret th is result as normal/abnormal . Ciprofloxacin (test See_Comment S [Automa zoë code = 7) message] The system which generated this result transmit zoë reference range : Susceptible 0-0 .5 , Resistant <0 or >.5 . The reference range was not used to interpret this result as normal/abnormal . Gentamicin (test code See_Comment S [Auto mated = 18) message] The system which generated this result transmit zoë reference range : Susceptible 0-4 , Resistant <0 or >4 . The reference range was not u sed to interpret th is result as normal/abnormal . Levofloxacin (test See_Comment S [Automat ed code = 22) message] The system which generated this result transmit zoë reference range : Susceptible 0-1 , Resistant <0 or >1 . The reference range was not u sed to interpret th is result as normal/abnormal . Meropenem (test code See_Comment S [Autom ated = 34) message] The system which generated this result transmit zoë reference range : Susceptible 0-2 , Resistant <0 or >2 . The reference range was not u sed to interpret th is result as normal/abnormal . Piperacillin (test See_Comment S [Automat ed code = 24) message] The system which generated this result transmit zoë reference range : Susceptible 0-1 6 , Resistant <0 or >16 . The reference range was not used to interpret this result as normal/abnormal . Piperacillin + See_Comment S [Automated Tazobactam (test code messag e] The = 29) system which generated this result transmit zoë reference range : Susceptible 0-1 6 , Resistant <0 or >16 . The reference range was not used to interpret this result as normal/abnormal . Tobramycin (test code See_Comment S [Auto mated = 25) message] The system which generated this result transmit zoë reference range : Susceptible 0-4 , Resistant <0 or >4 . The reference range was not u sed to interpret th is result as normal/abnormal . CULTURE (BEAKER) PSEUDOMONAS A 3+ Pseudomo barbara (test code = 1095) AERUGINOSA aeruginos aof a second type Amikacin (test code = See_Comment S [Auto mated 1) message] The system which generated this result transmit zoë reference range : Susceptible 0-1 6 , Resistant <0 or >16 . The reference range was not used to interpret this result as normal/abnormal . Aztreonam (test code See_Comment S [Autom ated = 32) message] The system which generated this result transmit zoë reference range : Susceptible 0-8 , Resistant <0 or >8 . The reference range was not u sed to interpret th is result as normal/abnormal . Cefepime (test code = See_Comment S [Auto mated 51) message] The system which generated this result transmit zoë reference range : Susceptible 0-8 , Resistant <0 or >8 . The reference range was not u sed to interpret th is result as normal/abnormal . Ceftazidime (test See_Comment S [Automate d code = 27) message] The system which generated this result transmit zoë reference range : Susceptible 0-8 , Resistant <0 or >8 . The reference range was not u sed to interpret th is result as normal/abnormal . Ciprofloxacin (test See_Comment S [Automa zoë code = 7) message] The system which generated this result transmit zoë reference range : Susceptible 0-0 .5 , Resistant <0 or >.5 . The reference range was not used to interpret this result as normal/abnormal . Gentamicin (test code See_Comment S [Auto mated = 18) message] The system which generated this result transmit zoë reference range : Susceptible 0-4 , Resistant <0 or >4 . The reference range was not u sed to interpret th is result as normal/abnormal . Levofloxacin (test See_Comment S [Automat ed code = 22) message] The system which generated this result transmit zoë reference range : Susceptible 0-1 , Resistant <0 or >1 . The reference range was not u sed to interpret th is result as normal/abnormal . Meropenem (test code See_Comment S [Autom ated = 34) message] The system which generated this result transmit zoë reference range : Susceptible 0-2 , Resistant <0 or >2 . The reference range was not u sed to interpret th is result as normal/abnormal . Piperacillin (test See_Comment S [Automat ed code = 24) message] The system which generated this result transmit zoë reference range : Susceptible 0-1 6 , Resistant <0 or >16 . The reference range was not used to interpret this result as normal/abnormal . Piperacillin + See_Comment S [Automated Tazobactam (test code messag e] The = 29) system which generated this result transmit zoë reference range : Susceptible 0-1 6 , Resistant <0 or >16 . The reference range was not used to interpret this result as normal/abnormal . Tobramycin (test code See_Comment S [Auto mated = 25) message] The system which generated this result transmit zoë reference range : Susceptible 0-4 , Resistant <0 or >4 . The reference range was not u sed to interpret th is result as normal/abnormal . CULTURE (BEAKER) METHICILLIN A 1+ Methicil chanda (test code = 1095) RESISTANT resistant STAPHYLOCOCCUS Staphylococcu s AUREUS aureus Clindamycin (test S code = 10) Erythromycin (test R code = 4) Linezolid (test code S = 40) Nitrofurantoin (test S code = 23) Oxacillin (test code R = 14) Rifampin (test code = S 43) Tetracycline (test S code = 2) Trimethoprim + S Sulfamethoxazole (test code = 47) Vancomycin (test code S = 13) GRAM STAIN RESULT 3+ WBCs (BEAKER) (test code = 1123) GRAM STAIN RESULT 0-5 epithelial (BEAKER) (test code = cells 984594) GRAM STAIN RESULT 1+ gram negative (BEAKER) (test code = rods 556999) GRAM STAIN RESULT 1+ gram positive (BEAKER) (test code = cocci in pairs and 525134) clusters GRAM STAIN RESULT 1+ budding yeast (BEAKER) (test code = 332073) 1+ Normal respiratory cori presentRAD, CHEST, 1 VIEW, NON [id number] 08:00:00Reason for exam:->iabp positionShould this be performed at the bedside?->[facility] : 1970 Sex: MFINAL REPORT RAD, CHEST, 1 VIEW, NON DEPT INDICATION: iabp position COMPARISON: 07/08/2022 TECHNIQUE: Portable frontal view(s) of the chest. FINDINGS: Support Lines and Devices: Interval extubation. The intra-aortic balloon pump tip overlies the proximal descending thoracic aorta. Lungs and pleura: Unchanged airspace and pleural opacities. No pneumothorax identified. Heart and mediastinum: Stable contours. Stable surgical changes. Additional findings: Mild spondylosis and facet arthropathy are present within the spine. IMPRESSION:1.Interval extubation.2.The intra-aortic balloon pump tipoverlies the proximal descending thoracic aorta. Signed: Garfield Aguilar MDReport Verified Date/Time: 07/10/2022 08:00:00 Reading Location: [address] Reading Room REHENSIVE METABOLIC [id number] 07:35:31 Test Item Value Reference Range Interpretation Comments TOTAL PROTEIN 5.9 gm/dL 6.0-8.3 L (BEAKER) (test code = 770) ALBUMIN (BEAKER) 3.0 g/dL 3.5-5.0 L (test code = 1145) ALKALINE 100 U/L 40-150 PHOSPHATASE (BEAKER) (test code = 346) BILIRUBIN TOTAL 1.1 mg/dL 0.2-1.2 (BEAKER) (test code = 377) SODIUM (BEAKER) 140 meq/L 136-145 (test code = 381) POTASSIUM (BEAKER) 3.6 meq/L 3.5-5.1 (test code = 379) CHLORIDE (BEAKER) 112 meq/L 98-107 H (test code = 382) CO2 (BEAKER) (test 20 meq/L 22-29 L code = 355) BLOOD UREA 11 mg/dL 7-21 NITROGEN (BEAKER) (test code = 354) CREATININE 0.72 mg/dL 0.57-1.25 (BEAKER) (test code = 358) GLUCOSE RANDOM 99 mg/dL 70-105 (BEAKER) (test code = 652) CALCIUM (BEAKER) 8.0 mg/dL 8.4-10.2 L (test code = 697) AST (SGOT) 27 U/L 5-34 (BEAKER) (test code = 353) ALT (SGPT) 26 U/L 6-55 (BEAKER) (test code = 347) EGFR (BEAKER) 109 Interpretatio n of eGFR (test code = 1092) mL/min/1.[address] age Description sq m Result G1 Lynn l or high >=90 G2 Mildly decreased 60-89 G3a Mildl y to moderately 45-5 9 G3b Moderately to s everely 30-44 G4 Severl y decreased 15-29 G5 Kidney failure <15Reported eGF R is based on the CKD-EPI 2020 equation that d oes not use a race coefficientEsti mated GFR is not as accur ate as Creatinine Leatha bry in predicting glom erular filtration rate . Estimated GFR is not appl icable for dialysis patien ts Soil Science Professor ID - [id number] 07:35:31 Test Item Value Reference Range Interpretation Comments PHOSPHORUS (BEAKER) (test code = 2.0 mg/dL 2.3-4.7 L 604) Soil Science Professor ID - EDPOCT-GLUCOSE [id number] 06:16:31 Test Item Value Reference Range Interpretation Comments POC-GLUCOSE METER 90 mg/dL 70-110 : TESTED A T [facility] 67[facility] (BEAKER) (test code = [facility] [place], 1538) [address]: Soil Science Professor/Techni ariela ID = [id number] for ALI (V), NURY [id number] 06:14:32 Test Item Value Reference Range Interpretation Comments MAGNESIUM (BEAKER) (test code = 1.4 mg/dL 1.6-2.6 L 627) Soil Science Professor ID - [id number] 05:58:49 Test Item Value Reference Range Interpretation Comments PARTIAL THROMBOPLASTIN TIME 30.4 seconds 22.5-36.0 (BEAKER) (test code = 760) CBC W/PLT COUNT & AUTO [id number] 05:51:07 Test Item Value Reference Range Interpretation Comments WHITE BLOOD CELL COUNT (BEAKER) 5.8 K/ L 3.5-10.5 (test code = 775) RED BLOOD CELL COUNT (BEAKER) 3.27 M/ L 4.63-6.08 L (test code = 761) HEMOGLOBIN (BEAKER) (test code = 10.2 GM/DL 13.7-17.5 L 410) HEMATOCRIT (BEAKER) (test code = 29.7 % 40.1-51.0 L 411) MEAN CORPUSCULAR VOLUME (BEAKER) 91 fL 79-92 (test code = 753) MEAN CORPUSCULAR HEMOGLOBIN 31.2 pg 25.7-32.2 (BEAKER) (test code = 751) MEAN CORPUSCULAR HEMOGLOBIN CONC 34.3 GM/DL 32.3-36.5 (BEAKER) (test code = 752) RED CELL DISTRIBUTION WIDTH 14.7 % 11.6-14.4 H (BEAKER) (test code = 412) PLATELET COUNT (BEAKER) (test 127 K/CU MM 150-450 L code = 756) MEAN PLATELET VOLUME (BEAKER) 9.5 fL 9.4-12.4 (test code = 754) NUCLEATED RED BLOOD CELLS 0 /100 WBC 0-0 (BEAKER) (test code = 413) NEUTROPHILS RELATIVE PERCENT 69 % (BEAKER) (test code = 429) LYMPHOCYTES RELATIVE PERCENT 21 % (BEAKER) (test code = 430) MONOCYTES RELATIVE PERCENT 6 % (BEAKER) (test code = 431) EOSINOPHILS RELATIVE PERCENT 2 % (BEAKER) (test code = 432) BASOPHILS RELATIVE PERCENT 1 % (BEAKER) (test code = 437) NEUTROPHILS ABSOLUTE COUNT 4.00 K/ L 1.78-5.38 (BEAKER) (test code = 670) LYMPHOCYTES ABSOLUTE COUNT 1.24 K/ L 1.32-3.57 L (BEAKER) (test code = 414) MONOCYTES ABSOLUTE COUNT (BEAKER) 0.36 K/ L 0.30-0.82 (test code = 415) EOSINOPHILS ABSOLUTE COUNT 0.10 K/ L 0.04-0.54 (BEAKER) (test code = 416) BASOPHILS ABSOLUTE COUNT (BEAKER) 0.03 K/ L 0.01-0.08 (test code = 417) IMMATURE GRANULOCYTES-RELATIVE 1.40 % 0.00-1.00 H PERCENT (BEAKER) (test code = 2801) BLOOD GAS, [id number] 05:34:08 Test Item Value Reference Range Interpretation Comments PH ARTERIAL (BEAKER) (test code = 7.45 7.35-7.45 383) PCO2 ARTERIAL (BEAKER) (test code 33 mm Hg 35-45 L = 384) PO2 ARTERIAL (BEAKER) (test code 92 mm Hg 80-90 H = 385) O2 SATURATION ARTERIAL (BEAKER) 97.5 % 96.0-97.0 H (test code = 386) HCO3 ARTERIAL (BEAKER) (test code 22 mmol/L 21-29 = 388) BASE EXCESS ARTERIAL (BEAKER) -1.1 mmol/L -2.0-3.0 (test code = 387) PATIENT TEMPERATURE (BEAKER) 36.5 (test code = 1818) FIO2 (BEAKER) (test code = 1819) 21.0 CALCIUM, [id number] 05:12:51 Test Item Value Reference Range Interpretation Comments CALCIUM IONIZED (BEAKER) (test 1.11 mmol/L 1.12-1.27 L code = 698) PH, BLOOD (BEAKER) (test code = 7.47 1810) BASIC METABOLIC [id number] 23:42:47 Test Item Value Reference Range Interpretation Comments SODIUM (BEAKER) 140 meq/L 136-145 (test code = 381) POTASSIUM 3.4 meq/L 3.5-5.1 L (BEAKER) (test code = 379) CHLORIDE (BEAKER) 112 meq/L 98-107 H (test code = 382) CO2 (BEAKER) 22 meq/L 22-29 (test code = 355) BLOOD UREA 13 mg/dL 7-21 NITROGEN (BEAKER) (test code = 354) CREATININE 0.73 mg/dL 0.57-1.25 (BEAKER) (test code = 358) GLUCOSE RANDOM 94 mg/dL 70-105 (BEAKER) (test code = 652) CALCIUM (BEAKER) 7.8 mg/dL 8.4-10.2 L (test code = 697) EGFR (BEAKER) 109 Interpretatio n of eGFR (test code = mL/min/1.73 values Stage De scription 1092) sq m Result G1 Lynn l or high >=90 G2 Mildly decreased 60-89 G3a Mildl y to moderately 45-5 9 G3b Moderately to s everely 30-44 G4 Sever ly decreased 15-29 G5 Kidney failure <15Repo rted eGFR is based on the CKD-EPI 2020 equation t hat does not use a race coefficientEsti mated GFR is not as accur ate as Creatinine Leatha bry in predicting glom erular filtration rate . Estimated GFR is not appl icable for dialysis patien ts Soil Science Professor ID - EDPOCT-GLUCOSE [id number] 23:39:54 Test Item Value Reference Range Interpretation Comments POC-GLUCOSE METER 96 mg/dL 70-110 : TESTED A T [facility] 6720 (BEAKER) (test code = [facility] [place], 1538) [id number]: Soil Science Professor/Techni ariela ID = [id number] for ALI (V), NURY [id number] 23:39:49 Test Item Value Reference Range Interpretation Comments MAGNESIUM (BEAKER) (test code = 1.8 mg/dL 1.6-2.6 627) Soil Science Professor ID - EDCALCIUM, [id number] 23:20:04 Test Item Value Reference Range Interpretation Comments CALCIUM IONIZED (BEAKER) (test 0.83 mmol/L 1.12-1.27 L code = 698) PH, BLOOD (BEAKER) (test code = 7.53 1810) [id number] 23:06:34 Test Item Value Reference Range Interpretation Comments POTASSIUM (BEAKER) (test code = 2.1 meq/L 3.5-5.1 LL 379) Soil Science Professor ID - [id number] 23:01:25 Test Item Value Reference Range Interpretation Comments MAGNESIUM (BEAKER) (test code = 1.1 mg/dL 1.6-2.6 L 627) Soil Science Professor ID - EDCOMPREHENSIVE METABOLIC [id number] 15:57:10 Test Item Value Reference Range Interpretation Comments TOTAL PROTEIN 5.5 gm/dL 6.0-8.3 L (BEAKER) (test code = 770) ALBUMIN (BEAKER) 3.0 g/dL 3.5-5.0 L (test code = 1145) ALKALINE 82 U/L 40-150 PHOSPHATASE (BEAKER) (test code = 346) BILIRUBIN TOTAL 1.0 mg/dL 0.2-1.2 (BEAKER) (test code = 377) SODIUM (BEAKER) 140 meq/L 136-145 (test code = 381) POTASSIUM (BEAKER) 3.7 meq/L 3.5-5.1 (test code = 379) CHLORIDE (BEAKER) 112 meq/L 98-107 H (test code = 382) CO2 (BEAKER) (test 23 meq/L 22-29 code = 355) BLOOD UREA 14 mg/dL 7-21 NITROGEN (BEAKER) (test code = 354) CREATININE 0.72 mg/dL 0.57-1.25 (BEAKER) (test code = 358) GLUCOSE RANDOM 98 mg/dL 70-105 (BEAKER) (test code = 652) CALCIUM (BEAKER) 8.0 mg/dL 8.4-10.2 L (test code = 697) AST (SGOT) 22 U/L 5-34 (BEAKER) (test code = 353) ALT (SGPT) 28 U/L 6-55 (BEAKER) (test code = 347) EGFR (BEAKER) 109 Interpretatio n of eGFR (test code = 1092) mL/min/1.[address] age Description sq m Result G1 Lynn l or high >=90 G2 Mildly decreased 60-89 G3a Mildl y to moderately 45-5 9 G3b Moderately to s everely 30-44 G4 Severl y decreased 15-29 G5 Kidney failure <15Reported eGF R is based on the CKD-EPI 2020 equation that d oes not use a race coefficientEsti mated GFR is not as accur ate as Creatinine Leatha bry in predicting glom erular filtration rate . Estimated GFR is not appl icable for dialysis patien ts Soil Science Professor ID - EDBLOOD GAS, [id number] 15:23:37 Test Item Value Reference Range Interpretation Comments PH ARTERIAL (BEAKER) (test code = 7.48 7.35-7.45 H 383) PCO2 ARTERIAL (BEAKER) (test code 29 mm Hg 35-45 L = 384) PO2 ARTERIAL (BEAKER) (test code 178 mm Hg 80-90 H = 385) O2 SATURATION ARTERIAL (BEAKER) 99.3 % 96.0-97.0 H (test code = 386) HCO3 ARTERIAL (BEAKER) (test code 21 mmol/L 21-29 = 388) BASE EXCESS ARTERIAL (BEAKER) -1.6 mmol/L -2.0-3.0 (test code = 387) PATIENT TEMPERATURE (BEAKER) 36.5 (test code = 1818) FIO2 (BEAKER) (test code = 1819) 21.0 POCT-GLUCOSE [id number] 12:50:54 Test Item Value Reference Range Interpretation Comments POC-GLUCOSE METER 108 mg/dL 70-110 : TESTED A T [facility] 6720 (BEAKER) (test code = [facility] [place], 1538) [address]: Soil Science Professor/Techni ariela ID = [id number] for LINDA MAJANO Urine [id number] 11:03:26 Test Item Value Reference Range Interpretation Comments Result (test code = 6463-4) [facility] [id number] 06:12:53 Test Item Value Reference Range Interpretation Comments POC-GLUCOSE METER 107 mg/dL 70-110 : TESTED A T [facility] 6720 (BEAKER) (test code = [facility] [place], 1538) [address]: Soil Science Professor/Techni ariela ID = [id number] for AL I (V), NURY [id number] 03:50:07 Test Item Value Reference Range Interpretation Comments PHOSPHORUS (BEAKER) (test code = 1.7 mg/dL 2.3-4.7 L 604) Soil Science Professor ID - DBCOMPREHENSIVE METABOLIC [id number] 03:50:06 Test Item Value Reference Range Interpretation Comments TOTAL PROTEIN 5.6 gm/dL 6.0-8.3 L (BEAKER) (test code = 770) ALBUMIN (BEAKER) 3.0 g/dL 3.5-5.0 L (test code = 1145) ALKALINE 75 U/L 40-150 PHOSPHATASE (BEAKER) (test code = 346) BILIRUBIN TOTAL 1.0 mg/dL 0.2-1.2 (BEAKER) (test code = 377) SODIUM (BEAKER) 139 meq/L 136-145 (test code = 381) POTASSIUM (BEAKER) 3.2 meq/L 3.5-5.1 L (test code = 379) CHLORIDE (BEAKER) 108 meq/L 98-107 H (test code = 382) CO2 (BEAKER) (test 22 meq/L 22-29 code = 355) BLOOD UREA 17 mg/dL 7-21 NITROGEN (BEAKER) (test code = 354) CREATININE 0.75 mg/dL 0.57-1.25 (BEAKER) (test code = 358) GLUCOSE RANDOM 105 mg/dL 70-105 (BEAKER) (test code = 652) CALCIUM (BEAKER) 8.2 mg/dL 8.4-10.2 L (test code = 697) AST (SGOT) 24 U/L 5-34 (BEAKER) (test code = 353) ALT (SGPT) 30 U/L 6-55 (BEAKER) (test code = 347) EGFR (BEAKER) 108 Interpretatio n of eGFR (test code = 1092) mL/min/1.73 values S tage Description sq m Result G1 Lynn l or high >=90 G2 Mildly decreased 60-89 G3a Mildl y to moderately 45-5 9 G3b Moderately to s everely 30-44 G4 Severl y decreased 15-29 G5 Kidney failure <15Reported eGF R is based on the CKD-EPI 2020 equation that d oes not use a race coefficientEsti mated GFR is not as accur ate as Creatinine Leatha bry in predicting glom erular filtration rate . Estimated GFR is not appl icable for dialysis patien ts [employer] Professor ID - [id number] 03:50:06 Test Item Value Reference Range Interpretation Comments MAGNESIUM (BEAKER) (test code = 2.1 mg/dL 1.6-2.6 627) Soil Science Professor ID - DBCALCIUM, [id number] 03:38:37 Test Item Value Reference Range Interpretation Comments CALCIUM IONIZED (BEAKER) (test 1.05 mmol/L 1.12-1.27 L code = 698) PH, BLOOD (BEAKER) (test code = 7.48 1810) BLOOD GAS, [id number] 03:38:37 Test Item Value Reference Range Interpretation Comments PH ARTERIAL (BEAKER) (test code = 7.49 7.35-7.45 H 383) PCO2 ARTERIAL (BEAKER) (test code 30 mm Hg 35-45 L = 384) PO2 ARTERIAL (BEAKER) (test code 183 mm Hg 80-90 H = 385) O2 SATURATION ARTERIAL (BEAKER) 99.4 % 96.0-97.0 H (test code = 386) HCO3 ARTERIAL (BEAKER) (test code 23 mmol/L 21-29 = 388) BASE EXCESS ARTERIAL (BEAKER) -0.4 mmol/L -2.0-3.0 (test code = 387) PATIENT TEMPERATURE (BEAKER) 36.0 (test code = 1818) FIO2 (BEAKER) (test code = 1819) 36.0 [id number] 03:32:39 Test Item Value Reference Range Interpretation Comments PARTIAL THROMBOPLASTIN TIME 32.5 seconds 22.5-36.0 (BEAKER) (test code = 760) CBC W/PLT COUNT & AUTO [id number] 03:18:34 Test Item Value Reference Range Interpretation Comments WHITE BLOOD CELL COUNT (BEAKER) 6.5 K/ L 3.5-10.5 (test code = 775) RED BLOOD CELL COUNT (BEAKER) 3.31 M/ L 4.63-6.08 L (test code = 761) HEMOGLOBIN (BEAKER) (test code = 10.1 GM/DL 13.7-17.5 L 410) HEMATOCRIT (BEAKER) (test code = 29.0 % 40.1-51.0 L 411) MEAN CORPUSCULAR VOLUME (BEAKER) 88 fL 79-92 (test code = 753) MEAN CORPUSCULAR HEMOGLOBIN 30.5 pg 25.7-32.2 (BEAKER) (test code = 751) MEAN CORPUSCULAR HEMOGLOBIN CONC 34.8 GM/DL 32.3-36.5 (BEAKER) (test code = 752) RED CELL DISTRIBUTION WIDTH 14.4 % 11.6-14.4 (BEAKER) (test code = 412) PLATELET COUNT (BEAKER) (test 115 K/CU MM 150-450 L code = 756) MEAN PLATELET VOLUME (BEAKER) 9.2 fL 9.4-12.4 L (test code = 754) NUCLEATED RED BLOOD CELLS 0 /100 WBC 0-0 (BEAKER) (test code = 413) NEUTROPHILS RELATIVE PERCENT 74 % (BEAKER) (test code = 429) LYMPHOCYTES RELATIVE PERCENT 17 % (BEAKER) (test code = 430) MONOCYTES RELATIVE PERCENT 7 % (BEAKER) (test code = 431) EOSINOPHILS RELATIVE PERCENT 1 % (BEAKER) (test code = 432) BASOPHILS RELATIVE PERCENT 0 % (BEAKER) (test code = 437) NEUTROPHILS ABSOLUTE COUNT 4.79 K/ L 1.78-5.38 (BEAKER) (test code = 670) LYMPHOCYTES ABSOLUTE COUNT 1.10 K/ L 1.32-3.57 L (BEAKER) (test code = 414) MONOCYTES ABSOLUTE COUNT (BEAKER) 0.44 K/ L 0.30-0.82 (test code = 415) EOSINOPHILS ABSOLUTE COUNT 0.07 K/ L 0.04-0.54 (BEAKER) (test code = 416) BASOPHILS ABSOLUTE COUNT (BEAKER) 0.02 K/ L 0.01-0.08 (test code = 417) IMMATURE GRANULOCYTES-RELATIVE 0.50 % 0.00-1.00 PERCENT (BEAKER) (test code = 2801) POCT-GLUCOSE [id number] 00:14:49 Test Item Value Reference Range Interpretation Comments POC-GLUCOSE METER 119 mg/dL 70-110 H : TESTED A T [facility] 6720 (BEAKER) (test code = [facility], 1538) [id number]: Soil Science Professor/Techni ariela ID = [id number] for AL I (V), NURY BLOOD GAS, [id number] 20:04:27 Test Item Value Reference Range Interpretation Comments PH ARTERIAL (BEAKER) (test code = 7.47 7.35-7.45 H 383) PCO2 ARTERIAL (BEAKER) (test code 35 mm Hg 35-45 = 384) PO2 ARTERIAL (BEAKER) (test code = 77 mm Hg 80-90 L 385) O2 SATURATION ARTERIAL (BEAKER) 96.2 % 96.0-97.0 (test code = 386) HCO3 ARTERIAL (BEAKER) (test code 25 mmol/L 21-29 = 388) BASE EXCESS ARTERIAL (BEAKER) 1.4 mmol/L -2.0-3.0 (test code = 387) PATIENT TEMPERATURE (BEAKER) (test 37.0 code = 1818) FIO2 (BEAKER) (test code = 1819) 21.0 VANCOMYCIN LEVEL, [id number] 19:12:50 Test Item Value Reference Range Interpretation Comments VANCOMYCIN TROUGH (BEAKER) (test 8.1 ug/mL 10.0-20.0 L code = 522) Soil Science Professor ID - MARCOPOCT-GLUCOSE [id number] 18:52:03 Test Item Value Reference Range Interpretation Comments POC-GLUCOSE METER 121 mg/dL 70-110 H : TESTED A T [facility] 6720 (BEAKER) (test code = [facility], 153) [id number]: Soil Science Professor/Techni ariela ID = [id number] for MARK MOURA CT, [id number] 18:31:00Unlisted Reason for Exam - Click Yes and Enter Reason Below->NoProtocol Please Specify:->Standard ProtocolWill this procedure require oral contrast?->No [facility] : 1970 Sex: MFINAL REPORT CT of the chest, abdomen and pelvis without contrast: History: Respiratoryfailure, abdominal distention Multidetector CT of the chest, abdomen and pelvis was performed without contrast. Dose reduction technique was employed using automated exposure control and adjustment of mA and/or kV according to patient size. Respiratory motion limits evaluation of the chest. There is asmall right and minimal left pleural effusion. Bilateral lower lobe groundglass opacities are present. Smaller groundglass changes are present in the anterior and posterior right upper lobe. No lung mass is visualized. No pericardial effusion or lymphadenopathy is identified. Coronary artery calcification is noted. A nasogastric tube is noted extending into the stomach. An intra-aortic balloon pump is present with its distal tip at the level of the proximal descending thoracic aorta. Motion artifactalso degrades images through the abdomen. The liver and spleen are normal in size and show no definite focal lesion. There is no biliary duct dilatation. No significant abnormality of the pancreas is identified. The adrenals are not enlarged. The gallbladder is suboptimally visualized but may show vicarious excretion of contrast. No definite gallstone is visualized. An intra-aortic balloon pump is present entering via the right femoral approach. The caudal marker of the balloon is in the proximal tomid infrarenal aorta. Atherosclerotic calcification is present. The tip of the nasogastric tube is in the antropyloric region. A catheter is present within the bladder. The bladder is not fully decompressed. There is no evidence of bowel obstruction. The appendix appears within normal limits. No ascites or lymphadenopathy is noted. A small fat-containing umbilical hernia is again incidentally noted. There are no acute bony abnormalities. IMPRESSION:1. Limited examination showing small bilateral pleural effusions. Predominantly bibasilar groundglass opacities may be secondary to infection, edema or h emorrhage.2. Coronary atherosclerosis.3. Limited evaluation of the abdomen with no acute abnormalitynoted.4. Support apparatus in place as noted. Signed: Jeremías Carroll MDReport Verified Date/Time: 07/08/2022 18:31:17 CT, CHEST, WITH [id number] 18:31:00Unlisted Reason for Exam - Click Yes and Enter Reason Below->No[facility] : 1970 Sex: MFINAL REPORT CT of the chest, abdomen and pelvis without contrast: History: Respiratory failure, abdominal distention Multidetector CT of the chest, abdomen and pelvis was performed without contrast. Dose reduction technique was employed using automated exposure control and adjustment ofmA and/or kV according to patient size. Respiratory motion limits evaluation of the chest. There is a small right and minimal left pleural effusion. Bilateral lower lobe groundglass opacities are present. Smaller groundglass changes are present in the anterior and posterior right upper lobe. No lung mass is visualized. No pericardial effusion or lymphadenopathy is identified. Coronary artery calcifica tion is noted. A nasogastric tube is noted extending into the stomach. An intra- aortic balloon pump is present with its distal tip at the level of the proximal descending thoracic aorta. Motion artifact also degrades images through the abdomen. The liver and spleen are normal in size and show no definite focal lesion. There is no biliary duct dilatation. No significant abnormality of the pancreas is identified. The adrenals are not enlarged. The gallbladder is suboptimally visualized but may show vicarious excretion of contrast. No definite gallstone is visualized. An intra-aortic balloon pump is present entering via the right femoral approach. The caudal marker of the balloon is in the proximal to mid infrarenal aorta. Atherosclerotic calcification is present. The tip of the nasogastric tube is in the antropyloric region. A catheter is present within the bladder. The bladder is not fully decompressed. There is no evidence of bowel obstruction. The appendix appears within normal limits. No ascites or lymphadenopathy is noted. A small fat-containing umbilical hernia is again incidentally noted.There are no acute bony abnormalities. IMPRESSION:1. Limited examination showing small bilateral pleural effusions. Predominantly bibasilar groundglass opacities may be secondary to infection, edema or hemorrhage.2. Coronary atherosclerosis.3. Limited evaluation of the abdomen with no acute abnormality noted.4. Support apparatus in place as noted. Signed: Jeremías Carroll Verified Date/Time:07/08/2022 18:31:17 RAD, ABDOMEN/KUB, 1 VIEW [id number] 16:49:00Reason for exam:->ng tube placement [facility] : 1970 Sex: MFINAL REPORT RAD, ABDOMEN/KUB, 1 VIEW AP INDICATION: ng tube placement COMPARISON: NoneTECHNIQUE: Limited portable radiograph of the lower chest and upper abdomen was acquired for purposes of evaluating tube placement FINDINGS/IMPRESSION:NG side-port overlies the stomach Signed: Alayna Mcclure Verified Date/Time: 07/08/2022 16:49:27 [id number] 16:34:30 Test Item Value Reference Range Interpretation Comments MAGNESIUM (BEAKER) (test code = 1.9 mg/dL 1.6-2.6 627) Soil Science Professor ID - ARAVIND DCOMPREHENSIVE METABOLIC [id number] 16:34:29 Test Item Value Reference Range Interpretation Comments TOTAL PROTEIN 5.6 gm/dL 6.0-8.3 L (BEAKER) (test code = 770) ALBUMIN (BEAKER) 3.0 g/dL 3.5-5.0 L (test code = 1145) ALKALINE 67 U/L 40-150 PHOSPHATASE (BEAKER) (test code = 346) BILIRUBIN TOTAL 0.8 mg/dL 0.2-1.2 (BEAKER) (test code = 377) SODIUM (BEAKER) 135 meq/L 136-145 L (test code = 381) POTASSIUM (BEAKER) 3.7 meq/L 3.5-5.1 (test code = 379) CHLORIDE (BEAKER) 108 meq/L 98-107 H (test code = 382) CO2 (BEAKER) (test 20 meq/L 22-29 L code = 355) BLOOD UREA 19 mg/dL 7-21 NITROGEN (BEAKER) (test code = 354) CREATININE 0.70 mg/dL 0.57-1.25 (BEAKER) (test code = 358) GLUCOSE RANDOM 119 mg/dL 70-105 H (BEAKER) (test code = 652) CALCIUM (BEAKER) 8.1 mg/dL 8.4-10.2 L (test code = 697) AST (SGOT) 22 U/L 5-34 (BEAKER) (test code = 353) ALT (SGPT) 32 U/L 6-55 (BEAKER) (test code = 347) EGFR (BEAKER) 110 Interpretatio n of eGFR (test code = 1092) mL/min/1.[address] age Description sq m Result G1 Lynn l or high >=90 G2 Mildly decreased 60-89 G3a Mildl y to moderately 45-5 9 G3b Moderately to s everely 30-44 G4 Severl y decreased 15-29 G5 Kidney failure <15Reported eGF R is based on the CKD-EPI 2020 equation that d oes not use a race coefficientEsti mated GFR is not as accur ate as Creatinine Leatha bry in predicting glom erular filtration rate . Estimated GFR is not appl icable for dialysis patien ts Soil Science Professor ID - ARAVIND DCALCIUM, [id number] 15:49:15 Test Item Value Reference Range Interpretation Comments CALCIUM IONIZED (BEAKER) (test 1.04 mmol/L 1.12-1.27 L code = 698) PH, BLOOD (BEAKER) (test code = 7.49 1810) BLOOD GAS, [id number] 15:49:14 Test Item Value Reference Range Interpretation Comments PH ARTERIAL (BEAKER) (test code = 7.48 7.35-7.45 H 383) PCO2 ARTERIAL (BEAKER) (test code 28 mm Hg 35-45 L = 384) PO2 ARTERIAL (BEAKER) (test code 194 mm Hg 80-90 H = 385) O2 SATURATION ARTERIAL (BEAKER) 99.4 % 96.0-97.0 H (test code = 386) HCO3 ARTERIAL (BEAKER) (test code 20 mmol/L 21-29 L = 388) BASE EXCESS ARTERIAL (BEAKER) -1.9 mmol/L -2.0-3.0 (test code = 387) PATIENT TEMPERATURE (BEAKER) 37.5 (test code = 1818) FIO2 (BEAKER) (test code = 1819) 36.0 POCT-GLUCOSE [id number] 11:35:51 Test Item Value Reference Range Interpretation Comments POC-GLUCOSE METER 127 mg/dL 70-110 H : TESTED A T [facility] 6720 (BEAKER) (test code = [facility], 1538) [address]: Soil Science Professor/Techni ariela ID = [id number] for Re Sravani mcmillan BLOOD CULTURE IDENTIFICATION [id number] 11:30:45 Test Item Value Reference Interpretation Comments Range METHICILLIN-RESISTANCE Not detected Not detected Note: Antimicrobial GENE (test code = resistance can occur ) via multiple mechanisms. A N ot Detected result for the [employer] antimicrobial resistance gene assays does not indicate antimicrobial susceptibility. Subculturing is required for sp ecies identification and susceptibility testing of isol ates. ENTEROCOCCUS-BEAKER Not detected Not detected (test code = 5718098) LISTERIA MONOCYTOGENES Not detected Not detected (test code = 0036290) STAPHYLOCOCCUS (test Detected Not detected A Coagula se negative code = 20160328) Staph specie s (CoNS)- methici llin susceptibleFirs t-chanda e therapy: Cefa zolin or Oxacillin (Oxacillin pref erred if GREIGE MENDER involvem ent) MecA NOT DETECTEDPossibl e contamination. The likelihood of pathogenicity i s increased if th e organism is obs erved in multiple blo od cultures obtain ed from separate venipunctures.R efere nce Range: Not Detected STAPHYLOCOCCUS AUREUS Not detected Not detected (test code = 0887279) STREPTOCOCCUS (test Not detected Not detected code = 8187099) STREPTOCOCCUS Not detected Not detected AGALACTIAE (GROUP B) (test code = 6902456) STREPTOCOCCUS Not detected Not detected PNEUMONIAE (test code = 5753878) STREPTOCOCCUS PYOGENES Not detected Not detected (GROUP A) (test code = 4322770) ACINETOBACTER BAUMANNII Not detected Not detected (test code = 2050466) ENTEROBACTERIACEAE Not detected Not detected (test code = 8709349) ENTEROBACTER CLOACOE Not detected Not detected COMPLEX (test code = 7450682) ESCHERICHIA COLI (test Not detected Not detected code = 3486404) KLEBSIELLA OXYTOCA Not detected Not detected (test code = 0307404) KLEBSIELLA PNEUMONIAE Not detected Not detected (test code = 1650) PROTEUS (test code = Not detected Not detected 0287305) SERRATIA MARCESCENS Not detected Not detected (test code = 9619459) HAEMOPHILUS INFLUENZAE Not detected Not detected (test code = 0598393) NEISSERIA MENINGITIDIS Not detected Not detected (test code = 7464824) PSEUDOMONAS Not detected Not detected AERUGINOSA-BEAKER (test code = 0675813) JOSH ALBICANS (test Not detected Not detected code = 9543913) JOSH GLABRATA (test Not detected Not detected code = 6121121) JOSH KRUSEI (test Not detected Not detected code = 8480453) JOSH PARAPSILOSIS Not detected Not detected (test code = 5403738) JOSH TROPICALIS Not detected Not detected (BKR) (test code = 0649315) Other bacteria and resistance markers not targeted by this PCR panel cannot be excluded; therefore clinical correlation and follow up of serology, culture results, and other molecular studies is required. The results are not intended to be used as the sole means for clinical diagnosis or patient management decisions. This sample was tested at the [facility] using the JumpCam Blood Culture ID Panel. It is FDA cleared and has been verified and approved by the [facility] for clinical use. This laboratory is CLIA-certified and College ofAmerican Pathologists (CAP)-accredited to perform high complexity testing.BLOOD GAS, [id number] 11:30:06 Test Item Value Reference Range Interpretation Comments PH ARTERIAL (BEAKER) (test code = 7.42 7.35-7.45 383) PCO2 ARTERIAL (BEAKER) (test code 28 mm Hg 35-45 L = 384) PO2 ARTERIAL (BEAKER) (test code 173 mm Hg 80-90 H = 385) O2 SATURATION ARTERIAL (BEAKER) 99.2 % 96.0-97.0 H (test code = 386) HCO3 ARTERIAL (BEAKER) (test code 18 mmol/L 21-29 L = 388) BASE EXCESS ARTERIAL (BEAKER) -5.3 mmol/L -2.0-3.0 L (test code = 387) PATIENT TEMPERATURE (BEAKER) 38.0 (test code = 1818) FIO2 (BEAKER) (test code = 1819) 21.0 HEMOGLOBIN AND [id number] 09:12:31 Test Item Value Reference Range Interpretation Comments HEMOGLOBIN (BEAKER) (test code = 10.5 GM/DL 13.7-17.5 L 410) HEMATOCRIT (BEAKER) (test code = 30.1 % 40.1-51.0 L 411) Soil Science Professor ID - [id number]-GLUCOSE [id number] 06:39:58 Test Item Value Reference Range Interpretation Comments POC-GLUCOSE METER 126 mg/dL 70-110 H : TESTED A T [facility] 6720 (BEAKER) (test code = [facility] [place], 1538) [address]: Soil Science Professor/Techni ariela ID = [id number] for AL I (V), NURY RAD, ABDOMEN/KUB, 1 VIEW [id number] 06:19:00Reason for exam:->ngt [facility] : 1970 Sex: MFINAL REPORT CLINICAL HISTORY: ngt COMPARISON: 07/07/2022 FINDINGS: 2 supine images of the abdomen are submitted. The tip of an enteric tube overlies the distal stomach/proximal duodenum. The abdominal bowel gas pattern is unobstructed. There is no acute osseous abnormality. The distal radiopaque marker of an IABP overlies L3. Signed: Benito Alvarado Verified Date/Time: 07/08/2022 06:19:18 RAD, CHEST, 1 VIEW, NON [id number] 06:16:00Reason for exam:->iabp positionReason for exam:->Pulmunary edemaShould this be performed at the bedside?->Yes [facility] : 1970 Sex: MFINAL REPORT CLINICAL INDICATION: iabp positionPulmunary edema Comparison: 07/07/2022 [id number] hours The cardiomediastinal contours are stable. Central pulmonary vascular congestion and bilateral parenchymal opacities are partially improved, suggesting improving pulmonary edema. There is no pneumothorax. Support lines are stable. Signed: Alvarado, Benito MDReport Verified Date/Time: 07/08/2022 06:16:19 [id number] 05:29:59 Test Item Value Reference Range Interpretation Comments PARTIAL THROMBOPLASTIN TIME 99.2 seconds 22.5-36.0 H (BEAKER) (test code = 760) COMPREHENSIVE METABOLIC [id number] 05:26:35 Test Item Value Reference Range Interpretation Comments TOTAL PROTEIN 5.6 gm/dL 6.0-8.3 L (BEAKER) (test code = 770) ALBUMIN (BEAKER) 3.0 g/dL 3.5-5.0 L (test code = 1145) ALKALINE 66 U/L 40-150 PHOSPHATASE (BEAKER) (test code = 346) BILIRUBIN TOTAL 0.7 mg/dL 0.2-1.2 (BEAKER) (test code = 377) SODIUM (BEAKER) 134 meq/L 136-145 L (test code = 381) POTASSIUM (BEAKER) 4.0 meq/L 3.5-5.1 (test code = 379) CHLORIDE (BEAKER) 108 meq/L 98-107 H (test code = 382) CO2 (BEAKER) (test 19 meq/L 22-29 L code = 355) BLOOD UREA 17 mg/dL 7-21 NITROGEN (BEAKER) (test code = 354) CREATININE 0.69 mg/dL 0.57-1.25 (BEAKER) (test code = 358) GLUCOSE RANDOM 146 mg/dL 70-105 H (BEAKER) (test code = 652) CALCIUM (BEAKER) 7.9 mg/dL 8.4-10.2 L (test code = 697) AST (SGOT) 25 U/L 5-34 (BEAKER) (test code = 353) ALT (SGPT) 37 U/L 6-55 (BEAKER) (test code = 347) EGFR (BEAKER) 110 Interpretatio n of eGFR (test code = 1092) mL/min/1.[address] age Description sq m Result G1 Lynn l or high >=90 G2 Mildly decreased 60-89 G3a Mildl y to moderately 45-5 9 G3b Moderately to s everely 30-44 G4 Severl y decreased 15-29 G5 Kidney failure <15Reported eGF R is based on the CKD-EPI 2020 equation that d oes not use a race coefficientEsti mated GFR is not as accur ate as Creatinine Leatha bry in predicting glom erular filtration rate . Estimated GFR is not appl icable for dialysis patien ts Soil Science Professor ID - [id number] 05:24:17 Test Item Value Reference Range Interpretation Comments PHOSPHORUS (BEAKER) (test code = 2.0 mg/dL 2.3-4.7 L 604) Soil Science Professor ID - [id number] 05:24:16 Test Item Value Reference Range Interpretation Comments MAGNESIUM (BEAKER) (test code = 2.0 mg/dL 1.6-2.6 627) Soil Science Professor ID - BSCBC W/PLT COUNT & AUTO [id number] 04:30:39 Test Item Value Reference Range Interpretation Comments WHITE BLOOD CELL COUNT (BEAKER) 6.7 K/ L 3.5-10.5 (test code = 775) RED BLOOD CELL COUNT (BEAKER) 3.53 M/ L 4.63-6.08 L (test code = 761) HEMOGLOBIN (BEAKER) (test code = 10.8 GM/DL 13.7-17.5 L 410) HEMATOCRIT (BEAKER) (test code = 31.8 % 40.1-51.0 L 411) MEAN CORPUSCULAR VOLUME (BEAKER) 90 fL 79-92 (test code = 753) MEAN CORPUSCULAR HEMOGLOBIN 30.6 pg 25.7-32.2 (BEAKER) (test code = 751) MEAN CORPUSCULAR HEMOGLOBIN CONC 34.0 GM/DL 32.3-36.5 (BEAKER) (test code = 752) RED CELL DISTRIBUTION WIDTH 14.6 % 11.6-14.4 H (BEAKER) (test code = 412) PLATELET COUNT (BEAKER) (test 150 K/CU MM 150-450 code = 756) MEAN PLATELET VOLUME (BEAKER) 9.8 fL 9.4-12.4 (test code = 754) NUCLEATED RED BLOOD CELLS 0 /100 WBC 0-0 (BEAKER) (test code = 413) NEUTROPHILS RELATIVE PERCENT 79 % (BEAKER) (test code = 429) LYMPHOCYTES RELATIVE PERCENT 15 % (BEAKER) (test code = 430) MONOCYTES RELATIVE PERCENT 6 % (BEAKER) (test code = 431) EOSINOPHILS RELATIVE PERCENT 0 % (BEAKER) (test code = 432) BASOPHILS RELATIVE PERCENT 0 % (BEAKER) (test code = 437) NEUTROPHILS ABSOLUTE COUNT 5.25 K/ L 1.78-5.38 (BEAKER) (test code = 670) LYMPHOCYTES ABSOLUTE COUNT 1.00 K/ L 1.32-3.57 L (BEAKER) (test code = 414) MONOCYTES ABSOLUTE COUNT (BEAKER) 0.39 K/ L 0.30-0.82 (test code = 415) EOSINOPHILS ABSOLUTE COUNT 0.01 K/ L 0.04-0.54 L (BEAKER) (test code = 416) BASOPHILS ABSOLUTE COUNT (BEAKER) 0.02 K/ L 0.01-0.08 (test code = 417) IMMATURE GRANULOCYTES-RELATIVE 0.30 % 0.00-1.00 PERCENT (BEAKER) (test code = 2801) CALCIUM, [id number] 04:25:07 Test Item Value Reference Range Interpretation Comments CALCIUM IONIZED (BEAKER) (test 1.06 mmol/L 1.12-1.27 L code = 698) PH, BLOOD (BEAKER) (test code = 7.43 1810) BLOOD GAS, [id number] 04:25:01 Test Item Value Reference Range Interpretation Comments PH ARTERIAL (BEAKER) (test code = 7.42 7.35-7.45 383) PCO2 ARTERIAL (BEAKER) (test code 35 mm Hg 35-45 = 384) PO2 ARTERIAL (BEAKER) (test code 190 mm Hg 80-90 H = 385) O2 SATURATION ARTERIAL (BEAKER) 99.3 % 96.0-97.0 H (test code = 386) HCO3 ARTERIAL (BEAKER) (test code 22 mmol/L 21-29 = 388) BASE EXCESS ARTERIAL (BEAKER) -1.5 mmol/L -2.0-3.0 (test code = 387) PATIENT TEMPERATURE (BEAKER) 37.5 (test code = 1818) FIO2 (BEAKER) (test code = 1819) 40.0 POCT-GLUCOSE [id number] 01:12:37 Test Item Value Reference Range Interpretation Comments POC-GLUCOSE METER 167 mg/dL 70-110 H : TESTED A T [facility] 6720 (MESFIN) (test code = [facility] [place], 1538) [address]: Soil Science Professor/Techni ariela ID = [id number] for AL I (V)NURY RAD, ABDOMEN/KUB, 1 VIEW [id number] 23:53:00downtime order [facility] : 1970 Sex: MFINAL REPORT CLINICAL HISTORY: ngt COMPARISON: Same date at 2147 hours hours FINDINGS: 3 supine images of the abdomen are submitted. As before, NO ENTERIC TUBE IS IDENTIFIED. Please correlate to exclude the possibility of intrathoracic placement. The abdominal bowel gas pattern is nonspecific but grossly unobstructed. The stomach is distended with gas. There is no evidence of organomegaly or significant ascites. The inferior radiopaque tip of an IABP overlies L2. There is no acute bony abnormality. A right femoral vascular sheath is in place. Signed: Benito Alvarado MDRort Verified Date/Time: 07/07/2022 23:53:49 , ABDOMEN/KUB, 1 VIEW [id number] 22:14:00Reason for exam:->NGT placementShould this be performed at the bedside?->Yes [facility] 1970 Sex: MFINAL REPORT CLINICAL HISTORY: NGT placement COMPARISON: Same date at 1416 hours FINDINGS: Two supine images of the abdomen are submitted. NO ENTERIC TUBE IS IDENTIFIED. Please correlate to exclude the possibility of intrathoracic placement. The abdominal bowel gas pattern is nonspecific but grossly unobstructed. The stomach is distended with gas. There is no evidence of organomegaly or significant ascites. The inferior radiopaque tip of an IABP overlies L2. There is no acute bony abnormality. Signed: Benito Alvarado MDReport Verified Date/Time: 07/07/2022 22:14:03 CORTISOL,60 [id number] 20:34:26 Test Item Value Reference Range Interpretation Comments CORTISOL BASELINE NETWORKED 25.5 mcg/dL (BEAKER) (test code = 2307) CORTISOL 30 MINUTE NETWORKED 43.3 mcg/dL (BEAKER) (test code = 2308) CORTISOL, 60 MINUTE (BEAKER) 55.0 ug/dL (test code = 1805) ACTH STIMULATION TEST INTERPRETATION GUIDELINES(Synonyms: Cortrosyn Test, Cosyntropin or Corticotropin Stimulation Test)Adenocorticotropic hormone (ACTH)is a tropic hormone, made in the pituitary gland, which travels trhough the bloodstream and stimulates the cortex of the adrenal glands to release co rtisol. Cortisol is a primary hormone, which aids the body's metabolism of fats, carbohydrates, and protein as well as sodium and potassium regulation.ACTH Stimulation Test: Exogenous administration ofbiologically active ACTH stimulates the secretion of cortisol from the adrenal gland. This test is used to evaluate adrenal function by measuring cortisol levels at baseline and at 30 and 60 minutes after the administration of 250 micrograms of cosyntropin (Cortrosyn). Patients who have received exogenous corticosteroids immediately prior to performing the ACTH Stimulation Test will often have elevated baseline cortisol levels, which may lead to erroneous interpretation of test results. The notable exception is with dexamethasone.Normal Response: An increase in cortisol after stimulation by ACTH isnormal. Post-stimulation cortisol concentration should be greater than 20 mcg/dL or the rate of risefrom baseline cortisol should be greater than or equal to 9 mcg/dL.Patients with sepsis or septic shock: According to a study by Corinna et al (TYRA 2000,283(8):1038-45), the ACTH Stimulation Test provides important prognostic information. This study defined 3 groups of patients with sepsis or septic shock: 1. Good Survival: Low basal cortisol (<or=34 mcg/dL) and high ACTH response (>9mcg/dL) 2. Intermediate Survival: Low basal cortisol (<34 mcg/dL) and low response to ACTH (<or=9 mcg/dL) OR High basal cortisol (>34 mcg/dL) or high ACTH response (>9 mcg/dL) 3. Poor Survival: High basal cortisol (>34 mcg/dL) and low ACTH response (<or=9 mcg/dL).Treatment of patients with relative adrenal dysfunction may be indicated based on test results and the clinical condition of the patient. Additional information, including treatment recommendations, is available in critically ill patients, approved by the Pharmacy, Nutrition, and Therapeutics Committee on 04/01/2004 and available through the Pharmacy Policy and Procedure Section on [employer] Source.Soil Science Professor ID - BSCORTISOL,30 [id number] 19:17:50 Test Item Value Reference Range Interpretation Comments CORTISOL BASELINE NETWORKED 25.5 mcg/dL (BEAKER) (test code = 2307) CORTISOL, 30 MINUTE (BEAKER) 43.3 ug/dL (test code = 1804) ACTH STIMULATION TEST INTERPRETATION GUIDELINES(Synonyms: Cortrosyn Test, Cosyntropin or Corticotropin Stimulation Test)Adenocorticotropic hormone (ACTH)is a tropic hormone, made in the pituitary gland, which travels trhough the bloodstream and stimulates the cortex of the adrenal glands to release co rtisol. Cortisol is a primary hormone, which aids the body's metabolism of fats, carbohydrates, and protein as well as sodium and potassium regulation.ACTH Stimulation Test: Exogenous administration ofbiologically active ACTH stimulates the secretion of cortisol from the adrenal gland. This test is used to evaluate adrenal function by measuring cortisol levels at baseline and at 30 and 60 minutes after the administration of 250 micrograms of cosyntropin (Cortrosyn). Patients who have received exogenous corticosteroids immediately prior to performing the ACTH Stimulation Test will often have elevated baseline cortisol levels, which may lead to erroneous interpretation of test results. The notable exception is with dexamethasone.Normal Response: An increase in cortisol after stimulation by ACTH isnormal. Post-stimulation cortisol concentration should be greater than 20 mcg/dL or the rate of risefrom baseline cortisol should be greater than or equal to 9 mcg/dL.Patients with sepsis or septic shock: According to a study by Corinna et al (TYRA 2000,283(8):1038-45), the ACTH Stimulation Test provides important prognostic information. This study defined 3 groups of patients with sepsis or septic shock: 1. Good Survival: Low basal cortisol (<or=34 mcg/dL) and high ACTH response (>9mcg/dL) 2.Intermediate Survival: Low basal cortisol (<34 mcg/dL) and low response to ACTH (<or=9 mcg/dL)OR High basal cortisol (>34 mcg/dL) or high ACTH response (>9 mcg/dL) 3. Poor Survival: High basal cortisol (>34 mcg/dL) and low ACTH response (<or=9 mcg/dL).Treatment of patients with relative adrenal dysfunction may be indicated based on test results and the clinical condition of the patient. Additional information, including treatment recommendations, is available in critically ill patients, approved by the Pharmacy, Nutrition, and Therapeutics Committee on 04/01/2004 and available through the Pharmacy Policy and Procedure Section on [employer].Soil Science Professor ID - BSBLOOD GAS, ARTERIAL 2022-07-07 18:37:11 Test Item Value Reference Range Interpretation Comments PH ARTERIAL (BEAKER) (test code = 7.48 7.35-7.45 H 383) PCO2 ARTERIAL (BEAKER) (test code 26 mm Hg 35-45 L = 384) PO2 ARTERIAL (BEAKER) (test code 243 mm Hg 80-90 H = 385) O2 SATURATION ARTERIAL (BEAKER) 99.6 % 96.0-97.0 H (test code = 386) HCO3 ARTERIAL (BEAKER) (test code 19 mmol/L 21-29 L = 388) BASE EXCESS ARTERIAL (BEAKER) -3.0 mmol/L -2.0-3.0 L (test code = 387) PATIENT TEMPERATURE (BEAKER) 37.5 (test code = 1818) FIO2 (BEAKER) (test code = 1819) 50.0 CORTISOL,[id number] 18:27:37 Test Item Value Reference Range Interpretation Comments CORTISOL, BASELINE (BEAKER) (test 25.5 ug/dL code = 1803) ACTH STIMULATION TEST INTERPRETATION GUIDELINES(Synonyms: Cortrosyn Test, Cosyntropin or Corticotropin Stimulation Test)Adenocorticotropic hormone (ACTH)is a tropic hormone, made in the pituitary gland, which travels trhough the bloodstream and stimulates the cortex of the adrenal glands to release co rtisol. Cortisol is a primary hormone, which aids the body's metabolism of fats, carbohydrates, and protein as well as sodium and potassium regulation.ACTH Stimulation Test: Exogenous administration ofbiologically active ACTH stimulates the secretion of cortisol from the adrenal gland. This test is used to evaluate adrenal function by measuring cortisol levels at baseline and at 30 and 60 minutes after the administration of 250 micrograms of cosyntropin (Cortrosyn). Patients who have received exogenous corticosteroids immediately prior to performing the ACTH Stimulation Test will often have elevated baseline cortisol levels, which may lead to erroneous interpretation of test results. The notable exception is with dexamethasone.Normal Response: An increase in cortisol after stimulation by ACTH isnormal. Post-stimulation cortisol concentration should be greater than 20 mcg/dL or the rate of risefrom baseline cortisol should be greater than or equal to 9 mcg/dL.Patients with sepsis or septic shock: According to a study by Corinna et al (TYRA 2000,283(8):1038-45), the ACTH Stimulation Test provides important prognostic information. This study defined 3 groups of patients with sepsis or septic shock: 1. Good Survival: Low basal cortisol (<or=34 mcg/dL) and high ACTH response (>9mcg/dL) 2.Intermediate Survival: Low basal cortisol (<34 mcg/dL) and low response to ACTH (<or=9 mcg/dL)OR High basal cortisol (>34 mcg/dL) or high ACTH response (>9 mcg/dL) 3. Poor Survival: High basal cortisol (>34 mcg/dL) and low ACTH response (<or=9 mcg/dL).Treatment of patients with relative adrenal dysfunction may be indicated based on test results and the clinical condition of the patient. Additional information, including treatment recommendations, is available in critically ill patients, approved by the Pharmacy, Nutrition, and Therapeutics Committee on 04/01/2004 and available through the Pharmacy Policy and Procedure Section on The [employer].Soil Science Professor ID - BSPOCT-GLUCOSE [id number] 18:08:48 Test Item Value Reference Range Interpretation Comments POC-GLUCOSE METER 129 mg/dL 70-110 H : TESTED A T [facility] 67[address] (BEAKER) (test code = DEJUAN MEDEROS [place], 1538) [address]: Soil Science Professor/Techni ariela ID = [id number] for ISAIAH DOMINGO MARK COMPREHENSIVE METABOLIC [id number] 18:07:01 Test Item Value Reference Range Interpretation Comments TOTAL PROTEIN 5.9 gm/dL 6.0-8.3 L (BEAKER) (test code = 770) ALBUMIN (BEAKER) 3.2 g/dL 3.5-5.0 L (test code = 1145) ALKALINE 76 U/L 40-150 PHOSPHATASE (BEAKER) (test code = 346) BILIRUBIN TOTAL 0.9 mg/dL 0.2-1.2 (BEAKER) (test code = 377) SODIUM (BEAKER) 135 meq/L 136-145 L (test code = 381) POTASSIUM (BEAKER) 3.9 meq/L 3.5-5.1 (test code = 379) CHLORIDE (BEAKER) 110 meq/L 98-107 H (test code = 382) CO2 (BEAKER) (test 18 meq/L 22-29 L code = 355) BLOOD UREA 15 mg/dL 7-21 NITROGEN (BEAKER) (test code = 354) CREATININE 0.71 mg/dL 0.57-1.25 (BEAKER) (test code = 358) GLUCOSE RANDOM 133 mg/dL 70-105 H (BEAKER) (test code = 652) CALCIUM (BEAKER) 7.8 mg/dL 8.4-10.2 L (test code = 697) AST (SGOT) 34 U/L 5-34 (BEAKER) (test code = 353) ALT (SGPT) 47 U/L 6-55 (BEAKER) (test code = 347) EGFR (BEAKER) 109 Interpretatio n of eGFR (test code = 1092) mL/min/1.[address] age Description sq m Result G1 Norm al or high >=90 G2 Mildly decreased 60-89 G3a Mildl y to moderately 45-5 9 G3b Moderately to s everely 30-44 G4 Severl y decreased 15-29 G5 Kidney failure <15Reported eGF R is based on the CKD-EPI 2020 equation that d oes not use a race coefficientEsti mated GFR is not as accur ate as Creatinine Leatha bry in predicting glom erular filtration rate . Estimated GFR is not appl icable for dialysis patien ts Soil Science Professor ID - [id number] 18:05:33 Test Item Value Reference Range Interpretation Comments MAGNESIUM (BEAKER) (test code = 1.7 mg/dL 1.6-2.6 627) Soil Science Professor ID - BSLACTIC ACID, [id number] 17:57:54 Test Item Value Reference Range Interpretation Comments LACTATE BLOOD 1.5 mmol/L 0.5-2.2 Specimen sligh tly ARTERIAL (2) (BEAKER) hemoly zed (test code = 2874) Soil Science Professor ID - BSCALCIUM, [id number] 17:48:30 Test Item Value Reference Range Interpretation Comments CALCIUM IONIZED (BEAKER) (test 1.06 mmol/L 1.12-1.27 L code = 698) PH, BLOOD (BEAKER) (test code = 7.40 1810) Transthoracic 2D echo w/ doppler (cw/pw/color)2022-07-07 17:42:14Ejection FractionSLEH ECHO HEARTLAB MKCKESSON CPACHI [facility]UB[facility] 1 VIEW [id number] 15:15:00Reason for exam:->OG tube placementShould this be performed at the bedside?->Yes [facility]: 1970 Sex: MFINAL REPORT Supine abdomen: HISTORY: OG tube placement Compared to 07/06/2022. The orogastric tube referred to in the clinical history again projects with its tip in the gastric fundus. The proximal marker for an IABP is again present and projects at the L2 level. It was slightly more cephalad at the L1-2 level previously. A right femoral sheath and urinary catheter reject over the lowerpelvis. There is scattered large and small bowel gas noted without distention. The stomach has been decompressed compared to the prior study. Signed: Jeremías Carroll MDReport Verified Date/Time: 07/07/2022 15:15:32 RAD, CHEST, 1 VIEW, NON [id number] 14:59:00Reason for exam:->ETT adjustmentShould this be performed at the bedside?->Yes [facility] : 1970 Sex: MFINAL REPORT CLINICAL HISTORY: ETT adjustment TECHNIQUE: 1 view of the chest. COMPARISON: 07/07/2022 IMPRESSION: The ETT terminates roughly 3 cm above the calos. The IABP catheter remains at the aortic knob. An NGT again projects into the stomach. Diffuse bilateral airspace opacities are similar appearing. Subpulmonic pleural effusions cannot be excluded. The cardiomediastinal silhouetteis magnified by technique. Signed: Byron Baker MDReport Verified Date/Time: 07/07/2022 14:59:17 Reading Location: [address] Reading Room Urinalysis w/Microscopic + Reflex to [id number] 13:11:19 Test Item Value Reference Range Interpretation Comments Color, UA (test code Gilson = 5778-6) Clarity, UA (test Hazy code = 5767-9) Specific [place], UA 1.021 1.001-1.035 (test code = 5811-5) pH, UA (test code = 5.5 5.0-8.0 5803-2) Protein, UA (test 30 mg/dL Negative A code = 04561-2) Glucose, UA (test Negative Negative code = 365) Ketones, UA (test 60 mg/dL Negative A code = 2514-8) Bilirubin, UA (test Negative Negative code = 35526-5) Blood, UA (test code Large Negative A = 11096-4) Nitrite, UA (test Negative Negative code = 5802-4) Leukocytes, UA (test Large Negative A code = 5799-2) Urobilinogen, UA 0.2 0.2-1.0 (test code = 39602-0) RBC, UA (test code = 1893 See_Comment [Autom ated 38190-4) message] The system which generated this result transmitted reference range : /HPF. The reference range was not used to interpret this result as normal/abnormal . WBC, UA (test code = 54 See_Comment [Autom ated 5821-4) message] The system which generated this result transmitted reference range : /HPF. The reference range was not used to interpret this result as normal/abnormal . Mucus (test code = Occasional 8247-9) Hyaline Casts, UA 5 See_Comment [Automate d (test code = 34356-2) messag e] The system which generated this result transmitted reference range : /LPF. The reference range was not used to interpret this result as normal/abnormal . Crystals, Urine (test Moderate None Seen A code = 82657-0) Specimen Source (test code = 2795) JENNI (test code = JENNI) Soil Science Professor ID - [auto]Soil Science Professor ID - tech Lab Interpretation Abnormal (test code = 32603-1) [facility] URINE [id number] 13:11:19 Test Item Value Reference Range Interpretation Comments COLOR (BEAKER) (test code = 470) [place] CLARITY (BEAKER) (test code = 469) Hazy SPECIFIC GRAVITY UA (BEAKER) (test 1.021 1.001-1.035 code = 468) PH UA (BEAKER) (test code = 467) 5.5 5.0-8.0 PROTEIN UA (BEAKER) (test code = 30 mg/dL Negative A 464) GLUCOSE UA (BEAKER) (test code = Negative Negative 365) KETONES UA (BEAKER) (test code = 60 mg/dL Negative A 371) BILIRUBIN UA (BEAKER) (test code = Negative Negative 462) BLOOD UA (BEAKER) (test code = Large Negative A 461) NITRITE UA (BEAKER) (test code = Negative Negative 465) LEUKOCYTE ESTERASE UA (BEAKER) Large Negative A (test code = 466) UROBILINOGEN UA (BEAKER) (test 0.2 0.2-1.0 code = 463) RBC UA (BEAKER) (test code = 519) 1893 /HPF WBC UA (BEAKER) (test code = 520) 54 /HPF MUCUS (BEAKER) (test code = 1574) Occasional HYALINE CASTS (BEAKER) (test code 5 /LPF = 514) CRYSTALS, URINE (BEAKER) (test Moderate None Seen A code = 1521) SOURCE(BEAKER) (test code = 2795) Soil Science Professor ID - [auto]Soil Science Professor ID - [id number] 12:39:54 Test Item Value Reference Range Interpretation Comments PARTIAL THROMBOPLASTIN TIME 81.6 seconds 22.5-36.0 H (BEAKER) (test code = 760) POCT-GLUCOSE [id number] 12:02:57 Test Item Value Reference Range Interpretation Comments POC-GLUCOSE METER 122 mg/dL 70-110 H : TESTED A T [facility] [address] (BEAKER) (test code = DEJUAN MEDER[place], 1538) [address]: Soil Science Professor/Techni ariela ID = [id number] for MARK MOURA RAD, CHEST, 1 VIEW, NON [id number] 08:29:00Reason for exam:->ett placementShould this be performed at the bedside?->Yes [facility] : 1970 Sex: MFINAL REPORT CLINICAL HISTORY: ett placement TECHNIQUE: 1 view of the chest. COMPARISON: 07/07/2022 IMPRESSION: ETT terminates 4.5 cm above the calos. NGT in the stomach, IABP catheter at the aortic arch. There are increased diffuse right asymmetric airspace opacities. Subpulmonic pleuraleffusions cannot be excluded. The cardiomediastinal silhouette is magnified by technique. Signed: Byron Baker MDReport Verified Date/Time: 07/07/2022 08:29:08 RAD, CHEST, 1 VIEW, NON [id number] 07:47:00Reason for exam:->iabp positionReason for exam:->Pulmunary edemaShould this be performed at the bedside?->Yes [facility] : 1970 Sex: MFINAL REPORT CLINICAL HISTORY: iabp positionPulmonary edema TECHNIQUE: 1 view of the chest. COMPARISON: 07/06/2022 IMPRESSION: The supporting lines and tubes are similar appearing. No lobarconsolidation. Minimal blunting of left costophrenic angle. The cardiomediastinal silhouette is magnified by technique. Signed: Byron Baker MDReport Verified Date/Time: 07/07/2022 07:47:53 BLOOD GAS, [id number] 05:34:22 Test Item Value Reference Range Interpretation Comments PH VENOUS (BEAKER) (test code = 7.43 7.32-7.42 H 701) PCO2 VENOUS (BEAKER) (test code = 35 mm Hg 41-51 L 755) PO2 VENOUS (BEAKER) (test code = 90 mm Hg 25-40 H 702) O2 SATURATION VENOUS (BEAKER) 97.0 % 40.0-70.0 H (test code = 703) HCO3 VENOUS (BEAKER) (test code = 22 mmol/L 21-29 705) BASE EXCESS VENOUS (BEAKER) (test -1.3 mmol/L -2.0-3.0 code = 704) PATIENT TEMPERATURE (BEAKER) 37.3 (test code = 1818) FIO2 (BEAKER) (test code = 1819) 40.0 POCT-GLUCOSE [id number] 05:01:29 Test Item Value Reference Range Interpretation Comments POC-GLUCOSE METER 170 mg/dL 70-110 H : TESTED A T [facility] [address] (BEAKER) (test code = DEJU[place] MEDER[place], 1538) [address]: Soil Science Professor/Techni ariela ID = [id number] for BART LAST (LettyDARIEL Vieyra COMPREHENSIVE METABOLIC [id number] 04:13:58 Test Item Value Reference Range Interpretation Comments TOTAL PROTEIN 5.9 gm/dL 6.0-8.3 L Specimen sligh tly (BEAKER) (test hemolyzed code = 770) ALBUMIN (BEAKER) 3.2 g/dL 3.5-5.0 L Specimen sl ightly (test code = 1145) hemolyzed ALKALINE 79 U/L 40-150 PHOSPHATASE (BEAKER) (test code = 346) BILIRUBIN TOTAL 0.9 mg/dL 0.2-1.2 Specimen sli ghtly (BEAKER) (test hemolyzed code = 377) SODIUM (BEAKER) 135 meq/L 136-145 L (test code = 381) POTASSIUM (BEAKER) 3.5 meq/L 3.5-5.1 Specimen slightly (test code = 379) hemolyzed CHLORIDE (BEAKER) 108 meq/L 98-107 H (test code = 382) CO2 (BEAKER) (test 20 meq/L 22-29 L code = 355) BLOOD UREA 13 mg/dL 7-21 NITROGEN (BEAKER) (test code = 354) CREATININE 0.74 mg/dL 0.57-1.25 Specimen slight ly (BEAKER) (test hemolyzed code = 358) GLUCOSE RANDOM 93 mg/dL 70-105 (BEAKER) (test code = 652) CALCIUM (BEAKER) 7.9 mg/dL 8.4-10.2 L (test code = 697) AST (SGOT) 48 U/L 5-34 H Specimen slight ly (BEAKER) (test hemolyzed code = 353) ALT (SGPT) 58 U/L 6-55 H Specimen slight ly (BEAKER) (test hemolyzed code = 347) EGFR (BEAKER) 108 Interpretatio n of eGFR (test code = 1092) mL/min/1.[address] age Description sq m Result G1 Norm al or high >=90 G2 Mildly decreased 60-89 G3a Mildl y to moderately 45-5 9 G3b Moderately to s everely 30-44 G4 Severl y decreased 15-29 G5 Kidne y failure <15Reported eGF R is based on the CKD-EPI 1 equation that d oes not use a race coefficientEsti mated GFR is not as accur ate as Creatinine Leatha londono in predicting glom erular filtration rate . Estimated GFR is not appl icable for dialysis patien ts Soil Science Professor ID - BSCBC W/PLT COUNT & AUTO [id number] 03:35:10 Test Item Value Reference Range Interpretation Comments WHITE BLOOD CELL COUNT (BEAKER) 7.5 K/ L 3.5-10.5 (test code = 775) RED BLOOD CELL COUNT (BEAKER) 3.90 M/ L 4.63-6.08 L (test code = 761) HEMOGLOBIN (BEAKER) (test code = 12.2 GM/DL 13.7-17.5 L 410) HEMATOCRIT (BEAKER) (test code = 35.6 % 40.1-51.0 L 411) MEAN CORPUSCULAR VOLUME (BEAKER) 91 fL 79-92 (test code = 753) MEAN CORPUSCULAR HEMOGLOBIN 31.3 pg 25.7-32.2 (BEAKER) (test code = 751) MEAN CORPUSCULAR HEMOGLOBIN CONC 34.3 GM/DL 32.3-36.5 (BEAKER) (test code = 752) RED CELL DISTRIBUTION WIDTH 15.0 % 11.6-14.4 H (BEAKER) (test code = 412) PLATELET COUNT (BEAKER) (test 149 K/CU MM 150-450 L code = 756) MEAN PLATELET VOLUME (BEAKER) 8.7 fL 9.4-12.4 L (test code = 754) NUCLEATED RED BLOOD CELLS 0 /100 WBC 0-0 (BEAKER) (test code = 413) NEUTROPHILS RELATIVE PERCENT 73 % (BEAKER) (test code = 429) LYMPHOCYTES RELATIVE PERCENT 19 % (BEAKER) (test code = 430) MONOCYTES RELATIVE PERCENT 5 % (BEAKER) (test code = 431) EOSINOPHILS RELATIVE PERCENT 2 % (BEAKER) (test code = 432) BASOPHILS RELATIVE PERCENT 1 % (BEAKER) (test code = 437) NEUTROPHILS ABSOLUTE COUNT 5.44 K/ L 1.78-5.38 H (BEAKER) (test code = 670) LYMPHOCYTES ABSOLUTE COUNT 1.38 K/ L 1.32-3.57 (BEAKER) (test code = 414) MONOCYTES ABSOLUTE COUNT (BEAKER) 0.40 K/ L 0.30-0.82 (test code = 415) EOSINOPHILS ABSOLUTE COUNT 0.17 K/ L 0.04-0.54 (BEAKER) (test code = 416) BASOPHILS ABSOLUTE COUNT (BEAKER) 0.05 K/ L 0.01-0.08 (test code = 417) IMMATURE GRANULOCYTES-RELATIVE 0.30 % 0.00-1.00 PERCENT (BEAKER) (test code = 2801) [id number] 01:40:54 Test Item Value Reference Range Interpretation Comments PARTIAL THROMBOPLASTIN TIME 74.8 seconds 22.5-36.0 H (BEAKER) (test code = 760) POCT-GLUCOSE [id number] 23:36:45 Test Item Value Reference Range Interpretation Comments POC-GLUCOSE METER 99 mg/dL 70-110 : TESTED A T [facility] [address] (BEAKER) (test code = DIDIERANNABELLA MEDEROS [place], 1538) [address]: Soil Science Professor/Techni ariela ID = [id number] for RUBEN MARROQUIN (V)DARIEL COMPREHENSIVE METABOLIC [id number] 19:04:44 Test Item Value Reference Range Interpretation Comments TOTAL PROTEIN 5.6 gm/dL 6.0-8.3 L (BEAKER) (test code = 770) ALBUMIN (BEAKER) 3.2 g/dL 3.5-5.0 L (test code = 1145) ALKALINE 77 U/L 40-150 PHOSPHATASE (BEAKER) (test code = 346) BILIRUBIN TOTAL 0.9 mg/dL 0.2-1.2 (BEAKER) (test code = 377) SODIUM (BEAKER) 136 meq/L 136-145 (test code = 381) POTASSIUM (BEAKER) 3.3 meq/L 3.5-5.1 L (test code = 379) CHLORIDE (BEAKER) 109 meq/L 98-107 H (test code = 382) CO2 (BEAKER) (test 21 meq/L 22-29 L code = 355) BLOOD UREA 13 mg/dL 7-21 NITROGEN (BEAKER) (test code = 354) CREATININE 0.74 mg/dL 0.57-1.25 (BEAKER) (test code = 358) GLUCOSE RANDOM 104 mg/dL 70-105 (BEAKER) (test code = 652) CALCIUM (BEAKER) 7.7 mg/dL 8.4-10.2 L (test code = 697) AST (SGOT) 58 U/L 5-34 H (BEAKER) (test code = 353) ALT (SGPT) 66 U/L 6-55 H (BEAKER) (test code = 347) EGFR (BEAKER) 108 Interpretatio n of eGFR (test code = 1092) mL/min/1.[address] age Description sq m Result G1 [place] l or high >=90 G2 Mildly decreased 60-89 G3a Mildl y to moderately 45-5 9 G3b Moderately to s everely 30-44 G4 Severl y decreased 15-29 G5 Kidney failure <15Reported eGF R is based on the CKD-EPI 2020 equation that d oes not use a race coefficientEsti mated GFR is not as accur ate as Creatinine Leatha bry in predicting glom erular filtration rate . Estimated GFR is not appl icable for dialysis patien ts Soil Science Professor ID - [id number] 18:52:25 Test Item Value Reference Range Interpretation Comments PARTIAL THROMBOPLASTIN TIME 51.3 seconds 22.5-36.0 H (BEAKER) (test code = 760) CALCIUM, [id number] 18:44:34 Test Item Value Reference Range Interpretation Comments CALCIUM IONIZED (BEAKER) (test 1.00 mmol/L 1.12-1.27 L code = 698) PH, BLOOD (BEAKER) (test code = 7.44 1810) BLOOD GAS, [id number] 18:44:27 Test Item Value Reference Range Interpretation Comments PH ARTERIAL (BEAKER) (test code = 7.43 7.35-7.45 383) PCO2 ARTERIAL (BEAKER) (test code 33 mm Hg 35-45 L = 384) PO2 ARTERIAL (BEAKER) (test code 187 mm Hg 80-90 H = 385) O2 SATURATION ARTERIAL (BEAKER) 99.3 % 96.0-97.0 H (test code = 386) HCO3 ARTERIAL (BEAKER) (test code 21 mmol/L 21-29 = 388) BASE EXCESS ARTERIAL (BEAKER) -2.2 mmol/L -2.0-3.0 L (test code = 387) PATIENT TEMPERATURE (BEAKER) 37.5 (test code = 1818) FIO2 (BEAKER) (test code = 1819) 40.0 CBC (HEMOGRAM ONLY)2022-07-06 18:43:19 Test Item Value Reference Range Interpretation Comments WHITE BLOOD CELL COUNT (BEAKER) 9.0 K/ L 3.5-10.5 (test code = 775) RED BLOOD CELL COUNT (BEAKER) 3.96 M/ L 4.63-6.08 L (test code = 761) HEMOGLOBIN (BEAKER) (test code = 12.1 GM/DL 13.7-17.5 L 410) HEMATOCRIT (BEAKER) (test code = 34.8 % 40.1-51.0 L 411) MEAN CORPUSCULAR VOLUME (BEAKER) 88 fL 79-92 (test code = 753) MEAN CORPUSCULAR HEMOGLOBIN 30.6 pg 25.7-32.2 (BEAKER) (test code = 751) MEAN CORPUSCULAR HEMOGLOBIN CONC 34.8 GM/DL 32.3-36.5 (BEAKER) (test code = 752) RED CELL DISTRIBUTION WIDTH 14.7 % 11.6-14.4 H (BEAKER) (test code = 412) PLATELET COUNT (BEAKER) (test 146 K/CU MM 150-450 L code = 756) MEAN PLATELET VOLUME (BEAKER) 8.7 fL 9.4-12.4 L (test code = 754) NUCLEATED RED BLOOD CELLS 0 /100 WBC 0-0 (BEAKER) (test code = 413) POCT-GLUCOSE [id number] 18:19:09 Test Item Value Reference Range Interpretation Comments POC-GLUCOSE METER 101 mg/dL 70-110 : TESTED A T [facility] 6720 (BEAKER) (test code = DEJUAN Singh [facility], 1538) [id number]: Soil Science Professor/Techni ariela ID = [id number] for SABRINA MOLINAA CT, CTANGIO [id number] 15:16:00AMS, post arrestUnlisted Reason for Exam - Click Yes and Enter Reason Below->No [facility] CENTERName: GUZMAN HA : 1970 Sex: MFINAL REPORT CT, CAROTID, ANGIO, CT, CTANGIO BRAINBRAIN CT WITHOUT CONTRAST INDICATION:Unlisted Reason for Exampost arrest, AMS COMPARISON: CT head of the same date TECHNIQUE:Rapid acquisition spiral images were obtained between the aortic arch and the cranial vertex during intravenous contrast infusion to reconstruct axial images and angiographic 3D maximum intensity projections (MIP).3-D volumetric reformatted images were created at a dedicated workstation. Precontrast images of thebrain were also obtained. Stenosis evaluation reported in compliance with NASCET criteria. DOSE REDUCTION: Dose modulation, iterative reconstruction, and/or weight-based adjustment of the mA/kV was utilized to reduce the radiation dose to as low as reasonably achievable. FINDINGS: CTA BRAIN:Internal carotid arteries: Petrous, cavernous and supraclinoid portions patent. Middle cerebral arteries: Bilateral MCA M1-M2 branches demonstrate normal contrast enhancement.Anterior cerebral arteries: BilateralACA A1-A2 branches demonstrate normal contrast enhancement.Basilar system: Normal contrast opacification of the vertebrobasilar system.Posterior cerebral arteries: Normal contrast opacification of the bilateral VEGETABLE FARMWORKER P1-P2 branches.Venous opacification: Major dural sinuses unremarkable for bolus timing.Additional findings: None. CTA NECK: 1.No proximal vessel occlusion within the head or neck.2.Motion degradation limits evaluation. Within these limitations, there is at least 50% stenosis of the right common carotid artery and likely 70-80% stenosis of the right proximal ICA due to calcific and noncalc ific atherosclerotic plaque, however, this cannot be reliably determined due to the degree of motionartifact.3.Suspected 60-70% stenosis of the left proximal ICA by NASCET criteria, which cannot be reliably determined due to degree of motion artifact. Contrast opacification throughout within the cervical internal carotid arteries, common carotid arteries and vertebral arteries. Nonvascular findings:No acute findings within the neck soft tissues. IMPRESSION:1.No proximal vessel occlusion within thehead or neck.2.Motion degradation limits evaluation. Within these limitations, there is at least 50%stenosis of the right common carotid artery and likely 70-80% stenosis of the right proximal ICA due to calcific and noncalcific atherosclerotic plaque, however, this cannot be reliably determined due to the degree of motion artifact.3.Suspected 60-70% stenosis of the left proximal ICA by NASCET criteria, which cannot be reliably determined due to degree of motion artifact. Signed: Alayna Mcclure MDReport Verified Date/Time: 07/06/2022 15:16:07 Electronically signed by: Danielle AVILES 07/06/2022 03:16 PMCT, CAROTID, [id number] 15:16:00Unlisted Reason for Exam - Click Yes and Enter Reason Below- >YesUnlisted Reason for Exam->postarrest, AMS [facility] CENTERName: GUZMAN HA : 1970 Sex: MFINAL REPORT CT, CAROTID, ANGIO, CT, CTANGIO BRAINBRAIN CT WITHOUT CONTRAST INDICATION:Unlisted Reason for Exampost arrest, AMS COMPARISON: CT head of the same date TECHNIQUE:Rapid acquisition spiral images were obtained between the aortic arch and the cranial vertex during intravenous contrast infusion to reconstruct axial images and angiographic 3D maximum intensity projections (MIP).3-D volumetric reformatted images were created at a dedicated workstation. Precontrast images of thebrain were also obtained. Stenosis evaluation reported in compliance with NASCET criteria. DOSE REDUCTION: Dose modulation, iterative reconstruction, and/or weight-based adjustment of the mA/kV was utilized to reduce the radiation dose to as low as reasonably achievable. FINDINGS: CTA BRAIN:Internal carotid arteries: Petrous, cavernous and supraclinoid portions patent. Middle cerebral arteries: Bilateral MCA M1-M2 branches demonstrate normal contrast enhancement.Anterior cerebral arteries: BilateralACA A1-A2 branches demonstrate normal contrast enhancement.Basilar system: Normal contrast opacification of the vertebrobasilar system.Posterior cerebral arteries: Normal contrast opacification of the bilateral VEGETABLE FARMWORKER P1-P2 branches.Venous opacification: Major dural sinuses unremarkable for bolus timing.Additional findings: None. CTA NECK: 1.No proximal vessel occlusion within the head or neck.2.Motion degradation limits evaluation. Within these limitations, there is at least 50% stenosis of the right common carotid artery and likely 70-80% stenosis of the right proximal ICA due to calcific and noncalc ific atherosclerotic plaque, however, this cannot be reliably determined due to the degree of motionartifact.3.Suspected 60-70% stenosis of the left proximal ICA by NASCET criteria, which cannot be reliably determined due to degree of motion artifact. Contrast opacification throughout within the cervical internal carotid arteries, common carotid arteries and vertebral arteries. Nonvascular findings:No acute findings within the neck soft tissues. IMPRESSION:1.No proximal vessel occlusion within the head or neck.2.Motion degradation limits evaluation. Within these limitations, there is at least 50% stenosis of the right common carotid artery and likely 70-80% stenosis of the right proximal ICA due to calcific and noncalcific atherosclerotic plaque, however, this cannot be reliably determined due to the degree of motion artifact.3.Suspected 60-70% stenosis of the left proximal ICA by NASCET criteria, which cannot be reliably determined due to degree of motion artifact. Signed: Alayna Mcclure MDReport Verified Date/Time: 07/06/2022 15:16:07 CT, BRAIN, WITHOUT CONTRAST 2022-07-06 15:08:00 [facility] 1970 Sex: MFINAL REPORT CT, BRAIN, WITHOUT CONTRAST CLINICAL INDICATION: Mental status change, unknown cause COMPARISON: None TECHNIQUE: Noncontrast axial CT imaging of the brain and skull. DOSE REDUCTION: Dose modulation, iterative reconstruction, and/or weight-based adjustment of the mA/kV was utilized to reduce the radiation dose to as low as reasonably achievable. FINDINGS:No intracranial hemorrhage, midline shift or mass effect. Midline structures are normally developed. Scattered foci of hypoattenuation are present throughout the periventricular and subcortical white matter, and, although nonspecific by imaging, statistically represent mild chronic microvascular ischemic changes in this age group. No hydrocephalus. Orbits are within normal limits. No obstructive paranasal sinus disease. IMPRESSION: No acute intracranial findings If there is persistent clinical concern for intracranial pathology, MR examination is recommended for further characterization. Signed: Alayna Mcclure MDReportVerified Date/Time: 07/06/2022 15:08:33 BLOOD GAS, [id number] 13:05:18 Test Item Value Reference Range Interpretation Comments PH ARTERIAL (BEAKER) (test code = 7.47 7.35-7.45 H 383) PCO2 ARTERIAL (BEAKER) (test code 29 mm Hg 35-45 L = 384) PO2 ARTERIAL (BEAKER) (test code 195 mm Hg 80-90 H = 385) O2 SATURATION ARTERIAL (BEAKER) 99.4 % 96.0-97.0 H (test code = 386) HCO3 ARTERIAL (BEAKER) (test code 21 mmol/L 21-29 = 388) BASE EXCESS ARTERIAL (BEAKER) -1.8 mmol/L -2.0-3.0 (test code = 387) PATIENT TEMPERATURE (BEAKER) 37.5 (test code = 1818) FIO2 (BEAKER) (test code = 1819) 40 HEMOGLOBIN [id number] 12:09:06 Test Item Value Reference Range Interpretation Comments HEMOGLOBIN A1C 5.3 % See_Comment [Automated m essage] ELECTROPHORESIS (BEAKER) The system which (test code = 3811) generated this result transmitted ref erence range: <=5.6%. The reference range was not used to int erpret this result as normal/abnormal . "The A1c is measured using a NGSP-certified method. HbA1c value equal to or greater than 6.5% as thediagnosis cutoff for diabetes. An HbA1c value of 5.7- 6.4% indicates increased risk for diabetes (prediabetes)."Soil Science Professor ID - ADMOperator ID - ADMPOCT-GLUCOSE [id number] 11:07:42 Test Item Value Reference Range Interpretation Comments POC-GLUCOSE METER 111 mg/dL 70-110 H : TESTED A T [facility] 6720 ([facility]) (test code = [facility] [place] [facility], 1538) [address]: Soil Science Professor/Techni ariela ID = [id number] for CHANDRAKANT MOLINA [id number] 10:27:40 Test Item Value Reference Range Interpretation Comments PARTIAL THROMBOPLASTIN TIME 63.8 seconds 22.5-36.0 H ([facility]) (test code = 760) POCT-GLUCOSE [id number] 07:21:47 Test Item Value Reference Range Interpretation Comments POC-GLUCOSE METER 93 mg/dL 70-110 : [facility]) (test code = [facility], 1538) [id number]: Soil Science Professor/Techni ariela ID = [id number] for CHANDRAKANT ALMENDAREZ LACTIC ACID, [id number] 06:52:55 Test Item Value Reference Range Interpretation Comments LACTATE BLOOD VENOUS (2) ([facility]) 1.27 mmol/L 0.50-2.20 (test code = 2872) Soil Science Professor ID - BSHIGH SENSITIVITY TROPONIN [id number] 06:51:44 Test Item Value Reference Range Interpretation Comments HIGH SENSITIVITY TROPONIN I (test 3860 pg/ml <=35 HH code = 0824311) Soil Science Professor ID - POLI GThe TRAINING TECHNICIAN STAT High Sensitivity Troponin-I results should be used in conjunction with other diagnostic information such as ECG, clinical observations and information, and patient symptoms to aid in the diagnosis of OH.RAD, ABDOMEN/KUB, 1 VIEW [id number] 06:46:00Reason for exam:- >OG Tube placementShould this be performed at the bedside?->Yes [facility] 1970 Sex: MFINAL REPORT CLINICAL HISTORY: iabp positionPulmonary edema TECHNIQUE: 1 view of the chest. Supine abdomen. COMPARISON: None IMPRESSION: The distal IABP catheter projects at the aortic knob. The proximal IABP marker projects at the L1-L2 disc level. An ETT projects at the clavicles. The NGT terminates in the gastric fundus. There is a right femoral line. There is pulmonary vascular congestion. There is no significant appearing pleural fluid. The cardiomediastinal silhouette is magnifiedby technique. There is mild gaseous prominence of the stomach. There are a few mildly, air-filled loops of small bowel in the central abdomen. Free air and air-fluid levels cannot be excluded on supineview. Signed: Byron Baker MDReport Verified Date/Time: 07/06/2022 06:46:53 , CHEST, 1 VIEW, NON [id number] 06:46:00Reason for exam:->iabp positionReason for exam:->Pulmunary edemaShould this be performed at the bedside?->[facility] : 1970 Sex: MFINAL REPORT CLINICAL HISTORY: iabp positionPulmonary edema TECHNIQUE: 1 view of the chest. Supine abdomen. COMPARISON: None IMPRESSION: The distal IABP catheter projects at the aortic knob. The proximal IABP marker projects at the L1-L2 disc level. An ETT projects at the clavicles. The NGT terminates in the gastric fundus. There is a right femoral line. There is pulmonary vascular conge stion. There is no significant appearing pleural fluid. The cardiomediastinal silhouette is magnified by technique. There is mild gaseous prominence of the stomach. There are a few mildly, air-filled loops of small bowel in the central abdomen. Free air and air-fluid levels cannot be excluded on supine view. Signed: Byron Baker MDReport Verified Date/Time: 07/06/2022 06:46:53 POCT- GLUCOSE [id number] 06:21:14 Test Item Value Reference Range Interpretation Comments POC-GLUCOSE METER 100 mg/dL 70-110 : TESTED A T [facility] 6720 (BEAKER) (test code = [facility], 1538) [id number]: Soil Science Professor/Techni ariela ID = [id number] for JESÚS GODINEZ BLOOD GAS, [id number] 04:00:06 Test Item Value Reference Range Interpretation Comments PH ARTERIAL (BEAKER) (test code = 7.46 7.35-7.45 H 383) PCO2 ARTERIAL (BEAKER) (test code 30 mm Hg 35-45 L = 384) PO2 ARTERIAL (BEAKER) (test code 209 mm Hg 80-90 H = 385) O2 SATURATION ARTERIAL (BEAKER) 99.5 % 96.0-97.0 H (test code = 386) HCO3 ARTERIAL (BEAKER) (test code 21 mmol/L 21-29 = 388) BASE EXCESS ARTERIAL (BEAKER) -2.5 mmol/L -2.0-3.0 L (test code = 387) PATIENT TEMPERATURE (BEAKER) 36.5 (test code = 1818) FIO2 (BEAKER) (test code = 1819) 40.0 HIGH SENSITIVITY TROPONIN [id number] 03:36:50 Test Item Value Reference Range Interpretation Comments HIGH SENSITIVITY TROPONIN I (test 4288 pg/ml <=35 HH code = 4205531) Soil Science Professor ID - POLI GThe TRAINING TECHNICIAN STAT High Sensitivity Troponin-I results should be used in conjunction with other diagnostic information such as ECG, clinical observations and information, and patient symptoms to aid in the diagnosis of OH.[id number] 03:22:51 Test Item Value Reference Range Interpretation Comments PARTIAL THROMBOPLASTIN TIME 63.5 seconds 22.5-36.0 H (BEAKER) (test code = 760) HIGH SENSITIVITY TROPONIN [id number] 02:13:15 Test Item Value Reference Range Interpretation Comments HIGH SENSITIVITY TROPONIN I (test 3991 pg/ml <=35 HH code = 0286390) Soil Science Professor ID - BSThe TRAINING TECHNICIAN STAT High Sensitivity Troponin-I results should be used in conjunctionwith other diagnostic information such as ECG, clinical observations and information, and patient symptoms to aid in the diagnosis of OH.BASIC METABOLIC [id number] 02:10:10 Test Item Value Reference Range Interpretation Comments SODIUM (BEAKER) 140 meq/L 136-145 (test code = 381) POTASSIUM 3.5 meq/L 3.5-5.1 (BEAKER) (test code = 379) CHLORIDE (BEAKER) 112 meq/L 98-107 H (test code = 382) CO2 (BEAKER) 22 meq/L 22-29 (test code = 355) BLOOD UREA 17 mg/dL 7-21 NITROGEN (BEAKER) (test code = 354) CREATININE 0.92 mg/dL 0.57-1.25 (BEAKER) (test code = 358) GLUCOSE RANDOM 122 mg/dL 70-105 H (BEAKER) (test code = 652) CALCIUM (BEAKER) 7.6 mg/dL 8.4-10.2 L (test code = 697) EGFR (BEAKER) 101 Interpretatio n of eGFR (test code = mL/min/1.73 values Stage De scription 1092) sq m Result G1 Lynn l or high >=90 G2 Mildly decreased 60-89 G3a Mildl y to moderately 45-5 9 G3b Moderately to s everely 30-44 G4 Severl y decreased 15-29 G5 Kidney failure <15Reported eGF R is based on the CKD-EPI 2020 equation that d oes not use a race coefficientEsti mated GFR is not as accur ate as Creatinine Leatha londono in predicting glom erular filtration rate . Estimated GFR is not appl icable for dialysis patien ts Soil Science Professor ID - BSB-TYPE NATRIURETIC FACTOR (BNP)2022-07-06 01:41:59 Test Item Value Reference Range Interpretation Comments B-TYPE NATRIURETIC PEPTIDE (BEAKER) 235 pg/mL 0-100 H (test code = 700) Soil Science Professor ID - [id number] 01:40:51 Test Item Value Reference Range Interpretation Comments PARTIAL THROMBOPLASTIN TIME > seconds 22.5-36.0 HH (BEAKER) (test code = 760) LIPID [id number] 01:35:59 Test Item Value Reference Range Interpretation Comments TRIGLYCERIDES (BEAKER) (test code = 37 mg/dL 540) CHOLESTEROL (BEAKER) (test code = 136 mg/dL 631) HDL CHOLESTEROL (BEAKER) (test code 52 mg/dL = 976) LDL CHOLESTEROL CALCULATED (BEAKER) 77 mg/dL (test code = 633) Triglyceride Reference Range: Low Risk <150 Borderline 150-199 High Risk 200-499 Very High Risk >=500Cholesterol Reference Range: Low Risk <200 Borderline 200-239 High Risk >240HDL Cholesterol Reference Range: Low Risk >=60 High Risk <40LDL Cholesterol Reference Range: Optimal <100 Near Optimal 100-129 Borderline 130-159 High 160-189 Very High >=190 Soil Science Professor ID - BSHEPATIC FUNCTION [id number] 01:35:59 Test Item Value Reference Range Interpretation Comments TOTAL PROTEIN (BEAKER) (test code = 5.9 gm/dL 6.0-8.3 L 770) ALBUMIN (BEAKER) (test code = 1145) 3.5 g/dL 3.5-5.0 BILIRUBIN TOTAL (BEAKER) (test code 0.9 mg/dL 0.2-1.2 = 377) BILIRUBIN DIRECT (BEAKER) (test 0.4 mg/dL 0.1-0.5 code = 706) ALKALINE PHOSPHATASE (BEAKER) (test 88 U/L 40-150 code = 346) AST (SGOT) (BEAKER) (test code = 117 U/L 5-34 H 353) ALT (SGPT) (BEAKER) (test code = 96 U/L 6-55 H 347) Soil Science Professor ID - [id number] 01:35:59 Test Item Value Reference Range Interpretation Comments MAGNESIUM (BEAKER) (test code = 1.8 mg/dL 1.6-2.6 627) Soil Science Professor ID - BSPOCT-GLUCOSE [id number] 01:30:08 Test Item Value Reference Range Interpretation Comments POC-GLUCOSE METER 92 mg/dL 70-110 : TESTED A T [facility] 6720 (BEAKER) (test code = DEJUAN Singh [place], 1538) [address]: Soil Science Professor/Techni ariela ID = [id number] for VELVET JESÚS PROTHROMBIN TIME/[id number] 01:22:15 Test Item Value Reference Range Interpretation Comments PROTIME (BEAKER) (test code = 15.6 seconds 11.9-14.2 H 759) INR (BEAKER) (test code = 370) 1.27 <=5.90 RECOMMENDED COUMADIN/WARFARIN INR THERAPY RANGESSTANDARD DOSE: 2.0 - 3.0 Includes: PROPHYLAXIS for venous thrombosis, systemic embolization; TREATMENT for venous thrombosis and/or pulmonary embolus.HIGH RISK: Target INR is 2.5-3.5 for patients with mechanical heart valves.CBC W/PLT COUNT & AUTO [id number] 01:18:36 Test Item Value Reference Range Interpretation Comments WHITE BLOOD CELL COUNT (BEAKER) 10.0 K/ L 3.5-10.5 (test code = 775) RED BLOOD CELL COUNT (BEAKER) 4.19 M/ L 4.63-6.08 L (test code = 761) HEMOGLOBIN (BEAKER) (test code = 12.9 GM/DL 13.7-17.5 L 410) HEMATOCRIT (BEAKER) (test code = 37.8 % 40.1-51.0 L 411) MEAN CORPUSCULAR VOLUME (BEAKER) 90 fL 79-92 (test code = 753) MEAN CORPUSCULAR HEMOGLOBIN 30.8 pg 25.7-32.2 (BEAKER) (test code = 751) MEAN CORPUSCULAR HEMOGLOBIN CONC 34.1 GM/DL 32.3-36.5 (BEAKER) (test code = 752) RED CELL DISTRIBUTION WIDTH 14.5 % 11.6-14.4 H (BEAKER) (test code = 412) PLATELET COUNT (BEAKER) (test 173 K/CU MM 150-450 code = 756) MEAN PLATELET VOLUME (BEAKER) 8.6 fL 9.4-12.4 L (test code = 754) NUCLEATED RED BLOOD CELLS 0 /100 WBC 0-0 (BEAKER) (test code = 413) NEUTROPHILS RELATIVE PERCENT 82 % (BEAKER) (test code = 429) LYMPHOCYTES RELATIVE PERCENT 12 % (BEAKER) (test code = 430) MONOCYTES RELATIVE PERCENT 5 % (BEAKER) (test code = 431) EOSINOPHILS RELATIVE PERCENT 0 % (BEAKER) (test code = 432) BASOPHILS RELATIVE PERCENT 0 % (BEAKER) (test code = 437) NEUTROPHILS ABSOLUTE COUNT 8.20 K/ L 1.78-5.38 H (BEAKER) (test code = 670) LYMPHOCYTES ABSOLUTE COUNT 1.21 K/ L 1.32-3.57 L (BEAKER) (test code = 414) MONOCYTES ABSOLUTE COUNT (BEAKER) 0.51 K/ L 0.30-0.82 (test code = 415) EOSINOPHILS ABSOLUTE COUNT 0.00 K/ L 0.04-0.54 L (BEAKER) (test code = 416) BASOPHILS ABSOLUTE COUNT (BEAKER) 0.02 K/ L 0.01-0.08 (test code = 417) IMMATURE GRANULOCYTES-RELATIVE 0.50 % 0.00-1.00 PERCENT (BEAKER) (test code = 2801) CBC (HEMOGRAM ONLY)2022-07-06 01:15:58 Test Item Value Reference Range Interpretation Comments WHITE BLOOD CELL COUNT (BEAKER) 10.0 K/ L 3.5-10.5 (test code = 775) RED BLOOD CELL COUNT (BEAKER) 4.19 M/ L 4.63-6.08 L (test code = 761) HEMOGLOBIN (BEAKER) (test code = 12.9 GM/DL 13.7-17.5 L 410) HEMATOCRIT (BEAKER) (test code = 37.8 % 40.1-51.0 L 411) MEAN CORPUSCULAR VOLUME (BEAKER) 90 fL 79-92 (test code = 753) MEAN CORPUSCULAR HEMOGLOBIN 30.8 pg 25.7-32.2 (BEAKER) (test code = 751) MEAN CORPUSCULAR HEMOGLOBIN CONC 34.1 GM/DL 32.3-36.5 (BEAKER) (test code = 752) RED CELL DISTRIBUTION WIDTH 14.5 % 11.6-14.4 H (BEAKER) (test code = 412) PLATELET COUNT (BEAKER) (test 173 K/CU MM 150-450 code = 756) MEAN PLATELET VOLUME (BEAKER) 8.6 fL 9.4-12.4 L (test code = 754) NUCLEATED RED BLOOD CELLS 0 /100 WBC 0-0 (BEAKER) (test code = 413) [id number] 22:38:19 Test Item Value Reference Range Interpretation Comments ACTIVATED CLOTTING TIME 305 sec : 74 -137 seconds, (BEAKER) (test code = Baseli ne: TESTED AT 441) [address], [facility] 30: Soil Science Professor/Techni ariela ID = [id number] for Becky mendez (contract)Diana [id number] 22:11:45 Test Item Value Reference Range Interpretation Comments ACTIVATED CLOTTING TIME 227 sec : 74 -137 seconds, (BEAKER) (test code = Baseli ne: TESTED AT 441) [address], [facility] 30: Soil Science Professor/Techni ariela ID = [id number] for RAMOS CANSECO BASIC METABOLIC PANEL (NA, K, CL, CO2, GLUCOSE, BUN, CREATININE, CA)2022-02-26 10:13:52 Test Item Value Reference Range Interpretation Comments NA (test code = 137 mmol/L 135-145 5879039166) K (test code = 4.1 mmol/L 3.5-5.0 9997606024) CL (test code = 104 mmol/L 98-108 1194777517) CO2 TOTAL (test code = 27 mmol/L 23-31 4239261920) AGAP (test code = 2-16 3044101709) BUN (test code = 11 mg/dL 7-23 9949745928) GLUCOSE (test code = 95 mg/dL 70-110 7513179392) CREATININE (test code = 0.92 mg/dL 0.60-1.25 8254110233) CALCIUM (test code = 8.5 mg/dL 8.6-10.6 L 8796241662) eGFR (test code = mL/min/1.73m2 6400807325) JENNI (test code = JENNI) Association of Glomerular Filtration Rate (GFR) and Staging of Kidney Disease* + --+ --+ ------+| GFR (mL/min/1.73 m2) ?| With Kidney Damage ?| ?Without Kidney Damage+ --------+ --------+ +| ?>90 ?| ?Stage one ?| ? Normal ?+ ---+ ---+ -------+| ?60-89 ?| ?Stage two ?| ? Decreased GFR ? + --+ --+ ------+| ?30-59 ?| ?Stage three ?| ? Stage three ? + --+ --+ ------+| ?15-29 ?| ?Stage four ? | ? Stage four ?+ ---+ ---+ -------+| ?<15 (or dialysis) ? ?| ?Stage five ? | ? Stage five ?+ ---+ ---+ -------+ *Each stage assumes the associated GFR level has been in effect for at least three months. ?Stages 1 to 5, with or without kidney disease, indicate chronic kidney disease. Notes: Determination of stages one and two (with eGFR >59mL/min/1.73 m2) requires estimation of kidney damage for at least three months as defined by structural or functional abnormalities of the kidney, manifested by either:Pathological abnormalities or Markers of kidney damage (including abnormalities in the composition of the blood or urine or abnormalities in imaging tests). Lab Interpretation Abnormal (test code = 74817-1) [facility] METABOLIC PANEL (NA, K, CL, CO2, GLUCOSE, BUN, CREATININE, CA)2022-02-26 10:13:52 Test Item Value Reference Range Interpretation Comments NA (test code = 137 mmol/L 135-145 9365429609) K (test code = 4.1 mmol/L 3.5-5.0 6676634636) CL (test code = 104 mmol/L 98-108 7045619033) CO2 TOTAL (test code = 27 mmol/L 23-31 9248490955) AGAP (test code = 2-16 7910356624) BUN (test code = 11 mg/dL 7-23 0711861474) GLUCOSE (test code = 95 mg/dL 70-110 6434457645) CREATININE (test code = 0.92 mg/dL 0.60-1.25 7026729076) CALCIUM (test code = 8.5 mg/dL 8.6-10.6 L 8276841102) eGFR (test code = mL/min/1.73m2 8014465806) JENNI (test code = JENNI) Association of Glomerular Filtration Rate (GFR) and Staging of Kidney Disease* + --+ --+ ------+| GFR (mL/min/1.73 m2) ?| With Kidney Damage ?| ?Without Kidney Damage+ --------+ --------+ +| ?>90 ?| ?Stage one ?| ? Normal ?+ ---+ ---+ -------+| ?60-89 ?| ?Stage two ?| ? Decreased GFR ? + --+ --+ ------+| ?30-59 ?| ?Stage three ?| ? Stage three ? + --+ --+ ------+| ?15-29 ?| ?Stage four ? | ? Stage four ?+ ---+ ---+ -------+| ?<15 (or dialysis) ? ?| ?Stage five ? | ? Stage five ?+ ---+ ---+ -------+ *Each stage assumes the associated GFR level has been in effect for at least three months. ?Stages 1 to 5, with or without kidney disease, indicate chronic kidney disease. Notes: Determination of stages one and two (with eGFR >59mL/min/1.73 m2) requires estimation of kidney damage for at least three months as defined by structural or functional abnormalities of the kidney, manifested by either:Pathological abnormalities or Markers of kidney damage (including abnormalities in the composition of the blood or urine or abnormalities in imaging tests). Lab Interpretation Abnormal (test code = 26838-3) [facility] WITH [id number] 10:13:22 Test Item Value Reference Range Interpretation Comments WBC (test code = See_Comment [Automated 6190-2) message] The sy stem which generated this result transmitted reference range : 4.20 - 10.70 10*3/?L. The reference range was not used to interpret this result as normal/abnormal . RBC (test code = See_Comment L [Automated 149-8) message] The sy stem which generated this result transmitted reference range : 4.26 - 5.52 10*6/?L. The reference range was not used to interpret this result as normal/abnormal . HGB (test code = 13.2 g/dL 12.2-16.4 718-7) HCT (test code = 37.8 % 38.4-49.3 L 4544-3) MCV (test code = 91.1 fL 81.7-95.6 787-2) MCH (test code = 31.8 pg 26.1-32.7 785-6) MCHC (test code = 34.9 g/dL 31.2-35.0 786-4) RDW-SD (test code = 46.1 fL 38.5-51.6 78201-8) RDW-CV (test code = 13.6 % 12.1-15.4 788-0) PLT (test code = See_Comment [Automated 777-3) message] The sy stem which generated this result transmitted reference range : 150 - 328 10*3/ ?L. The reference r elpidio was not used to interpret this result as normal/abnormal . MPV (test code = 8.6 fL 9.8-13.0 L 40841-5) NRBC/100 WBC (test See_Comment [Automat ed code = 5408175709) message] The system which generated this result transmitted reference range : 0.0 - 10.0 /100 WBCs. The refer ence range was not u sed to interpret th is result as normal/abnormal . NRBC x10^3 (test code See_Comment [Auto mated = 6949179492) message] The s ystem which generated this result transmitted reference range : 10*3/?L. The reference range was not used to interpret this result as normal/abnormal . GRAN MAT (NEUT) % 52.3 % (test code = 770-8) IMM GRAN % (test code 3.20 % = 9724467727) LYMPH % (test code = 31.4 % 736-9) MONO % (test code = 8.9 % 5905-5) EOS % (test code = 3.1 % 713-8) BASO % (test code = 1.1 % 706-2) GRAN MAT x10^3(ANC) 3.71 10*3/uL 1.99-6.95 (test code = 8783156769) IMM GRAN x10^3 (test 0.23 10*3/uL 0.00-0.06 H code = 2083768816) LYMPH x10^3 (test code 2.23 10*3/uL 1.09-3.23 = 731-0) MONO x10^3 (test code 0.63 10*3/uL 0.36-1.02 = 742-7) EOS x10^3 (test code = 0.22 10*3/uL 0.06-0.53 711-2) BASO x10^3 (test code 0.08 10*3/uL 0.01-0.09 = 704-7) Lab Interpretation Abnormal (test code = 34042-8) [facility] WITH [id number] 10:13:22 Test Item Value Reference Range Interpretation Comments WBC (test code = See_Comment [Automated 6690-2) message] The sy stem which generated this result transmitted reference range : 4.20 - 10.70 10*3/?L. The reference range was not used to interpret this result as normal/abnormal . RBC (test code = See_Comment L [Automated 789-8) message] The sy stem which generated this result transmitted reference range : 4.26 - 5.52 10*6/?L. The reference range was not used to interpret this result as normal/abnormal . HGB (test code = 13.2 g/dL 12.2-16.4 718-7) HCT (test code = 37.8 % 38.4-49.3 L 4544-3) MCV (test code = 91.1 fL 81.7-95.6 787-2) MCH (test code = 31.8 pg 26.1-32.7 785-6) MCHC (test code = 34.9 g/dL 31.2-35.0 786-4) RDW-SD (test code = 46.1 fL 38.5-51.6 63349-3) RDW-CV (test code = 13.6 % 12.1-15.4 788-0) PLT (test code = See_Comment [Automated 777-3) message] The sy stem which generated this result transmitted reference range : 150 - 328 10*3/ ?L. The reference r elpidio was not used to interpret this result as normal/abnormal . MPV (test code = 8.6 fL 9.8-13.0 L 75602-3) NRBC/100 WBC (test See_Comment [Automat ed code = 0010132314) message] The system which generated this result transmitted reference range : 0.0 - 10.0 /100 WBCs. The refer ence range was not u sed to interpret th is result as normal/abnormal . NRBC x10^3 (test code See_Comment [Auto mated = 2302964489) message] The s ystem which generated this result transmitted reference range : 10*3/?L. The reference range was not used to interpret this result as normal/abnormal . GRAN MAT (NEUT) % 52.3 % (test code = 770-8) IMM GRAN % (test code 3.20 % = 8335965492) LYMPH % (test code = 31.4 % 736-9) MONO % (test code = 8.9 % 5905-5) EOS % (test code = 3.1 % 713-8) BASO % (test code = 1.1 % 706-2) GRAN MAT x10^3(ANC) 3.71 10*3/uL 1.99-6.95 (test code = 1072473136) IMM GRAN x10^3 (test 0.23 10*3/uL 0.00-0.06 H code = 1425575932) LYMPH x10^3 (test code 2.23 10*3/uL 1.09-3.23 = 731-0) MONO x10^3 (test code 0.63 10*3/uL 0.36-1.02 = 742-7) EOS x10^3 (test code = 0.22 10*3/uL 0.06-0.53 711-2) BASO x10^3 (test code 0.08 10*3/uL 0.01-0.09 = 704-7) Lab Interpretation Abnormal (test code = 47389-4) [facility] [id number] 22:25:16 Test Item Value Reference Range Interpretation Comments LACTIC ACID (test code = 1.96 mmol/L 0.50-2.20 3175649624) Lab Interpretation (test code = Normal 63440-2) [facility] [id number] 22:25:16 Test Item Value Reference Range Interpretation Comments LACTIC ACID (test code = 1.96 mmol/L 0.50-2.20 4405557662) Lab Interpretation (test code = Normal 03002-4) [facility] (A1C)2021-04-07 16:10:23 Test Item Value Reference Range Interpretation Comments HGB A1C (test code = 5.5 % 4.0-5.7 4548-4) JENNI (test code = JENNI) Reference RangesNormal: <5.7%Prediabetes: 5.7 - 6.4%Diabetes: > 6.5% Lab Interpretation (test Normal code = 31433-4) [facility] [id number] 15:16:44 Test Item Value Reference Range Interpretation Comments NT-proBNP (test code 106 pg/mL See_Comment [Autom ated = 6702314862) message] The system which generated this result transmitted reference range : <=125. The reference range was not used to interpret this result as normal/abnormal . JENNI (test code = JENNI) Biotin has been reported to cause a negative bias, interpret results relative to patient's use of biotin. Lab Interpretation Normal (test code = 29203-3) [facility] (07846)(TOTAL CHOLESTEROL, TRIGLYCERIDES, HDL)2021-04-07 15:05:59 Test Item Value Reference Range Interpretation Comments CHOL (test code = 215 mg/dL 120-200 H 1536519152) HDL (test code = 43 mg/dL >40 8396978334) HDLC RATIO (test code = See_Comment [Au tomated message] 6700909692) The system [employer] generated this result transmit ozë reference range : <=5.0. The refe rence range was not u sed to interpret th is result as normal/abnormal . TRIG (test code = 93 mg/dL 30-170 6760316833) LDL CHOL (test code = 153 mg/dL See_Comment [Auto mated message] 31147-6) The system [employer] generated this result transmit zoë reference range : <=160. The refe rence range was not u sed to interpret th is result as normal/abnormal . VLDL (test code = 19 mg/dL 5-60 5668221275) Lab Interpretation (test Abnormal code = 28496-8) [facility] [id number] 10:37:07 Test Item Value Reference Interpretation Comments Range TROPONIN I (test 0.008 ng/mL See_Comment [Automated code = 3209846142) message] The system which generated this result transmitted reference range : <=0.034. The reference range was not used to interpret this result as normal/abnormal . JENNI (test code = Reference (Normal) JENNI) Range (defined by the 99th percentile reference limit): <= 0.034 ng/mL Note: Cardiac troponin begins to rise 3-4 hours after the onset of ischemia. Repeat in 4-6 hours if the sample was drawn within 3-4 hours of the onset of the symptom and found normal. Diagnosis of myocardial injury is made with acute changes in cTn concentrations with at least one serial sample above the 99th percentile upper reference limit (URL), taken together with the patient's clinical presentation. Biotin has been reported to cause a negative bias, interpret results relative to patient's use of biotin. Lab Interpretation Normal (test code = 15999-5) [facility] [id number] 03:53:00 Test Item Value Reference Interpretation Comments Range TROPONIN I (test 0.022 ng/mL See_Comment Hemolyzed code = 0647524906) specimen [Automated message] The system which generated this result transmitted reference range : <=0.034. The reference range was not used to interpret this result as normal/abnormal . JENNI (test code = Reference (Normal) JENNI) Range (defined by the 99th percentile reference limit): <= 0.034 ng/mL Note: Cardiac troponin begins to rise 3-4 hours after the onset of ischemia. Repeat in 4-6 hours if the sample was drawn within 3-4 hours of the onset of the symptom and found normal. Diagnosis of myocardial injury is made with acute changes in cTn concentrations with at least one serial sample above the 99th percentile upper reference limit (URL), taken together with the patient's clinical presentation. Biotin has been reported to cause a negative bias, interpret results relative to patient's use of biotin. Lab Interpretation Normal (test code = 36212-6) [facility] [id number] 22:24:50 Test Item Value Reference Interpretation Comments Range TROPONIN I (test 0.010 ng/mL See_Comment [Automated code = 9065446745) message] The system which generated this result transmitted reference range : <=0.034. The reference range was not used to interpret this result as normal/abnormal . JENNI (test code = Reference (Normal) JENNI) Range (defined by the 99th percentile reference limit): <= 0.034 ng/mL Note: Cardiac troponin begins to rise 3-4 hours after the onset of ischemia. Repeat in 4-6 hours if the sample was drawn within 3-4 hours of the onset of the symptom and found normal. Diagnosis of myocardial injury is made with acute changes in cTn concentrations with at least one serial sample above the 99th percentile upper reference limit (URL), taken together with the patient's clinical presentation. Biotin has been reported to cause a negative bias, interpret results relative to patient's use of biotin. Lab Interpretation Normal (test code = 01482-1) [facility] [id number] 22:21:48 Test Item Value Reference Range Interpretation Comments NT-proBNP (test code 145 pg/mL See_Comment H [Autom ated = 9757909703) message] The system which generated this result transmitted reference range : <=125. The reference range was not used to interpret this result as normal/abnormal . JENNI (test code = JENNI) Biotin has been reported to cause a negative bias, interpret results relative to patient's use of biotin. Lab Interpretation Abnormal (test code = 82215-7) [facility]OLIC PAN[facility] (15620)2021-04-06 22:13:03 Test Item Value Reference Range Interpretation Comments NA (test code = 138 mmol/L 135-145 1352286295) K (test code = 4.2 mmol/L 3.5-5.0 6639831599) CL (test code = 101 mmol/L 98-108 2748238905) CO2 TOTAL (test code = 30 mmol/L 23-31 4778365835) AGAP (test code = 2-16 2191584590) BUN (test code = 12 mg/dL 7-23 2116553039) GLUCOSE (test code = 117 mg/dL 70-110 H 1194200590) CREATININE (test code = 0.92 mg/dL 0.60-1.25 8666388000) TOTAL BILI (test code = 0.4 mg/dL 0.1-1.5 9388772672) CALCIUM (test code = 9.4 mg/dL 8.6-10.6 0520473430) T PROTEIN (test code = 7.4 g/dL 6.3-8.2 7318016640) ALBUMIN (test code = 4.3 g/dL 3.5-5.0 5887726275) ALK PHOS (test code = 88 U/L 34-122 4289238107) ALTv (test code = 22 U/L 5-50 2-6) AST(SGOT) (test code = 25 U/L 13-40 5372380973) eGFR (test code = mL/min/1.73m2 3202296408) JENNI (test code = JENNI) Association of Glomerular Filtration Rate (GFR) and Staging of Kidney Disease* + --+ --+ ------+| GFR (mL/min/1.73 m2) ?| With Kidney Damage ?| ?Without Kidney Damage+ --------+ --------+ +| ?>90 ?| ?Stage one ?| ? Normal ?+ ---+ ---+ -------+| ?60-89 ?| ?Stage two ?| ? Decreased GFR ? + --+ --+ ------+| ?30-59 ?| ?Stage three ?| ? Stage three ? + --+ --+ ------+| ?15-29 ?| ?Stage four ? | ? Stage four ?+ ---+ ---+ -------+| ?<15 (or dialysis) ? ?| ?Stage five ? | ? Stage five ?+ ---+ ---+ -------+ *Each stage assumes the associated GFR level has been in effect for at least three months. ?Stages 1 to 5, with or without kidney disease, indicate chronic kidney disease. Notes: Determination of stages one and two (with eGFR >59mL/min/1.73 m2) requires estimation of kidney damage for at least three months as defined by structural or functional abnormalities of the kidney, manifested by either:Pathological abnormalities or Markers of kidney damage (including abnormalities in the composition of the blood or urine or abnormalities in imaging tests). Lab Interpretation Abnormal (test code = 19785-4) [facility] WITH [id number] 22:11:00 Test Item Value Reference Range Interpretation Comments WBC (test code = See_Comment [Automated 6690-2) message] The sy stem which generated this result transmitted reference range : 4.20 - 10.70 10*3/?L. The reference range was not used to interpret this result as normal/abnormal . RBC (test code = See_Comment [Automated 789-8) message] The sy stem which generated this result transmitted reference range : 4.26 - 5.52 10*6/?L. The reference range was not used to interpret this result as normal/abnormal . HGB (test code = 16.0 g/dL 12.2-16.4 718-7) HCT (test code = 46.3 % 38.4-49.3 4544-3) MCV (test code = 93.9 fL 81.7-95.6 787-2) MCH (test code = 32.5 pg 26.1-32.7 785-6) MCHC (test code = 34.6 g/dL 31.2-35.0 786-4) RDW-SD (test code = 44.3 fL 38.5-51.6 40180-4) RDW-CV (test code = 12.8 % 12.1-15.4 788-0) PLT (test code = See_Comment [Automated 777-3) message] The sy stem which generated this result transmitted reference range : 150 - 328 10*3/ ?L. The reference r elpidio was not used to interpret this result as normal/abnormal . MPV (test code = 8.7 fL 9.8-13.0 L 16981-7) NRBC/100 WBC (test See_Comment [Automat ed code = 0630964666) message] The system which generated this result transmitted reference range : 0.0 - 10.0 /100 WBCs. The refer ence range was not u sed to interpret th is result as normal/abnormal . NRBC x10^3 (test code <0.01 See_Comment [Auto mated = 5650580692) message] The s ystem which generated this result transmitted reference range : 10*3/?L. The reference range was not used to interpret this result as normal/abnormal . GRAN MAT (NEUT) % 61.5 % (test code = 770-8) IMM GRAN % (test code 0.90 % = 4294135076) LYMPH % (test code = 28.4 % 736-9) MONO % (test code = 4.6 % 5905-5) EOS % (test code = 3.8 % 713-8) BASO % (test code = 0.8 % 706-2) GRAN MAT x10^3(ANC) 4.72 10*3/uL 1.99-6.95 (test code = 3385637266) IMM GRAN x10^3 (test 0.07 10*3/uL 0.00-0.06 H code = 8797754922) LYMPH x10^3 (test code 2.18 10*3/uL 1.09-3.23 = 731-0) MONO x10^3 (test code 0.35 10*3/uL 0.36-1.02 L = 742-7) EOS x10^3 (test code = 0.29 10*3/uL 0.06-0.53 711-2) BASO x10^3 (test code 0.06 10*3/uL 0.01-0.09 = 704-7) Lab Interpretation Abnormal (test code = 01492-3) [facility]
[2022-08-14 13:18] LABS: Absolute Lymphocytes (CBC) 1.5 K/uL (0.7-4.9); Hematocrit 33.6 % (39.6-49.0); MCV 88.7 fL (80-100); MPV 6.5 fL (7.6-11.3); RBC Red Blood Cell Count 3.79 M/uL (4.33-5.43)
[2022-08-14 13:24] LABS: Protime INR 1.11
[2022-08-14 13:37] LABS: Albumin 3.8 g/dL (3.4-5.0); Bilirubin Direct 0.1 mg/dL (0-0.2); Bilirubin Total 0.4 mg/dL (0.2-1.0); Magnesium 2.4 mg/dL (1.6-2.4); Potassium 4.3 mEq/L (3.5-5.1); Protein, Total 7.8 g/dL (6.4-8.2); Troponin High Sensitivity 11.4 pg/mL (<58.9)
--- NOTE | 2022-08-14 13:47 | RAD REPORT ---
EXAM DESCRIPTION: CT - Head Brain Wo Cont - 08/14/2022 1:20 pm CLINICAL HISTORY: HEADACHE COMPARISON: Head Brain Wo Cont dated 09/12/2016; Head Brain Wo Cont dated 11/23/2015 TECHNIQUE: Noncontrast head CT images ad were obtained without IV contrast. Multiplanar reformats we re generated and reviewed. All CT scans are performed using dose optimization technique as appropriate and may include automated exposure control or mA/KV adjustment according to patient size. FINDINGS: No intracranial hemorrhage, mass, or edema. Midline structures are unremarkable. Normal ventricular caliber for age. Joy-white matter differentiation is preserved, without evidence of acute infarct. No abnormal extra- axial fluid collections. Mastoid air cells and visualized portions of the paranasal sinuses are clear. No acute bony findings. IMPRESSION: No evidence of an acute intracranial process.
--- NOTE | 2022-08-14 13:48 | RAD REPORT ---
EXAM DESCRIPTION: Diaz Single View08/14/2022 1:15 pm CLINICAL HISTORY: CHEST PAIN COMPARISON: Chest Single View dated 03/18/2018; Chest Single View dated 12/19/2017; Chest Single View dated 11/05/2016; Chest Single View dated 09/12/2016 TECHNIQUE: Portable AP view of the chest. FINDINGS: The lungs are clear. No pneumothorax or effusion. The cardiomediastinal contours are unrem arkable apart from interval changes of coronary artery bypass grafting. IMPRESSION: No acute cardiopulmonary process.
[2022-08-14] MEDS ORDERED: MORPHINE 4 MG/ML SYR ONE (14:49)
[2022-08-14] MEDS ORDERED: ONDANSETRON 4 MG/2 ML VIAL ONE (14:49)
--- NOTE | 2022-08-14 15:34 | RAD REPORT ---
EXAM DESCRIPTION: CT - Chest For Pe Angio - 08/14/2022 3:04 pm CLINICAL HISTORY: chest pain, recent surgery COMPARISON: Chest For Pe Angio dated 03/18/2018; Head Brain Wo Cont dated 08/14/2022 TECHNIQUE: Thin axial CT images of the chest were obtained following administration of 90 mL Isovue 370 IV contrast. Multiplanar reconstructions, and maximum intensity projection reconstructions were g enerated and reviewed. Exam utilizes a protocol for optimal evaluation of pulmonary arterial tree. All CT scans are performed using dose optimization technique as appropriate and may include automated exposure control or mA/KV adjustment according to patient size. FINDINGS: Pulmonary arteries are normal. No emboli or other suspicious finding. No acute or signific ant aorta findings. No mass or infiltrate in the lung parenchyma. Nodular small opacities in the upper segment left lower lobe, likely atelectasis. Bilateral dependent platelike atelectatic changes as well. No pleural thic kening or pleural effusion. No pneumothorax. No abnormal mediastinal or hilar masses or lymphadenopathy seen. Sequelae of prior coronary artery by pass grafting. No chest wall mass or abnormal axilliary lymphadenopathy. Multiple healing anterior rib fractures bilaterally. IMPRESSION: No evidence of acute central pulmonary emboli. Atelectatic changes. Otherwise negative CT scan of the chest for other significant findings.
--- NOTE | 2022-08-14 15:42 | ER ---
Nurse's Notes [facility] Name: Guzman Ha Age: 51 yrs Sex: Male : 1970 Arrival Date: 08/14/2022 Time: 11:44 Bed 14 Private MD: Diagnosis: Chest pain, unspecified Presentation: 08/14 12:45 Chief complaint: Patient states: chest pain that is intermittent, reports double heart aa5 bypass approximately 1 month ago at [facility]. 12:45 Coronavirus screen: At this time, the client does not indicate any symptoms associated aa5 with coronavirus-19. Ebola Screen: Patient denies travel to an Ebola-affected area in the 21 days before illness onset. Initial Sepsis Screen: Does the patient meet any 2 criteria? HR > 90 bpm. Does the patient have a suspected source of infection? No. Patient's initial sepsis screen is negative. Risk Assessment: Do you want to hurt yourself or someone else? Patient reports no desire to harm self or others. Onset of symptoms was July 2022. 12:45 Acuity: BRIAN 2 aa5 12:45 Method Of Arrival: Ambulatory aa5 Triage Assessment: 13:45 General: Appears in no apparent distress. Behavior is cooperative, appropriate for age, bp anxious. Pain: Complains of pain in chest. EENT: No deficits noted. Neuro: No deficits noted. Cardiovascular: Reports chest pain. Respiratory: No deficits noted. GI: No signs and/or symptoms were reported involving the gastrointestinal system. : No signs and/or symptoms were reported regarding the genitourinary system. Derm: No deficits noted. Musculoskeletal: No deficits noted. Historical: - Allergies: 12:47 Ibuprofen; aa5 - PMHx: 12:47 HODGIKINS LYMPHOMA; Hodgkins Lymphoma; Myocardial infarction; aa5 - PSHx: 12:47 Double Heart Bypass; heart stents; aa5 - Immunization history:: Adult Immunizations unknown. - Social history:: Smoking status: Patient reports the use of cigarette tobacco products, smokes one-half pack cigarettes per day. Screenin:45 [facility] ED Fall Risk Assessment (Adult) History of falling in the last 3 months, bp including since admission No falls in past 3 months (0 pts). Abuse screen: Denies threats or abuse. Denies injuries from another. Nutritional screening: No deficits noted. Tuberculosis screening: No symptoms or risk factors identified. Assessment: 13:45 General: PT RECD FROM TRIAGE. SEE TRIAGE NOTE. bp 16:00 Reassessment: ADMIT INITIATED. bp 18:00 Reassessment: No changes from previously documented assessment. Patient is alert, bp oriented x 3, equal unlabored respirations, skin warm/dry/pink. 20:00 General: attempted to call report. nurse not available. left call back extension . lg3 Vital Signs: 12:45 BP 98 / 70; Pulse 92; Resp 16 S; Temp 99(TE); Pulse Ox 100% on R/A; Weight 86.18 kg aa5 (R); Height 5 ft. 8 in. (R); 14:02 BP 111 / 75; Pulse 82; Resp 16; Pulse Ox 100% ; bp 16:00 BP 104 / 74; Pulse 83; Resp 16; Pulse Ox 100% ; bp 18:00 BP 86 / 52; Pulse 100; Resp 16; Pulse Ox 99% ; bp 19:07 BP 94 / 62; Pulse 94; Resp 17 S; Pulse Ox 99% on R/A; lg3 12:45 Body Mass Index 28.89 (86.18 kg, 172.72 cm) aa5 ED Course: 11:47 Patient arrived in ED. mr 12:33 Damien Henry PA is PHCP. jmm 12:33 Aries Dey MD is Attending Physician. jmm 12:46 Arm band placed on. aa5 12:47 Triage completed. aa5 13:01 Initial lab(s) drawn, by wa, sent to lab. EKG done. Inserted saline lock: 20 gauge in aa5 right antecubital area, using aseptic technique. Blood collected. 13:16 XRAY Chest (1 view) In Process Unspecified. EDMS 13:20 CT Head Brain wo Cont In Process Unspecified. EDMS 13:40 Cornelio Brooks, RN is Primary Nurse. bp 13:45 Patient has correct armband on for positive identification. Bed in low position. Call bp light in reach. Side rails up X2. Client placed on continuous cardiac and pulse oximetry monitoring. NIBP monitoring applied. 13:45 Patient maintains SpO2 saturation greater than 95% on room air. bp 15:06 CT Chest For PE Angio In Process Unspecified. EDMS 15:42 Archie Holcomb MD is Hospitalizing Provider. [facility] 18:45 No provider procedures requiring assistance completed. Patient admitted, IV remains in bp place. Administered Medications: 14:52 Drug: Ondansetron IVP 4 mg Route: IVP; Site: right forearm; bp 14:53 Drug: morphine IVP or IV 4 mg Route: IVP; Infused Over: 4 mins; Site: right forearm; bp Medication: 13:45 VIS not applicable for this client. bp Outcome: 15:42 Decision to Hospitalize by Provider. jmm 19:12 Admitted to Med/surg accompanied by tech, via wheelchair, room 216. lg3 19:12 Condition: stable 19:12 Instructed on the need for admit, Demonstrated understanding of instructions. 21:05 Patient left the ED. lg3 Signatures: Dispatcher [employer] EDMS Damien Henry PA PA jmm LemosSilvia chance mr BeSavanna, RN RN aa5 Cornelio Brooks, RN RN Kellee Jade, RN RN lg3 Corrections: (The following items were deleted from the chart) 12:50 12:45 Pulse 92bpm; Resp 16bpm; Spontaneous; Pulse Ox 100% RA; Temp 99F Temporal; 86.18 aa5 kg Reported; Height 5 ft. 8 in. Reported; BMI: 28.8; aa5
--- NOTE | 2022-08-14 15:43 | EDPHYS ---
Physician Documentation [facility] Name: Guzman Ha Age: 51 yrs Sex: Male : 1970 Arrival Date: 08/14/2022 Time: 11:44 Bed 14 Private MD: ED Physician Aries Dey HPI: 08/14 12:50 This 51 yrs old Male presents to ER via Ambulatory with complaints of Chest jmm Pain, Headache. 12:50 The patient or guardian reports chest pain that is located primarily in the substernal jmm area. Onset: gradually, 1 month(s) ago. The pain does not radiate. Associated signs and symptoms: Pertinent positives: headache. The chest pain is described as aching, sharp. Duration: The patient or guardian reports multiple episodes. Modifying factors: The symptoms are alleviated by nothing. the symptoms are aggravated by nothing. Is a 51-year-old male with history of coronary artery disease, Hodgkin's lymphoma the presents emerged department with complaints of substernal chest pain which has been on and off since his double bypass performed approximately a month ago. States that yesterday he developed a headache. Headache is mainly on the right occipital region. Patient did have a similar headache in the past prior to her previous [place].. Historical: - Allergies: 12:47 Ibuprofen; aa5 - PMHx: 12:47 HODGIKINS LYMPHOMA; Hodgkins Lymphoma; Myocardial infarction; aa5 - PSHx: 12:47 Double Heart Bypass; heart stents; aa5 - Immunization history:: Adult Immunizations unknown. - Social history:: Smoking status: Patient reports the use of cigarette tobacco products, smokes one-half pack cigarettes per day. ROS: 12:50 Constitutional: Negative for fever, chills, and weight loss, Respiratory: Negative for jmm shortness of breath, cough, wheezing, and pleuritic chest pain. 12:50 Cardiovascular: Positive for chest pain. 12:50 Neuro: Positive for headache. 12:50 All other systems are negative. Exam: 12:50 Constitutional: This is a well developed, well nourished patient who is awake, alert, jmm and in no acute distress. Head/Face: atraumatic. Eyes: EOMI, no conjunctival erythema appreciated ENT: Moist Mucus Membranes Neck: Trachea midline, Supple Chest/axilla: Normal chest wall appearance and motion. Cardiovascular: Regular rate and rhythm. No edema appreciated Respiratory: Normal respirations, no respiratory distress appreciated Abdomen/GI: Non distended Back: Normal ROM Skin: General appearance color normal MS/ Extremity: Moves all extremities, no obvious deformities appreciated, no edema noted to the lower extremities Neuro: Awake and alert Psych: Behavior is normal, Mood is normal, Patient is cooperative and pleasant Vital Signs: 12:45 BP 98 / 70; Pulse 92; Resp 16 S; Temp 99(TE); Pulse Ox 100% on R/A; Weight 86.18 kg aa5 (R); Height 5 ft. 8 in. (R); 14:02 BP 111 / 75; Pulse 82; Resp 16; Pulse Ox 100% ; bp 16:00 BP 104 / 74; Pulse 83; Resp 16; Pulse Ox 100% ; bp 18:00 BP 86 / 52; Pulse 100; Resp 16; Pulse Ox 99% ; bp 19:07 BP 94 / 62; Pulse 94; Resp 17 S; Pulse Ox 99% on R/A; lg3 12:45 Body Mass Index 28.89 (86.18 kg, 172.72 cm) aa5 MDM: 12:50 Patient medically screened. [facility] 18:50 Differential diagnosis: acute pericarditis, anxiety, coronary artery disease [facility] costochondritis, gastroesophageal reflux disease (GERD), pericarditis, pulmonary embolus, stable angina, thoracic aortic disection, unstable angina. ECG:. The patient was given aspirin in the Emergency Department. Data reviewed: vital signs, nurses notes, lab test result(s), EKG, radiologic studies, CT scan, plain films. Consideration of Admission/Observation Patient was admitted/placed on observation. Management of patient was discussed with the following: Hospitalist: Ramon. I considered the following discharge prescriptions or medication management in the emergency department Medications were administered in the Emergency Department. See MAR. Counseling: I had a detailed discussion with the patient and/or guardian regarding: the historical points, exam findings, and any diagnostic results supporting the discharge/admit diagnosis, lab results, radiology results, the need for further work-up and treatment in the hospital. ED course: I discussed the patient with Ramon whom accepted the patient to Dr. Holcomb's service. . 08/14 12:51 Order name: Basic Metabolic Panel; Complete Time: 13:48 [facility] 08/14 12:51 Order name: CBC with Diff; Complete Time: 13:26 [facility] 08/14 12:51 Order name: LFT's; Complete Time: 13:48 [facility] 08/14 12:51 Order name: Magnesium; Complete Time: 13:48 [facility] 08/14 12:51 Order name: NT PRO-BNP; Complete Time: 13:48 [facility] 08/14 12:51 Order name: PT-INR; Complete Time: 13:26 [facility] 08/14 12:51 Order name: Troponin HS; Complete Time: 13:48 [facility] 08/14 17:38 Order name: Creatine Phosphokinase [facility] 08/14 17:38 Order name: Magnesium [facility] 08/14 17:38 Order name: Phosphorus [facility] 08/14 17:38 Order name: T4 Free [facility] 08/14 17:38 Order name: Thyroid Stimulating Hormone [facility] 08/14 17:38 Order name: Urinalysis w/ reflexes [facility] 08/14 17:38 Order name: Basic Metabolic Panel [facility] 08/14 17:38 Order name: Basic Metabolic Panel [facility] 08/14 17:38 Order name: CBC with Automated Diff [facility] 08/14 17:38 Order name: CBC with Automated Diff [facility] 08/14 17:38 Order name: Troponin High Sensitivity [facility] 08/14 17:38 Order name: Troponin High Sensitivity [facility] 08/14 17:38 Order name: Troponin High Sensitivity [facility] 08/14 12:51 Order name: XRAY Chest (1 view); Complete Time: 13:53 [facility] 08/14 12:51 Order name: CT Head Brain wo Cont; Complete Time: 13:48 [facility] 08/14 14:46 Order name: CT Chest For PE Angio; Complete Time: 15:36 [facility] 08/14 17:33 Order name: Echo with Doppler [facility] 08/14 12:51 Order name: EKG; Complete Time: 12:52 [facility] 08/14 17:33 Order name: CONS Physician Consult [facility] 08/14 17:38 Order name: Heart Healthy [facility] 08/14 12:51 Order name: Cardiac monitoring; Complete Time: 13:40 [facility] 08/14 12:51 Order name: EKG - Nurse/Tech; Complete Time: 13:01 [facility] 08/14 12:51 Order name: IV Saline Lock; Complete Time: 13:01 [facility] 08/14 12:51 Order name: Labs collected and sent; Complete Time: 13: [facility] 08/14 12:51 Order name: O2 Per Protocol; Complete Time: 13:40 [facility] 08/14 12:51 Order name: O2 Sat Monitoring; Complete Time: 13:40 [facility] Administered Medications: 14:52 Drug: Ondansetron IVP 4 mg Route: IVP; Site: right forearm; bp 14:53 Drug: morphine IVP or IV 4 mg Route: IVP; Infused Over: 4 mins; Site: right forearm; bp Disposition Summary: 08/14/22 15:42 Hospitalization Ordered Hospitalization Status: Observation [facility] Provider: Archie Holcomb Location: Telemetry/MedSurg (observation) [facility] Condition: Stable [facility] Problem: an acute exacerbation jm Symptoms: have improved [facility] Bed/Room Type: Standard [facility] Room Assignment: 216(08/14/22 18:37) Diagnosis - Chest pain, unspecified [facility] Forms: - Medication Reconciliation Form [facility] - SBAR form [facility] Addendum: 08/21/2022 19:59 Co-signature as Attending Physician, Aries Dey MD I agree with the assessment and r t plan of care. Signatures: Dispatcher [employer] La West RN RN Damien Walton PA PA [facility] Savanna Be, RN RN aa5 Cornelio Brooks RN RN Aries Tucker MD MD rt Corrections: (The following items were deleted from the chart) 08/14 18:37 15:42 [facility] dw
[2022-08-14] MEDS ORDERED: HYDROCODONE/APAP 5/325 MG TAB PO PRN (17:34)
[2022-08-14] MEDS ORDERED: ACETAMINOPHEN 325 MG TABLET PO PRN (17:34)
[2022-08-14] MEDS ORDERED: ONDANSETRON 4 MG/2 ML VIAL IV PRN (17:34)
--- NOTE | 2022-08-14 17:36 | P.HP ---
Certification for Inpatient Patient admitted to: Observation With expected LOS: <2 Midnights Patient will require the following post-hospital care: None Practitioner: I am a practitioner with admitting privileges, knowledge of patient current condition, hospital course, and medical plan of care. Services: Services provided to patient in accordance with Admission requirements found in Title 42 Section 412.3 of the Code of Federal Regulations Patient History Date of Service: 08/14/22 Reason for admission: Chest pain History of Present Illness: Patient is a 51-year-old with a past medical history significant for Hodgkins Lymphoma, ND, CABG, CAD with stents who presents with complaint of chest pain that has been ongoing for the past 1 and months ago. Patient recently was 10 days ago after being hospitalized at [facility] for 4 weeks where patient received a double bypass graft. Patient reported that upon discharge that he has been experiencing the pain every time he wakes up. Patient indicated that pain is located in the substernal chest area with radiation to his neck and right shoulder. Patient rated pain as 8/10 in severity and described pain as aching in quality. Patient also report chronic neck pain\spasms. Patient indicated that he didnt experience neck pain during his period of hospitalization. Patient indicated that he started expressing neck pain again after discharge from the hospital. Patient reported associated signs and symptoms of headache, lightheadedness, dizziness and memory loss. Patient denies any other signs or symptoms. Symptoms are aggravated or relieved by nothing. Family decided to bring patient to the hospital for medical evaluation. Allergies ibuprofen [From Motrin] Allergy (Verified 08/14/22 20:58) Shortness of breath Home Medications: ALPRAZolam [Xanax*] 0.25 mg PO BID PRN #10 tab 09/06/18 Aspirin Chewable [Aspirin Chewable*] 81 mg PO DAILY #90 tab.chew 09/06/18 Atorvastatin Calcium [Lipitor] 80 mg PO BEDTIME #30 tab 09/06/18 Clopidogrel Bisulfate [Plavix] 75 mg PO DAILY #30 tablet 09/06/18 Levothyroxine [Synthroid*] 0.05 mg PO DAILYAC #30 tablet 09/06/18 Metoprolol Tartrate [Lopressor*] 25 mg PO BID #60 tab 09/06/18 Nicotine [Nicoderm*] 21 mg TD DAILY #30 patch.td24 09/06/18 Nitroglycerin [Nitrostat*] 0.4 mg SL UD PRN #30 tab 09/06/18 - Past Medical/Surgical History Diabetic: No -: ND -: Hodgkins Lymphoma -: Degenerative bone disease low lumbar -: radiation-chest, face, back -: cardiac stents x9 -: stem cell transplant -: lymph node removals - Family History Mom -: Heart disease, Cancer Dad -: Heart disease - Social History Smoking Status: Current every day smoker Counseled patient to stop smoking for: less than 10 minutes Smoking therapy provided: Yes Patient receptive to therapy: Yes Alcohol use: Yes CD- Drugs: No Caffeine use: Yes Place of Residence: Home Review of Systems General: Unremarkable Eyes: Unremarkable ENT: Unremarkable Respiratory: Unremarkable Cardiovascular: Chest Pain, Light Headedness Gastrointestinal: Unremarkable Genitourinary: Unremarkable Musculoskeletal: Neck Pain, Shoulder Pain Integumentary: Unremarkable Neurological: Other (SMITH, Dizziness, Memory Loss ) Lymphatics: Unremarkable Physical Examination - Physical Exam General: Alert, In no apparent distress, Oriented x3, Cooperative HEENT: Atraumatic, PERRLA, Mucous membr. moist/pink, EOMI, Sclerae nonicteric Neck: Supple, 2+ carotid pulse no bruit, No LAD, Without JVD or thyroid abnormality Respiratory: Clear to auscultation bilaterally, Normal air movement Cardiovascular: No edema, Regular rate/rhythm, Normal S1 S2 Capillary refill: <2 Seconds Gastrointestinal: Normal bowel sounds, Soft and benign, No tenderness Musculoskeletal: No clubbing, No swelling, No tenderness Integumentary: No rashes, No breakdown Neurological: Normal speech, Normal strength at 5/5 x4 extr, Normal tone, Normal affect Lymphatics: No axilla or inguinal lymphadenopathy - Studies Laboratory Data (last 24 hrs) 08/14/22 13:00: PT 12.2, INR 1.11 08/14/22 13:00: WBC 6.60, Hgb 11.1 L, Hct 33.6 L, Plt Count 333 08/14/22 13:00: Sodium 137, Potassium 4.3, BUN 16, Creatinine 1.11, Glucose 100, Magnesium 2.4, Total Bilirubin 0.4, AST 17, ALT 23, Alkaline Phosphatase 161 H Assessment and Plan - Plan --Chest pain. Likely atypical. Status post double bypass surgery. Serial troponins negative so far. CTA PE protocol negative for any acute PE. Cardiology consulted. Telemetry to monitor any significant arrhythmia. Echocardiogram pending to assess cardiac structures and function. We will await further recommendation from frame stylist. --Cervicalgia. Patient reports chronic neck pain. CT cervical spine pending for further evaluation. We will manage pain with the current pain medication regimen. --History of Hodgkins Lymphoma. Status unknown. Continue supportive care --Hx of ND\CABG\CAD with stents. Continue Plavix and statin. -- Hypothyroidism. Continue Synthroid. -- CKD 2. Stable. We will continue to monitor renal functions. -- Nicotine dependence. Patient counseled on tobacco cessation. Refuses nicotine patch. --Hx of Substance abuse. Patient denies any drug use at this time. Drug cessation reemphasized. -- Anemia of chronic disease. H&H stable. We will continue to monitor hemoglobin and transfuse if less than 7.0. --HLD. Continue Statin --Hypertension. Currently hypotensive. Will hold off on BP meds. Will continue to monitor BP levels --Anxiety Disorder. Continue home medication. --DVT prophylaxis with Lovenox subQ. Discharge Plan: Home Plan to discharge in: 48 Hours - Advance Directives Does patient have a Living Will: No Does patient have a Durable POA for Healthcare: No - Code Status/Comfort Care Code Status Assessed: Yes Physician Review: Patient Assessed, Agree with Above Assessment and Plan Critical Care: No
[2022-08-14 19:50] LABS: Magnesium 2.2 mg/dL (1.6-2.4); Phosphorus 3.5 mg/dL (2.5-4.9)
[2022-08-14 19:57] LABS: Thyroid Stimulating Hormone 12.5 uIU/mL (0.358-3.740)
[2022-08-14] MEDS: ENOXAPARIN 40 MG/0.4 ML SQ SCH (20:46)
[2022-08-14] MEDS ORDERED: ENOXAPARIN 40 MG/0.4 ML SQ ONE (20:48)
[2022-08-14 21:21] VITALS: BMI 28.4
[2022-08-15 03:37] LABS: Absolute Lymphocytes (CBC) 1.8 K/uL (0.7-4.9); Hematocrit 32.1 % (39.6-49.0); Lymphocytes % 33.2 % (15.3-44.8); MCV 88.2 fL (80-100); MPV 6.7 fL (7.6-11.3); RBC Red Blood Cell Count 3.64 M/uL (4.33-5.43)
[2022-08-15 03:50] LABS: Potassium 3.7 mEq/L (3.5-5.1)
[2022-08-15] MEDS ORDERED: LEVOTHYROXINE SOD 0.025 MG TAB PO SCH ×2 (06:30→07:00)
[2022-08-15] MEDS ORDERED: POTASSIUM CL SA 10 MEQ TAB PO ONE (09:00)
[2022-08-15] MEDS ORDERED: ASPIRIN 81 MG CHEWABLE TABLET PO SCH (09:00)
--- NOTE | 2022-08-15 11:33 | RAD REPORT ---
EXAM DESCRIPTION: CT - C Spine Wo Con - 08/15/2022 8:55 am CLINICAL HISTORY: Neck pain COMPARISON: 04/13/2020 CT cervical spine, and 09/27/2021 cervical spine MRI. TECHNIQUE: Axial thin cut CT images of the cervical spine were obtained without IV contrast. Sagitta l and coronal reconstruction images generated and reviewed. All CT scans are performed using dose optimization technique as appropriate and may include automated exposure control or mA/KV adjustment according to patient size. FINDINGS: Cervical vertebral body heights are preserved. Straightening of normal lordosis. Minimal a nterolisthesis of C4 over C5, and a gentle dextroconvex curvature, secondary to degenerative endplate and facet remodeling. No fracture or acute bony abnormality. Multilevel degenerative changes, with facet arthropathy most pronounced at C2-3 level, where there is ankylosis across the facet articulation. Similar ankylosis noted at C5-6 on the left. Progressive fa cet degenerative changes on the left at C4-5, with subchondral cystic changes. Degenerative atlanto o dontoid changes with mild pannus. No paraspinal mass or hematoma. No hyperattenuating canal hematoma. Within limits of CT evaluation, t here appears to be a central disc extrusion at C3-4 and C4-5 which contributes to effacement of the v entral CSF space. Variable degrees of neural foraminal narrowing, up to severe on the left at C3-4, a nd moderate bilaterally at C5-6 and on the left at C4-5. Visualized lung apices are unremarkable apart from subpleural mild atelectatic changes. IMPRESSION: No acute osseous abnormality of the cervical spine. Multilevel degenerative changes as detailed above, with some worsening facet arthropathy at C4-5 on t he left. Disc herniations noted at C3-4 and C4-5, which contribute to degrees of central canal efface ment. Variable degrees of neural foraminal narrowing probable was pronounced at C3-4 on the left.
[2022-08-15] MEDS: CLOPIDOGREL 75 MG TABLET PO SCH (12:11)
[2022-08-15] MEDS: ENOXAPARIN 40 MG/0.4 ML SQ SCH (12:12)
--- NOTE | 2022-08-15 17:15 | P.PN ---
Subjective Date of Service: 08/15/22 Chief Complaint: Chest pain No acute events overnight. He reports that his chest pain is intermittent and occurs without any obvious inciting or alleviating factors. He denies any shortness of breath or palpitations. Reviewed case with Dr. Delgado, who recommended nuclear stress test tomorrow. Review of Systems 10-point ROS is otherwise unremarkable Cardiovascular: Chest Pain Physical Examination - Vital Signs Temperature: 98 F Blood Pressure: 105/74 Pulse: 93 Respirations: 14 Pulse Ox (%): 96 - Physical Exam General: Alert, In no apparent distress, Oriented x3 HEENT: Atraumatic, Mucous membr. moist/pink, Sclerae nonicteric Neck: JVD not distended Respiratory: Clear to auscultation bilaterally, Normal air movement Cardiovascular: No edema, Regular rate/rhythm, No murmurs Gastrointestinal: Normal bowel sounds, Soft and benign, Non-distended, No tenderness, No rebound, No guarding Musculoskeletal: No clubbing Integumentary: No rashes Neurological: Normal speech, Normal affect Assessment And Plan - Plan # Chest Pain in Coronary Artery Disease s/p PCI x9 and CABG # Hypertension # Hyperlipidemia - Evaluation thus far: - EKG: reporteldy without STEMI criteria, trend - Serial troponin: 11.4 -> 13.2 -> 14.5 - Ordered transthoracic echocardiogram - Chest x-ray = "no acute cardiopulmonary process." - CT chest angiogram = "no evidence of acute central pulmonary emboli. Atelectatic changes. Otherwise negative CT scan of the chest for other significant findings." - Management plan: - Consult Cardiology and spoke with Dr. Delgado - recommendations appreciated - Plan for nuclear stress test tomorrow - Continue home aspirin, atorvastatin, clopidogrel, metoprolol - Consider JESSICA-inhibitor/ARB as tolerated # Hypothyroidism - TSH 12.5, Free T4 0.64 - Increased home levothyroxine dose from 50 mcg to 75 mcg daily # Cervicalgia - CT head = "no evidence of an acute intracranial process." - CT cervical spine = "no acute osseous abnormality of the cervical spine. Multilevel degenerative changes as detailed above, with some worsening facet arthropathy at C4-5 on the left. Disc herniations noted at C3-4 and C4-5, which contribute to degrees of central canal effacement. Variable degrees of neural foraminal narrowing probable was pronounced at C3-4 on the left." - No alarm symptoms (i.e. motor weakness, sensory deficits, loss of bowel/urinary control) - Consulted Neurology - recommendations appreciated # Anxiety - Continue home PRN alprazolam # Tobacco Use Disorder - Continue home nicotine patch # History of Hodgkin's Lymphoma s/p Radiation and Stem Cell Transplant - Follow-up with Oncologist at discharge Archie Holcomb M.D.
[2022-08-15] MEDS ORDERED: ALPRAZOLAM 0.25 MG TABLET PO PRN (17:25)
[2022-08-15] MEDS: METOPROLOL TAR 25 MG TAB PO SCH (20:38)
[2022-08-15] MEDS: ATORVASTATIN 40 MG TAB PO SCH (20:38)
[2022-08-15] MEDS: QUETIAPINE 25 MG TAB PO SCH (20:49)
[2022-08-15] MEDS ORDERED: METOPROLOL TAR 50 MG TAB PO SCH (21:00)
[2022-08-16 04:03] LABS: Potassium 3.5 mEq/L (3.5-5.1)
[2022-08-16] MEDS: LEVOTHYROXINE SOD 0.025 MG TAB PO SCH (06:30)
[2022-08-16] MEDS ORDERED: REGADENOSON 0.4 MG/5 ML SYR IV ONE (07:39)
--- NOTE | 2022-08-16 07:45 | ECHO ---
HEIGHT: 5 ft 8 in WEIGHT: 187 lb 1 oz DATE OF STUDY: 08/15/[address]: Stuart Lindsay 2-DIMENSIONAL: YES M.MODE: YES DOPPLER: YES COLOR FLOW: YES TDS: PORTABLE: YES DEFINITY: BUBBLE STUDY: DIAGNOSIS: CHEST PAIN CARDIAC HISTORY: CATHERIZATION: YES SURGERY: NO PROSTHETIC VALVE: NO PACEMAKER: NO MEASUREMENTS (cm) DIASTOLIC (NORMALS) SYSTOLIC (NORMALS) IVSd 1.1 (0.6-1.2) LA Diam 3.2 (1.9-4.0) LVEF 55-60% LVIDd 3.6 (3.5-5.7) LVIDs 3.0 (2.0-3.5) %FS % LVPWd 1.2 (0.6-1.2) Ao Diam 2.8 (2.0-3.7) 2 DIMENSIONAL ASSESSMENT: RIGHT ATRIUM: NORMAL LEFT ATRIUM: NORMAL RIGHT VENTRICLE: NORMAL LEFT VENTRICLE: NORMAL TRICUSPID VALVE: NORMAL MITRAL VALVE: NORMAL PULMONIC VALVE: NORMAL AORTIC VALVE: NORMAL PERICARDIAL EFFUSION: NONE AORTIC ROOT: NORMAL LEFT VENTRICULAR WALL MOTION: NORMAL DOPPLER/COLOR FLOW: NORMAL COMMENTS: 1. NORMAL 2-DIMENSIONAL ECHOCARDIOGRAM WITH DOPPLER. 2. NO EFFUSION 3. TECHNICALLY DIFFICULT STUDY TECHNOLOGIST: JOSSELINE SCHWAB
[2022-08-16] MEDS ORDERED: POTASSIUM CL SA 10 MEQ TAB PO ONE (09:00)
[2022-08-16] MEDS: CLOPIDOGREL 75 MG TABLET PO SCH (09:35)
[2022-08-16] MEDS: NICOTINE 21 MG/PAT TD SCH (09:36)
[2022-08-16] MEDS: METOPROLOL TAR 25 MG TAB PO SCH ×2 (09:36→21:00)
[2022-08-16] MEDS: ASPIRIN 81 MG CHEWABLE TABLET PO SCH (09:37)
[2022-08-16] MEDS: QUETIAPINE 25 MG TAB PO SCH ×2 (09:37→21:59)
[2022-08-16] MEDS: ENOXAPARIN 40 MG/0.4 ML SQ SCH (09:37)
--- NOTE | 2022-08-16 11:19 | RAD REPORT ---
EXAM DESCRIPTION: NM - Rest Stress Cardiac Imaging - 08/16/2022 9:43 am CLINICAL HISTORY: Chest pain. COMPARISON: 2017 TECHNIQUE: The patient was administered 10.7 mCi of Tc 99m Sestamibi prior to resting SPECT imaging of the heart. The patient was then administered 31.2 MCi of Tc 99m Sestamibi following exercise or ph armacologic stress. Multiplanar SPECT images were reviewed. FINDINGS: Moderate area of diminished radiotracer activity involves the anterior apical left ventric ular myocardium on stress sequences Rest images demonstrate partial reaccumulation of radiotracer within the anterior apical left ventric ular myocardium The left ventricular ejection fraction equals 44% IMPRESSION: Moderate partially reversible perfusion defect anterior apical left ventricular myocardi um having the appearance of an infarct with desire-infarct ischemia
--- NOTE | 2022-08-16 12:04 | RAD REPORT ---
EXAM DESCRIPTION: CT - Head Brain Wo Cont - 08/16/2022 11:45 am CLINICAL HISTORY: Fall/dizziness COMPARISON: August 14, 2022 TECHNIQUE: Computed axial tomography of the head was obtained. IV contrast was not requested. All CT scans are performed using dose optimization technique as appropriate and may include automated exposure control or mA/KV adjustment according to patient size. FINDINGS: An intracranial bleed is not seen The ventricles are normal in caliber No significant hypodense areas within the brain visualized No extra-axial fluid collection is noted. Fluid within the sinuses/ mastoids is not seen IMPRESSION: No acute intracranial abnormality is seen If patient's symptoms persist MRI of the brain would be recommended
--- NOTE | 2022-08-16 12:56 | TREADPHA ---
DX: CHEST PAIN Date of Study: 08/16/22 Ht: 5' 8 " Wt: 187 lb 1 oz Consulting Physician: LIZBET MEDICATIONS: TYLENOL, NORCO, XANAX, LIPITOR, PLAVIX, LOVENOX, SYNTHROID, LOPRESSOR, NICODREM, ZOFRAN, KLOR-CON, SEROQUEL. HISTORY: 51 YEAR OLD MALE, COMPLAINTS OF CHEST PAIN. HISTORY: CORONARY ARTERY BYPASS GRAFT, HYPERTENSION, HLD, DEPRESSION, ANXIETY, THYROID, PATIENT SMOKES - 1 PACK DAILY. PATIENT DRINKS 6 PACK OF BEER DAILY. PHYSICIAL EXAMINATION: RESTING B.P.: 106/74 RESTING H.R.: 86 RESTING EKG: NORMAL PROTOCOL: LEXISCAN EXERCISE TIME: 3:30 B.P. AT PEAK STRESS: 76/46 90/49 IMPRESSION: LEXISCAN INJECTED, FOLLOWED BY CARDIOLITE PER PROTOCOL, SEE NUCLEAR MEDICINE REPORT. NO SUPRA VENTRICULAR TACHYCARDIA, VENTRICULAR TACHYCARDIA, PREMATURE ATRIAL COMPLEXES. PATIENT HAD OCCASIONAL PREMATURE VENTRICULAR COMPLEXES THROUGHOUT PROCEDURE. PATIENT REPORTS CHEST PAIN OF 2/10.
--- NOTE | 2022-08-16 16:34 | PN ---
Date of Progress Note: 08/16/2022 Mr. Ha remains with some intermittent chest pain overnight. His troponins are unremarkable. Jesus bruner is known to have chronic systolic congestive heart failure. Echocardiogram showed an ejection frac tion of 35%. Lexiscan is pending for today. No reports of any arrhythmias by the nurses. We will s ee what the Lexiscan shows before making any further decisions. CARLA/YVETTE Voice ID: [id number] Report ID: [id number]
[2022-08-16 16:37] LABS: Arterial Blood Carboxyhemoglob 1.7 % (0-1.5); Blood O2 Saturation 95.8 % (92-98.5)
--- NOTE | 2022-08-16 16:49 | EKG ---
Test Date: 2022-08-14 Test Time: 12:54:12 Tipple Worker: ANA MEASUREMENT RESULTS: Intervals: Rate: 86 ID: [id number] QRSD: 92 QT: 392 QTc: 469 Lapaz: P: 48 ID: [id number] QRS: 76 T: 71 INTERPRETIVE STATEMENTS: Normal sinus rhythm Nonspecific ST abnormality Abnormal ECG Compared to ECG 07/05/2022 19:25:37 ST (T wave) deviation now present Prolonged QT interval no longer present Electronically Signed On 08-16-22 16:47:35 CDT by Rodolfo Pratt
--- NOTE | 2022-08-16 17:04 | RAD REPORT ---
EXAM DESCRIPTION: Diaz Velasco And Suzanne (2 Views)08/16/2022 4:46 pm CLINICAL HISTORY: Cough COMPARISON: August 14, 2022 FINDINGS: The lungs appear clear of acute infiltrate. The heart is normal size. Postsurgical changes involve the chest IMPRESSION: No acute abnormalities displayed
--- NOTE | 2022-08-16 19:19 | P.PN ---
Subjective Date of Service: 08/16/22 Chief Complaint: Chest pain No acute events overnight. His nuclear stress test was positive for "moderate partially reversible perfusion defect anterior apical left ventricular myocardium having the appearance of an infarct with desire-infarct ischemia." I spoke with Dr. Delgado, who recommended a [facility] tomorrow. He appears to be intermittently confused. This afternoon while ambulating, he sustained a ground level fall. It is unclear if he uses alcohol at home. Will start banana bag and attempt to gain collateral history. Review of Systems 10-point ROS is otherwise unremarkable Neurological: Confusion Physical Examination - Vital Signs Temperature: 97.7 F Blood Pressure: 110/68 Pulse: 89 Respirations: 18 Pulse Ox (%): 98 Assessment And Plan - Plan - Physical Exam General: Alert, In no apparent distress, Oriented x3 HEENT: Atraumatic, Mucous membr. moist/pink, Sclerae nonicteric Neck: JVD not distended Respiratory: Clear to auscultation bilaterally, Normal air movement Cardiovascular: No edema, Regular rate/rhythm, No murmurs Gastrointestinal: Normal bowel sounds, Soft, Non-distended, No tenderness Musculoskeletal: No clubbing Integumentary: No rashes Neurological: Normal speech, Normal affect # Chest Pain in Coronary Artery Disease s/p PCI x9 and CABG # History of Ventricular Fibrillation Cariac Arrest (07/05/2022) # Hypertension # Hyperlipidemia - Evaluation thus far: - EKG: reportedly without STEMI criteria, trend - Serial troponin: 11.4 -> 13.2 -> 14.5 - Transthoracic echocardiogram = "1. normal 2-dimensional echocardiogram with doppler. 2. no effusion 3. technically difficult study" - Chest x-ray = "no acute cardiopulmonary process." - CT chest angiogram = "no evidence of acute central pulmonary emboli. Atele ctatic changes. Otherwise negative CT scan of the chest for other significant findings." - Nuclear stress test = "moderate partially reversible perfusion defect anterior apical left ventricular myocardium having the appearance of an infarct with desire-infarct ischemia" - Management plan: - Consult Cardiology and spoke with Dr. Delgado - recommendations appreciated - Plan for [facility] tomorrow morning - Continue home aspirin, atorvastatin, clopidogrel, metoprolol - Consider JESSICA-inhibitor/ARB as tolerated # Acute Metabolic Encephalopathy - unclear etiology # Mechanical Ground-Level Fall - CT head = "no acute intracranial abnormality is seen" - ABG = pH 7.46, PCO2 30.2, PO2 of 84.1 - Glucose - 93 - Started banana bag - Will attempt to contact family members to determine if he uses alcohol - Ethanol level unlikely to be of utility at this point in hospitalization - UDS from 07/05/2022: + amphetamines, + THC - Ethanol at that time <10 - Low threshold to start CIWA protocol # Hypothyroidism - TSH 12.5, Free T4 0.64 - Increased home levothyroxine dose from 50 mcg to 75 mcg daily # Cervicalgia - CT head = "no evidence of an acute intracranial process." - CT cervical spine = "no acute osseous abnormality of the cervical spine. Multilevel degenerative changes as detailed above, with some worsening facet art hropathy at C4-5 on the left. Disc herniations noted at C3-4 and C4-5, which contribute to degrees of central canal effacement. Variable degrees of neural foraminal narrowing probable was pronounced at C3-4 on the left." - No alarm symptoms (i.e. motor weakness, sensory deficits, loss of bowel/urinary control) - Consulted Neurology - recommendations appreciated # Anxiety - Continue home PRN alprazolam # Tobacco Use Disorder - Continue home nicotine patch # History of Hodgkin's Lymphoma s/p Radiation and Stem Cell Transplant - Follow-up with Oncologist at discharge Archie Holcomb M.D.
[2022-08-16] MEDS ORDERED: FOLIC ACID 1 MG, MULTIVITAMINS INJ 10 ML, THIAMINE HCL 100 MG in NA CHLORIDE 0.9% 1,000 ML IV SCH (19:30)
--- NOTE | 2022-08-16 21:31 | CON ---
Date of Consultation: 08/15/2022 Reason For Consultation: Chest pain. History Of Present Illness: Mr. Ha is 51. Has had a history of CABG before, stents before. H as had a history of cardiomyopathy. He has had a history of lymphoma in the past. Came in with subs ternal chest pain radiating to the left arm with some diaphoresis and shortness of breath, but no christine sea or vomiting. CTA of the chest was negative. Troponin was negative. EKG was normal. Chest x-ra y was normal. He is pain free now. Past Medical History: As stated above. Allergies: HE IS ALLERGIC TO MOTRIN. Review of Systems: Negative. Social History: Negative. Family History: Negative. Medications: At home include Xanax, aspirin, metoprolol, Synthroid, Lipitor, and Plavix. Physical Examination: Vital Signs: Stable, afebrile, sinus rhythm. HEENT: Negative. Neck: Supple with no bruit. Chest: Clear. Cardiac: Revealed a regular rhythm and rate. No murmurs, gallops, or rubs. Abdomen: Benign. Extremities: Revealed no clubbing, cyanosis, or edema. Diagnostic Data: As stated earlier. Impression And Plan: Fairly atypical chest pain in a patient with history of coronary artery disease , status post coronary artery bypass graft and stent, has a history of congestive heart failure. So far, he is ruled out for myocardial infarction. Echocardiogram is pending. Lexiscan is pending. We will see what those show before making further decision. Continue present regimen for now. CARLA/YVETTE Voice ID: [id number] Report ID: [id number]
[2022-08-16] MEDS: ATORVASTATIN 40 MG TAB PO SCH (21:59)
[2022-08-17 03:54] LABS: Potassium 3.5 mEq/L (3.5-5.1)
--- NOTE | 2022-08-17 04:04 | P.PN ---
Date of Service: 08/17/22 Went to room to examine patient given his earlier fall and confusion. At this time he is alert, oriented x2-3. He stated he thought he was at his friend Issac's house but did not know the year and seem to know why he was here and that he would be having a heart catheterization in the morning. Neurologically he is intact, unclear etiology of confusion. Additional diagnostics have been ordered. CT head was negative for acute findings. We will continue to monitor neuro status, neurochecks ordered.
[2022-08-17] MEDS: CLOPIDOGREL 75 MG TABLET PO SCH (05:23)
[2022-08-17] MEDS: METOPROLOL TAR 25 MG TAB PO SCH (05:24)
[2022-08-17] MEDS: LEVOTHYROXINE SOD 0.025 MG TAB PO SCH (05:25)
[2022-08-17] MEDS: ASPIRIN 81 MG CHEWABLE TABLET PO SCH (05:25)
[2022-08-17 05:42] LABS: Specific Gravity 1.024 (1.005-1.030); Urine Bacteria None Seen /HPF (<20); Urine Bilirubin NEGATIVE (Negative); Urine Blood Negative (Negative); Urine Clarity Clear (Clear); Urine Color Yellow (Yellow); Urine Glucose 3+ (Negative); Urine Mucus 1+ /HPF (None Seen); Urine Protein TRACE (Negative); Urine RBC None Seen /HPF (None Seen); Urine Urobilinogen Normal (Normal); Urine pH 5.5 (5.0-7.0)
[2022-08-17 06:06] LABS: Barbiturates NEGATIVE (NEGATIVE); Benzodiazepines NEGATIVE (NEGATIVE); Cocaine NEGATIVE (NEGATIVE); METHAMPHETAM NEGATIVE (NEGATIVE); Methadone NEGATIVE (NEGATIVE); Opiates NEGATIVE (NEGATIVE); Phencyclidine NEGATIVE (NEGATIVE); THC Cannibis NEGATIVE (NEGATIVE)
[2022-08-17] MEDS ORDERED: NA CHLORIDE 0.9% 1,000 ML IV SCH (08:00)
[2022-08-17] MEDS ORDERED: MULTIVITAMIN TAB PO SCH (09:00)
[2022-08-17] MEDS ORDERED: POTASSIUM CL SA 10 MEQ TAB PO ONE (09:00)
[2022-08-17] MEDS: ENOXAPARIN 40 MG/0.4 ML SQ SCH (09:00)
[2022-08-17] MEDS: NICOTINE 21 MG/PAT TD SCH (09:00)
[2022-08-17] MEDS ORDERED: THIAMINE 200 MG/2 ML INJ IV SCH (09:00)
[2022-08-17] MEDS ORDERED: FOLIC ACID 1 MG in NA CHLORIDE 0.9% 50 ML IV SCH (09:00)
[2022-08-17] MEDS ORDERED: FENTANYL CITR 100 MCG/2 ML ONE (12:03)
[2022-08-17] MEDS ORDERED: HEPA 1000U/500MLS 2,000 UNIT/1,000 ML BAG IV ONE (12:03)
[2022-08-17] MEDS ORDERED: MIDAZOLAM HCL 2 MG/2 ML INJ ONE (12:03)
[2022-08-17] MEDS ORDERED: LIDOCAINE 1% 20 ML MDV ONE (12:03)
[2022-08-17] MEDS ORDERED: NITROGLYCERIN 100 MCG/ML SYR (for cath lab use only) IV ONE (12:04)
[2022-08-17] MEDS ORDERED: ATROPINE SULF 1 MG/10 ML SYR IV ONE (12:04)
[2022-08-17] MEDS ORDERED: CLOPIDOGREL 75 MG TABLET ONE (12:04)
[2022-08-17] MEDS ORDERED: HEPARIN 10,000 UNIT/10 ML VIAL IV ONE (12:04)
[2022-08-17] MEDS ORDERED: ASPIRIN 325 MG TAB ONE (12:05)
[2022-08-17] MEDS ORDERED: TICAGRELOR 90 MG TABLET PO ONE (12:05)
[2022-08-17 15:02] VITALS: O2SAT 100
[2022-08-17 17:19] VITALS: BP 101/69; TEMP 97.9
[2022-08-17] MEDS: QUETIAPINE 25 MG TAB PO SCH (17:44)
--- NOTE | 2022-08-17 18:17 | P.DS ---
Admission Date: 08/14/22 Discharge Date: 08/17/22 Reason for Admission: Chest pain Consultations: 1. Cardiology 2. Neurology Procedures: - 08/17/2022 - Left Heart Catheterization Hospital Course: DIAGNOSES: # Chest Pain in Coronary Artery Disease s/p PCI x9 and CABG # History of Ventricular Fibrillation Cardiac Arrest (07/05/2022) # Acute Metabolic Encephalopathy - unclear etiology - resolved # Hypertension # Hyperlipidemia # Mechanical Ground-Level Fall # Hypothyroidism # Cervicalgia # Anxiety # Tobacco Use Disorder # History of Hodgkin's Lymphoma s/p Radiation and Stem Cell Transplant HOSPITAL COURSE: Mr. Guzman Ha is a 51 year old male with a past medical history significant for coronary artery disease s/p PCI x9 and CABG, history of ventricular fibrillation cardiac arrest (June 2022), hypertension, hyperlipidemia, hypothyroidism, anxiety, and tobacco use disorder who was admitted to the [facility] on 08/14/2022 for chest discomfort. He was admitted to the Medicine service. Upon further evaluation, his EKG was without STEMI criteria. His troponin trend was 11.4 -> 13.2 -> 14.5 His chest x- ray revealed, "no acute cardiopulmonary process." His transthoracic echocardiogram revealed, "1. normal 2-dimensional echocardiogram with doppler. 2. no effusion 3. technically difficult study." His CT chest anigogram revealed, "no evidence of acute central pulmonary emboli. Atelectatic changes. Otherwise negative CT scan of the chest for other significant findings." Cardiology was consulted and he was evaluated by Dr. Delgado. Dr. Delgado recommended a nuclear stress test, which revealed, "moderate partially reversible perfusion defect anterior apical left ventricular myocardium having the appearance of an infarct with desire-infarct ischemia." On 08/17/2022, he underwent a left heart catheterization with Dr. Pratt. Per Dr. Pratt, no intervention was required and he has cleared him for discharge from a cardiac standpoint. During his hospitalization, he sustained a mechanical ground-level fall and had a transient episode of confusion. His evaluation was unremarkable, and his symptoms resolved without intervention. This morning, he was completely alert and oriented x 4 to person, place, time, and situation. His caregiver, at bedside, states that he has transient episodes of confusion and this is relatively normal for him. Incidentally, his hypothyroidism was determined to be poorly controlled based on his elevated TSH and depressed Free T4. His levothyroxine dose was increased and he was advised to follow-up with his PCP for further thyroid function tests and dose adjustments. On presentation, he reported chronic neck pain. His CT cervical spine revealed, "no acute osseous abnormality of the cervical spine. Multilevel degenerative changes as detailed above, with some worsening facet arthropathy at C4-5 on the left. Disc herniations noted at C3-4 and C4-5, which contribute to degrees of central canal effacement. Variable degrees of neural foraminal narrowing probable was pronounced at C3-4 on the left." He had no radiculopathy or sensory/motor deficits. I reviewed his case with Dr. Pendleton, who recommended outpatient follow-up. On 08/17/2022, he was seen on rounds and deemed medically stable for discharge. He discharged with instructions to schedule follow-up appointments with his PCP (Dr. Ocampo), with Cardiology (Dr. Pratt), and with Neurology (Dr. Pendleton). He was provided a prescription for levothyroxine. He and his caregiver were given the opportunity to ask questions and reported no further questions. Furthermore, all questions were answered to the best of my ability. A copy of this discharge summary will be sent to the above providers to facilitate continuity of care. Today, I personally spent 25 minutes on his case, of which greater than 50% of the time was spent in patient education, counseling, and coordination of care as described above. Vital Signs/Physical Exam: Temp Pulse Resp BP Pulse Ox 97.9 F 85 16 101/69 100 08/17/22 16:00 08/17/22 16:00 08/17/22 16:00 08/17/22 16:08/17/22 16:00 General: Alert, In no apparent distress, Oriented x3 HEENT: Atraumatic, Mucous membr. moist/pink, EOMI, Sclerae nonicteric Neck: JVD not distended Respiratory: Clear to auscultation bilaterally, Normal air movement Cardiovascular: No edema, Regular rate/rhythm, Normal S1 S2, No gallops, No rubs, No murmurs Gastrointestinal: Normal bowel sounds, Soft and benign, Non-distended, No tenderness, No rebound, No guarding Musculoskeletal: No clubbing Integumentary: No rashes Neurological: Normal speech, Normal strength at 5/5 x4 extr, Normal tone, Sensation intact, Cranial nerves 3-12 intact, Normal affect Laboratory Data at Discharge: WBC 5.30 thou/uL (4.3-10.9) 08/15/22 02:50 Hgb 10.8 g/dL (13.6-17.9) L 08/15/22 02:50 Hct 32.1 % (39.6-49.0) L 08/15/22 02:50 Plt Count 307 thou/uL (152-406) 08/15/22 02:50 PT 12.2 SECONDS (9.5-12.5) 08/14/22 13:00 INR 1.11 08/14/22 13:00 Sodium 137 mEq/L (136-145) 08/17/22 02:57 Potassium 3.5 mEq/L (3.5-5.1) 08/17/22 02:57 BUN 17 mg/dL (7-18) 08/17/22 02:57 Creatinine 0.97 mg/dL (0.70-1.30) 08/17/22 02:57 Glucose 97 mg/dL (74-106) 08/17/22 02:57 Phosphorus 3.5 mg/dL (2.5-4.9) 08/14/22 18:51 Magnesium 2.2 mg/dL (1.6-2.4) 08/14/22 18:51 Total Bilirubin 0.4 mg/dL (0.2-1.0) 08/14/22 13:00 AST 17 U/L (15-37) 08/14/22 13:00 ALT 23 U/L (16-61) 08/14/22 13:00 Alkaline Phosphatase 161 U/L (45-117) H 08/14/22 13:00 Home Medications: Aspirin Chewable [Aspirin Chewable*] 81 mg PO DAILY #90 tab.chew 09/06/18 Acetaminophen with Codeine [Acetaminophen-Cod #3 Tablet] 300 mg PO Q4HR PRN 08/15/22 Atorvastatin Calcium 1 tab PO BEDTIME 08/15/22 Empagliflozin [Jardiance] 1 tab PO DAILY 08/15/22 Famotidine 20 mg PO BID 08/15/22 Folic Acid 1 mg PO DAILY 08/15/22 Magnesium Oxide 400 mg PO BID 08/15/22 Memantine HCl [Namenda] 5 mg PO DAILY 08/15/22 Metoprolol Succinate [Toprol Xl*] 25 mg PO DAILY 08/15/22 Quetiapine [Seroquel*] 50 mg PO BID 08/15/22 Thiamine HCl 1 tab PO DAILY 08/15/22 Levothyroxine Sodium [Levothyroxine] 75 mcg PO DAILY #30 tab 08/17/22 New Medications: Levothyroxine Sodium [Levothyroxine] 75 mcg PO DAILY #30 tab Physician Discharge Instructions: 1. Please call and schedule a follow-up appointment with your PCP (Dr. Ocampo) in 3-5 days - Your thyroid function was low, and your levothyroxine dose was increased from 50 mcg to 75 mcg - Please discuss with Dr. Ocampo for any further medication adjustments 2. Please call and schedule a follow-up appointment with Cardiology (Dr. Pratt) in 5-7 days 3. Please call and schedule a follow-up appointment with Neurology (Dr. Pendleton) in 5-7 days - You have degenerative changes and small herniated discs in your neck - Please discuss with Dr. Pendleton, he will likely want to obtain an MRI of your neck Diet: AHA Activity: Ad shanika Followup: Hossein Ocampo DO [ACTIVE - CAN ADMIT] - Rodolfo Pratt MD [ACTIVE - CAN ADMIT] - Abad Pendleton MD [ASSOCIATE-ACTIVE - CAN ADMIT] - Time spent managing pt's care (in minutes): 25
--- NOTE | 2022-08-17 21:43 | PN ---
The patient had been waiting for catheterization, this morning, after he had an anterior apical ische ladi on the stress test, EF of 35%. However, this morning, he had an episode of fall and developed a small incision over his left periorbital area, but there was no hematoma. CT scan was negative. I s aw the patient after discussion with Dr. Pratt and I cleared the patient for a heart catheterization which will be done today. We know that patient have 2 bypasses and there is a questionable history of stent. We will see what his catheterization shows before we make any further decisions. He can g o home after the catheterization hopefully and we will see him in the office in the near future. CARLA/YVETTE Voice ID: [id number] Report ID: [id number]
== END 2022-08-17 19:37 | disposition home or self-care (01) ==
LOC: ER 11:44 → ERHOLD 17:30 → 2ND 19:26
PROVIDERS: ADMIT Internal Medicine; ATTEND Internal Medicine
DX: I25.10 Atherosclerotic heart disease of native coronary artery without angina pectoris (principal); I25.82 Chronic total occlusion of coronary artery; G93.41 Metabolic encephalopathy; S01.81XA Laceration without foreign body of other part of head, initial encounter; W19.XXXA Unspecified fall, initial encounter; Y92.239 Unspecified place in hospital as the place of occurrence of the external cause; I25.2 Old myocardial infarction; E78.5 Hyperlipidemia, unspecified; E03.9 Hypothyroidism, unspecified; M54.2 Cervicalgia; I13.0 Hypertensive heart and chronic kidney disease with heart failure and stage 1 through stage 4 chronic kidney disease, or unspecified chronic kidney disease; I50.22 Chronic systolic (congestive) heart failure; N18.2 Chronic kidney disease, stage 2 (mild); F41.9 Anxiety disorder, unspecified; M25.519 Pain in unspecified shoulder; F15.10 Other stimulant abuse, uncomplicated; F12.10 Cannabis abuse, uncomplicated; D63.8 Anemia in other chronic diseases classified elsewhere; Z95.1 Presence of aortocoronary bypass graft; Z95.5 Presence of coronary angioplasty implant and graft; F17.210 Nicotine dependence, cigarettes, uncomplicated; Z71.6 Tobacco abuse counseling; Z85.71 Personal history of Hodgkin lymphoma; Z79.02 Long term (current) use of antithrombotics/antiplatelets; Z79.82 Long term (current) use of aspirin; Z79.899 Other long term (current) drug therapy; Z88.8 Allergy status to other drugs, medicaments and biological substances; Z82.49 Family history of ischemic heart disease and other diseases of the circulatory system; Z80.9 Family history of malignant neoplasm, unspecified
CPT/HCPCS: 93005; 93017; 93306; 85025 ×2; 81001; 80048 ×4; 36415 ×3; 83735 ×2; 82550; 82947; 84100; 85610; 80076; 84443; 84484 ×3; 84439; 83880; 80307; 70450 ×2; 72125; 71275; 71045; 71046; 93455; 97110; 97161; 97530; 82805; 78452; 96375; 96374; 99285; Q9967 ×2; C1893; C1760; C1887; G0269; J2785; J2001; J1650 ×3; J3010; J2405; G0378 ×7; J7030; A9500; G0480; J0461; J2250; J3411

== ENCOUNTER 2024-12-01 13:00 | Day surgery (SDC) | payer OTHER ==
--- NOTE | 2024-11-26 14:02 | RAD REPORT ---
EXAM: Chest Pa And Lat (2 Views) HISTORY: 54 years Male Pre-op pending carotid angiogram COMPARISON: 08/16/2022 FINDINGS: LUNGS/PLEURA: The lungs are clear. No pleural effusions or pneumothorax. No pulmonary edema. CARDIAC/MEDIASTINUM: The cardiac silhouette is within normal limits. UPPER ABDOMEN: No significant abnormality. BONES: Sternotomy. No acute abnormality. LINES/TUBES/OTHER: N/A IMPRESSION: No evidence of acute cardiopulmonary disease. No significant change from prior.
[2024-11-26 14:27] LABS: Absolute Lymphocytes (CBC) 2.6 K/uL (0.7-4.9); Hematocrit 44.3 % (39.6-49.0); Hemoglobin 15.3 g/dL (13.6-17.9); MCH 32.0 pg (27.0-35.0); MCHC 34.6 g/dL (32.0-36.0); MCV 92.3 fL (80-100); MPV 7.3 fL (7.6-11.3); Nucleated RBC Absolute Count 0.0 (0-0); Nucleated Red Blood Cells % 0.1 % (0-0); RBC Red Blood Cell Count 4.80 M/uL (4.33-5.43); White Blood Count 6.20 thou/uL (4.3-10.9)
[2024-11-26 14:38] LABS: PT Prothrombin Time 13.4 SECONDS (10-13.0); PTT, Activated Partial Thromb 29.5 SECONDS (27.2-37.4); Protime INR 1.19
[2024-11-26 14:47] LABS: Anion Gap 9.2 mEq/L (5.0-15.0); BUN Blood Urea Nitrogen 11.0 mg/dL (7-18); Glucose Level 118.0 mg/dL (74-106); Potassium 4.2 mEq/L (3.5-5.1)
[2024-12-01] MEDS ORDERED: NA CHLORIDE 0.9% 500 ML ONE (13:17)
[2024-12-01] MEDS ORDERED: ATROPINE SULF 1 MG/10 ML SYR IV ONE (13:24)
[2024-12-01] MEDS ORDERED: LIDOCAINE 1% 20 ML MDV ONE (13:24)
[2024-12-01] MEDS ORDERED: HEPA 1000U/500MLS 2,000 UNIT/1,000 ML BAG IV ONE (13:24)
[2024-12-01] MEDS ORDERED: FENTANYL CITR 100 MCG/2 ML ONE (13:43)
[2024-12-01] MEDS ORDERED: MIDAZOLAM HCL 2 MG/2 ML INJ ONE (13:44)
[2024-12-01 16:48] VITALS: BP 128/71; O2SAT 98
--- NOTE | 2024-12-02 00:59 | OP ---
Date of Procedure: 12/01/2024 Surgeon: YELENA MARQUEZ Procedure Performed: Bilateral selective carotid angiogram. Indication: Carotid stenosis. Access: Right common femoral artery 5-Mauritian, closed with 5-Mauritian Mynx closure device. Complications: None. Bleeding: Less than 50 mL. Total Sedation Time: None. We did not do sedation. Description Of Procedure: After risks, benefits, and alternatives were explained, the patient agreed to procedure and signed informed consent. The patient was brought into cardiac [facility], prepped and draped in usual sterile fashion. Then, I accessed right common femoral artery us ing micropuncture kit, ultrasound guidance, and fluoroscopy and placed a 5-Mauritian [place] sheath and took a 4-Mauritian 3DRC catheter into the aortic root and then engaged the right common carotid, took s tandard views and in the left common carotid, took standard views and then removed the catheter and t he sheath, and 5-Mauritian Mynx closure device was used for closure with good hemostasis. Findings: 1. Right common carotid has diffuse 40% to 50% stenosis and the right internal carotid has about 30% stenosis. 2. Left common carotid is normal. The left internal carotid is severely stenosed 90% proximally. Conclusion: Severe left internal carotid artery stenosis. Recommendation: Endarterectomy. SR/MODL Voice ID: [id number] Report ID: [id number]
== END 2024-12-01 16:51 | disposition home or self-care (01) ==
LOC: CCL 13:00
PROVIDERS: ATTEND Internal Medicine
DX: I65.23 Occlusion and stenosis of bilateral carotid arteries (principal); I25.10 Atherosclerotic heart disease of native coronary artery without angina pectoris; E78.5 Hyperlipidemia, unspecified; E03.9 Hypothyroidism, unspecified; Z79.82 Long term (current) use of aspirin; Z79.899 Other long term (current) drug therapy; Z88.8 Allergy status to other drugs, medicaments and biological substances
CPT/HCPCS: 93005; 85025; 80048; 36415; 85610; 85730; 71046; 36222; 76937; C1893; J2003; J2250; J3010; J1644; J7040; C1760; J0461